=== PATIENT | male | born 1950 | race Caucasian/White ===

== ENCOUNTER 2024-11-17 19:45 | Emergency (ER) | payer MEDICARE, MEDICAID, SELFPAY ==
[2024-11-17 19:46] VITALS: BP 196/89; PULSE 92; TEMP 36.7; O2SAT 94; BMI 33.0
[2024-11-17] MEDS: LIDOCAINE HCL 1%-EPINEPHRINE 1:100,000 20 ML MDV INJ (20:01)
--- NOTE | 2024-11-17 20:05 | ED_ITS ---
HPI - Wound/Laceration General Chief Complaint: Wound/Laceration Stated Complaint: Wound Check Time Seen by Provider: 11/17/24 19:45 Source: other Source comment: custodial report and EMS Mode of arrival: ambulance Limitations: other Limitations comment: Hard of hearing History of Present Illness HPI narrative: Patient is a 74-year-old male with a history of CVA who is currently anticoagulated with Eliquis presents to the emergency department for bleeding from a wound to the left cheek. 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 Tonight at the custodial where he resides, there was bleeding from the area where subcutaneous tissue was exposed. Patient denies any pain or other focal medical complaints. Nursing staff was not able to control the bleeding so they called 911. On arrival, the bleeding has stopped. Related Data Previous Rx's ?Medication ?Instructions ?Recorded cephalexin 500 mg capsule 500 mg PO Q8H 7 days #21 caps 11/17/24 Allergies Allergy/AdvReac Type Severity Reaction Status Date / Time No Known Drug Allergies Allergy Verified 11/17/24 19:48 Review of Systems ROS Constitutional Denies: fever or chills Ears, nose, mouth, and throat Denies: throat pain Cardiovascular Denies: chest pain Respiratory Denies: shortness of breath Gastrointestinal Denies: nausea or vomiting Integumentary/Breast Denies: rash Hematologic/Lymphatic Reports: easy bruising and easy bleeding PFSH PFSH Social History Little interest or pleasure in doing things: not at all Feeling down, depressed, or hopeless: not at all Exam Narrative Exam Narrative: Gen.: Awake, alert, in no distress Head: Normocephalic, atraumatic ENT: Moist mucous membranes, 2 cm circular wound to the left cheek with subcutaneous tissue exposure and minimal venous oozing noted from the inferior portion where the tissue was slightly more vascular. No arterial bleeding. Respiratory: No respiratory distress Extremities: Moves extremities equally Psych: Normal mood and affect Neuro: No focal neuro deficit Skin: Warm, dry, intact Constitutional Vital Signs, click to edit/add: Last Vital Signs Temp 98.1 F 11/17/24 19:46 Pulse 92 H 11/17/24 19:46 Resp 16 11/17/24 19:46 BP 196/89 H 11/17/24 19:46 Pulse Ox 94 L 11/17/24 19:46 O2 Del Method Room Air 11/17/24 19:46 Course Vital Signs Vital signs: Vital Signs Temperature 98.1 F 11/17/24 19:46 Pulse Rate 92 H 11/17/24 19:46 Respiratory Rate 16 11/17/24 19:46 Blood Pressure 196/89 H 11/17/24 19:46 Pulse Oximetry 94 L 11/17/24 19:46 Oxygen Delivery Method Room Air 11/17/24 19:46 Temperature 98.1 F 11/17/24 19:46 Pulse Rate 92 H 11/17/24 19:46 Respiratory Rate 16 11/17/24 19:46 Blood Pressure 196/89 H 11/17/24 19:46 Pulse Oximetry 94 L 11/17/24 19:46 Oxygen Delivery Method Room Air 11/17/24 19:46 MDM - Wound/Laceration MDM Narrative Medical decision making narrative: 2 cc of 1% lidocaine with epi were injected, there was no residual bleeding or oozing. A 4-0 Ethilon suture was used to place 1 [id number] suture. There is complete cessation of bleeding after this. Suture should be removed in 7 to 10 days with PCP. As the procedure was 5 days ago, we will place the patient on Keflex as a precaution. Return to the ER if symptoms change or worsen SUPERVISED APC VISIT, PHYSICIAN ATTESTATION: Based on the medical record the care appears appropriate. ? Medical Records Attestation: I reviewed the patient's medical records. Discharge Plan Discharge Chief Complaint: Wound/Laceration Clinical Impression: Postoperative bleeding from incision Patient Disposition: Home, Self-Care Time of Disposition Decision: 20:03 Condition: Good Prescriptions / Home Meds: New cephalexin 500 mg capsule 500 mg PO Q8H 7 Days Qty: 21 0RF Print Language: Swedish Instructions: Acute Wounds (ED) Additional Instructions: Suture removed in 7-10 days with PCP Referrals: MATTHEW FRAZIER [Primary Care Provider] - 1 week
[2024-11-17] MEDS: CEPHALEXIN 500 MG CAPSULE PO (20:37)
[2024-11-17 20:39] VITALS: BP 169/89
[2024-11-17 22:13] VITALS: BP 166/80; PULSE 80; O2SAT 94
== END 2024-11-17 22:16 | disposition home or self-care (01) ==
PROVIDERS: Emergency Provider Emergency Medicine; PCP Family Medicine
DX: L76.21 Postprocedural hemorrhage of skin and subcutaneous tissue following a dermatologic procedure (principal); Z79.01 Long term (current) use of anticoagulants; Z86.73 Personal history of transient ischemic attack (TIA), and cerebral infarction without residual deficits
CPT/HCPCS: 12011; 99283

== ENCOUNTER 2025-04-08 20:46 | Inpatient (IN) | payer MEDICARE, MEDICAID, SELFPAY ==
[2025-04-08] VITALS (26 sets, daily range): BP systolic 76–157; BP diastolic 53–116; PULSE 138–159; TEMP 37.1; O2SAT 89–97; BMI 27.0
--- OUTSIDE RECORDS SUMMARY | 2025-04-08 20:52 | XMS_ITS | Patient Health Record ---
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 Name Role Phone None, Unknown or Primary Care Provider Unavailab le Allergies No Known Allergies Reason For Referral No Information Medications Medication SIG (Take, Route, Frequency, Duration) Notes Start Date End Date Status Melatonin 3 MG 1 tablet at bedtime as needed Orally Once a day for 30 day(s) Active busPIRone HCl 10 MG 1 tablet Orally TID Active Vitamin D3 50 MCG (2000 UT) 1 tablet Orally Once a day for 30 day(s) Active HumaLOG 100 UNIT/ML as directed Subcutaneous Active Zinc 220 (50 Zn) MG 1 capsule Orally Onc e a day for 30 day(s) Active traZODone HCl 50 MG 1/2 tablet at bedtim e as needed Orally Once a day Active Vitamin C 1000 MG 1 tablet Orally Once a day for 30 day(s) Active Magnesium Hydroxide 400 MG/5ML 5 ml at least 4 hours between doses as needed Orally Four times a day Active Multivitamin Adult - 1 tablet Orally Onc e a day for 30 day(s) Active amLODIPine Besylate 10 MG 1 tablet Orall y Once a day for 30 day(s) Active SEROquel 25 MG 1 tablet at bedtime Orally Once a day for 30 day(s) Active Voltaren 1 % as directed Externally Active MiraLax 17 GM 1 packet mixed with 8 ounces of fluid Orally Once a day for 30 day(s) Active Mirtazapine 7.5 MG 1 tablets at bedtime Orally Once a day Active metFORMIN HCl 500 MG 1 tablet with a rafy l Orally BID Active Metoprolol Tartrate 25 MG 1 tablet with food Orally Twice a day for 30 day(s) Active Clopidogrel Bisulfate 75 MG 1 tablet Orally Once a day for 30 day(s) 07/28/2021 Active Atorvastatin Calcium 40 MG 1 tablet Orally Once a day Active Immunizations Vaccine Route Administration Date Status Comme nts Flu, Fluzone (45192) 6 to 35 mos, multi-dose vial Unknown 08/10/2024 Administered Social History Tobacco Use: Social History Observation Description Date Details (start date - stop date) Former Smoker NA - NA Tobacco Use/Smoking Question Answer Notes Patient is a former smoker Problems Problem Type SNOMED Code ICD Code Onset Dates Problem Status W/U Status Risk Notes Problem Bipolar II disorder (17322034) Bipolar II disorder (F31.81) Active confirmed Problem Metabolic encephalopathy (23178873) Metabolic encephalopathy (G93.41) Active confirmed Problem Encephalopathy (12162195) Encephalopathy (G93.40) Active confirmed Problem Coronary artery disease (99863637) CAD (coronary artery disease) (I25.10) Active confirmed Problem Hypertension (90864726) HTN (hypertension) (I10) Active confirmed Problem Anxiety (95621909) Anxiety (F41.9) Active confi rmed Problem CVA - Cerebrovascular accident (846956542) CVA (cerebral vascular accident) (I63.9) Active confirmed Problem Bipolar 1 disorder (061413447) Bipolar 1 disorder (F31.9) Active confirmed Problem 64971576 Dementia without behavioral disturbance, unspecified dementia type (F03.90) Active confirmed Problem Diabetes mellitus type 2 (disorder) (72245977) DM2 (diabetes mellitus, type 2) (E11.9) Active confirmed Problem Dysphagia (02368373) Dysphagia (R13.10) Active confirmed Problem Hearing problem (204380092) Hearing problem (H91.90) Active confirmed Problem Schizoaffective disorder (00121195) Schizoaffective disorder (F25.9) Active confirmed Problem Agitation (38877158) Agitation (R45.1) Active confirmed Problem Altered mental status (066124747) Mental status change (R41.82) Active confirmed Problem Altered mental status (296124924) Mental status alteration (R41.82) Active confirmed Problem Hyperglycemia due to type 2 diabetes mellitus (334824600121218) Hyperglycemia due to type 2 diabetes mellitus (E11.65) Active confirmed Problem 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) DM eye manif type II (E11.39) Active confirmed Problem Mixed anxiety and depressive disorder (875818364) Anxiety and depression (F41.9) Active confirmed Problem Metabolic encephalopathy (21123659) Encephalopathy, metabolic (G93.41) Active confirmed Problem Displacement of lumbar intervertebral disc without myelopathy (40439079) Herniation of right side of L4-L5 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) Active confirmed Problem Angina pectoris (725785176) Anginal pain (I20.9) Active confirmed Plan Of Treatment No Information Insurance Providers Payer Name Payer Address Payer Phone Subscriber Number Group Number Insured Name Patient Relationship to Insured Coverage Start Date Coverage End Date [place] [address] [place] [address] [id number] Brandon Reardon Self - patient is the insured 3 [place] [address] [place], [place] [id number] Brandon Reardon Self - patient is the insured 1 4 [employer] [place] [address] [place] [address] [id number] Brandon Reardon Self - patient is the insured 4 Medical (General) History Medical History History ICD Code Acute kidney injury Anxiety Bipolar disorder Diabetes type II, controlled Hypertension Hyperlipidemia Metabolic encephalopathy Stroke Surgical History Surgery Date(Month/Year) Cardiac surgery Hospitalization History Reason Date(Month/Year) [facility] 06/03/2021
--- OUTSIDE RECORDS SUMMARY | 2025-04-08 20:53 | XMS_ITS | CCD ---
Author Organization [facility] Care Team Providers Care Receiving Clerk Name Role Phone ZACKARY HAYNES Admitting Unavailable ZACKARY HAYNES Attending Unavailable MISC, DOCTOR Primary Care Unavailable ZACKARY HAYNES Consulting Unavailable Unavailable Primary Care Provider Unavailabl e Unavailable Primary Care Provider Unavailabl e Unavailable Primary Care Provider Unavailabl e Unavailable Primary Care Provider Unavailabl e Unavailable Primary Care Provider Unavailabl e FAHOURY, RANIA Referring Unavailable FAHOURY, RANIA Referring Unavailable FAHOURY, RANIA Referring Unavailable FAHOURY, RANIA Referring Unavailable FAHOURY, RANIA Referring Unavailable FAHOURY, RANIA Referring Unavailable FAHOURY, RANIA Referring Unavailable FAHOURY, RANIA Referring Unavailable EVANS DE LA ROSA Attending Unavailable NO PCP, NO PCP Primary Care Unavailable No Pcp, No Pcp Primary Care Provider Unavailabl e No Pcp, No Pcp Primary Care Provider Unavailabl e TUNG YOUNGZA S Referring Unavailable NO PCP, NO PCP Primary Care Unavailable Galo Brand Admitting Unavailable Galo Brand Attending Unavailable STEPHANIE HALL Attending Unavailable NO PCP, NO PCP Primary Care Unavailable NO PCP, NO PCP Primary Care Unavailable GALILEO DOWNEY Attending Unavailable JANET SANDERSON Admitting Unavailable ROSA DE SOUZA Referring Unavailable NO PCP, NO PCP Primary Care Unavailable GALILEO DOWNEY Attending Unavailable GALILEO DOWNEY Referring Unavailable JANET SANDERSON Attending Unavailable JANET SANDERSON Referring Unavailable NO PCP, NO PCP Primary Care Unavailable JANET SANDERSON Attending Unavailable JANET SANDERSON Referring Unavailable NO PCP, NO PCP Primary Care Unavailable JANET SANDERSON Referring Unavailable NO PCP, NO PCP Primary Care Unavailable Allergies Allergy Classification Reported Allergen(s) Allergy Type Date of Onset Reaction(s) Facility (18 sources) amLODIPine; Translations: [AMLODIPINE] Drug Allergy 02-20-2010 [facility] (18 sources) atorvastatin; Translations: [ATORVASTATIN] Drug Allergy 02-17-2015 [facility] (18 sources) Ibuprofen; Translations: [IBUPROFEN] Drug Allergy 08-03-2009 [facility] (18 sources) metFORMIN; Translations: [METFORMIN] Drug Allergy 05-08-2013 [facility] (18 sources) Pravastatin; Translations: [PRAVASTATIN] Drug Allergy 05-08-2013 [facility] (18 sources) Simvastatin; Translations: [SIMVASTATIN] Drug Allergy 02-20-2010 [facility] (18 sources) Terazosin; Translations: [TERAZOSIN] Drug Allergy 08-03-2009 Dizziness [facility] Medications Current Medications Medication Drug Class(es) Dates Sig (Normalized) Sig (Original) apixaban 5 mg oral tablet (19 sources) Factor Xa Inhibitor Start: 01-12-2024 End: 08-03-2024 take 1 tablet by mouth in the morning, then take 1 tablet by mouth at bedtime apixaban (ELIQUIS) 5 mg tablet Take 1 tablet (5 mg total) by mouth in the morning and 1 tablet (5 mg total) before bedtime. 01/12/2024 Active atorvastatin 40 mg oral tablet (20 sources) HMG-CoA Reductase Inhibitor Start: 08-26-2020 End: 08-03-2024 take 1 tablet by mouth once daily atorvastatin (LIPITOR) 40 mg tablet Take 1 tablet (40 mg total) by mouth daily. 08/26/2020 Active bisacodyl 10 mg rectal suppository (15 sources) Stimulant Laxative Start: 07-31-2024 End: 08-03-2024 bisacodyL (DULCOLAX) 10 mg suppository Insert 1 suppository (10 mg total) into the rectum daily as needed for constipation. 12 suppository 08/03/2024 Active clopidogrel 75 mg oral tablet (20 sources) P2Y12 Platelet Inhibitor Start: 12-16-2023 End: 08-03-2024 take 1 tablet by mouth in the morning clopidogreL (PLAVIX) 75 mg tablet Take 1 tablet (75 mg total) by mouth in the morning. 12/16/2023 Active docusate sodium 50 mg / sennosides, alf 8.6 mg oral tablet (18 sources) Start: 01-12-2024 take 2 tablets by mouth once daily sennosides-docusate sodium (SENOKOT-S) 8.6-50 mg Take 2 tablets by mouth nightly. 01/12/2024 Active 3 ml insulin lispro 100 unt/ml pen injector (20 sources) Insulin Analog Start: 07-31-2024 End: 08-02-2024 inject 1-5 [IU] by subcutaneous injection every six hours 1-5 Units, subcutaneous, Every 6 hours, First dose on Sat07/31/24 at 1500, Daytime hyperglycemia dosing. For blood glucose 151-200 mg/dL, give 1 unit. For blood glucose 201-250 mg/dL, give 2 units. For blood glucose 251-300 mg/dL, give 3 units. For blood glucose 301-350 mg/dL, give 4 units. For blood glucose 351-400 mg/dL, give 5 units. Give even if NPO or meals skipped. Do NOT give more often than every 4 hours when NPO. Notify prescriber if blood glucose greater than 400 mg/dL. Look-alike/sound-al felipe medication - verify indication for use. Prime with 2 units of insulin prior to administration. Prandial/supplement al Insulin. Pre-filled pens stable 28 days at room temperature. Insulin lispro should be administered within 15 minutes before or immediately after a meal. Start: 08-12-2020 End: 08-03-2024 inject 1-5 [IU] by subcutaneous injection four times daily at mealtime insulin lispro (HumaLOG) 100 unit/mL insulin pen Inject 1-5 Units under the skin 4 (four) times a day with meals and nightly. 15 mL 12 08/03/2024 Active Start: 08-12-2020 End: 08-03-2024 insulin lispro (HumaLOG) 100 unit/mL insulin pen SQ at night per scale: 201-250 : 2 units; 251-300 : 4; 301-350 : 6; 351-400 : 8. 1 Box 12 08/12/2020 08/03/2024 Discontinued (Stop Taking at Discharge) melatonin 3 mg oral tablet (19 sources) Start: 01-12-2024 End: 08-03-2024 take 1 tablet by mouth once daily as needed for sleep melatonin (CIRCADIN) tablet Take 1 tablet (3 mg total) by mouth nightly as needed for sleep. 01/12/2024 Active metFORMIN hydrochloride 500 mg oral tablet (19 sources) Biguanide take 1 tablet by mouth in the morning, then take 1 tablet by mouth at bedtime metFORMIN (GLUCOPHAGE) 500 mg tablet Take 1 tablet (500 mg total) by mouth in the morning and 1 tablet (500 mg total) before bedtime. Active polyethylene glycol 3350 10282 mg powder for oral solution (19 sources) Osmotic Laxative Start: 01-13-2024 End: 08-03-2024 polyethylene glycol (GLYCOLAX) 17 gram packet Take 17 g by mouth in the morning. 01/13/2024 Active QUEtiapine 25 mg oral tablet (18 sources) Atypical Antipsychotic Start: 01-12-2024 take 0.5 tablet by mouth once daily QUEtiapine (SEROquel) 25 mg tablet Take 0.5 tablets (12.5 mg total) by mouth nightly. 01/12/2024 Active Completed/Discontinued Medications Medication Drug Class(es) Dates Sig (Normalized) Sig (Original) busPIRone hydrochloride 5 mg oral tablet (20 sources) Start: 07-31-2024 End: 08-03-2024 take 5 mg by mouth twice daily 5 mg, oral, 2 times daily, First dose on Sat07/31/24 at 2100, Look-alike/sound- alike medication - verify indication for use. Avoid grapefruit juice. cholecalciferol 0.025 mg oral tablet (20 sources) Vitamin D Start: 08-02-2024 End: 08-03-2024 2,000 Units, oral, Daily, First dose on 08/02/24 at 0915, 1000 units = 25 mcg Start: 08-13-2020 take 1 tablet by [facility] once daily cholecalciferol, vitamin D3, 2,000 units tablet Take 1 tablet (2,000 Units total) by mouth daily. 08/13/2020 Active 24 hr dilTIAZem hydrochloride 180 mg extended release oral capsule (19 sources) Calcium Channel Emily Start: 08-02-2024 End: 08-03-2024 take 180 mg by mouth once daily 180 mg, oral, Daily, First dose (after last modification) on 08/02/24 at 0915, Hold if SBP Start: 01-13-2024 take 1 capsule by [facility] every twenty-four hours in the morning dilTIAZem CD (CARDIZEM CD) 240 mg 24 hr capsule Take 1 capsule (240 mg total) by mouth in the morning. 01/13/2024 Active glucagon (rdna) 1 mg injection (1 source) Antihypoglycemic Agent Start: 07-31-2024 End: 08-03-2024 1 mg, intramuscular, As needed, low blood sugar, blood glucose less than 70 mg/dL and unconscious or NPO without IV access., Starting on Sat07/31/24 at 1444, If conscious and not NPO, immediately follow with meal tray or high protein (7Grams) snack if tray not available. If NPO, initiate IV 5% Dextrose/Water at 100 mL/hr and contact prescriber for additional orders. If blood glucose is not greater than 70 mg/dL after initial treatment, repeat treatment. 50 ml glucose 500 mg/ml prefilled syringe (2 sources) Start: 07-31-2024 End: 08-03-2024 15 g, oral, As needed, low blood sugar, blood glucose less than 70 mg/dL, Starting on Sat07/31/24 at 1444, If patient conscious and taking PO. If blood glucose is not greater than 70 mg/dL after initial treatment, repeat treatment. Start: 07-31-2024 End: 08-03-2024 25 mL, intravenous, As neede d, low blood sugar, blood glucose less than 70 mg/dL and unconscious or NPO with IV access, Starting on Sat07/31/24 at 1444, Push over 1-3 minutes STAT. If conscious and not NPO, immediately follow with meal tray or high protein (7 grams) snack if tray not available. If NPO, initiate 5% dextrose in water at 100 mL/hr and contact prescriber for additional orders. If blood glucose is not greater than 70 mg/dL after initial treatment, repeat treatment. VESICANT (RED) Warning: HYPERTONIC solution. 3 ml insulin glargine 100 unt/ml pen injector (6 sources) Insulin Analog Start: 12-17-2023 End: 08-03-2024 insulin glargine,hum.rec.anlog (BASAGLAR KWIKPEN U-100 INSULIN) 100 unit/mL (3 mL) insulin pen Inject 26 Units under the skin in the morning. 12/17/2023 08/03/2024 Discontinued (Stop Taking at Discharge) iohexoL (OMNIPAQUE) 350 mg iodine/mL injection 100 mL (1 source) Start: 07-31-2024 End: 07-31-2024 100 mL, intravenous, Once in imaging, contrast, Starting on Sat07/31/24 at 1138, For 1 dose, VESICANT (RED) levalbuterol 2.5 mg/ml inhalation solution (19 sources) beta2-Adrene rgic Agonist Start: 08-02-2024 End: 08-03-2024 take 1.25 mg by inhalation every six hours as needed for wheezing Start: 01-12-2024 take 0.5 mL by inhal ation every six hours as needed for wheezing levalbuterol (XOPENEX) 1.25 mg/0.5 mL nebulizer solution Indications: Multifocal pneumonia Inhale 0.5 mL (1.25 mg total) by nebulization every 6 (six) hours as needed for wheezing. 01/12/2024 Active 50 ml magnesium sulfate 40 mg/ml injection (3 sources) Start: 08-01-2024 End: 08-03-2024 2,000 mg, intravenous, at 25 mL/hr, Administer over 120 Minutes, As needed, Magnesium level 1.7 to 1.9 mg/dL, or Ionized Magnesium level 0.45 to 0.5 mmol/L., Starting on 08/01/24 at 1711, Recheck magnesium level 4 hours after infusion complete. With each magnesium result continue the replacement orders as needed. Start: 08-01-2024 End: 08-03-2024 4,000 mg, intravenous, at 25 mL/hr, Administer over 240 Minutes, As needed, Magnesium level 1.6 mg/dL or less, or Ionized Magnesium level 0.44 mmol/L or less, Starting on 08/01/24 at 1711, Recheck magnesium level 4 hours after infusion complete. With each magnesium result continue the replacement orders as needed. Start: 07-31-2024 End: 07-31-2024 2,000 mg, intravenous, at 25 mL/hr, Administer over 120 Minutes, Once, On Sat07/31/24 at 1115, For 1 dose, Infuse each gram over 60 minutes. metoprolol tartrate 50 mg oral tablet (5 sources) beta-Adrenergic Emily Start: 01-12-2024 End: 08-03-2024 take 1 tablet by mouth in the morning, then take 1 tablet by mouth at bedtime metoprolol tartrate (LOPRESSOR) 50 mg tablet Take 1 tablet (50 mg total) by mouth in the morning and 1 tablet (50 mg total) before bedtime. 01/12/2024 08/03/2024 Discontinued (Stop Taking at Discharge) 2 ml ondansetron 2 mg/ml injection (1 source) Serotonin-3 Receptor Antagonist Start: 07-31-2024 End: 07-31-2024 4 mg, intravenous, Once, On Sat07/31/24 at 1020, For 1 dose, Administer over 2-5 minutes. perflutren lipid microspheres (DEFINITY) dilution injection 1.43 mg/10 mL (1 source) Start: 07-31-2024 End: 07-31-2024 2 mL, intravenous, As needed, contrast, Prior to Imaging, Starting on Sat07/31/24 at 1547, For 6 hours, Additional Imaging Orders, Dilute 1.3 mL of Definity with 8.7 mL 0.9% NaCl in 10 mL syringe Administer 2 mL perflutren (Definity) contrast if 2 contiguous segments of the LV are not well visualized. May repeat 2 mL dose until LV visualization is accomplished. Procedure total dose not to exceed 10 mL. Potassium Chloride (1 source) Start: 08-01-2024 End: 08-03-2024 potassium chloride (K-TAB,KLOR-CON) CR tablet 30-50 mEq 125 ml sodium chloride 9 mg/ml prefilled syringe (20 sources) Start: 07-31-2024 End: 07-31-2024 10 mL, intravenous, Once as needed, line care, for use for echo contrast only, Starting on Sat07/31/24 at 1547, For 6 hours, Additional Imaging Orders Start: 07-31-2024 End: 08-01-2024 take 75 mL intravenously every hour 75 mL/hr, intravenous, Continuous, Starting on Sat07/31/24 at 1515, For 10 hours Start: 07-31-2024 End: 08-03-2024 take 25 mL intravenously every hour as needed 25 mL, intravenous, at 100 mL/hr, Administer over 15 Minutes, As needed, line care, line care after IVPB administration, Starting on Sat07/31/24 at 1444 Start: 07-31-2024 End: 07-31-2024 80 mL, intravenous, Once in imaging, pre/post contrast, Starting on Sat07/31/24 at 1138, For 1 dose Start: 07-31-2024 End: 08-03-2024 10 mL, intravenous, As neede d, line care, Starting on Sat07/31/24 at 1138 Start: 01-12-2024 take 10 mL irrigatio n route every twelve hours sodium chloride 0.9 % injection Irrigate with 10 mL as directed every 12 (twelve) hours. 01/12/2024 Active sodium phosphate 20 mmol in sodium chloride 0.9 % 250 mL IVPB (1 source) Start: 08-01-2024 End: 08-03-2024 sodium phosphate 20 mmol in sodium chloride 0.9 % 250 mL IVPB Problems Active Problems Problem Classification Problem Date Documented Date Episodic/Chronic Acute cerebrovascular disease (20 sources) Cerebrovascular accident; Translations: [Cerebral infarction, unspecified] Onset: 06-02-2021 10-10-2024 Chronic Anxiety disorders (12 sources) Anxiety; Translations: [Anxiety disorder, unspecified] 09-04-2024 Chronic Cardiac dysrhythmias (20 sources) Nonsustained ventricular tachycardia ; Translations: [NSVT (nonsustained ventricular tachycardia)] Onset: 07-31-2020 07-31-2020 Chronic Chronic ulcer of skin (7 sources) Pressure ulcer of sacral region; Translations: [Pressure ulcer of sacral region, unspecified stage] Onset: 12-18-2024 12-18-2024 Chronic Coronary atherosclerosis and other heart disease (20 sources) Coronary arteriosclerosis; Translations: [Atherosclerotic heart disease of [place] coronary artery without angina pectoris] Onset: 07-31-2020 01-01-2024 Chronic Diabetes mellitus with complications (20 sources) Hyperglycemia due to type 2 diabetes mellitus; Translations: [Type 2 diabetes mellitus with hyperglycemia] Onset: 12-31-2023 01-01-2024 Chronic Diabetes mellitus without complication (20 sources) Type 2 diabetes mellitus without complications; Translations: [Diabetes mellitus without complication] Onset: 07-30-2016 Chronic Disorders of lipid metabolism (20 sources) Mixed hyperlipidemia; Translations: [Mixed hyperlipidemia] Onset: 01-01-2024 01-01-2024 Chronic Essential hypertension (20 sources) Essential (primary) hypertension; Translations: [Essential hypertension] Onset: 08-04-2020 Chronic Late effects of cerebrovascular disease (2 sources) Hemiplegia and hemiparesis following cerebral infarction affecting right dominant side; Translations: [Hemiplegia and hemiparesis following cerebral infarction affecting right dominant side] Onset: 05-07-2023 Chronic Mood disorders (15 sources) Bipolar disorder; Translations: [Bipolar disorder, unspecified] 10-10-2024 Chronic Other ear and sense organ disorders (3 sources) Other specified disorders of left ear; Translations: [OTHER SPECIFIED DISORDERS LEFT EAR] Onset: 03-29-2019 Episodic Other ear and sense organ disorders (1 source) Unspecified acute noninfective otitis externa, left ear; Translations: [UNS AC NONINFECT OTITIS EXTERNA LT] Onset: 03-31-2019 Episodic Other ear and sense organ disorders (1 source) Cellulitis of left external ear; Translations: [CELLULITIS OF LEFT EXTERNAL EAR] Onset: 03-31-2019 Episodic Other nervous system disorders (2 sources) Metabolic encephalopathy; Translations: [Metabolic encephalopathy] Onset: 04-24-2023 Chronic Other nervous system disorders (20 sources) Metabolic encephalopathy; Translations: [Metabolic encephalopathy] Onset: 08-18-2020 10-10-2024 Chronic Paralysis (2 sources) Hemiplegia, unspecified affecting unspecified side; Translations: [Hemiplegia, unspecified affecting unspecified side] Onset: 05-07-2023 Chronic Unclassified (1 source) 74M, Projectile chunky vomiting for 3 min, from [facility], altered, 147/69, 96%RA, 18, IV in. Onset: 07-31-2024 Past or Other Problems Problem Classification Problem Date Documented Da te Episodic/Chronic Acute and unspecified renal failure (18 sources) Acute renal failure syndrome; Translations: [Acute kidney failure, unspecified] Onset: 08-18-2020 08-18-2020 Episodic Biliary tract disease (19 sources) Acute cholecystitis; Translations: [Acute cholecystitis] Onset: 12-31-2023 01-01-2024 Episodic Intestinal obstruction without hernia (18 sources) Intestinal obstruction co-occurrent and due to decreased peristalsis; Translations: [Ileus, unspecified] Onset: 01-01-2024 01-01-2024 Episodic Nausea and vomiting (1 source) Vomiting Onset: 07-31-2024 Episodic Neoplasms of unspecified nature or uncertain behavior (1 source) Neoplasm of uncertain behavior of skin; Translations: [Neoplasm of uncertain behavior of skin] 08-25-2024 Episodic Other connective tissue disease (18 sources) Rhabdomyolysis; Translations: [Rhabdomyolysis] Onset: 08-04-2020 08-04-2020 Episodic Other connective tissue disease (18 sources) Neurological symptom; Translations: [Unspecified symptoms and signs involving the nervous system] Onset: 09-17-2023 09-17-2023 Episodic Other skin disorders (9 sources) Xeroderma; Translations: [Xerosis cutis] Onset: 09-13-2024 09-13-2024 Episodic Pneumonia (except that caused by tuberculosis or sexually transmitted disease) (18 sources) Pneumonia; Translations: [Pneumonia, unspecified organism] Onset: 12-31-2023 Resolved: 10-10-2024 10-10-2024 Episodic Respiratory failure; insufficiency; arrest (adult) (18 sources) Acute respiratory failure; Translations: [Acute respiratory failure with hypoxia] Onset: 01-01-2024 Resolved: 01-18-2025 01-07-2024 Episodic Septicemia (except in labor) (19 sources) Sepsis; Translations: [Sepsis, unspecified organism] Onset: 01-01-2024 Resolved: 10-10-2024 10-10-2024 Episodic Syncope (18 sources) Syncope; Translations: [Syncope and collapse] Onset: 07-31-2024 07-31-2024 Episodic Urinary tract infections (18 sources) Acute cystitis; Translations: [Acute cystitis without hematuria] Onset: 08-18-2020 08-18-2020 Episodic Viral infection (20 sources) Disease caused by 2019-nCoV; Translations: [COVID-19] Onset: 07-31-2020 08-18-2020 Episodic Results Test Name Value Interpretation Reference Range Facility CBC AND AUTO DIFFon 08-03-20 ABSOLUTE BASOPHIL 0.0 X10E9/L Normal 0.0-0.2 [facility] Comment on above: Performed By: #### C BCA, CMP, 3040-3, 70859-0, 63176-3, 78499- 1 #### [facility] ([id number]) [address] [place] [address] ABSOLUTE NEUTROPHIL 5.8 X10E9/L Normal 1.5-6.6 [facility] Comment on above: Performed By: #### C BCA, CMP, 3040-3, 79328-7, 50700-9, 25073- 1 #### [facility] ([id number]) [address] [place] [address] Basophils/100 WBC (Bld) 0.5 % Normal [facility] Comment on above: Performed By: #### C BCA, CMP, 3040-3, 08492-2, 74198-5, 03146- 1 #### [facility] ([id number]) [address] [place] [address] Eosinophils (Bld) [#/Vol] 0.2 10*3/uL Normal 0.0-0.4 [facility] Comment on above: Performed By: #### C BCA, CMP, 3040-3, 73121-1, 86616-1, 73545- 1 #### [facility] ([id number]) [address] [place] [address] Eosinophils/100 WBC (Bld) 2.1 % Normal [facility] Comment on above: Performed By: #### C BCA, CMP, 3040-3, 95991-1, 87310-7, 47098- 1 #### [facility] ([id number]) [address] [place] [address] Erythrocyte distribution width (RBC) [Ratio] 15.8 % High 11.5-15.0 [facility] Comment on above: Performed By: #### C BCA, CMP, 3040-3, 72603-9, 14848-8, 14574- 1 #### [facility] ([id number]) [address] [place] [address] Hematocrit (Bld) [Volume fraction] 35.9 % Low 39-49 [facility] Comment on above: Performed By: #### C BCA, CMP, 3040-3, 88754-5, 84229-1, 10286- 1 #### [facility] ([id number]) [address] [place] [address] Hemoglobin (Bld) [Mass/Vol] 12.5 g/dL Low 13.0-17.0 [facility] Comment on above: Performed By: #### C BCA, CMP, 3040-3, 54272-1, 73830-7, 19750- 1 #### [facility] ([id number]) [facility] [place] [address] Lymphocytes (Bld) [#/Vol] 2.2 10*3/uL Normal 1.0-3.5 [facility] Comment on above: Performed By: #### C BCA, CMP, 3040-3, 78950-4, 81441-6, 29350- 1 #### [facility] ([id number]) [facility] [place] [address] Lymphocytes/100 WBC (Bld) 24.7 % Normal [facility] Comment on above: Performed By: #### C BCA, CMP, 3040-3, 90580-4, 03197-9, 56422- 1 #### [facility] ([id number]) [facility] [place] [address] MCH (RBC) [Entitic mass] 29.6 pg Normal 27-34 [facility] Comment on above: Performed By: #### C BCA, CMP, 3040-3, 40631-6, 37634-0, 63529- 1 #### [facility] ([id number]) [address] [place] [address] MCHC (RBC) [Mass/Vol] 34.8 g/dL Normal 32-36 [facility] Comment on above: Performed By: #### C BCA, CMP, 3040-3, 48669-1, 21675-4, 25234- 1 #### [facility] ([id number]) [address] [place] [address] MCV (RBC) [Entitic vol] 85 fL Normal 80-100 [facility] Comment on above: Performed By: #### C BCA, CMP, 3040-3, 05253-9, 09866-2, 55931- 1 #### [facility] ([id number]) [address] [place] [address] Monocytes (Bld) [#/Vol] 0.7 10*3/uL Normal 0-0.9 [facility] Comment on above: Performed By: #### C BCA, CMP, 3040-3, 16803-6, 89407-4, 66132- 1 #### [facility] ([id number]) [facility] [place] [address] Monocytes/100 WBC (Bld) 7.6 % Normal [facility] Comment on above: Performed By: #### C BCA, CMP, 3040-3, 72666-4, 16926-3, 24660- 1 #### [facility] ([id number]) [facility] [place] [address] Neutrophils/100 WBC (Bld) 65.1 % Normal [facility] Comment on above: Performed By: #### C BCA, CMP, 3040-3, 79098-9, 28610-2, 46978- 1 #### [facility] ([id number]) [facility] [place] [address] Platelet mean volume (Bld) [Entitic vol] 7.8 fL Normal 7-12 [facility] Comment on above: Performed By: #### C BCA, CMP, 3040-3, 15224-1, 15944-4, 85966- 1 #### [facility] ([id number]) [facility] [place] [address] Platelets (Bld) [#/Vol] 181 10*3/uL Normal 150-450 [facility] Comment on above: Performed By: #### C BCA, CMP, 3040-3, 83369-7, 10803-1, 22565- 1 #### [facility] ([id number]) [address] [place] [address] RBC COUNT 4.22 X10E12/L Normal 4.10-5.70 [facility] Comment on above: Performed By: #### C BCA, CMP, 3040-3, 14492-9, 00696-4, 77141- 1 #### [facility] ([id number]) [address] [place] [address] WBC (Bld) [#/Vol] 9.0 10*3/uL Normal 4.0-11.0 [facility] Comment on above: Performed By: #### C BCA, CMP, 3040-3, 88018-8, 33571-7, 82644- 1 #### [facility] ([id number]) [address] [place] [address] CBC auto differentialon 07-21 Basophils (Bld) [#/Vol] 0.0 10*3/uL [facility] Basophils/100 WBC (Bld) 0.5 % [facility] Eosinophils (Bld) [#/Vol] 0.2 10*3/uL [facility] Eosinophils/100 WBC (Bld) 2.1 % [facility] Erythrocyte distribution width (RBC) [Ratio] 15.8 % High 11.5 - 15.0 % [facility] Hematocrit (Bld) [Volume fraction] 35.9 % Low 39 - 49 % [facility] Hemoglobin (Bld) [Mass/Vol] 12.5 g/dL Low 13.0 - 17.0 g/dL [facility] Interpretation and review of laboratory results Abnormal [facility] Lymphocytes (Bld) [#/Vol] 2.2 10*3/uL [facility] Lymphocytes/100 WBC (Bld) 24.7 % [facility] MCH (RBC) [Entitic mass] 29.6 pg 27 - 34 pg [facility] MCHC (RBC) [Mass/Vol] 34.8 g/dL 32 - 36 g/dL [facility] MCV (RBC) [Entitic vol] 85 fL 80 - 100 fL [facility] Monocytes (Bld) [#/Vol] 0.7 10*3/uL [facility] Monocytes/100 WBC (Bld) 7.6 % [facility] Neutrophils (Bld) [#/Vol] 5.8 10*3/uL [facility] Neutrophils/100 WBC (Bld) 65.1 % [facility] Platelet mean volume (Bld) [Entitic vol] 7.8 fL 7 - 12 fL [facility] Platelets (Bld) [#/Vol] 181 10*3/uL [facility] RBC (Bld) [#/Vol] 4.22 10*6/uL [facility] WBC corrected for nucl RBC Auto (Bld) [#/Vol] 9.0 [facility] COMPREHENSIVE METABOLIC PANE Domenico 08-03-2024 Albumin [Mass/Vol] 3.6 g/dL Normal 3.2-5.3 [facility] Comment on above: Performed By: #### C BCA, CMP, 3040-3, 99383-9, 70567-2, 51800- 1 #### [facility] ([id number]) [facility] [place] [address] ALP [Catalytic activity/Vol] 72 U/L Normal 39-130 [facility] Comment on above: Performed By: #### C BCA, CMP, 3040-3, 78495-2, 58597-7, 38126- 1 #### [facility] ([id number]) [address] [place] [address] ALT [Catalytic activity/Vol] 7 U/L Normal 0-40 [facility] Comment on above: Performed By: #### C BCA, CMP, 3040-3, 79510-4, 47673-0, 87699- 1 #### [facility] ([id number]) [address] [place] [address] Anion gap [Moles/Vol] 8 mmol/L Normal 5-15 [facility] Comment on above: Performed By: #### C BCA, CMP, 3040-3, 37377-1, 25559-3, 32205- 1 #### [facility] ([id number]) [address] [place] [address] AST [Catalytic activity/Vol] 9 U/L Normal 0-41 [facility] Comment on above: Performed By: #### C BCA, CMP, 3040-3, 31402-9, 43774-7, 28543- 1 #### [facility] ([id number]) [address] [place] [address] Bilirubin [Mass/Vol] 0.6 mg/dL Normal 0.3-1.2 [facility] Comment on above: Performed By: #### C BCA, CMP, 3040-3, 54914-1, 21725-3, 17457- 1 #### [facility] ([id number]) [address] [place] [address] Calcium [Mass/Vol] 8.9 mg/dL Normal 8.5-10.5 [facility] Comment on above: Performed By: #### C BCA, CMP, 3040-3, 65539-8, 11746-0, 53733- 1 #### [facility] ([id number]) [address] [place] [address] Chloride [Moles/Vol] 107 mmol/L Normal 98-109 [facility] Comment on above: Performed By: #### C BCA, CMP, 3040-3, 24760-3, 74302-0, 70377- 1 #### [facility] ([id number]) [address] [place] [address] CO2 [Moles/Vol] 23 mmol/L Normal 22-32 [facility] Comment on above: Performed By: #### C BCA, CMP, 3040-3, 91490-3, 59376-1, 75053- 1 #### [facility] ([id number]) [address] [place] [address] Creatinine [Mass/Vol] 0.83 mg/dL Normal 0.60-1.30 [facility] Comment on above: Result Comment: METH OD TRACEABLE TO IDMS STANDARD Performed By: #### C BCA, CMP, 3040-3, 43965-2, 82361-0, 15199-6 #### [facility] ([id number]) [address] [facility] [address] eGFR (CKD-EPI) NON-RACE DEPENDENT >90 Normal >59 [facility] Comment on above: Result Comment: Reported eGFR is based on the CKD-EPI 2020 equation that does not use a race coefficient. Performed By: #### C BCA, CMP, 3040-3, 23929-0, 46424-8, 52804-8 #### [facility] ([id number]) [address] [place] [address] Glucose [Mass/Vol] 175 mg/dL High 65-99 [facility] Comment on above: Performed By: #### C BCA, CMP, 3040-3, 97516-6, 18049-6, 59587- 1 #### [facility] ([id number]) [address] [place] [address] Potassium [Moles/Vol] 4.1 mmol/L Normal 3.5-5.0 [facility] Comment on above: Performed By: #### C BCA, CMP, 3040-3, 40470-9, 74327-9, 17190- 1 #### [facility] ([id number]) [address] [place] [address] Protein [Mass/Vol] 5.9 g/dL Low 6.0-8.0 [facility] Comment on above: Performed By: #### C BCA, CMP, 3040-3, 38665-6, 58786-3, 43833- 1 #### [facility] ([id number]) [address] [facility] [address] Sodium [Moles/Vol] 138 mmol/L Normal 134-146 [facility] Comment on above: Performed By: #### C BCA, CMP, 3040-3, 33737-0, 16145-8, 06112- 1 #### [facility] ([id number]) [address] [place] [address] Urea nitrogen [Mass/Vol] 22 mg/dL Normal 5-27 [facility] Comment on above: Performed By: #### C BCA, CMP, 3040-3, 70087-4, 48408-8, 94103- 1 #### [facility] ([id number]) [address] [place] [address] Comprehensive metabolic pane domenico 08-03-2024 Albumin [Mass/Vol] 3.6 g/dL 3.2 - 5.3 g/dL [facility] ALP [Catalytic activity/Vol] 72 U/L 39 - 130 U/L [facility] ALT No additional P-5'-P [Catalytic activity/Vol] 7 U/L 0 - 40 U/L [facility] Anion gap [Moles/Vol] 8 mmol/L 5 - 15 mmol/L [facility] AST [Catalytic activity/Vol] 9 U/L 0 - 41 U/L [facility] Bilirubin [Mass/Vol] 0.6 mg/dL 0.3 - 1 .2 mg/dL [facility] Calcium [Mass/Vol] 8.9 mg/dL 8.5 - 10. 5 mg/dL [facility] Chloride [Moles/Vol] 107 mmol/L 98 - 10 9 mmol/L [facility] CO2 [Moles/Vol] 23 mmol/L 22 - 32 mmol/L [facility] Creatinine [Mass/Vol] 0.83 mg/dL 0.60 - 1.30 mg/dL [facility] Comment on above: METHOD TRACEABLE TO IDMS STANDARD eGFR (CKD-EPI)non-race dependent - PINF [facility] Comment on above: Reported eGFR is based on the CKD-EPI 2020 equation that does not use a race coefficient. Glucose [Mass/Vol] 175 mg/dL High 65 - 99 mg/dL [facility] Potassium [Moles/Vol] 4.1 mmol/L 3.5 - 5.0 mmol/L [facility] Protein [Mass/Vol] 5.9 g/dL Low 6.0 - 8.0 g/dL [facility] Sodium [Moles/Vol] 138 mmol/L 134 - 146 mmol/L [facility] Urea nitrogen [Mass/Vol] 22 mg/dL 5 - 27 mg/dL [facility] Glucose Glucometer (BldC) [M ass/Vol]on 08-03-2024 Glucose [Mass/Vol] 150 mg/dL High 65 - 99 mg/dL [facility] Interpretation and review of laboratory results Abnormal [facility] Glucose [Mass/Vol] 150 mg/dL High 65-99 [facility] Glucose [Mass/Vol] 161 mg/dL High 65 - 99 mg/dL [facility] Interpretation and review of laboratory results Abnormal [facility] Glucose [Mass/Vol] 161 mg/dL High 65-99 [facility] MAGNESIUMon 08-03-2024 Magnesium [Mass/Vol] 1.7 mg/dL Low 1.8-2.6 [facility] Comment on above: Performed By: #### C BCA, CMP, 3040-3, 22357-4, 69219-1, 12920- 1 #### [facility] ([id number]) [address] [place] [address] Magnesiumon 08-03-2024 Magnesium [Mass/Vol] 1.7 mg/dL Low 1.8 - 2 .6 mg/dL [facility] No Panel Informationon 08-03 Interpretation and review of laboratory results Abnormal [facility] CBC AND AUTO DIFFon 08-02-20 24 ABSOLUTE BASOPHIL 0.0 X10E9/L Normal 0.0-0.2 [facility] Comment on above: Performed By: #### C BCA, CMP, 3040-3, 84974-2, 25140-6, 28472- 1 #### [facility] ([id number]) [address] [place] [address] ABSOLUTE NEUTROPHIL 5.5 X10E9/L Normal 1.5-6.6 [facility] Comment on above: Performed By: #### C BCA, CMP, 3040-3, 06230-7, 22392-4, 98834- 1 #### [facility] ([id number]) [facility] [place] [address] Basophils/100 WBC (Bld) 0.4 % Normal [facility] Comment on above: Performed By: #### C BCA, CMP, 3040-3, 43340-9, 61714-9, 46516- 1 #### [facility] ([id number]) [facility] [place] [address] Eosinophils (Bld) [#/Vol] 0.1 10*3/uL Normal 0.0-0.4 [facility] Comment on above: Performed By: #### C BCA, CMP, 3040-3, 43414-3, 20926-6, 61548- 1 #### [facility] ([id number]) [address] [place] [address] Eosinophils/100 WBC (Bld) 1.5 % Normal [facility] Comment on above: Performed By: #### C BCA, CMP, 3040-3, 51628-6, 31202-7, 06100- 1 #### [facility] ([id number]) [address] [place] [address] Erythrocyte distribution width (RBC) [Ratio] 15.4 % High 11.5-15.0 [facility] Comment on above: Performed By: #### C BCA, CMP, 3040-3, 85683-9, 37189-4, 57245- 1 #### [facility] ([id number]) [facility] [place] [address] Hematocrit (Bld) [Volume fraction] 37.0 % Low 39-49 [facility] Comment on above: Performed By: #### C BCA, CMP, 3040-3, 19532-5, 95701-7, 78666- 1 #### [facility] ([id number]) [address] [place] [address] Hemoglobin (Bld) [Mass/Vol] 12.6 g/dL Low 13.0-17.0 [facility] Comment on above: Performed By: #### C BCA, CMP, 3040-3, 97062-2, 90242-0, 76708- 1 #### [facility] ([id number]) [address] [place] [address] Lymphocytes (Bld) [#/Vol] 2.0 10*3/uL Normal 1.0-3.5 [facility] Comment on above: Performed By: #### C BCA, CMP, 3040-3, 23633-5, 73968-2, 66159- 1 #### [facility] ([id number]) [address] [place] [address] Lymphocytes/100 WBC (Bld) 24.0 % Normal [facility] Comment on above: Performed By: #### C BCA, CMP, 3040-3, 77385-8, 91338-9, 15402- 1 #### [facility] ([id number]) [address] [place] [address] MCH (RBC) [Entitic mass] 28.8 pg Normal 27-34 [facility] Comment on above: Performed By: #### C BCA, CMP, 3040-3, 58923-0, 80336-5, 26368- 1 #### [facility] ([id number]) [address] [place] [address] MCHC (RBC) [Mass/Vol] 34.0 g/dL Normal 32-36 [facility] Comment on above: Performed By: #### C BCA, CMP, 3040-3, 69960-2, 34274-5, 67943- 1 #### [facility] ([id number]) [address] [place] [address] MCV (RBC) [Entitic vol] 85 fL Normal 80-100 [facility] Comment on above: Performed By: #### C BCA, CMP, 3040-3, 72020-6, 77104-5, 15185- 1 #### [facility] ([id number]) [address] [place] [address] Monocytes (Bld) [#/Vol] 0.6 10*3/uL Normal 0-0.9 [facility] Comment on above: Performed By: #### C BCA, CMP, 3040-3, 49505-8, 16985-2, 17366- 1 #### [facility] ([id number]) [address] [place] [address] Monocytes/100 WBC (Bld) 7.6 % Normal [facility] Comment on above: Performed By: #### C BCA, CMP, 3040-3, 70437-0, 93792-4, 38449- 1 #### [facility] ([id number]) [facility] [place] [address] Neutrophils/100 WBC (Bld) 66.5 % Normal [facility] Comment on above: Performed By: #### C BCA, CMP, 3040-3, 13419-9, 45792-6, 63646- 1 #### [facility] ([id number]) [facility] [place] [address] Platelet mean volume (Bld) [Entitic vol] 8.0 fL Normal 7-12 [facility] Comment on above: Performed By: #### C BCA, CMP, 3040-3, 55593-5, 79637-4, 67443- 1 #### [facility] ([id number]) [address] [place] [address] Platelets (Bld) [#/Vol] 177 10*3/uL Normal 150-450 [facility] Comment on above: Performed By: #### C BCA, CMP, 3040-3, 16708-4, 15917-5, 16584- 1 #### [facility] ([id number]) [address] [place] [address] RBC COUNT 4.38 X10E12/L Normal 4.10-5.70 [facility] Comment on above: Performed By: #### C BCA, CMP, 3040-3, 14429-2, 68429-4, 11951- 1 #### [facility] ([id number]) [address] [place] [address] WBC (Bld) [#/Vol] 8.3 10*3/uL Normal 4.0-11.0 [facility] Comment on above: Performed By: #### C BCA, CMP, 3040-3, 18374-7, 34076-7, 91109- 1 #### [facility] ([id number]) [address] [place] [address] CBC auto differentialon 07-21 Basophils (Bld) [#/Vol] 0.0 10*3/uL [facility] Basophils/100 WBC (Bld) 0.4 % [facility] Eosinophils (Bld) [#/Vol] 0.1 10*3/uL [facility] Eosinophils/100 WBC (Bld) 1.5 % [facility] Erythrocyte distribution width (RBC) [Ratio] 15.4 % High 11.5 - 15.0 % [facility] Hematocrit (Bld) [Volume fraction] 37.0 % Low 39 - 49 % [facility] Hemoglobin (Bld) [Mass/Vol] 12.6 g/dL Low 13.0 - 17.0 g/dL [facility] Interpretation and review of laboratory results Abnormal [facility] Lymphocytes (Bld) [#/Vol] 2.0 10*3/uL [facility] Lymphocytes/100 WBC (Bld) 24.0 % [facility] MCH (RBC) [Entitic mass] 28.8 pg 27 - 34 pg [facility] MCHC (RBC) [Mass/Vol] 34.0 g/dL 32 - 36 g/dL [facility] MCV (RBC) [Entitic vol] 85 fL 80 - 100 fL [facility] Monocytes (Bld) [#/Vol] 0.6 10*3/uL [facility] Monocytes/100 WBC (Bld) 7.6 % [facility] Neutrophils (Bld) [#/Vol] 5.5 10*3/uL [facility] Neutrophils/100 WBC (Bld) 66.5 % [facility] Platelet mean volume (Bld) [Entitic vol] 8.0 fL 7 - 12 fL [facility] Platelets (Bld) [#/Vol] 177 10*3/uL [facility] RBC (Bld) [#/Vol] 4.38 10*6/uL [facility] WBC corrected for nucl RBC Auto (Bld) [#/Vol] 8.3 [facility] COMPREHENSIVE METABOLIC PANE Domenico 08-02-2024 Albumin [Mass/Vol] 3.6 g/dL Normal 3.2-5.3 [facility] Comment on above: Performed By: #### C BCA, CMP, 3040-3, 62497-5, 59984-1, 24383- 1 #### [facility] ([id number]) [facility] [place] [address] ALP [Catalytic activity/Vol] 77 U/L Normal 39-130 [facility] Comment on above: Performed By: #### C BCA, CMP, 3040-3, 21280-9, 59858-1, 70710- 1 #### [facility] ([id number]) [address] [place] [address] ALT [Catalytic activity/Vol] 7 U/L Normal 0-40 [facility] Comment on above: Performed By: #### C BCA, CMP, 3040-3, 69959-9, 40789-5, 68548- 1 #### [facility] ([id number]) [facility] [place] [address] Anion gap [Moles/Vol] 7 mmol/L Normal 5-15 [facility] Comment on above: Performed By: #### C BCA, CMP, 3040-3, 37150-5, 56661-6, 76610- 1 #### [facility] ([id number]) [address] [place] [address] AST [Catalytic activity/Vol] 10 U/L Normal 0-41 [facility] Comment on above: Performed By: #### C BCA, CMP, 3040-3, 72998-2, 06488-0, 82736- 1 #### [facility] ([id number]) [address] [place] [address] Bilirubin [Mass/Vol] 0.5 mg/dL Normal 0.3-1.2 [facility] Comment on above: Performed By: #### C BCA, CMP, 3040-3, 26851-5, 55298-6, 84822- 1 #### [facility] ([id number]) [address] [place] [address] Calcium [Mass/Vol] 9.0 mg/dL Normal 8.5-10.5 [facility] Comment on above: Performed By: #### C BCA, CMP, 3040-3, 58299-4, 55283-7, 16995- 1 #### [facility] ([id number]) [address] [place] [address] Chloride [Moles/Vol] 108 mmol/L Normal 98-109 [facility] Comment on above: Performed By: #### C BCA, CMP, 3040-3, 85358-1, 85052-3, 49294- 1 #### [facility] ([id number]) [address] [place] [address] CO2 [Moles/Vol] 24 mmol/L Normal 22-32 [facility] Comment on above: Performed By: #### C BCA, CMP, 3040-3, 67852-4, 60465-4, 23308- 1 #### [facility] ([id number]) [address] [place] [address] Creatinine [Mass/Vol] 0.86 mg/dL Normal 0.60-1.30 [facility] Comment on above: Result Comment: METH OD TRACEABLE TO IDMS STANDARD Performed By: #### C BCA, CMP, 3040-3, 86563-0, 44363-8, 46625-7 #### [facility] ([id number]) [address] [place] [address] GFR/1.73 sq M.predicted among non-blacks MDRD (S/P/Bld) [Vol rate/Area] 90 mL/min/{1.73_m2} Normal >59 [facility] Comment on above: Result Comment: Reported eGFR is based on the CKD-EPI 2020 equation that does not use a race coefficient. Performed By: #### C BCA, CMP, 3040-3, 04080-7, 93174-7, 68590-4 #### [facility] ([id number]) [address] [place] [address] Glucose [Mass/Vol] 179 mg/dL High 65-99 [facility] Comment on above: Performed By: #### C BCA, CMP, 3040-3, 64320-7, 67101-6, 89264- 1 #### [facility] ([id number]) [address] [place] [address] Potassium [Moles/Vol] 4.1 mmol/L Normal 3.5-5.0 [facility] Comment on above: Performed By: #### C BCA, CMP, 3040-3, 41873-4, 48940-2, 05921- 1 #### [facility] ([id number]) [address] [place] [address] Protein [Mass/Vol] 6.0 g/dL Normal 6.0-8.0 [facility] Comment on above: Performed By: #### C BCA, CMP, 3040-3, 23210-2, 54555-6, 46642- 1 #### [facility] ([id number]) [address] [place] [address] Sodium [Moles/Vol] 139 mmol/L Normal 134-146 [facility] Comment on above: Performed By: #### C BCA, CMP, 3040-3, 23547-7, 66359-6, 33745- 1 #### [facility] ([id number]) [address] [place] [address] Urea nitrogen [Mass/Vol] 21 mg/dL Normal 5-27 [facility] Comment on above: Performed By: #### C BCA, CMP, 3040-3, 10065-2, 95287-0, 25900- 1 #### [facility] ([id number]) [address] [place] [address] Comprehensive metabolic pane domenico 08-02-2024 Albumin [Mass/Vol] 3.6 g/dL 3.2 - 5.3 g/dL [facility] ALP [Catalytic activity/Vol] 77 U/L 39 - 130 U/L [facility] ALT No additional P-5'-P [Catalytic activity/Vol] 7 U/L 0 - 40 U/L [facility] Anion gap [Moles/Vol] 7 mmol/L 5 - 15 mmol/L [facility] AST [Catalytic activity/Vol] 10 U/L 0 - 41 U/L [facility] Bilirubin [Mass/Vol] 0.5 mg/dL 0.3 - 1 .2 mg/dL [facility] Calcium [Mass/Vol] 9.0 mg/dL 8.5 - 10. 5 mg/dL [facility] Chloride [Moles/Vol] 108 mmol/L 98 - 10 9 mmol/L [facility] CO2 [Moles/Vol] 24 mmol/L 22 - 32 mmol/L [facility] Creatinine [Mass/Vol] 0.86 mg/dL 0.60 - 1.30 mg/dL [facility] Comment on above: METHOD TRACEABLE TO IDMI STANDARD eGFR (CKD-EPI)non-race dependent 90 - PINF [facility] Comment on above: Reported eGFR is based on the CKD-EPI 2020 equation that does not use a race coefficient. Glucose [Mass/Vol] 179 mg/dL High 65 - 99 mg/dL [facility] Interpretation and review of laboratory results Abnormal [facility] Potassium [Moles/Vol] 4.1 mmol/L 3.5 - 5.0 mmol/L [facility] Protein [Mass/Vol] 6.0 g/dL 6.0 - 8.0 g/dL [facility] Sodium [Moles/Vol] 139 mmol/L 134 - 146 mmol/L [facility] Urea nitrogen [Mass/Vol] 21 mg/dL 5 - 27 mg/dL [facility] Glucose Glucometer (BldC) [M ass/Vol]on 08-02-2024 Glucose [Mass/Vol] 167 mg/dL High 65 - 99 mg/dL [facility] Interpretation and review of laboratory results Abnormal [facility] Glucose [Mass/Vol] 167 mg/dL High 65-99 [facility] Glucose [Mass/Vol] 243 mg/dL High 65 - 99 mg/dL [facility] Interpretation and review of laboratory results Abnormal [facility] Glucose [Mass/Vol] 243 mg/dL High 65-99 [facility] Glucose [Mass/Vol] 185 mg/dL High 65 - 99 mg/dL [facility] Interpretation and review of laboratory results Abnormal [facility] Glucose [Mass/Vol] 185 mg/dL High 65-99 [facility] Glucose [Mass/Vol] 148 mg/dL High 65 - 99 mg/dL [facility] Interpretation and review of laboratory results Abnormal [facility] Glucose [Mass/Vol] 148 mg/dL High 65-99 [facility] Glucose [Mass/Vol] 198 mg/dL High 65 - 99 mg/dL [facility] Interpretation and review of laboratory results Abnormal [facility] Glucose [Mass/Vol] 198 mg/dL High 65-99 [facility] Glucose [Mass/Vol] 250 mg/dL High 65 - 99 mg/dL [facility] Interpretation and review of laboratory results Abnormal [facility] MAGNESIUMon 08-02-2024 Magnesium [Mass/Vol] 1.9 mg/dL Normal 1.8-2.6 [facility] Comment on above: Performed By: #### C BCA, CMP, 6946-4, 61339-9, 37132-3, 63950- 1 #### [facility] ([id number]) [address] [place] [address] Magnesium [Mass/Vol] 1.8 mg/dL Normal 1.8-2.6 [facility] Comment on above: Performed By: #### C BCA, CMP, 3040-3, 88527-1, 63735-2, 06524- 1 #### [facility] ([id number]) [address] [place] [address] Magnesiumon 08-02-2024 Magnesium [Mass/Vol] 1.9 mg/dL 1.8 - 2 .6 mg/dL [facility] Magnesium [Mass/Vol] 1.8 mg/dL 1.8 - 2 .6 mg/dL [facility] Magnesium [Mass/Vol]on 08-02 [facility] No Panel Informationon 08-02 [facility] CBC AND AUTO DIFFon 08-01-20 24 ABSOLUTE BASOPHIL 0.0 X10E9/L Normal 0.0-0.2 [facility] Comment on above: Performed By: #### 6 32-0 #### [facility] ([id number]) [address] [facility] [place] [address] ABSOLUTE NEUTROPHIL 6.4 X10E9/L Normal 1.5-6.6 [facility] Comment on above: Performed By: #### 6 32-0 #### [facility] ([id number]) [address] [facility], [address] [place] [address] Basophils/100 WBC (Bld) 0.5 % Normal [facility] Comment on above: Performed By: #### 6 32-0 #### [facility] ([id number]) [address] [facility] [facility], [address] [place] [address] Eosinophils (Bld) [#/Vol] 0.1 10*3/uL Normal 0.0-0.4 [facility] Comment on above: Performed By: #### 6 32-0 #### [facility] ([id number]) [address], [address] [place] [address] Eosinophils/100 WBC (Bld) 1.4 % Normal [facility] Comment on above: Performed By: #### 6 32-0 #### [facility] ([id number]) [address], [address] [place] [address] Erythrocyte distribution width (RBC) [Ratio] 16.0 % High 11.5-15.0 [facility] Comment on above: Performed By: #### 6 32-0 #### [facility] ([id number]) [address], [facility] [address] [place] [address] Hematocrit (Bld) [Volume fraction] 37.7 % Low 39-49 [facility] Comment on above: Performed By: #### 6 32-0 #### [facility] ([id number]) [address] [place] [address] Hemoglobin (Bld) [Mass/Vol] 12.9 g/dL Low 13.0-17.0 [facility] Comment on above: Performed By: #### 6 32-0 #### [facility] ([id number]) [address], [address] [place] [address] Lymphocytes (Bld) [#/Vol] 2.5 10*3/uL Normal 1.0-3.5 [facility] Comment on above: Performed By: #### 6 32-0 #### [facility] ([id number]) [address], [address] [place] [address] Lymphocytes/100 WBC (Bld) 25.2 % Normal [facility] Comment on above: Performed By: #### 6 32-0 #### [facility] ([id number]) [address], [address] [place] [address] MCH (RBC) [Entitic mass] 28.7 pg Normal 27-34 [facility] Comment on above: Performed By: #### 6 32-0 #### [facility] ([id number]) [address], [address] [place] [address] MCHC (RBC) [Mass/Vol] 34.1 g/dL Normal 32-36 [facility] Comment on above: Performed By: #### 6 32-0 #### [facility] ([id number]) [address], [address] [place] [address] MCV (RBC) [Entitic vol] 84 fL Normal 80-100 [facility] Comment on above: Performed By: #### 6 32-0 #### [facility] ([id number]) [address], [address] [place] [address] Monocytes (Bld) [#/Vol] 0.8 10*3/uL Normal 0-0.9 [facility] Comment on above: Performed By: #### 6 32-0 #### [facility] ([id number]) [address], [address] [place] [address] Monocytes/100 WBC (Bld) 7.8 % Normal [facility] Comment on above: Performed By: #### 6 32-0 #### [facility] ([id number]) [address], [address] [place] [address] Neutrophils/100 WBC (Bld) 65.1 % Normal [facility] Comment on above: Performed By: #### 6 32-0 #### [facility] ([id number]) [address], [address] [place] [address] Platelet mean volume (Bld) [Entitic vol] 8.0 fL Normal 7-12 [facility] Comment on above: Performed By: #### 6 32-0 #### [facility] ([id number]) [address], [address] [place] [address] Platelets (Bld) [#/Vol] 198 10*3/uL Normal 150-450 [facility] Comment on above: Performed By: #### 6 32-0 #### [facility] ([id number]) [address] [facility] [address] [place] [address] RBC COUNT 4.48 X10E12/L Normal 4.10-5.70 [facility] Comment on above: Performed By: #### 6 32-0 #### [facility] ([id number]) [address] [facility], [address] [address] WBC (Bld) [#/Vol] 9.8 10*3/uL Normal 4.0-11.0 [facility] Comment on above: Performed By: #### 6 32-0 #### [facility] ([id number]) [address] [address] CBC auto differentialon 07-21 Basophils (Bld) [#/Vol] 0.0 10*3/uL [facility] Basophils/100 WBC (Bld) 0.5 % [facility] Eosinophils (Bld) [#/Vol] 0.1 10*3/uL [facility] Eosinophils/100 WBC (Bld) 1.4 % [facility] Erythrocyte distribution width (RBC) [Ratio] 16.0 % High 11.5 - 15.0 % [facility] Hematocrit (Bld) [Volume fraction] 37.7 % Low 39 - 49 % [facility] Hemoglobin (Bld) [Mass/Vol] 12.9 g/dL Low 13.0 - 17.0 g/dL [facility] Interpretation and review of laboratory results Abnormal [facility] Lymphocytes (Bld) [#/Vol] 2.5 10*3/uL [facility] Lymphocytes/100 WBC (Bld) 25.2 % [facility] MCH (RBC) [Entitic mass] 28.7 pg 27 - [address] [facility] MCHC (RBC) [Mass/Vol] 34.1 g/dL 32 - 36 g/dL P [facility] MCV (RBC) [Entitic vol] 84 fL 80 - 100 fL [facility] Monocytes (Bld) [#/Vol] 0.8 10*3/uL [facility] Monocytes/100 WBC (Bld) 7.8 % [facility] Neutrophils (Bld) [#/Vol] 6.4 10*3/uL [facility] Neutrophils/100 WBC (Bld) 65.1 % [facility] Platelet mean volume (Bld) [Entitic vol] 8.0 fL 7 - 12 fL [facility] Platelets (Bld) [#/Vol] 198 10*3/uL [facility] RBC (Bld) [#/Vol] 4.48 10*6/uL [facility] WBC corrected for nucl RBC Auto (Bld) [#/Vol] 9.8 [facility] COMPREHENSIVE METABOLIC PANE Domenico 08-01-2024 Albumin [Mass/Vol] 3.7 g/dL Normal 3.2-5.3 [facility] Comment on above: Performed By: #### 6 32-0 #### [facility] ([id number]) [address], [address] [place] [address] ALP [Catalytic activity/Vol] 82 U/L Normal 39-130 [facility] Comment on above: Performed By: #### 6 32-0 #### [facility] ([id number]) [address], [address] [place] [address] ALT [Catalytic activity/Vol] 8 U/L Normal 0-40 [facility] Comment on above: Performed By: #### 6 32-0 #### [facility] ([id number]) [address], [address] [place] [address] Anion gap [Moles/Vol] 6 mmol/L Normal 5-15 [facility] Comment on above: Performed By: #### 6 32-0 #### [facility] ([id number]) [address], [address] [place] [address] AST [Catalytic activity/Vol] 10 U/L Normal 0-41 [facility] Comment on above: Performed By: #### 6 32-0 #### [facility] ([id number]) [address], [address] [place] [address] Bilirubin [Mass/Vol] 0.6 mg/dL Normal 0.3-1.2 [facility] Comment on above: Performed By: #### 6 32-0 #### [facility] ([id number]) [address], [address] [place] [address] Calcium [Mass/Vol] 8.8 mg/dL Normal 8.5-10.5 [facility] Comment on above: Performed By: #### 6 32-0 #### [facility] ([id number]) [address], [address] [place] [address] Chloride [Moles/Vol] 108 mmol/L Normal 98-109 [facility] Comment on above: Performed By: #### 6 32-0 #### [facility] ([id number]) [address], [address] [place] [address] CO2 [Moles/Vol] 26 mmol/L Normal 22-32 [facility] Comment on above: Performed By: #### 6 32-0 #### [facility] ([id number]) [address], [address] [place] [address] Creatinine [Mass/Vol] 0.79 mg/dL Normal 0.60-1.30 [facility] Comment on above: Result Comment: METH OD TRACEABLE TO IDMS STANDARD Performed By: #### 6 32-0 #### [facility] ([id number]) [address], [address] [place] [address] eGFR (CKD-EPI) NON-RACE DEPENDENT >90 Normal >59 [facility] Comment on above: Result Comment: Reported eGFR is based on the CKD-EPI 2020 equation that does not use a race coefficient. Performed By: #### 6 32-0 #### [facility] ([id number]) [address], [address] [place] [address] Glucose [Mass/Vol] 124 mg/dL High 65-99 [facility] Comment on above: Performed By: #### 6 32-0 #### [facility] ([id number]) [address] [address] [place] [address] Potassium [Moles/Vol] 3.9 mmol/L Normal 3.5-5.0 [facility] Comment on above: Performed By: #### 6 32-0 #### [facility] ([id number]) [address], [address] [place] [address] Protein [Mass/Vol] 6.1 g/dL Normal 6.0-8.0 [facility] Comment on above: Performed By: #### 6 32-0 #### [facility] ([id number]) [address], [address] [place] [address] Sodium [Moles/Vol] 140 mmol/L Normal 134-146 [facility] Comment on above: Performed By: #### 6 32-0 #### [facility] ([id number]) [address] [place] [address] Urea nitrogen [Mass/Vol] 16 mg/dL Normal 5-27 [facility] Comment on above: Performed By: #### 6 32-0 #### [facility] ([id number]) [address], [address] [place] [address] Comprehensive metabolic pane domenico 08-01-2024 Albumin [Mass/Vol] 3.7 g/dL 3.2 - 5.3 g/dL [facility] ALP [Catalytic activity/Vol] 82 U/L 39 - 130 U/L [facility] ALT No additional P-5'-P [Catalytic activity/Vol] 8 U/L 0 - 40 U/L [facility] Anion gap [Moles/Vol] 6 mmol/L 5 - 15 mmol/L [facility] AST [Catalytic activity/Vol] 10 U/L 0 - 41 U/L [facility] Bilirubin [Mass/Vol] 0.6 mg/dL 0.3 - 1 .2 mg/dL [facility] Calcium [Mass/Vol] 8.8 mg/dL 8.5 - 10. 5 mg/dL [facility] Chloride [Moles/Vol] 108 mmol/L 98 - 10 9 mmol/L [facility] CO2 [Moles/Vol] 26 mmol/L 22 - 32 mmol/L [facility] Creatinine [Mass/Vol] 0.79 mg/dL 0.60 - 1.30 mg/dL [facility] Comment on above: METHOD TRACEABLE TO [facility] STANDARD eGFR (CKD-EPI)non-race dependent - PINF [facility] Comment on above: Reported eGFR is based on the CKD-EPI 2020 equation that does not use a race coefficient. Glucose [Mass/Vol] 124 mg/dL High 65 - 99 mg/dL [facility] Potassium [Moles/Vol] 3.9 mmol/L 3.5 - 5.0 mmol/L [facility] Protein [Mass/Vol] 6.1 g/dL 6.0 - 8.0 g/dL [facility] Sodium [Moles/Vol] 140 mmol/L 134 - 146 mmol/L [facility] Urea nitrogen [Mass/Vol] 16 mg/dL 5 - 27 mg/dL [facility] Glucose Glucometer (BldC) [M ass/Vol]on 08-01-2024 Glucose [Mass/Vol] 250 mg/dL High 65-99 [facility] Glucose [Mass/Vol] 210 mg/dL High 65 - 99 mg/dL [facility] Interpretation and review of laboratory results Abnormal [facility] Glucose [Mass/Vol] 210 mg/dL High 65-99 [facility] Glucose [Mass/Vol] 122 mg/dL High 65 - 99 mg/dL [facility] Interpretation and review of laboratory results Abnormal [facility] Glucose [Mass/Vol] 122 mg/dL High 65-99 [facility] MAGNESIUMon 08-01-2024 Magnesium [Mass/Vol] 2.0 mg/dL Normal 1.8-2.6 [facility] Comment on above: Performed By: #### C BCA, CMP, 3040-3, 41310-3, 06181-0, 32908- 1 #### [facility] ([id number]) [address] [place] [address] Magnesium [Mass/Vol] 1.7 mg/dL Low 1.8-2.6 [facility] Comment on above: Performed By: #### C BCA, CMP, 3040-3, 88659-3, 41686-9, 22317- 1 #### [facility] ([id number]) [address] [place] [address] Magnesiumon 08-01-2024 Magnesium [Mass/Vol] 2.0 mg/dL 1.8 - 2 .6 mg/dL [facility] Magnesium [Mass/Vol] 1.7 mg/dL Low 1.8 - 2 .6 mg/dL [facility] Magnesium [Mass/Vol]on 08-01 [facility] No Panel Informationon 08-01 Interpretation and review of laboratory results Abnormal [facility] CBC AND AUTO DIFFon 07-31-20 24 ABSOLUTE BASOPHIL 0.0 X10E9/L Normal 0.0-0.2 [facility] Comment on above: Performed By: #### C BCA, CMP, 3040-3, 61942-7, 33945-6, 99208- 1 #### [facility] ([id number]) [address] [place] [address] ABSOLUTE NEUTROPHIL 7.7 X10E9/L High 1.5-6.6 [facility] Comment on above: Performed By: #### C BCA, CMP, 3040-3, 94686-3, 34777-4, 93194- 1 #### [facility] ([id number]) [address] [place] [address] Basophils/100 WBC (Bld) 0.4 % Normal [facility] Comment on above: Performed By: #### C BCA, CMP, 3040-3, 03468-0, 85526-7, 89919- 1 #### [facility] ([id number]) [facility] [place] [address] Eosinophils (Bld) [#/Vol] 0.2 10*3/uL Normal 0.0-0.4 [facility] Comment on above: Performed By: #### C BCA, CMP, 3040-3, 36344-6, 89085-6, 09227- 1 #### [facility] ([id number]) [facility] [place] [address] Eosinophils/100 WBC (Bld) 1.7 % Normal [facility] Comment on above: Performed By: #### C BCA, CMP, 3040-3, 16200-6, 38639-0, 93799- 1 #### [facility] ([id number]) [facility] [place] [address] Erythrocyte distribution width (RBC) [Ratio] 15.9 % High 11.5-15.0 [facility] Comment on above: Performed By: #### C BCA, CMP, 3040-3, 47615-0, 75800-7, 12203- 1 #### [facility] ([id number]) [facility] [place] [address] Hematocrit (Bld) [Volume fraction] 41.3 % Normal 39-49 [facility] Comment on above: Performed By: #### C BCA, CMP, 3040-3, 14616-8, 50018-5, 42586- 1 #### [facility] ([id number]) [facility] [place] [address] Hemoglobin (Bld) [Mass/Vol] 13.9 g/dL Normal 13.0-17.0 [facility] Comment on above: Performed By: #### C BCA, CMP, 3040-3, 95280-3, 83368-1, 15148- 1 #### [facility] ([id number]) [address] [place] [address] Lymphocytes (Bld) [#/Vol] 2.0 10*3/uL Normal 1.0-3.5 [facility] Comment on above: Performed By: #### C BCA, CMP, 3040-3, 97541-4, 68763-2, 45864- 1 #### [facility] ([id number]) [address] [place] [address] Lymphocytes/100 WBC (Bld) 18.3 % Normal [facility] Comment on above: Performed By: #### C BCA, CMP, 3040-3, 24408-0, 75918-4, 87597- 1 #### [facility] ([id number]) [address] [place] [address] MCH (RBC) [Entitic mass] 28.4 pg Normal 27-34 [facility] Comment on above: Performed By: #### C BCA, CMP, 3040-3, 24116-2, 35005-4, 29835- 1 #### [facility] ([id number]) [address] [place] [address] MCHC (RBC) [Mass/Vol] 33.7 g/dL Normal 32-36 [facility] Comment on above: Performed By: #### C BCA, CMP, 3040-3, 72871-7, 58234-1, 63116- 1 #### [facility] ([id number]) [address] [place] [address] MCV (RBC) [Entitic vol] 85 fL Normal 80-100 [facility] Comment on above: Performed By: #### C BCA, CMP, 3040-3, 73288-7, 67120-6, 24905- 1 #### [facility] ([id number]) [address] [place] [address] Monocytes (Bld) [#/Vol] 0.8 10*3/uL Normal 0-0.9 [facility] Comment on above: Performed By: #### C BCA, CMP, 3040-3, 18887-8, 30188-1, 99130- 1 #### [facility] ([id number]) [address] [place] [address] Monocytes/100 WBC (Bld) 7.4 % Normal [facility] Comment on above: Performed By: #### C BCA, CMP, 3040-3, 16723-2, 86971-3, 55724- 1 #### [facility] ([id number]) [facility] [place] [address] Neutrophils/100 WBC (Bld) 72.2 % Normal [facility] Comment on above: Performed By: #### C BCA, CMP, 3040-3, 24409-1, 40781-1, 15511- 1 #### [facility] ([id number]) [facility] [place] [address] Platelet mean volume (Bld) [Entitic vol] 7.9 fL Normal 7-12 [facility] Comment on above: Performed By: #### C BCA, CMP, 3040-3, 18176-5, 52772-9, 09901- 1 #### [facility] ([id number]) [facility] [place] [address] Platelets (Bld) [#/Vol] 233 10*3/uL Normal 150-450 [facility] Comment on above: Performed By: #### C BCA, CMP, 3040-3, 10295-9, 85021-4, 40745- 1 #### [facility] ([id number]) [address] [place] [address] RBC COUNT 4.89 X10E12/L Normal 4.10-5.70 [facility] Comment on above: Performed By: #### C BCA, CMP, 3040-3, 34918-6, 16514-1, 66945- 1 #### [facility] ([id number]) [address] [place] [address] WBC (Bld) [#/Vol] 10.7 10*3/uL Normal 4.0-11.0 [facility] Comment on above: Performed By: #### C BCA, CMP, 3040-3, 02587-4, 33165-4, 12729- 1 #### [facility] ([id number]) [address] [place] [address] CBC auto differentialon 07-21 Basophils (Bld) [#/Vol] 0.0 10*3/uL [facility] Basophils/100 WBC (Bld) 0.4 % [facility] Eosinophils (Bld) [#/Vol] 0.2 10*3/uL [facility] Eosinophils/100 WBC (Bld) 1.7 % [facility] Erythrocyte distribution width (RBC) [Ratio] 15.9 % High 11.5 - 15.0 % [facility] Hematocrit (Bld) [Volume fraction] 41.3 % 39 - 49 % [facility] Hemoglobin (Bld) [Mass/Vol] 13.9 g/dL 13.0 - 17.0 g/dL [facility] Interpretation and review of laboratory results Abnormal [facility] Lymphocytes (Bld) [#/Vol] 2.0 10*3/uL [facility] Lymphocytes/100 WBC (Bld) 18.3 % [facility] MCH (RBC) [Entitic mass] 28.4 pg 27 - [address] [facility] MCHC (RBC) [Mass/Vol] 33.7 g/dL 32 - 36 g/dL P [facility] MCV (RBC) [Entitic vol] 85 fL 80 - [address] [facility] Monocytes (Bld) [#/Vol] 0.8 10*3/uL [facility] Monocytes/100 WBC (Bld) 7.4 % [facility] Neutrophils (Bld) [#/Vol] 7.7 10*3/uL High [facility] Neutrophils/100 WBC (Bld) 72.2 % [facility] Platelet mean volume (Bld) [Entitic vol] 7.9 fL 7 - [address] [facility] Platelets (Bld) [#/Vol] 233 10*3/uL [facility] RBC (Bld) [#/Vol] 4.89 10*6/uL [facility] WBC corrected for nucl RBC Auto (Bld) [#/Vol] 10.7 [facility] COMPREHENSIVE METABOLIC PANE Domenico 07-31-2024 Albumin [Mass/Vol] 3.9 g/dL Normal 3.2-5.3 [facility] Comment on above: Performed By: #### C BCA, CMP, 3040-3, 72983-8, 00390-8, 67731- 1 #### [facility] ([id number]) [address] [place] [address] ALP [Catalytic activity/Vol] 78 U/L Normal 39-130 [facility] Comment on above: Performed By: #### C BCA, CMP, 3040-3, 88409-5, 91465-1, 80648- 1 #### [facility] ([id number]) [address] [place] [address] ALT [Catalytic activity/Vol] 9 U/L Normal 0-40 [facility] Comment on above: Performed By: #### C BCA, CMP, 3040-3, 29053-9, 34438-5, 82379- 1 #### [facility] ([id number]) [address] [place] [address] Anion gap [Moles/Vol] 8 mmol/L Normal 5-15 [facility] Comment on above: Performed By: #### C BCA, CMP, 3040-3, 76244-6, 35007-2, 27451- 1 #### [facility] ([id number]) [address] [place] [address] AST [Catalytic activity/Vol] 17 U/L Normal 0-41 [facility] Comment on above: Performed By: #### C BCA, CMP, 3040-3, 03672-4, 99063-0, 77851- 1 #### [facility] ([id number]) [address] [place] [address] Bilirubin [Mass/Vol] 0.6 mg/dL Normal 0.3-1.2 [facility] Comment on above: Performed By: #### C BCA, CMP, 3040-3, 46299-6, 06299-5, 60048- 1 #### [facility] ([id number]) [address] [place] [address] Calcium [Mass/Vol] 8.9 mg/dL Normal 8.5-10.5 [facility] Comment on above: Performed By: #### C BCA, CMP, 3040-3, 97147-7, 57017-0, 30080- 1 #### [facility] ([id number]) [facility] [place] [address] Chloride [Moles/Vol] 108 mmol/L Normal 98-109 [facility] Comment on above: Performed By: #### C BCA, CMP, 3040-3, 91873-9, 19967-2, 89008- 1 #### [facility] ([id number]) [facility] [place] [address] CO2 [Moles/Vol] 24 mmol/L Normal 22-32 [facility] Comment on above: Performed By: #### C BCA, CMP, 3040-3, 39813-8, 72155-1, 28958- 1 #### [facility] ([id number]) [facility] [place] [address] Creatinine [Mass/Vol] 0.79 mg/dL Normal 0.60-1.30 [facility] Comment on above: Result Comment: METH OD TRACEABLE TO IDMS STANDARD Performed By: #### C BCA, CMP, 3040-3, 51436-6, 09346-3, 27513-1 #### [facility] ([id number]) [address] [place] [address] eGFR (CKD-EPI) NON-RACE DEPENDENT >90 Normal >59 [facility] Comment on above: Result Comment: Reported eGFR is based on the CKD-EPI 2020 equation that does not use a race coefficient. Performed By: #### C BCA, CMP, 3040-3, 71805-3, 76819-5, 47780-1 #### [facility] ([id number]) [address] [facility] [address] Glucose [Mass/Vol] 166 mg/dL High 65-99 [facility] Comment on above: Performed By: #### C BCA, CMP, 3040-3, 31148-1, 54406-2, 42247- 1 #### [facility] ([id number]) [address] [place] [address] Potassium [Moles/Vol] 4.5 mmol/L Normal 3.5-5.0 [facility] Comment on above: Result Comment: SPEC IMEN HEMOLYZED, RESULTS INCREASED MODERATELY HEMOLYZED Performed By: #### C BCA, CMP, 3040-3, 27605-4, 04070-2, 48916-9 #### [facility] ([id number]) [address] [facility] [place] [address] Protein [Mass/Vol] 6.4 g/dL Normal 6.0-8.0 [facility] Comment on above: Performed By: #### C BCA, CMP, 3040-3, 14498-6, 41887-8, 47728- 1 #### [facility] ([id number]) [address] [facility] [place] [address] Sodium [Moles/Vol] 140 mmol/L Normal 134-146 [facility] Comment on above: Performed By: #### C BCA, CMP, 3040-3, 59783-9, 59615-2, 25876- 1 #### [facility] ([id number]) [address] [place] [address] Urea nitrogen [Mass/Vol] 19 mg/dL Normal 5-27 [facility] Comment on above: Performed By: #### C BCA, CMP, 3040-3, 19302-0, 96216-6, 63388- 1 #### [facility] ([id number]) [address] [place] [address] CT ABDOMEN AND PELVIS W CONT on 07-31-2024 CT ABDOMEN AND PELVIS W CONT CT ABDOMEN AND PELVIS W CONT CT ABDOMEN AND PELVIS W CONT CLINICAL HISTORY:Bowel obstruction suspected abdominal pain, vomiting. COMPARISON: None. TECHNIQUE: CT abdomen and pelvis was performed utilizing the standard protocol following the uneventful administration of 100 cc Omnipaque 300 nonionic intravenous contrast. Coronal and sagittal reformatted images were generated and reviewed. Automated exposure control was utilized. FINDINGS: Dependent right basilar opacities. Cardiac megaly. Severe calcified coronary arterial disease. Mild biatrial enlargement. Unremarkable liver, gallbladder, spleen, adrenal glands, pancreas, kidneys. Moderate to large volume colonic stool burden. No dilatation or wall thickening the bowel. Diminutive appendix. No acute appearing occlusion the major visceral vasculature. Mild fat stranding within the upper abdominal mesentery, relative sparing of adipose tissue immediately adjacent to the vasculature and lymph nodes. No gross adenopathy. Prostamegaly. No free fluid or fluid collections. No aggressive osseous lesions. 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 IMPRESSION: 1. Moderate to large volume colonic stool burden. No acute process within the abdomen or pelvis. 2. Features suggestive of mesenteric panniculitis. All CT scans at this facility use dose modulation, iterative reconstruction, and/or weight based dosing when appropriate to reduce radiation dose to as low as reasonably achievable. Finalized by Delfin Vera MD on 07/31/2024 12:23 PM Normal [facility] CT Abdomen and Pelvis W cont rast Ar 07-31-2024 CT ABDOMEN AND PELVI S W CONT CLINICAL HISTORY:Bowel obstruction suspected abdominal pain, vomiting. COMPARISON: None. TECHNIQUE: CT abdomen and pelvis was performed utilizing the standard protocol following the uneventful administration of 100 cc Omnipaque 300 nonionic intravenous contrast. Coronal and sagittal reformatted images were generated and reviewed. Automated exposure control was utilized. FINDINGS: Dependent right basilar opacities. Cardiac megaly. Severe calcified coronary arterial disease. Mild biatrial enlargement. Unremarkable liver, gallbladder, spleen, adrenal glands, pancreas, kidneys. Moderate to large volume colonic stool burden. No dilatation or wall thickening the bowel. Diminutive appendix. No acute appearing occlusion the major visceral vasculature. Mild fat stranding within the upper abdominal mesentery, relative sparing of adipose tissue immediately adjacent to the vasculature and lymph nodes. No gross adenopathy. Prostamegaly. No free fluid or fluid collections. No aggressive osseous lesions. 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 IMPRESSION: 1. Moderate to large volume colonic stool burden. No acute process within the abdomen or pelvis. 2. Features suggestive of mesenteric panniculitis. All CT scans at this facility use dose modulation, iterative reconstruction, and/or weight based dosing when appropriate to reduce radiation dose to as low as reasonably achievable. Finalized by Delfin Vera MD on 07/31/2024 12:23 PM [facility] Delfin Vera MD - 07/31/2024 CT ABDOMEN AND PELVIS W CONT CLINICAL HISTORY:Bowel obstruction suspected abdominal pain, vomiting. COMPARISON: None. TECHNIQUE: CT abdomen and pelvis was performed utilizing the standard protocol following the uneventful administration of 100 cc Omnipaque 300 nonionic intravenous contrast. Coronal and sagittal reformatted images were generated and reviewed. Automated exposure control was utilized. FINDINGS: Dependent right basilar opacities. Cardiac megaly. Severe calcified coronary arterial disease. Mild biatrial enlargement. Unremarkable liver, gallbladder, spleen, adrenal glands, pancreas, kidneys. Moderate to large volume colonic stool burden. No dilatation or wall thickening the bowel. Diminutive appendix. No acute appearing occlusion the major visceral vasculature. Mild fat stranding within the upper abdominal mesentery, relative sparing of adipose tissue immediately adjacent to the vasculature and lymph nodes. No gross adenopathy. Prostamegaly. No free fluid or fluid collections. No aggressive osseous lesions. 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 IMPRESSION: 1. Moderate to large volume colonic stool burden. No acute process within the abdomen or pelvis. 2. Features suggestive of mesenteric panniculitis. All CT scans at this facility use dose modulation, iterative reconstruction, and/or weight based dosing when appropriate to reduce radiation dose to as low as reasonably achievable. Finalized by Delfin Vera MD on 07/31/2024 12:23 PM [facility] Radiology Study observation (narrative) [facility] CT BRAIN WO CONTon CT BRAIN WO CONT CT BRAIN WO CONT CT BRAIN WO CONT CLINICAL HISTORY: Altered mental status, nontraumatic (Ped 0-17y) COMPARISON: None. TECHNIQUE: CT head was performed without contrast using the standard protocol. Automated exposure control was utilized. FINDINGS: No acute, territorial region of diminished romeo-white differentiation. No acute intracranial hemorrhage. Disproportionate effacement of the subarachnoid space of the calvarial vertex with widening of the sylvian fissures. Moderate global parenchymal volume loss, apparent disproportionate hippocampal volume loss.. Mild/moderate heterogeneity through the deep, periventricular white matter, most often seen in the setting of chronic microvascular ischemia. Intracranial vascular calcifications. Lobular mucosal thickening alveolar recess bilateral maxillary sinuses. Unremarkable temporal bone structures, visualized suprahyoid neck. Unremarkable scalp soft tissues. IMPRESSION: A few features suggest normal pressure hydrocephalus, correlate clinically. Moderate global parenchymal volume loss with apparent disproportionate hippocampal volume loss. Correlate for clinical signs of underlying neurodegenerative process. Moderate heterogeneity through the deep, subcortical and periventricular white matter, most often seen in the setting of chronic microvascular ischemia. All CT scans at this facility use dose modulation, iterative reconstruction, and/or weight based dosing when appropriate to reduce radiation dose to as low as reasonably achievable. Finalized by Delfin Vera MD on 07/31/2024 12:17 PM Normal [facility] CT CTA CHESTon 07-31-[address] CTA CHEST CTA PULMONARY ANGIOGRAM Clinical history: Vomiting. Nausea. Loss of consciousness and syncope. Hypotension. Pulmonary embolism suspected. Technique: Spiral multidetector CT pulmonary angiogram was performed after the intravenous administration of contrast material including 3-D reconstructions displayed on a PACS workstation and reviewed by the radiologist. Automated dose reduction techniques were utilized. All CT scans at this facility use dose modulation, iterative reconstruction, and/or weight based dosing when appropriate to reduce radiation dose to as low as reasonably achievable. Comparisons: 01/05/2024. Findings: Evaluation of peripheral, subsegmental pulmonary artery branches is limited due to gross patient motion/respiratory artifact. The central pulmonary arteries are patent and free of filling defects to suggest acute pulmonary thromboembolism. There is no isolated right ventricular dilation. Subsegmental atelectasis involves superior segment right lower lobe. Interval resolution of bilateral pleural effusions and extensive atelectasis on prior exam. Calcification right upper lobe is unchanged likely reflecting sequelae of prior granulomatous disease. Heavy coronary artery calcifications and/or stents are present. Changes of prior median sternotomy again seen. No pneumothorax. IMPRESSION: 1. No evidence for acute pulmonary thromboembolism. Finalized by Kenny Craig MD on 07/31/2024 12:[address] [facility] CT Chest WO and CT angiogram Coronary arteries W contrast Ar 07-31-2024 CTA PULMONARY ANGIOGRAM Clinical history: Vomiting. Nausea. Loss of consciousness and syncope. Hypotension. Pulmonary embolism suspected. Technique: Spiral multidetector CT pulmonary angiogram was performed after the intravenous administration of contrast material including 3-D reconstructions displayed on a PACS workstation and reviewed by the radiologist. Automated dose reduction techniques were utilized. All CT scans at this facility use dose modulation, iterative reconstruction, and/or weight based dosing when appropriate to reduce radiation dose to as low as reasonably achievable. Comparisons: 01/05/2024. Findings: Evaluation of peripheral, subsegmental pulmonary artery branches is limited due to gross patient motion/respiratory artifact. The central pulmonary arteries are patent and free of filling defects to suggest acute pulmonary thromboembolism. There is no isolated right ventricular dilation. Subsegmental atelectasis involves superior segment right lower lobe. Interval resolution of bilateral pleural effusions and extensive atelectasis on prior exam. Calcification right upper lobe is unchanged likely reflecting sequelae of prior granulomatous disease. Heavy coronary artery calcifications and/or stents are present. Changes of prior median sternotomy again seen. No pneumothorax. IMPRESSION: 1. No evidence for acute pulmonary thromboembolism. Finalized by Kenny Craig MD on 07/31/2024 12:22 PM [facility] Kenny Craig M D - 07/31/2024 CTA PULMONARY ANGIOGRAM Clinical history: Vomiting. Nausea. Loss of consciousness and syncope. Hypotension. Pulmonary embolism suspected. Technique: Spiral multidetector CT pulmonary angiogram was performed after the intravenous administration of contrast material including 3-D reconstructions displayed on a PACS workstation and reviewed by the radiologist. Automated dose reduction techniques were utilized. All CT scans at this facility use dose modulation, iterative reconstruction, and/or weight based dosing when appropriate to reduce radiation dose to as low as reasonably achievable. Comparisons: 01/05/2024. Findings: Evaluation of peripheral, subsegmental pulmonary artery branches is limited due to gross patient motion/respiratory artifact. The central pulmonary arteries are patent and free of filling defects to suggest acute pulmonary thromboembolism. There is no isolated right ventricular dilation. Subsegmental atelectasis involves superior segment right lower lobe. Interval resolution of bilateral pleural effusions and extensive atelectasis on prior exam. Calcification right upper lobe is unchanged likely reflecting sequelae of prior granulomatous disease. Heavy coronary artery calcifications and/or stents are present. Changes of prior median sternotomy again seen. No pneumothorax. IMPRESSION: 1. No evidence for acute pulmonary thromboembolism. Finalized by Kenny Craig MD on 07/31/2024 12:22 PM [facility] WO and CT angiogram Coronary arteries W contrast IVOrdered By: Kenny Craig on 07-31-2024 [employer] Work Phone: CT Head WO contraston 2023 CT BRAIN WO CONT CLINICAL HISTORY: Altered mental status, nontraumatic (Ped 0-17y) COMPARISON: None. TECHNIQUE: CT head was performed without contrast using the standard protocol. Automated exposure control was utilized. FINDINGS: No acute, territorial region of diminished romeo-white differentiation. No acute intracranial hemorrhage. Disproportionate effacement of the subarachnoid space of the calvarial vertex with widening of the sylvian fissures. Moderate global parenchymal volume loss, apparent disproportionate hippocampal volume loss.. Mild/moderate heterogeneity through the deep, periventricular white matter, most often seen in the setting of chronic microvascular ischemia. Intracranial vascular calcifications. Lobular mucosal thickening alveolar recess bilateral maxillary sinuses. Unremarkable temporal bone structures, visualized suprahyoid neck. Unremarkable scalp soft tissues. IMPRESSION: A few features suggest normal pressure hydrocephalus, correlate clinically. Moderate global parenchymal volume loss with apparent disproportionate hippocampal volume loss. Correlate for clinical signs of underlying neurodegenerative process. Moderate heterogeneity through the deep, subcortical and periventricular white matter, most often seen in the setting of chronic microvascular ischemia. All CT scans at this facility use dose modulation, iterative reconstruction, and/or weight based dosing when appropriate to reduce radiation dose to as low as reasonably achievable. Finalized by Delfin Vera MD on 07/31/2024 12:[address] [facility] Delf[facility] Vera MD - 07/31/2024 CT BRAIN WO CONT CLINICAL HISTORY: Altered mental status, nontraumatic (Ped 0-17y) COMPARISON: None. TECHNIQUE: CT head was performed without contrast using the standard protocol. Automated exposure control was utilized. FINDINGS: No acute, territorial region of diminished romeo-white differentiation. No acute intracranial hemorrhage. Disproportionate effacement of the subarachnoid space of the calvarial vertex with widening of the sylvian fissures. Moderate global parenchymal volume loss, apparent disproportionate hippocampal volume loss.. Mild/moderate heterogeneity through the deep, periventricular white matter, most often seen in the setting of chronic microvascular ischemia. Intracranial vascular calcifications. Lobular mucosal thickening alveolar recess bilateral maxillary sinuses. Unremarkable temporal bone structures, visualized suprahyoid neck. Unremarkable scalp soft tissues. IMPRESSION: A few features suggest normal pressure hydrocephalus, correlate clinically. Moderate global parenchymal volume loss with apparent disproportionate hippocampal volume loss. Correlate for clinical signs of underlying neurodegenerative process. Moderate heterogeneity through the deep, subcortical and periventricular white matter, most often seen in the setting of chronic microvascular ischemia. All CT scans at this facility use dose modulation, iterative reconstruction, and/or weight based dosing when appropriate to reduce radiation dose to as low as reasonably achievable. Finalized by Delfin Vera MD on 07/31/2024 12:17 PM [employer] Radiology Study observation (narrative) [employer] CT Head WO contrastOrdered B y: Delfin Vera on 07-31-2024 [employer] Work Phone: Cardiac echo study Procedure Ordered By: Bobby Dillon on 07-31-2024 Aortic root 3.50 cm [employer] Work Phone: AV mean gradient 5.00 mmHg [employer] Work Phone: AV peak gradient 9.73 mmHg [employer] Work Phone: AV peak ten 156.00 cm/s [employer] Work Phone: AV valve area 2.06 [employer] Work Phone: AV Velocity Ratio 0.59 [employer] Work Phone: AV VTI 32.00 cm [employer] Work Phone: E wave deceleration time 364.00 msec [employer] Work Phone: E/A ratio 0.58 [employer] Work Phone: Energy loss index 20.39 [employer] Work Phone: Est. RA pressure 3 mmHg [employer] Work Phone: FS 30 % 28 - 44 % [employer] Work Phone: Interventricular Septum Diastolic Thickness by 2D 15.9 cm [employer] Work Phone: IVS 1.59 cm 0.6 - 1.1 cm [employer] Work Phone: LA size 4.30 cm [employer] Work Phone: LA volume 49.10 cm3 [employer] Work Phone: LA Volume Index 23.1 mL/m2 [employer] Work Phone: Left Ventricle Mass [phone] g [employer] Work Phone: LV ESV A2C 54.60 mL [employer] Work Phone: LV ESV A4C 40.50 mL [employer] Work Phone: LV RWT 2D 55.19 [employer] Work Phone: LVIDd 5.11 cm 5.69 - 7.90 cm [employer] Work Phone: LVIDs 3.60 cm 3.32 - 5.03 cm [facility] [employer] Work Phone: [phone] LVOT diameter 2.10 cm [facility] Work Phone: [phone] LVOT peak ten 1.06 m/s [facility] Work Phone: LVOT peak VTI 19.00 cm [facility] Work Phone: LVOT stroke volume 65.81 ml [facility] Work Phone: [phone] MV Peak A Ten 86.10 cm/s [facility] Work Phone: MV Peak E Ten 50.10 cm/s [facility] Work Phone: MV pressure 1/2 time 107.00 ms [facility] Work Phone: MV TDI E' (medial) 5.33 cm/s [facility] [employer] Work Phone: MV valve area p 1/2 method 2.06 cm2 [facility] Work Phone: PV peak gradient 4.16 mmHg [facility] Work Phone: PW 1.41 cm 0.6 - 1.1 cm [facility] Work Phone: RV diastolic dimension (basal) 27.1 mm [facility] Work Phone: RV Peak Systolic Pressure 19 mmHg [facility] Work Phone: TAPSE 1.31 cm [facility] Work Phone: TDI 6.96 cm/s [facility] Work Phone: TR peak gradient 15.52 mmHg [facility] Work Phone: TR Peak Ten 2.0 m/s [facility] Work Phone: Valve area - Index 1.0 [facility] Work Phone: ZLVIDD -2.71 [facility] [employer] Work Phone: ZLVIDS -1.01 [facility] [employer] Work Phone: [facility] [employer] Work Phone: Cardiac echo study Procedure on 07-31-2024 Left Ventricle: Systolic function is normal with an ejection fraction of 55-60%. Aortic Valve: There is mild regurgitation. There is no evidence of aortic valve stenosis. Mitral Valve: There is mild regurgitation. There is no evidence of mitral valve stenosis. Tricuspid Valve: There is trace regurgitation. There is no evidence of tricuspid valve stenosis. Left Ventricle Left ventricle appears normal in size. There is severe focal basal increased wall thickness/hypertrophy . Remaining wall segments are moderately increased. Systolic function is normal with an ejection fraction of 55-60%. Grade I diastolic dysfunction (impaired relaxation) is present. Lateral E' is 6.96 cm/s. Medial E' is 5.33 cm/s. Right Ventricle Right ventricular size appears normal. The right ventricular basal diameter is 27.1 mm. Systolic function is normal. Left Atrium The left atrial volume index is 23.1 mL/m2. Right Atrium Right atrium is normal in size. IVC/SVC IVC is not visualized. Mitral Valve The leaflets are mildly thickened. There is moderate posterior annular calcification. There is mild regurgitation. There is no evidence of mitral valve stenosis. Tricuspid Valve Tricuspid valve appears to be normal. There is trace regurgitation. There is no evidence of tricuspid valve stenosis. RVSP calculated at 19 mmHg. RVSP is based on RA pressure of 3 mmHg. Aortic Valve The aortic valve is trileaflet. The left coronary cusp is calcified and fixed. There is mild regurgitation. There is no evidence of aortic valve stenosis. Pulmonic Valve Pulmonic valve structure is grossly normal. There is trace regurgitation. There is no evidence of pulmonic valve stenosis. The peak gradient is 4.16 mmHg. Ascending Aorta The aortic root is normal in size. Pericardium There is no pericardial effusion. Study Details A complete echo was performed using complete 2D, color flow Doppler and spectral Doppler. Definity study was performed. The study had technical difficulties. Comparison Prior echo performed 01/03/2024. [facility] Radiology Study observation (narrative) [facility] Comprehensive metabolic pane domenico 07-31-2024 Albumin [Mass/Vol] 3.9 g/dL 3.2 - 5.3 g/dL [facility] ALP [Catalytic activity/Vol] 78 U/L 39 - 130 U/L [facility] ALT No additional P-5'-P [Catalytic activity/Vol] 9 U/L 0 - 40 U/L [facility] Anion gap [Moles/Vol] 8 mmol/L 5 - 15 mmol/L [facility] AST [Catalytic activity/Vol] 17 U/L 0 - 41 U/L [facility] Bilirubin [Mass/Vol] 0.6 mg/dL 0.3 - 1 .2 mg/dL [facility] Calcium [Mass/Vol] 8.9 mg/dL 8.5 - 10. 5 mg/dL [facility] Chloride [Moles/Vol] 108 mmol/L 98 - 10 9 mmol/L [facility] CO2 [Moles/Vol] 24 mmol/L 22 - 32 mmol/L [facility] Creatinine [Mass/Vol] 0.79 mg/dL 0.60 - 1.30 mg/dL [facility] Comment on above: METHOD TRACEABLE TO IDMI STANDARD eGFR (CKD-EPI)non-race dependent - PINF [facility] Comment on above: Reported eGFR is based on the CKD-EPI 2020 equation that does not use a race coefficient. Glucose [Mass/Vol] 166 mg/dL High 65 - 99 mg/dL [facility] Potassium [Moles/Vol] 4.5 mmol/L 3.5 - 5.0 mmol/L [facility] Comment on above: SPECIMEN HEMOLYZED, RESULTS INCREASED MODERATELY HEMOLYZED Protein [Mass/Vol] 6.4 g/dL 6.0 - 8.0 g/dL [facility] Sodium [Moles/Vol] 140 mmol/L 134 - 146 mmol/L [facility] Urea nitrogen [Mass/Vol] 19 mg/dL 5 - 27 mg/dL [facility] ECG 12 leadOrdered By: Jerica De La Vega on 07-31-2024 [facility] Glucose Glucometer (BldC) [M ass/Vol]on 07-31-2024 Glucose [Mass/Vol] 192 mg/dL High 65 - 99 mg/dL [facility] Interpretation and review of laboratory results Abnormal [facility] Glucose [Mass/Vol] 192 mg/dL High 65-99 [facility] Glucose [Mass/Vol] 123 mg/dL High 65 - 99 mg/dL [facility] Interpretation and review of laboratory results Abnormal [facility] Glucose [Mass/Vol] 123 mg/dL High 65-99 [facility] LIPASEon 07-31-2024 Lipase [Catalytic activity/Vol] 15 U/L Normal 11-82 [facility] Comment on above: Performed By: #### C JAMES CARRANZA, 3040-3, 41608-1, 35148-1, 21394- 1 #### [facility] ([id number]) [address] [place] [address] Lactateon 07-31-2024 Lactate (P eriberto) [Moles/Vol] 1.9 mmol/L 0.4 - 2.0 mmol/L [facility] Lactate (P eriberto) [Moles/Vol]o n 07-31-2024 [facility] Lactate [Moles/Vol] 1.9 mmol/L Normal 0.4-2.0 [facility] Comment on above: Performed By: #### 6 32-0 #### [facility] ([id number]) [address], [address] [place] [address] Interpretation and review of laboratory results Abnormal [facility] LACTATE W/REFLEX 2.4 mmol/L High 0.4-2.0 [facility] Comment on above: Performed By: #### Binh CARRANZA CMP, 3040-3, 77442-1, 30470-5, 43873- 1 #### [facility] ([id number]) [address] [place] [address] Lactate w/ Reflexon 07-31-20 Lactate (P eriberto) [Moles/Vol] 2.4 mmol/L High 0.4 - 2.0 mmol/L [facility] Lipaseon 07-31-2024 Lipase [Catalytic activity/Vol] 15 U/L 11 - 82 U/L [facility] MAGNESIUMon 07-31-2024 Magnesium [Mass/Vol] 1.9 mg/dL Normal 1.8-2.6 [facility] Comment on above: Performed By: #### 6 32-0 #### [facility] ([id number]) [address], [address] [place] [address] Magnesium [Mass/Vol] 1.6 mg/dL Low 1.8-2.6 [facility] Comment on above: Performed By: #### C BCA, CMP, 3040-3, 84243-1, 42124-1, 40860- 1 #### [facility] ([id number]) [address] [place] [address] MR BRAIN WO CONTon MR BRAIN WO CONT MR BRAIN WO CONT EXAM: MRI BRAIN WITHOUT CONTRAST CLINICAL HISTORY: TECHNIQUE: TECHNIQUE: Routine multiplanar multisequence MR imaging of the brain was performed without contrast. COMPARISONS: MRI dated 09/18/2023, CT head dated 07/31/2024 FINDINGS: There is no restricted diffusion. There is a background of white matter changes, most commonly attributable to the sequelae of chronic ischemic small vessel disease. 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 There is no intracranial mass effect. There is generalized low brain volume with proportional prominence of the ventricular system and extra-axial spaces. There is no shift of the midline structures and the basal cisterns are widely patent. There is no susceptibility to suggest the presence of intracranial blood degradation products. The midline structures and craniocervical junction are within normal limits. The paranasal sinuses are well aerated. There is only a tiny amount of fluid in a few mastoid air cells. IMPRESSION: 1. White matter changes, most commonly attributable to the sequela of chronic ischemic small vessel disease. 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 There is no evidence for an acute infarct. 2. Generalized low brain volume. There is no intracranial mass effect. Finalized by Olu Cerrato MD on 07/31/2024 5:04 PM Normal [facility] MR Brain WO contraston 07-31 EXAM: MRI BRAIN WITHOUT CONTRAST CLINICAL HISTORY: TECHNIQUE: TECHNIQUE: Routine multiplanar multisequence MR imaging of the brain was performed without contrast. COMPARISONS: MRI dated 09/18/2023, CT head dated 07/31/2024 FINDINGS: There is no restricted diffusion. There is a background of white matter changes, most commonly attributable to the sequelae of chronic ischemic small vessel disease. 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 There is no intracranial mass effect. There is generalized low brain volume with proportional prominence of the ventricular system and extra-axial spaces. There is no shift of the midline structures and the basal cisterns are widely patent. There is no susceptibility to suggest the presence of intracranial blood degradation products. The midline structures and craniocervical junction are within normal limits. The paranasal sinuses are well aerated. There is only a tiny amount of fluid in a few mastoid air cells. IMPRESSION: 1. White matter changes, most commonly attributable to the sequela of chronic ischemic small vessel disease. 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 There is no evidence for an acute infarct. 2. Generalized low brain volume. There is no intracranial mass effect. Finalized by Olu Cerrato MD on 07/31/2024 5:04 PM [employer] Olu Cerrato MD - 07/31/2024 EXAM: MRI BRAIN WITHOUT CONTRAST CLINICAL HISTORY: TECHNIQUE: TECHNIQUE: Routine multiplanar multisequence MR imaging of the brain was performed without contrast. COMPARISONS: MRI dated 09/18/2023, CT head dated 07/31/2024 FINDINGS: There is no restricted diffusion. There is a background of white matter changes, most commonly attributable to the sequelae of chronic ischemic small vessel disease. 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 There is no intracranial mass effect. There is generalized low brain volume with proportional prominence of the ventricular system and extra-axial spaces. There is no shift of the midline structures and the basal cisterns are widely patent. There is no susceptibility to suggest the presence of intracranial blood degradation products. The midline structures and craniocervical junction are within normal limits. The paranasal sinuses are well aerated. There is only a tiny amount of fluid in a few mastoid air cells. IMPRESSION: 1. White matter changes, most commonly attributable to the sequela of chronic ischemic small vessel disease. 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 There is no evidence for an acute infarct. 2. Generalized low brain volume. There is no intracranial mass effect. Finalized by Olu Cerrato MD on 07/31/2024 5:04 PM [facility] Radiology Study observation (narrative) [facility] MR Brain WO contrastOrdered By: Olu Cerrato on 07-31-2024 [facility] Work Phone: Magnesiumon 07-31-2024 Magnesium [Mass/Vol] 1.9 mg/dL 1.8 - 2 .6 mg/dL [facility] Magnesium [Mass/Vol] 1.6 mg/dL Low 1.8 - 2 .6 mg/dL [facility] Magnesium [Mass/Vol]on 07-31 [facility] No Panel Informationon 07-31 Interpretation and review of laboratory results Abnormal [facility] Troponin I, High Sensitivity on 07-31-2024 Troponin I.cardiac High sensitivity method [Mass/Vol] 8 ng/L NINF - 21 ng/L [facility] Troponin I, High Sensitivity 1 Houron 07-31-2024 Troponin I.cardiac High sensitivity method [Mass/Vol] 7 ng[facility] Troponin I.cardiac High sens itivity method [Mass/Vol]on 07-31-2024 [facility] 1 HOUR TROP I, HIGH SENSITIVITY 7 ng/L Normal <21 [facility] Comment on above: Performed By: #### 6 32-0 #### [facility] ([id number]) [address], [address] [place] [address] [facility] TROPONIN I, HIGH SENSITIVITY 8 ng/L Normal <21 [facility] Comment on above: Performed By: #### C BCA, CMP, 3040-3, 18193-2, 53504-4, 90379- 1 #### [facility] ([id number]) [address] [place] [address] SUPERFICIAL WOUND CULTUREon 03-19-2024 Bacteria identified Aer cx Nom (Wound) SPECIMEN NOTES SPECIMEN RECEIVED ONLY IN GEL MEDIA GRAM STAIN Unable to perform direct gram stain due to specimen received only in gel media. CULTURE RESULTS FEW STAPHYLOCOCCUS AUREUS FEW STAPHYLOCOCCUS AUREUS VARIANT [ S = SUSCEPTIBLE R = RESISTANT I = INTERMEDIATE S-DO = Susceptible-dose dependent NS = Non-suscceptible NO = No Interpretation ] Organism: STAPHYLOCOCCUS AUREUS Antibiotic Interpretation AMNUEL Status CEFAZOLIN S F CLINDAMYCIN R >=4 F OXACILLIN S <=0.25 F TRIMETH/SULFAMETHOXAZ OLE S <=.5/9.5 F VANCOMYCIN S 1 F DOXYCYCLINE S 4 F [ S = SUSCEPTIBLE R = RESISTANT I = INTERMEDIATE S-DO = Susceptible-dose dependent NS = Non-suscceptible NO = No Interpretation ] Organism: STAPHYLOCOCCUS AUREUS Antibiotic Interpretation MANUEL Status CEFAZOLIN S F CLINDAMYCIN R >=4 F OXACILLIN S <=0.25 F TRIMETH/SULFAMETHOXAZ OLE S <=.5/9.5 F VANCOMYCIN S 1 F DOXYCYCLINE S 2 F Susceptible [facility] Comment on above: Performed By: #### 6 32-0 #### [facility] ([id number]) [address] [place] [address], [address] [place] [address] Hemoglobin A1Con 06-05-2023 Glucose [Mass/Vol] 197 mg/dL Normal [facility] Comment on above: Result Comment: The ADA and AACC recommend providing the estimated average glucose result to permit better patient understanding of their HBA1c result. Performed By: #### L IVP, CBC, BMP #### [facility] [address] [place], [place] [id number] Technology Education Instructor: Zackary Norris MD HbA1c (Bld) [Mass fraction] 8.5 % High 4.0-6.0 [facility] Comment on above: Performed By: #### L IVP, CBC, BMP #### [facility] [address] [facility]. [place], [place] [id number] Technology Education Instructor: Zackary Norris MD Average glucose Estimated from glycated hemoglobin (Bld) [Mass/Vol] 197 mg/dL [facility] Comment on above: The ADA and AACC rec ommend providing the estimated average glucose result to permit better patient understanding of their HBA1c result. HbA1c (Bld) [Mass fraction] 8.5 % High 4.0 - 6.0 % [facility] Interpretation and review of laboratory results Abnormal [facility] Hemoglobin A1Con 05-07-2023 Glucose [Mass/Vol] 192 mg/dL Normal [facility] Comment on above: Result Comment: The ADA and AACC recommend providing the estimated average glucose result to permit better patient understanding of their HBA1c result. Performed By: #### G LYHGB #### [address] [address] [employer] Education Instructor: Tao Bradshaw MD HbA1c (Bld) [Mass fraction] 8.3 % High 4.0-6.0 [facility] Comment on above: Performed By: #### G LYHGB #### [address] [address] Technology Education Instructor: Tao Bradshaw MD Basic Metabolic Profon 04-25 Anion gap [Moles/Vol] 13 mmol/L Normal 9-17 [facility] Comment on above: Performed By: #### L IVP, CBC, BMP #### [facility] [address] [place] [address] Technology Education Instructor: Zackary Norris MD BUN/CRE Ratio 19 Normal -20 [facility] Comment on above: Performed By: #### L IVP, CBC, BMP #### [facility] [address] [place] [address] Technology Education Instructor: Zackary Norris MD Calcium [Mass/Vol] 9.0 mg/dL Normal 8.6-10.4 [facility] Comment on above: Performed By: #### L IVP, CBC, BMP #### [facility] [address] [facility] [place] [address] Technology Education Instructor: Zackary Norris MD Chloride [Moles/Vol] 104 mmol/L Normal 98-107 [facility] Comment on above: Performed By: #### L IVP, CBC, BMP #### [facility] [address] [facility] [place] [address] Technology Education Instructor: Zackary Norris MD CO2 [Moles/Vol] 23 mmol/L Normal 20-31 [facility] Comment on above: Performed By: #### L IVP, CBC, BMP #### [facility] [address] [place] [address]. [place] [address] Technology Education Instructor: Zackary Norris MD Creatinine [Mass/Vol] 0.63 mg/dL Low 0.70-1.20 [facility] Comment on above: Performed By: #### L IVP, CBC, BMP #### [facility] [address] [place] [address]. [place] [address] [employer] Education Instructor: Zackary Norris MD GFR/1.73 sq M.predicted among non-blacks MDRD (S/P/Bld) [Vol rate/Area] mL/min/{1.73_m2} Normal >60 [facility] Comment on above: Result Comment: These results are not intended for use in patients <18 years of age. eGFR results are calculated without a race factor using the 2020 CKD-EPI equation. Careful clinical correlation is recommended, particularly when comparing to results calculated using previous equations. The CKD-EPI equation is less accurate in patients with extremes of muscle mass, extra-renal metabolism of creatine, excessive creatine ingestion, or following therapy that affects renal tubular secretion. Performed By: #### L IVP, CBC, BMP #### [facility] [address] [facility] [place] [address] Technology Education Instructor: Zackary Norris MD Glucose [Mass/Vol] 153 mg/dL High 70-99 [facility] Comment on above: Performed By: #### L IVP, CBC, BMP #### [facility] [address] [place] [address] Technology Education Instructor: Zackary Norris MD Potassium [Moles/Vol] 3.6 mmol/L Low 3.7-5.3 [facility] Comment on above: Performed By: #### L IVP, CBC, BMP #### [facility] [address] [place] [address] Technology Education Instructor: Zackary Norris MD Sodium [Moles/Vol] 140 mmol/L Normal 135-144 [facility] Comment on above: Performed By: #### L IVP, CBC, BMP #### [facility] [address] [place], [place] [address] [place] [address] Technology Education Instructor: Zackary Norris MD Urea nitrogen [Mass/Vol] 12 mg/dL Normal 8-23 [facility] Comment on above: Performed By: #### L IVP, CBC, BMP #### [facility] [address] [place] [address] [employer] Education Instructor: Zackary Norris MD CBCon 04-25-2023 Erythrocyte distribution width (RBC) [Ratio] 13.5 % Normal 11.8-14.4 [facility] Comment on above: Performed By: #### L IVP, CBC, BMP #### [facility] [address] [place] [address] Technology Education Instructor: Zackary Norris MD Hematocrit (Bld) [Volume fraction] 41.2 % Normal 40.7-50.3 [facility] Comment on above: Performed By: #### L IVP, CBC, BMP #### [facility] [address] [place] [address] Technology Education Instructor: Zackary Norris MD Hemoglobin (Bld) [Mass/Vol] 13.6 g/dL Normal 13.0-17.0 [facility] Comment on above: Performed By: #### L IVP, CBC, BMP #### [facility] [address] [place] [address] Technology Education Instructor: Zackary Norris MD MCH (RBC) [Entitic mass] 28.3 pg Normal 25.2-33.5 [facility] Comment on above: Performed By: #### L IVP, CBC, BMP #### [facility] [address] [place] [address] [employer] Education Instructor: Zackary Norris MD MCHC (RBC) [Mass/Vol] 33.0 g/dL Normal 28.4-34.8 [facility] Comment on above: Performed By: #### L IVP, CBC, BMP #### [facility] [address] [place] [address] [employer] Education Instructor: Zackary Norris MD MCV (RBC) [Entitic vol] 85.7 fL Normal 82.6-102.9 [facility] Comment on above: Performed By: #### L IVP, CBC, BMP #### [facility] [address] [place] [address] [employer] Education Instructor: Zackary Norris MD NRBC Automated 0.0 per 100 WBC Normal 0.0 [facility] Comment on above: Performed By: #### L IVP, CBC, BMP #### [facility] [address] [place] [address] [employer] Education Instructor: Zackary Norris MD Platelet mean volume (Bld) [Entitic vol] 10.2 fL Normal 8.1-13.5 [facility] Comment on above: Performed By: #### L IVP, CBC, BMP #### [facility] [address] [place] [address] Technology Education Instructor: Zackary Norris MD Platelets (Bld) [#/Vol] 228 10*3/uL Normal 138-453 [facility] Comment on above: Performed By: #### L IVP, CBC, BMP #### [facility] [address] [place] [address] Technology Education Instructor: Zackary Norris MD RBC (Bld) [#/Vol] 4.81 10*6/uL Normal 4.21-5.77 [facility] Comment on above: Performed By: #### L IVP, CBC, BMP #### [facility] [address] [place] [address] Technology Education Instructor: Zackary Norris MD WBC (Bld) [#/Vol] 8.5 10*3/uL Normal 3.5-11.3 [facility] Comment on above: Performed By: #### L IVP, CBC, BMP #### [facility] [address] [place] [address] Technology Education Instructor: Zackary Norris MD Liver Profileon 04-25-2023 Albumin [Mass/Vol] 3.5 g/dL Normal 3.5-5.2 [facility] Comment on above: Performed By: #### L IVP, CBC, BMP #### [facility] [address] [place] [address] Technology Education Instructor: Zackary Norris MD Alkaline Phos 83 U/L Normal 40-129 [facility] Comment on above: Performed By: #### L IVP, CBC, BMP #### [facility] [address] [place] [address] Technology Education Instructor: Zackary Norris MD ALT [Catalytic activity/Vol] 19 U/L Normal 5-41 [facility] Comment on above: Performed By: #### L IVP, CBC, BMP #### [facility] [address] [place] [address] Technology Education Instructor: Zackary Norris MD AST [Catalytic activity/Vol] 13 U/L Normal <40 [facility] Comment on above: Performed By: #### L IVP, CBC, BMP #### [facility] [address] [place] [address] Technology Education Instructor: Zackary Norris MD Bilirubin [Mass/Vol] 0.6 mg/dL Normal 0.3-1.2 [facility] Comment on above: Performed By: #### L IVP, CBC, BMP #### [facility] [address] [place], [place] [address]ia [facility] [place] [address] Technology Education Instructor: Zackary Norris MD Bilirubin, Indirect 0.4 mg/dL Normal 0.0-1.0 [facility] Comment on above: Performed By: #### L IVP, CBC, BMP #### [facility] [facility] [place] [address] Technology Education Instructor: Zackary Norris MD Bilirubin.indirect [Mass/Vol] 0.2 mg/dL Normal <0.3 [facility] Comment on above: Performed By: #### L IVP, CBC, BMP #### [facility] [address] [facility] [place] [address] Technology Education Instructor: Zackary Norris MD Protein [Mass/Vol] 6.6 g/dL Normal 6.4-8.3 [facility] Comment on above: Performed By: #### L IVP, CBC, BMP #### [facility] [place] [address] Technology Education Instructor: Zackary Norris MD Hemoglobin A1Con 2023 Glucose [Mass/Vol] 212 mg/dL Normal [facility] Comment on above: Result Comment: The ADA and AACC recommend providing the estimated average glucose result to permit better patient understanding of their HBA1c result. Performed By: #### G LYHGB #### [employer] [facility] [address] [place], [place] [id number] Technology Education Instructor: Tao Bradshaw MD HbA1c (Bld) [Mass fraction] 9.0 % High 4.0-6.0 [facility] Comment on above: Performed By: #### G LYHGB #### [facility] [address] [place], [place] [id number] Technology Education Instructor: Tao Bradshaw MD Average glucose Estimated from glycated hemoglobin (Bld) [Mass/Vol] 212 mg/dL [facility] Comment on above: The ADA and AACC rec ommend providing the estimated average glucose result to permit better patient understanding of their HBA1c result. HbA1c (Bld) [Mass fraction] 9.0 % High 4.0 - 6.0 % [employer] Interpretation and review of laboratory results Abnormal [facility] Nano [employer]Print [facility] [employer] Basic Metabolic Panelon Anion gap [Moles/Vol] 13 mmol/L 9 - 17 mmol/L [facility] [employer] Calcium [Mass/Vol] 9.2 mg/dL 8.6 - 10. 4 mg/dL [facility] Chloride [Moles/Vol] 103 mmol/L 98 - 10 7 mmol/L [employer] [facility] CO2 [Moles/Vol] 24 mmol/L 20 - 31 mmol/L [employer] Creatinine [Mass/Vol] 0.85 mg/dL 0.70 - 1.20 mg/dL [facility] [employer] GFR/1.73 sq M.predicted MDRD (S/P/Bld) [Vol rate/Area] - PINF [employer] [facility] Comment on above: Effective Jul 23, 2022 These results are not intended for use in patients <18 years of age. eGFR results are calculated without a race factor using the 2021 CKD-EPI equation. Careful clinical correlation is recommended, particularly when comparing to results calculated using previous equations. The CKD-EPI equation is less accurate in patients with extremes of muscle mass, extra-renal metabolism of creatine, excessive creatine ingestion, or following therapy that affects renal tubular secretion. Glucose [Mass/Vol] 200 mg/dL High 70 - 99 mg/dL [facility] Interpretation and review of laboratory results Abnormal [facility] Potassium [Moles/Vol] 4.2 mmol/L 3.7 - 5.3 mmol/L [facility] Sodium [Moles/Vol] 140 mmol/L 135 - 144 mmol/L [facility] Urea nitrogen (BldV) [Mass/Vol] 19 mg/dL 8 - 23 mg/dL [facility] Urea nitrogen/Creatinine (Bld) [Mass ratio] 22 High 9 - 20 [facility] Basic Metabolic Profon 10-23 Anion gap [Moles/Vol] 13 mmol/L Normal 9-17 [facility] Comment on above: Performed By: #### G LYHGB #### [address] [address] Technology Education Instructor: Tao Bradshaw MD #### DARSHANA, LIVP, CBC #### [facility] [address] [place], [place] [id number] Technology Education Instructor: Zackary Norris MD BUN/CRE Ratio 22 High 9-20 [facility] Comment on above: Performed By: #### G LYHGB #### [facility] [address] [place] [address] Technology Education Instructor: Tao Bradshaw MD #### BMP, LIVP, CBC #### [facility] [address] [place], [place] [address] Technology Education Instructor: Zackary Norris MD Calcium [Mass/Vol] 9.2 mg/dL Normal 8.6-10.4 [facility] Comment on above: Performed By: #### G LYHGB #### [employer] [address] Technology Education Instructor: Tao Bradshaw MD #### BMP, LIVP, CBC #### [facility] [address] [place], [place] [id number] Technology Education Instructor: Zackary Norris MD Chloride [Moles/Vol] 103 mmol/L Normal 98-107 [facility] Comment on above: Performed By: #### G LYHGB #### [address] [address] Technology Education Instructor: Tao Bradshaw MD #### DARSHANA, LIVP, CBC #### [facility] [address] [place] [id number] Technology Education Instructor: Zackary Norris MD CO2 [Moles/Vol] 24 mmol/L Normal 20-31 [facility] Comment on above: Performed By: #### Yolanda LYHGB #### [address] [address] Technology Education Instructor: Tao Bradshaw MD #### DARSHANA, LIVP, CBC #### [facility] [address] [place] [address] Technology Education Instructor: Zackary Norris MD Creatinine [Mass/Vol] 0.85 mg/dL Normal 0.70-1.20 [facility] Comment on above: Performed By: #### G LYHGB #### [address] [address] Technology Education Instructor: Tao Bradshaw MD #### BMP, LIVP, CBC #### [facility] [address] [place] [address] Technology Education Instructor: Zackary Norris MD GFR/1.73 sq M.predicted among non-blacks MDRD (S/P/Bld) [Vol rate/Area] mL/min/{1.73_m2} Normal >60 [facility] Comment on above: Result Comment: Effective Jul 23, 2022 These results are not intended for use in patients <18 years of age. eGFR results are calculated without a race factor using the 2020 CKD-EPI equation. Careful clinical correlation is recommended, particularly when comparing to results calculated using previous equations. The CKD-EPI equation is less accurate in patients with extremes of muscle mass, extra-renal metabolism of creatine, excessive creatine ingestion, or following therapy that affects renal tubular secretion. Performed By: #### G LYHGB #### [address] [address] Technology Education Instructor: Tao Bradshaw MD #### TEN GILLILAND, CBC #### [facility] [address] [place], [place] [id number] Technology Education Instructor: Zackary Norris MD Glucose [Mass/Vol] 200 mg/dL High 70-99 [facility] Comment on above: Performed By: #### Yolanda LYHGB #### [address] [address] Technology Education Instructor: Tao Bradshaw MD #### DARSHANA LIVMarshall, CBC #### [facility] [address] [place] [address] Technology Education Instructor: Zackary Norris MD Potassium [Moles/Vol] 4.2 mmol/L Normal 3.7-5.3 [facility] Comment on above: Performed By: #### G LYHGB #### [address] [address] Technology Education Instructor: Tao Bradshaw MD #### DARSHANA LIVP, CBC #### [facility] [address] [place] [address] Technology Education Instructor: Zackary Norris MD Sodium [Moles/Vol] 140 mmol/L Normal 135-144 [facility] [facility] Comment on above: Performed By: #### Yolanda LYHGB #### [facility] [address] [place] [address] Technology Education Instructor: Tao Bradshaw MD #### BMP, LIVP, CBC #### [facility] [address] [place] [address] Technology Education Instructor: Zackary Norris MD Urea nitrogen [Mass/Vol] 19 mg/dL Normal 8-23 [facility] Comment on above: Performed By: #### G LYHGB #### [facility] [address] [place] [id number] Technology Education Instructor: Tao Bradshaw MD #### BMP, LIVP, CBC #### [facility] [address] [place] [address] Technology Education Instructor: Zackary Norris MD CBCon 10-23-2022 Erythrocyte distribution width (RBC) [Ratio] 13.3 % Normal 11.8-14.4 [facility] Comment on above: Performed By: #### G LYHGB #### [address] [address] Technology Education Instructor: Tao Bradshaw MD #### BMP, LIVP, CBC #### [facility] [address] [place] [address] Technology Education Instructor: Zackary Norris MD Hematocrit (Bld) [Volume fraction] 41.4 % Normal 40.7-50.3 [facility] Comment on above: Performed By: #### G LYHGB #### [address] [address] Technology Education Instructor: Tao Bradshaw MD #### BMP, LIVP, CBC #### [facility] [address] [place] [address] Technology Education Instructor: Zackary Norris MD Hemoglobin (Bld) [Mass/Vol] 13.1 g/dL Normal 13.0-17.0 [facility] Comment on above: Performed By: #### G LYHGB #### [address] [address] Technology Education Instructor: Tao Bradshaw MD #### BMP, LIVP, CBC #### [facility] [address] [place] [address] [id number] Technology Education Instructor: Zackary Norris MD MCH (RBC) [Entitic mass] 27.3 pg Normal 25.2-33.5 [facility] Comment on above: Performed By: #### Yolanda LYHGB #### [address] [address] Technology Education Instructor: Tao Bradshaw MD #### BMP, LIVP, CBC #### [facility] [address] [place] [address] [phone] Technology Education Instructor: Zackary Norris MD MCHC (RBC) [Mass/Vol] 31.6 g/dL Normal 28.4-34.8 [facility] Comment on above: Performed By: #### Yolanda LYHGB #### [address] [id number] Technology Education Instructor: Tao Bradshaw MD #### BMP, LIVP, CBC #### [facility] [address] [place] [address] Technology Education Instructor: Zackary Norris MD MCV (RBC) [Entitic vol] 86.4 fL Normal 82.6-102.9 [facility] Comment on above: Performed By: #### G LYHGB #### [address] [id number] Technology Education Instructor: Tao Bradshaw MD #### BMP, LIVP, CBC #### [facility] [address] [place] [address], [place] [address] Technology Education Instructor: Zackary Norris MD NRBC Automated 0.0 per 100 WBC Normal 0.0 [facility] Comment on above: Performed By: #### G LYHGB #### [address] [address] Technology Education Instructor: Tao Bradshaw MD #### BMP, LIVP, CBC #### [facility] [address] [place] [address] Technology Education Instructor: Zackary Norris MD Platelet mean volume (Bld) [Entitic vol] 9.7 fL Normal 8.1-13.5 [facility] Comment on above: Performed By: #### G LYHGB #### [address] [address] Technology Education Instructor: Tao Bradshaw MD #### BMP, LIVP, CBC #### [facility] [address] [place] [address] Technology Education Instructor: Zackary Norris MD Platelets (Bld) [#/Vol] 228 10*3/uL Normal 138-453 [facility] Comment on above: Performed By: #### G LYHGB #### [address] [address] Technology Education Instructor: Tao Bradshaw MD #### BMP, LIVP, CBC #### [facility] [place] [address] Technology Education Instructor: Zackary Norris MD RBC (Bld) [#/Vol] 4.79 10*6/uL Normal 4.21-5.77 [facility] Comment on above: Performed By: #### G LYHGB #### [address] [address] Technology Education Instructor: Tao Bradshaw MD #### BMP, LIVP, CBC #### [facility] [address] [place] [address] Technology Education Instructor: Zackary Norris MD WBC (Bld) [#/Vol] 9.1 10*3/uL Normal 3.5-11.3 [facility] Comment on above: Performed By: #### G LYHGB #### [facility] [address] [place], [place] [id number] Technology Education Instructor: Tao Bradshaw MD #### BMP, LIVP, CBC #### [facility] [address] [place] [address] Technology Education Instructor: Zackary Norris MD Hematocrit (Bld) [Volume fraction] 41.4 % 40.7 - 50.3 % [facility] Hemoglobin (Bld) [Mass/Vol] 13.1 g/dL 13.0 - 17.0 g/dL [facility] MCH (RBC) [Entitic mass] 27.3 pg 25.2 - 33.5 pg [facility] MCHC (RBC) [Mass/Vol] 31.6 g/dL 28.4 - 34.8 g/dL [facility] MCV (RBC) [Entitic vol] 86.4 fL 82.6 - 102.9 fL [facility] NRBC Automated 0.0 0.0 per 100 WBC [facility] Platelet distribution width (Bld) [Ratio] 13.3 % 11.8 - 14.4 % [facility] Platelet mean volume (Bld) [Entitic vol] 9.7 fL 8.1 - 13.5 fL [facility] Platelets (Bld) [#/Vol] 228 10*3/uL [facility] RBC (Bld) [#/Vol] 4.79 10*6/uL 4.21 - 5.7 7 m/uL [facility] WBC (Bld) [#/Vol] 9.1 10*3/uL [facility] Hemoglobin A1Con 10-23-2022 Glucose [Mass/Vol] 189 mg/dL Normal [facility] Comment on above: Result Comment: The ADA and AACC recommend providing the estimated average glucose result to permit better patient understanding of their HBA1c result. Performed By: #### G LYHGB #### [place] [address] [place] [address] Technology Education Instructor: Tao Bradshaw MD #### BMP, LIVP, CBC #### [facility] [address] [place] [address] Technology Education Instructor: Zackary Norris MD HbA1c (Bld) [Mass fraction] 8.2 % High 4.0-6.0 [facility] Comment on above: Performed By: #### G LYHGB #### [address] [address] Technology Education Instructor: Tao Bradshaw MD #### DARSHANA, LIVP, CBC #### [facility] [address] [place] [address] Technology Education Instructor: Zackary Norris MD Glucose [Mass/Vol] 189 mg/dL [facility] Comment on above: The ADA and AACC rec ommend providing the estimated average glucose result to permit better patient understanding of their HBA1c result. HbA1c (Bld) [Mass fraction] 8.2 % High 4.0 - 6.0 % [facility] Interpretation and review of laboratory results Abnormal [facility] Hepatic Function Panelon Albumin [Mass/Vol] 3.6 g/dL 3.5 - 5.2 g/dL [facility] ALP (Bld) [Catalytic activity/Vol] 87 U/L 40 - 129 U/L [facility] ALT [Catalytic activity/Vol] 17 U/L 5 - 41 U/L [facility] AST [Catalytic activity/Vol] 12 U/L NINF - 40 U/L [facility] Bilirubin [Mass/Vol] 0.9 mg/dL 0.3 - 1 .2 mg/dL [facility] Bilirubin, Indirect 0.7 mg/dL 0.0 - 1. 0 mg/dL [facility] Bilirubin.indirect [Mass/Vol] 0.2 mg/dL NINF - 0.3 mg/dL [facility] Protein [Mass/Vol] 6.6 g/dL 6.4 - 8.3 g/dL [facility] Liver Profileon 10-23-2022 Albumin [Mass/Vol] 3.6 g/dL Normal 3.5-5.2 [facility] Comment on above: Performed By: #### G LYHGB #### [address] [address] Technology Education Instructor: Tao Bradshaw MD #### BMP, LIVP, CBC #### [facility] [address] [place], [place] [phone] Technology Education Instructor: Zackary Norris MD Alkaline Phos 87 U/L Normal 40-129 [facility] Comment on above: Performed By: #### G LYHGB #### [facility] [address] [place], [place] [phone] Technology Education Instructor: Tao Bradshaw MD #### BMP, LIVP, CBC #### [facility] [address] [place], [place] [id number] Technology Education Instructor: Zackary Norris MD ALT [Catalytic activity/Vol] 17 U/L Normal 5-41 [facility] Comment on above: Performed By: #### G LYHGB #### [facility] [address] [place] [address] Technology Education Instructor: Tao Bradshaw MD #### BMP, LIVP, CBC #### [facility] [address] [place] [address] Technology Education Instructor: Zackary Norris MD AST [Catalytic activity/Vol] 12 U/L Normal <40 [facility] Comment on above: Performed By: #### G LYHGB #### [address] [address] Technology Education Instructor: Tao Bradshaw MD #### BMP, LIVP, CBC #### [facility] [address] [place] [address] Technology Education Instructor: Zackary Norris MD Bilirubin [Mass/Vol] 0.9 mg/dL Normal 0.3-1.2 [facility] Comment on above: Performed By: #### G LYHGB #### [address] [address] Technology Education Instructor: Tao Bradshaw MD #### BMP, LIVP, CBC #### [facility] [address] [place] [address] Technology Education Instructor: Zackary Norrsi MD Bilirubin, Indirect 0.7 mg/dL Normal 0.0-1.0 [facility] Comment on above: Performed By: #### G LYHGB #### [address] [address] Technology Education Instructor: Tao Bradshaw MD #### BMP, LIVP, CBC #### [facility] [address] [place] [address] Technology Education Instructor: Zackary Norris MD Bilirubin.indirect [Mass/Vol] 0.2 mg/dL Normal <0.3 [facility] Comment on above: Performed By: #### G LYHGB #### [address] [address] Technology Education Instructor: Tao Bradshaw MD #### BMP, LIVP, CBC #### [facility] [address] [place] [address] Technology Education Instructor: Zackary Norris MD Protein [Mass/Vol] 6.6 g/dL Normal 6.4-8.3 [facility] Comment on above: Performed By: #### G LYHGB #### [facility] [address] [place] [address] Technology Education Instructor: Tao Bradshaw MD #### BMP, LIVP, CBC #### [facility] [address] [place], [place] [phone] Technology Education Instructor: Zackary Norris MD No Panel Informationon 10-23 [facility] Hemoglobin A1Con 08-07-2022 Glucose [Mass/Vol] 194 mg/dL Normal [facility] Comment on above: Result Comment: The ADA and AACC recommend providing the estimated average glucose result to permit better patient understanding of their HBA1c result. Performed By: #### G LYHGB #### [facility] [address] [place] [address] Technology Education Instructor: Tao Bradshaw MD HbA1c (Bld) [Mass fraction] 8.4 % High 4.0-6.0 [facility] Comment on above: Performed By: #### G LYHGB #### [facility] [address] [place] [address] Technology Education Instructor: Tao Bradshaw MD Glucose [Mass/Vol] 194 mg/dL [facility] Comment on above: The ADA and AACC rec ommend providing the estimated average glucose result to permit better patient understanding of their HBA1c result. HbA1c (Bld) [Mass fraction] 8.4 % High 4 - 6 % [facility] Interpretation and review of laboratory results Abnormal [facility] Comprehensive Metabolic Pane domenico 03-27-2022 Albumin [Mass/Vol] 4.1 g/dL 3.5 - 5.2 g/dL [facility] ALP (Bld) [Catalytic activity/Vol] 98 U/L 40 - 129 U/L [facility] ALT [Catalytic activity/Vol] 17 U/L 5 - 41 U/L [facility] Anion gap [Moles/Vol] 10 mmol/L 9 - 17 mmol/L [facility] AST [Catalytic activity/Vol] 13 U/L <40 [facility] Bilirubin [Mass/Vol] 0.47 mg/dL 0.3 - 1 .2 mg/dL [facility] Calcium [Mass/Vol] 9.6 mg/dL 8.6 - 10. 4 mg/dL [facility] Chloride [Moles/Vol] 105 mmol/L 98 - 10 7 mmol/L [facility] CO2 [Moles/Vol] 25 mmol/L 20 - 31 mmol/L [facility] Creatinine [Mass/Vol] 0.67 mg/dL Low 0.70 - 1.20 mg/dL [facility] Free PSA/Total PSA [Mass fraction] 6.5 g/dL 6.4 - 8.3 g/dL [facility] GFR >60 >60 mL/min [facility] GFR Non- >60 >60 mL/min [facility] GFR/1.73 sq M.predicted MDRD (S/P/Bld) [Vol rate/Area] [facility] Comment on above: Average GFR for 70 o r more years old: 75 mL/min/1.73sq m Chronic Kidney Disease: <60 mL/min/1.73sq m Kidney failure: <15 mL/min/1.73sq m eGFR calculated using average adult body mass. Additional eGFR calculator available at: http://www.[employer]/multiple_crcl_2012.htm Glucose [Mass/Vol] 134 mg/dL High 70 - 99 mg/dL [facility] Interpretation and review of laboratory results Abnormal [facility] Potassium [Moles/Vol] 4.0 mmol/L 3.7 - 5.3 mmol/L [facility] Sodium [Moles/Vol] 140 mmol/L 135 - 144 mmol/L [facility] Urea nitrogen (BldV) [Mass/Vol] 12 mg/dL 8 - 23 mg/dL [facility] Urea nitrogen/Creatinine (Bld) [Mass ratio] 18 [facility] Hemoglobin A1Con 03-27-2022 Glucose [Mass/Vol] 235 mg/dL [facility] Comment on above: The ADA and AACC rec ommend providing the estimated average glucose result to permit better patient understanding of their HBA1c result. HbA1c (Bld) [Mass fraction] 9.8 % High 4.0 - 6.0 % [facility] Interpretation and review of laboratory results Abnormal [facility] Vitamin D 25 Hydroxyon 03-27 Vit D, 25-Hydroxy 32.6 ng/mL >29.9 [facility] Comment on above: Reference Range: Vitamin D status Range Deficiency <20 ng/mL Mild Deficiency 20-30 ng/mL Sufficiency 30-100 ng/mL Toxicity >100 ng/mL [facility] Basic Metabolic Panelon 12-20 Anion gap [Moles/Vol] 11 mmol/L 9 - 17 mmol/L [facility] Calcium [Mass/Vol] 9.3 mg/dL 8.6 - 10. 4 mg/dL [facility] Chloride [Moles/Vol] 101 mmol/L 98 - 10 7 mmol/L [facility] [employer] CO2 [Moles/Vol] 25 mmol/L 20 - 31 mmol/L [facility] Creatinine [Mass/Vol] 0.61 mg/dL Low 0.70 - 1.20 mg/dL [facility] GFR >60 >60 mL/min [facility] GFR Non- >60 >60 mL/min [facility] GFR/1.73 sq M.predicted MDRD (S/P/Bld) [Vol rate/Area] [facility] Comment on above: Average GFR for 70 o r more years old: 75 mL/min/1.73sq m Chronic Kidney Disease: <60 mL/min/1.73sq m Kidney failure: <15 mL/min/1.73sq m eGFR calculated using average adult body mass. Additional eGFR calculator available at: http://www.[employer]/multiple_crcl_2012.htm Glucose [Mass/Vol] 243 mg/dL High 70 - 99 mg/dL [facility] Interpretation and review of laboratory results Abnormal [facility] Potassium [Moles/Vol] 4.1 mmol/L 3.7 - 5.3 mmol/L [facility] Sodium [Moles/Vol] 137 mmol/L 135 - 144 mmol/L [facility] Urea nitrogen (BldV) [Mass/Vol] 15 mg/dL 8 - 23 mg/dL [facility] CBCon 01-10-2022 Hematocrit (Bld) [Volume fraction] 43.2 % 40.7 - 50.3 % [facility] Hemoglobin.gastrointes tinal spec 1 Ql (Stl) 14.5 g/dL 13.0 - 17.0 g/dL [facility] MCH (RBC) [Entitic mass] 28.7 pg 25.2 - 33.5 pg [facility] MCHC (RBC) [Mass/Vol] 33.6 g/dL 28.4 - 34.8 g/dL [facility] MCV (RBC) [Entitic vol] 85.4 fL 82.6 - 102.9 fL [facility] NRBC Automated 0.0 0.0 per 100 WBC [facility] Platelet distribution width (Bld) [Ratio] 13.2 % 11.8 - 14.4 % [facility] Platelets (Bld) [#/Vol] See Reflexed IPF Result [facility] RBC (Bld) [#/Vol] 5.06 10*6/uL 4.21 - 5.7 7 m/uL [facility] WBC (Bld) [#/Vol] 6.9 10*3/uL [facility] Immature Platelet Fractionon 01-10-2022 Platelet, Fluorescence 188 [facility] Comment on above: ORDERED BY LAB Platelet, Immature Fraction 3.1 % 1.1 - 10.3 % [facility] Comment on above: ORDERED BY LAB [facility] Lipid Panelon 01-10-2022 Cholesterol [Mass/Vol] 127 mg/dL <200 [facility] Comment on above: Cholesterol Guidelines: <200 Desirable 200-240 Borderline >240 Undesirable Cholesterol in HDL [Mass/Vol] 33 mg/dL Low >40 [facility] Comment on above: HDL Guidelines: <40 Undesirable 40-59 Borderline >59 Desirable Cholesterol in LDL [Mass/Vol] 64 mg/dL 0 - 130 mg/dL [facility] Comment on above: LDL Guidelines: <100 Desirable 100-129 Near to/above Desirable 130-159 Borderline >159 Undesirable Direct (measured) LDL and calculated LDL are not interchangeable tests. Cholesterol.total/Chol esterol in HDL [Mass ratio] 3.8 {ratio} <5 [facility] Interpretation and review of laboratory results Abnormal [facility] Triglyceride [Mass/Vol] 151 mg/dL High <150 [facility] Comment on above: Triglyceride Guidelines: <150 Desirable 150-199 Borderline 200-499 High >499 Very high Based on AHA Guidelines for fasting triglyceride, July 2012. [facility] Vitamin D 25 Hydroxyon 01-10 Interpretation and review of laboratory results Abnormal [facility] Vit D, 25-Hydroxy 27.9 ng/mL Low >29.9 [facility] Comment on above: Reference Range: Vitamin D status Range Deficiency <20 ng/mL Mild Deficiency 20-30 ng/mL Sufficiency 30-100 ng/mL Toxicity >100 ng/mL [facility] Basic Metabolic PanelOrdered By: Mi Nichols on 05-10-2021 Anion gap [Moles/Vol] 15 mmol/L 9 - 17 mmol/L [employer] Phone: Calcium [Mass/Vol] 9.4 mg/dL 8.6 - 10. 4 mg/dL [employer] Phone: Chloride [Moles/Vol] 106 mmol/L 98 - 10 7 mmol/L [employer] Phone: CO2 [Moles/Vol] 22 mmol/L 20 - 31 mmol/L [employer] Phone: Creatinine [Mass/Vol] 0.85 mg/dL 0.70 - 1.20 mg/dL [employer] Phone: GFR >60 >60 mL/min [facility] Phone: GFR Non- >60 >60 mL/min [employer] Phone: GFR/1.73 sq M.predicted MDRD (S/P/Bld) [Vol rate/Area] [employer] Phone: Comment on above: Average GFR for 70 o r more years old: 75 mL/min/1.73sq m Chronic Kidney Disease: <60 mL/min/1.73sq m Kidney failure: <15 mL/min/1.73sq m eGFR calculated using average adult body mass. Additional eGFR calculator available at: http://www.[employer]/multiple_crcl_2012.htm GFR/1.73 sq M.predicted MDRD (S/P/Bld) [Vol rate/Area] NOT REPORTED [facility] Phone: Glucose [Mass/Vol] 118 mg/dL High 70 - 99 mg/dL [facility] [employer] Phone: Interpretation and review of laboratory results Abnormal [facility] Phone: Potassium [Moles/Vol] 4.4 mmol/L 3.7 - 5.3 mmol/L [facility] Phone: Sodium [Moles/Vol] 143 mmol/L 135 - 144 mmol/L [facility] Phone: Urea nitrogen (BldV) [Mass/Vol] 21 mg/dL 8 - 23 mg/dL [facility] Phone: Urea nitrogen/Creatinine (Bld) [Mass ratio] NOT REPORTED [facility] Phone: CBCOrdered By: Mi lockett 05-10-2021 Hematocrit (Bld) [Volume fraction] 46.1 % 40.7 - 50.3 % [facility] Phone: Hemoglobin.gastrointes tinal spec 1 Ql (Stl) 15.1 g/dL 13.0 - 17.0 g/dL [facility] Phone: MCH (RBC) [Entitic mass] 28.5 pg 25.2 - 33.5 pg [facility] Phone: MCHC (RBC) [Mass/Vol] 32.8 g/dL 28.4 - 34.8 g/dL [facility] Phone: MCV (RBC) [Entitic vol] 87.1 fL 82.6 - 102.9 fL [employer] Phone: NRBC Automated 0.0 0.0 per 100 WBC [employer] Phone: Platelet distribution width (Bld) [Ratio] 14.1 % 11.8 - 14.4 % [employer] Phone: Platelet mean volume (Bld) [Entitic vol] 10.2 fL 8.1 - 13.5 fL [employer] Phone: Platelets (Bld) [#/Vol] 221 10*3/uL [employer] Phone: RBC (Bld) [#/Vol] 5.29 10*6/uL 4.21 - 5.7 7 m/uL [employer] Phone: WBC (Bld) [#/Vol] 10.2 10*3/uL [employer] Phone: [employer] Phone: Hepatic Function PanelOrdere d By: Mi Nichols on 05-10-2021 Albumin [Mass/Vol] 4.6 g/dL 3.5 - 5.2 g/dL [employer] Phone: Albumin/Globulin [Mass ratio] 1.6 {ratio} [employer] Phone: ALP (Bld) [Catalytic activity/Vol] 81 U/L 40 - 129 U/L [employer] Phone: ALT [Catalytic activity/Vol] 27 U/L 5 - 41 U/L [employer] Phone: AST [Catalytic activity/Vol] 26 U/L <40 [employer] Phone: Bilirubin [Mass/Vol] 0.47 mg/dL 0.3 - 1 .2 mg/dL [employer] Phone: Bilirubin, Indirect 0.37 mg/dL 0.00 - 1 .00 mg/dL [employer] Phone: Bilirubin.indirect [Mass/Vol] 0.10 mg/dL <0.31 [employer] Phone: Free PSA/Total PSA [Mass fraction] 7.4 g/dL 6.4 - 8.3 g/dL [employer] Phone: Globulin NOT REPORTED 1.5 - 3.8 g/dL [employer] Phone: No Panel InformationOrdered By: Mi Nichols on 05-10-2021 [employer] Phone: Basic Metabolic PanelOrdered By: Nuha Cifuentes on 03-30-2021 Anion gap [Moles/Vol] 12 mmol/L 9 - 17 mmol/L [employer] Phone: Calcium [Mass/Vol] 9.2 mg/dL 8.6 - 10. 4 mg/dL [employer] Phone: Chloride [Moles/Vol] 104 mmol/L 98 - 10 7 mmol/L [employer] Phone: CO2 [Moles/Vol] 22 mmol/L 20 - 31 mmol/L [employer] Phone: Creatinine [Mass/Vol] 0.66 mg/dL Low 0.70 - 1.20 mg/dL [employer] Phone: GFR >60 >60 mL/min [facility] Phone: GFR Non- >60 >60 mL/min [employer] Phone: GFR/1.73 sq M.predicted MDRD (S/P/Bld) [Vol rate/Area] [employer] Phone: Comment on above: Average GFR for 70 o r more years old: 75 mL/min/1.73sq m Chronic Kidney Disease: <60 mL/min/1.73sq m Kidney failure: <15 mL/min/1.73sq m eGFR calculated using average adult body mass. Additional eGFR calculator available at: http://www.[employer]/multiple_crcl_2012.htm GFR/1.73 sq M.predicted MDRD (S/P/Bld) [Vol rate/Area] NOT REPORTED [facility] Phone: Glucose [Mass/Vol] 162 mg/dL High 70 - 99 mg/dL [facility] [employer] Phone: Interpretation and review of laboratory results Abnormal [facility] Phone: Potassium [Moles/Vol] 4.2 mmol/L 3.7 - 5.3 mmol/L [facility] Phone: Sodium [Moles/Vol] 138 mmol/L 135 - 144 mmol/L [facility] Phone: Urea nitrogen (BldV) [Mass/Vol] 17 mg/dL 8 - 23 mg/dL [facility] Phone: Urea nitrogen/Creatinine (Bld) [Mass ratio] NOT REPORTED [facility] Phone: CBCOrdered By: Nuha Cifuentes on 03-30-2021 Hematocrit (Bld) [Volume fraction] 41.2 % 40.7 - 50.3 % [facility] Phone: Hemoglobin.gastrointes tinal spec 1 Ql (Stl) 13.7 g/dL 13.0 - 17.0 g/dL [employer] Phone: MCH (RBC) [Entitic mass] 28.0 pg 25.2 - 33.5 pg [facility] Phone: MCHC (RBC) [Mass/Vol] 33.3 g/dL 28.4 - 34.8 g/dL [facility] Phone: MCV (RBC) [Entitic vol] 84.1 fL 82.6 - 102.9 fL [employer] Phone: NRBC Automated 0.0 0.0 per 100 WBC [employer] Phone: Platelet distribution width (Bld) [Ratio] 14.4 % 11.8 - 14.4 % [employer] Phone: Platelet mean volume (Bld) [Entitic vol] 10.1 fL 8.1 - 13.5 fL [employer] [facility] [employer] Phone: Platelets (Bld) [#/Vol] 187 10*3/uL [employer] [facility] [employer] Phone: RBC (Bld) [#/Vol] 4.90 10*6/uL 4.21 - 5.7 7 m/uL [employer] [facility] [employer] Phone: WBC (Bld) [#/Vol] 7.1 10*3/uL [employer] [facility] [employer] Phone: [facility] [employer] Phone: Hemoglobin [id number] By: Ra manjinder Cifuentes on 03-30-2021 Glucose [Mass/Vol] 137 mg/dL [employer] [facility] [employer] Phone: Comment on above: The ADA and AACC rec ommend providing the estimated average glucose result to permit better patient understanding of their HBA1c result. HbA1c (Bld) [Mass fraction] 6.4 % High 4.0 - 6.0 % [facility] Phone: Interpretation and review of laboratory results Abnormal [facility] [employer] Phone: [facility] [employer] Phone: No Panel InformationOrdered By: Nuha Cifuentes on 03-30-2021 [facility] Phone: TSH without ReflexOrdered By : Nuha Cifuentes on 03-30-2021 TSH Qn 2.34 m[IU]/L [employer] [facility] [employer] Phone: C-Reactive ProteinOrdered By : Nuha Cifuentes on 02-10-2021 CRP [Mass/Vol] 106.6 mg/L High 0.0 - 5.0 mg/L [employer] [facility] Phone: CBCOrdered By: Nuha Cifuentes on 02-10-2021 Hematocrit (Bld) [Volume fraction] 45.1 % 40.7 - 50.3 % [employer] [facility] [employer] Phone: Hemoglobin.gastrointes tinal spec 1 Ql (Stl) 14.5 g/dL 13.0 - 17.0 g/dL [employer] [facility] [employer] Phone: Interpretation and review of laboratory results Abnormal [employer] [facility] [employer] Phone: MCH (RBC) [Entitic mass] 27.4 pg 25.2 - 33.5 pg [employer] [facility] [employer] Phone: MCHC (RBC) [Mass/Vol] 32.2 g/dL 28.4 - 34.8 g/dL [employer] [facility] [employer] Phone: MCV (RBC) [Entitic vol] 85.1 fL 82.6 - 102.9 fL [employer] [facility] [employer] Phone: NRBC Automated 0.0 0.0 per 100 WBC [facility] Phone: Platelet distribution width (Bld) [Ratio] 14.8 % High 11.8 - 14.4 % [employer] [facility] [employer] Phone: Platelet mean volume (Bld) [Entitic vol] 10.2 fL 8.1 - 13.5 fL [employer] [facility] [employer] Phone: Platelets (Bld) [#/Vol] 165 10*3/uL [employer] [facility] [employer] Phone: RBC (Bld) [#/Vol] 5.30 10*6/uL 4.21 - 5.7 7 m/uL [employer] [facility] [employer] Phone: WBC (Bld) [#/Vol] 6.2 10*3/uL [employer] [facility] [employer] Phone: Comprehensive Metabolic Pane lOrdered By: Nuha Cifuentes on 02-10-2021 Albumin [Mass/Vol] 4.1 g/dL 3.5 - 5.2 g/dL [facility] [employer] Phone: Albumin/Globulin [Mass ratio] 1.3 {ratio} [employer] [facility] [employer] Phone: ALP (Bld) [Catalytic activity/Vol] 67 U/L 40 - 129 U/L [employer] [facility] Phone: ALT [Catalytic activity/Vol] 19 U/L 5 - 41 U/L [employer] [facility] [employer] Phone: Anion gap [Moles/Vol] 14 mmol/L 9 - 17 mmol/L [employer] [facility] [employer] Phone: AST [Catalytic activity/Vol] 21 U/L <40 [employer] [facility] Phone: Bilirubin [Mass/Vol] 0.93 mg/dL 0.3 - 1 .2 mg/dL [employer] [facility] Phone: Calcium [Mass/Vol] 9.5 mg/dL 8.6 - 10. 4 mg/dL [facility] Phone: Chloride [Moles/Vol] 102 mmol/L 98 - 10 7 mmol/L [employer] [facility] [employer] Phone: CO2 [Moles/Vol] 22 mmol/L 20 - 31 mmol/L [employer] [facility] Phone: Creatinine [Mass/Vol] 0.71 mg/dL 0.70 - 1.20 mg/dL [facility] Phone: Free PSA/Total PSA [Mass fraction] 7.3 g/dL 6.4 - 8.3 g/dL [facility] Phone: GFR >60 >60 mL/min [facility] Phone: GFR Non- >60 >60 mL/min [employer] [facility] [employer] Phone: GFR/1.73 sq M.predicted MDRD (S/P/Bld) [Vol rate/Area] [facility] Phone: Comment on above: Average GFR for 70 o r more years old: 75 mL/min/1.73sq m Chronic Kidney Disease: <60 mL/min/1.73sq m Kidney failure: <15 mL/min/1.73sq m eGFR calculated using average adult body mass. Additional eGFR calculator available at: http://www.Dabble/multiple_crcl_2012.htm GFR/1.73 sq M.predicted MDRD (S/P/Bld) [Vol rate/Area] NOT REPORTED [facility] [employer] Phone: Glucose [Mass/Vol] 109 mg/dL High 70 - 99 mg/dL [facility] Phone: Potassium [Moles/Vol] 4.0 mmol/L 3.7 - 5.3 mmol/L [facility] Phone: Sodium [Moles/Vol] 138 mmol/L 135 - 144 mmol/L [facility] Phone: Urea nitrogen (BldV) [Mass/Vol] 22 mg/dL 8 - 23 mg/dL [facility] Phone: Urea nitrogen/Creatinine (Bld) [Mass ratio] NOT REPORTED [facility] [employer] Phone: Lipid PanelOrdered By: Nuha Cifunetes on 02-10-2021 Cholesterol [Mass/Vol] 128 mg/dL <200 [facility] Phone: Comment on above: Cholesterol Guidelines: <200 Desirable 200-240 Borderline >240 Undesirable Cholesterol in HDL [Mass/Vol] 47 mg/dL >40 [facility] Phone: Comment on above: HDL Guidelines: <40 Undesirable 40-59 Borderline >59 Desirable Cholesterol in LDL [Mass/Vol] 57 mg/dL 0 - 130 mg/dL [facility] Phone: Comment on above: LDL Guidelines: <100 Desirable 100-129 Near to/above Desirable 130-159 Borderline >159 Undesirable Direct (measured) LDL and calculated LDL are not interchangeable tests. Cholesterol in VLDL [Mass/Vol] NOT REPORTED 1 - 30 mg/dL [facility] Phone: Cholesterol.total/Chol esterol in HDL [Mass ratio] 2.7 {ratio} <5 [employer] [facility] Phone: Triglyceride [Mass/Vol] 118 mg/dL <150 [facility] Phone: Comment on above: Triglyceride Guidelines: <150 Desirable 150-199 Borderline 200-499 High >499 Very high Based on AHA Guidelines for fasting triglyceride, July 2012. No Panel InformationOrdered By: Nuha Cifuentes on 02-10-2021 Interpretation and review of laboratory results Abnormal [facility] Phone: Rheumatoid FactorOrdered By: Nuha Cifuentes on 02-10-2021 Rheumatoid Factor 12.4 <14 IU/mL [facility] [employer] Phone: Sedimentation RateOrdered By : Nuha Cifuentes on 02-10-2021 Interpretation and review of laboratory results Abnormal [facility] Phone: Sed Rate 36 mm High 0 - 20 mm [facility] Phone: Uric AcidOrdered By: Nuha nelson on 02-10-2021 Urate [Mass/Vol] 7.3 mg/dL High 3.4 - 7.0 mg/dL [employer] [facility] Phone: Basic Metabolic Panelon 10-22 Anion gap [Moles/Vol] 13 mmol/L 9 - 17 mmol/L [place] Bun/Cre Ratio NOT REPORTED [place] Calcium [Mass/Vol] 9.9 mg/dL 8.6 - 10. 4 mg/dL [place] Chloride [Moles/Vol] 106 mmol/L 98 - 10 7 mmol/L [place] CO2 [Moles/Vol] 22 mmol/L 20 - 31 mmol/L [place] Creatinine [Mass/Vol] 0.74 mg/dL 0.7 - 1.2 mg/dL [place] GFR >60 >60 mL/min [place] GFR Non- >60 >60 mL/min [place] GFR/1.73 sq M predicted among non-blacks MDRD (S/P/Bld) [Vol rate/Area] NOT REPORTED [place] GFR/1.73 sq M predicted among non-blacks MDRD (S/P/Bld) [Vol rate/Area] [place] Comment on above: Average GFR for 70 o r more years old: 75 mL/min/1.73sq m Chronic Kidney Disease: <60 mL/min/1.73sq m Kidney failure: <15 mL/min/1.73sq m eGFR calculated using average adult body mass. Additional eGFR calculator available at: http://www.Dabble/Benhauer_crcl_2011.htm Glucose [Mass/Vol] 101 mg/dL High 70 - 99 mg/dL [place] Interpretation and review of laboratory results Abnormal [place] Potassium [Moles/Vol] 4.1 mmol/L 3.7 - 5.3 mmol/L [place] Sodium [Moles/Vol] 141 mmol/L 135 - 144 mmol/L [place] Urea nitrogen [Mass/Vol] 16 mg/dL 8 - 23 mg/dL [place] CBCon 11-11-2020 Erythrocyte distribution width (RBC) [Ratio] 13.7 % 11.8 - 14.4 % [place] Hematocrit (Bld) [Volume fraction] 40.4 % Low 40.7 - 50.3 % [place] Hemoglobin (Bld) [Mass/Vol] 12.8 g/dL Low 13 - 17 g/dL [place] Interpretation and review of laboratory results Abnormal [place] MCH (RBC) [Entitic mass] 26.5 pg 25.2 - 33.5 pg [place] MCHC (RBC) [Mass/Vol] 31.7 g/dL 28.4 - 34.8 g/dL [place] MCV (RBC) [Entitic vol] 83.6 fL 82.6 - 102.9 fL [place] Platelet mean volume (Bld) [Entitic vol] 10.1 fL 8.1 - 13.5 fL [place] Platelets (Bld) [#/Vol] 213 10*3/uL [place] RBC (Bld) [#/Vol] 4.83 10*6/uL 4.21 - 5.7 7 m/uL [place] WBC (Bld) [#/Vol] 7.7 10*3/uL [place] WBC (Bld) [#/Vol] 0.0 10*3/uL 0.0 per 10 0 WBC [place] Hemoglobin A1Con 11-11-2020 Glucose [Mass/Vol] 131 mg/dL [place] Comment on above: The ADA and AACC rec ommend providing the estimated average glucose result to permit better patient understanding of their HBA1c result. HbA1c (Bld) [Mass fraction] 6.2 % High 4 - 6 % [place] Interpretation and review of laboratory results Abnormal [place] Hepatic Function Panelon Albumin [Mass/Vol] 3.8 g/dL 3.5 - 5.2 g/dL [place] Albumin/Globulin [Mass ratio] 1.4 {ratio} [place] ALP [Catalytic activity/Vol] 76 U/L 40 - 129 U/L [place] ALT [Catalytic activity/Vol] 12 U/L 5 - 41 U/L [place] AST [Catalytic activity/Vol] 15 U/L <40 [place] Bilirubin Ql (U) 0.43 mg/dL 0.3 - 1.2 mg/dL [place] Bilirubin, Indirect 0.32 mg/dL 0 - 1 mg/dL [place] Bilirubin.direct [Mass/Vol] 0.11 mg/dL <0.31 [place] Globulin (S) [Mass/Vol] NOT REPORTED 1.5 - 3.8 g/dL [place] Protein [Mass/Vol] 6.6 g/dL 6.4 - 8.3 g/dL [place] Basic Metabolic Panelon 11-2 3-2020 Anion gap [Moles/Vol] 14 mmol/L 9 - 17 mmol/L [place] Bun/Cre Ratio NOT REPORTED [place] Calcium [Mass/Vol] 9.3 mg/dL 8.6 - 10. 4 mg/dL [place] Chloride [Moles/Vol] 103 mmol/L 98 - 10 7 mmol/L [place] CO2 [Moles/Vol] 22 mmol/L 20 - 31 mmol/L [place] Creatinine [Mass/Vol] 0.77 mg/dL 0.7 - 1.2 mg/dL [place] GFR >60 >60 mL/min [place] GFR Non- >60 >60 mL/min [place] GFR/1.73 sq M predicted among non-blacks MDRD (S/P/Bld) [Vol rate/Area] NOT REPORTED [place] GFR/1.73 sq M predicted among non-blacks MDRD (S/P/Bld) [Vol rate/Area] [place] Comment on above: Average GFR for 70 o r more years old: 75 mL/min/1.73sq m Chronic Kidney Disease: <60 mL/min/1.73sq m Kidney failure: <15 mL/min/1.73sq m eGFR calculated using average adult body mass. Additional eGFR calculator available at: http://www.[employer]/multiple_crcl_2012.htm Glucose [Mass/Vol] 141 mg/dL High 70 - 99 mg/dL [place] Interpretation and review of laboratory results Abnormal [place] Potassium [Moles/Vol] 4.0 mmol/L 3.7 - 5.3 mmol/L [place] Sodium [Moles/Vol] 139 mmol/L 135 - 144 mmol/L [place] Urea nitrogen [Mass/Vol] 15 mg/dL 8 - 23 mg/dL [place] CBCon 09-12-2020 Erythrocyte distribution width (RBC) [Ratio] 13.4 % 11.8 - 14.4 % [place] Hematocrit (Bld) [Volume fraction] 39.2 % Low 40.7 - 50.3 % [place] Hemoglobin (Bld) [Mass/Vol] 12.3 g/dL Low 13 - 17 g/dL [place] Interpretation and review of laboratory results Abnormal [place] MCH (RBC) [Entitic mass] 27.6 pg 25.2 - 33.5 pg [place] MCHC (RBC) [Mass/Vol] 31.4 g/dL 28.4 - 34.8 g/dL [place] MCV (RBC) [Entitic vol] 88.1 fL 82.6 - 102.9 fL [place] Platelet mean volume (Bld) [Entitic vol] 10.4 fL 8.1 - 13.5 fL [place] Platelets (Bld) [#/Vol] 228 10*3/uL [place] RBC (Bld) [#/Vol] 4.45 10*6/uL 4.21 - 5.7 7 m/uL [place] WBC (Bld) [#/Vol] 0.0 10*3/uL 0.0 per 10 0 WBC [place] WBC (Bld) [#/Vol] 7.2 10*3/uL [place] Basic Metabolic Panelon 11-1 Anion gap [Moles/Vol] 21 mmol/L High 9 - 17 mmol/L [place] Bun/Cre Ratio NOT REPORTED [place] Calcium [Mass/Vol] 9.7 mg/dL 8.6 - 10. 4 mg/dL [place] Chloride [Moles/Vol] 106 mmol/L 98 - 10 7 mmol/L [place] CO2 [Moles/Vol] 19 mmol/L Low 20 - 31 mmol/L [place] Creatinine [Mass/Vol] 0.86 mg/dL 0.7 - 1.2 mg/dL [place] GFR >60 >60 mL/min [place] GFR Non- >60 >60 mL/min [place] GFR/1.73 sq M predicted among non-blacks MDRD (S/P/Bld) [Vol rate/Area] NOT REPORTED [place] GFR/1.73 sq M predicted among non-blacks MDRD (S/P/Bld) [Vol rate/Area] [place] Comment on above: Average GFR for 70 o r more years old: 75 mL/min/1.73sq m Chronic Kidney Disease: <60 mL/min/1.73sq m Kidney failure: <15 mL/min/1.73sq m eGFR calculated using average adult body mass. Additional eGFR calculator available at: http://www.Dabble/Benhauer_crcl_2011.htm Glucose [Mass/Vol] 49 mg/dL Low 70 - 99 mg/dL [place] Interpretation and review of laboratory results Abnormal [place] Potassium [Moles/Vol] 3.9 mmol/L 3.7 - 5.3 mmol/L [place] Sodium [Moles/Vol] 146 mmol/L High 135 - 144 mmol/L [place] Urea nitrogen [Mass/Vol] 15 mg/dL 8 - 23 mg/dL [place] CBCon 09-07-2020 Erythrocyte distribution width (RBC) [Ratio] 13.5 % 11.8 - 14.4 % [place] Hematocrit (Bld) [Volume fraction] 44.0 % 40.7 - 50.3 % [place] Hemoglobin (Bld) [Mass/Vol] 13.7 g/dL 13 - 17 g/dL [place] MCH (RBC) [Entitic mass] 27.6 pg 25.2 - 33.5 pg [place] MCHC (RBC) [Mass/Vol] 31.1 g/dL 28.4 - 34.8 g/dL [place] MCV (RBC) [Entitic vol] 88.5 fL 82.6 - 102.9 fL [place] Platelet mean volume (Bld) [Entitic vol] 10.3 fL 8.1 - 13.5 fL [place] Platelets (Bld) [#/Vol] 249 10*3/uL [place] RBC (Bld) [#/Vol] 4.97 10*6/uL 4.21 - 5.7 7 m/uL [place] WBC (Bld) [#/Vol] 0.0 10*3/uL 0.0 per 10 0 WBC [place] WBC (Bld) [#/Vol] 7.4 10*3/uL [place] Basic Metabolic Panelon 11-0 Anion gap [Moles/Vol] 12 mmol/L 9 - 17 mmol/L [place] Bun/Cre Ratio NOT REPORTED [place] Calcium [Mass/Vol] 9.6 mg/dL 8.6 - 10. 4 mg/dL [place] Chloride [Moles/Vol] 105 mmol/L 98 - 10 7 mmol/L [place] CO2 [Moles/Vol] 23 mmol/L 20 - 31 mmol/L [place] Creatinine [Mass/Vol] 0.85 mg/dL 0.7 - 1.2 mg/dL [place] GFR >60 >60 mL/min [place] GFR Non- >60 >60 mL/min [place] GFR/1.73 sq M predicted among non-blacks MDRD (S/P/Bld) [Vol rate/Area] NOT REPORTED [place] GFR/1.73 sq M predicted among non-blacks MDRD (S/P/Bld) [Vol rate/Area] [place] Comment on above: Average GFR for 70 o r more years old: 75 mL/min/1.73sq m Chronic Kidney Disease: <60 mL/min/1.73sq m Kidney failure: <15 mL/min/1.73sq m eGFR calculated using average adult body mass. Additional eGFR calculator available at: http://www.[employer]/multiple_crcl_2012.htm Glucose [Mass/Vol] 125 mg/dL High 70 - 99 mg/dL [place] Interpretation and review of laboratory results Abnormal [place] Potassium [Moles/Vol] 4.6 mmol/L 3.7 - 5.3 mmol/L [place] Sodium [Moles/Vol] 140 mmol/L 135 - 144 mmol/L [place] Urea nitrogen [Mass/Vol] 20 mg/dL 8 - 23 mg/dL [place] CBCon 08-29-2020 Erythrocyte distribution width (RBC) [Ratio] 13.3 % 11.8 - 14.4 % [place] Hematocrit (Bld) [Volume fraction] 38.9 % Low 40.7 - 50.3 % [place] Hemoglobin (Bld) [Mass/Vol] 11.9 g/dL Low 13 - 17 g/dL [place] Interpretation and review of laboratory results Abnormal [place] MCH (RBC) [Entitic mass] 27.6 pg 25.2 - 33.5 pg [place] MCHC (RBC) [Mass/Vol] 30.6 g/dL 28.4 - 34.8 g/dL [place] MCV (RBC) [Entitic vol] 90.3 fL 82.6 - 102.9 fL [place] Platelet mean volume (Bld) [Entitic vol] 10.0 fL 8.1 - 13.5 fL [place] Platelets (Bld) [#/Vol] 320 10*3/uL [place] RBC (Bld) [#/Vol] 4.31 10*6/uL 4.21 - 5.7 7 m/uL [place] WBC (Bld) [#/Vol] 0.0 10*3/uL 0.0 per 10 0 WBC [place] WBC (Bld) [#/Vol] 8.8 10*3/uL [place] Basic Metabolic Panelon 07-22 Anion gap [Moles/Vol] 12 mmol/L 9 - 17 mmol/L [place] Bun/Cre Ratio NOT REPORTED [place] Calcium [Mass/Vol] 9.0 mg/dL 8.6 - 10. 4 mg/dL [place] Chloride [Moles/Vol] 103 mmol/L 98 - 10 7 mmol/L [place] CO2 [Moles/Vol] 22 mmol/L 20 - 31 mmol/L [place] Creatinine [Mass/Vol] 1.2 mg/dL 0.7 - 1.2 mg/dL [place] GFR >60 >60 mL/min [place] GFR Non- 60 mL/min Low >60 [place] GFR/1.73 sq M predicted among non-blacks MDRD (S/P/Bld) [Vol rate/Area] NOT REPORTED [place] GFR/1.73 sq M predicted among non-blacks MDRD (S/P/Bld) [Vol rate/Area] [place] Comment on above: Average GFR for 70 o r more years old: 75 mL/min/1.73sq m Chronic Kidney Disease: <60 mL/min/1.73sq m Kidney failure: <15 mL/min/1.73sq m eGFR calculated using average adult body mass. Additional eGFR calculator available at: http://www.Dabble/multiple_crcl_2011.htm Glucose [Mass/Vol] 203 mg/dL High 70 - 99 mg/dL [place] Interpretation and review of laboratory results Abnormal [place] Potassium [Moles/Vol] 4.4 mmol/L 3.7 - 5.3 mmol/L [place] Sodium [Moles/Vol] 137 mmol/L 135 - 144 mmol/L [place] Urea nitrogen [Mass/Vol] 42 mg/dL High 8 - 23 mg/dL [place] CBCon 08-15-2020 Erythrocyte distribution width (RBC) [Ratio] 14.1 % 11.8 - 14.4 % [place] Hematocrit (Bld) [Volume fraction] 45.2 % 40.7 - 50.3 % [place] Hemoglobin (Bld) [Mass/Vol] 14.1 g/dL 13 - 17 g/dL [place] MCH (RBC) [Entitic mass] 27.8 pg 25.2 - 33.5 pg [place] MCHC (RBC) [Mass/Vol] 31.2 g/dL 28.4 - 34.8 g/dL [place] MCV (RBC) [Entitic vol] 89.0 fL 82.6 - 102.9 fL [place] Platelet mean volume (Bld) [Entitic vol] 10.8 fL 8.1 - 13.5 fL [place] Platelets (Bld) [#/Vol] 195 10*3/uL [place] RBC (Bld) [#/Vol] 5.08 10*6/uL 4.21 - 5.7 7 m/uL [place] WBC (Bld) [#/Vol] 0.0 10*3/uL 0.0 per 10 0 WBC [place] WBC (Bld) [#/Vol] 7.0 10*3/uL [place] CBC AUTO DIFFon 03-29-2019 Basophils (Bld) [#/Vol] 0.1 103/ul Normal 0.0-0.1 [facility] Comment on above: Performed By: #### C BC #### [facility] [address] [place], [place] [id number] Jayant Belem Basophils/100 WBC (Bld) 0.5 % Normal 0.2-2.0 [facility] Comment on above: Performed By: #### C BC #### [facility] [address] [place] [id number] Jayant Bleem Eosinophils (Bld) [#/Vol] 0.1 103/ul Normal 0.0-0.7 [facility] Comment on above: Performed By: #### C BC #### [facility] [address] [place] [id number] Jayant Belem Eosinophils/100 WBC (Bld) 1.3 % Normal 0.9-7.0 [facility] Comment on above: Performed By: #### C BC #### [facility] [address] [place], [place] [id number] Jayant Belem Erythrocyte distribution width (RBC) [Ratio] 13.5 % Normal 11.0-15.0 [facility] Comment on above: Performed By: #### C BC #### [facility] [address] [place] [address] Jayant Patricia Hematocrit (Bld) [Volume fraction] 41.8 % Critically low 42.0-54.0 [facility] Comment on above: Performed By: #### C BC #### [facility] [address] [place] [address] Jayant Patricia Hemoglobin (Bld) [Mass/Vol] 14.4 g/dL Normal 14.0-18.0 [facility] Comment on above: Performed By: #### C BC #### [facility] [address] [place] [address] Jayant Patricia IG # 0.04 10e3/ul Critically high 0.00-0.03 [facility] Comment on above: Performed By: #### C BC #### [facility] [address] [place] [address] Jayant Patricia IG % 0.4 % Normal 0.0-0.5 [facility] Comment on above: Performed By: #### C BC #### [facility] [address] [place] [address] Jayant Patricia Lymphocytes (Bld) [#/Vol] 1.4 103/ul Normal 1.2-3.8 [facility] Comment on above: Performed By: #### C BC #### [facility] [address] [place] [address] Jayant Patricia Lymphocytes/100 WBC (Bld) 14.9 % Critically low 20.5-60.0 [facility] Comment on above: Performed By: #### C BC #### [facility] [address] [place], [place] [id number] Jayant Patricia MANUAL DIFF REQ NO Normal [facility] Comment on above: Performed By: #### C BC #### [facility] [address] [place] [address] Jayant Patricia MCH (RBC) [Entitic mass] 28.1 pg Normal 25.9-34.0 [facility] Comment on above: Performed By: #### C BC #### [facility] [address] [place], [place] [id number] Jayantestelle Patricia MCHC (RBC) [Mass/Vol] 34.4 g/dL Normal 29.9-35.2 [facility] Comment on above: Performed By: #### C BC #### [facility] [address] [place], [place] [id number] Jayant Belem MCV (RBC) [Entitic vol] 81.6 fL Normal 80.0-94.0 [facility] Comment on above: Performed By: #### C BC #### [facility] [address] [place], [place] [id number] Jayant Belem Monocytes (Bld) [#/Vol] 0.8 103/ul Normal 0.3-0.8 [facility] Comment on above: Performed By: #### C BC #### [facility] [address] [place] [address] Jayant Belem Monocytes/100 WBC (Bld) 7.8 % Normal 1.7-12.0 [facility] Comment on above: Performed By: #### C BC #### [facility] [address] [place], [place] [id number] Jayant Belem Neutrophils (Bld) [#/Vol] 7.2 103/ul Critically high 1.4-6.5 [facility] Comment on above: Performed By: #### C BC #### [facility] [address] [place], [place] [id number] Jayant Belem Neutrophils/100 WBC (Bld) 75.1 % Critically high 43.0-75.0 [facility] Comment on above: Performed By: #### C BC #### [facility] [address] [place], [place] [id number] Jayant Belem Platelet mean volume (Bld) [Entitic vol] 10.6 fL Normal 9.5-13.5 [facility] Comment on above: Performed By: #### C BC #### [facility] [address] [place], [place] [id number] Jayant Belem Platelets (Bld) [#/Vol] 178 103/ul Normal 150-450 [facility] Comment on above: Performed By: #### C BC #### [facility] [address] [id number] Jayant Belem RBC (Bld) [#/Vol] 5.12 106/ul Normal 4.70-6.10 [facility] Comment on above: Performed By: #### C BC #### [facility] [address] [place] [id number] Jayant Belem WBC (Bld) [#/Vol] 9.6 103/ul Normal 4.0-11.0 [facility] Comment on above: Performed By: #### C BC #### [facility] [address] [place], [place] [id number] Jayant Belem PROF CHEM 8 (BAS METB)on Anion gap [Moles/Vol] 15.5 mmol/L Normal [facility] Comment on above: Performed By: #### B MP #### [facility] [address] [place], [place] [phone] Jayant Belem Calcium [Mass/Vol] 9.3 mg/dL Normal 8.4-10.2 [facility] Comment on above: Performed By: #### B MP #### [facility] [address] [place], [place] [id number] Jayant Belem Chloride [Moles/Vol] 100 mmol/L Normal 98-107 [facility] Comment on above: Performed By: #### B MP #### [facility] [address] [place], [place] [phone] Jayant Belem CO2 [Moles/Vol] 23.8 mmol/L Normal 22.0-30.0 [facility] Comment on above: Performed By: #### B MP #### [facility] [address] [place], [place] [id number] Jayant Belem Creatinine [Mass/Vol] 1.29 mg/dL Critically high 0.66-1.25 [facility] Comment on above: Performed By: #### B MP #### [facility] [address] [place], [place] [address] Jayant Belem EGFR-AF ANDORRAN >60 Normal >=60 [facility] Comment on above: Performed By: #### B MP #### [facility] [address], [place] [address] Jayant Belem EGFR-NON AF ANDORRAN 55 mL/min/1.73m2 Critically low >=60 [facility] Comment on above: Performed By: #### B MP #### [facility] [address] [place] [id number] Jayant Belem Glucose [Mass/Vol] 356 mg/dL Critically high 74-106 T [facility] Comment on above: Performed By: #### B MP #### [facility] [address] [place] [id number] Jayant Belem Potassium [Moles/Vol] 4.3 mmol/L Normal 3.4-5.0 [facility] Comment on above: Performed By: #### B MP #### [facility] [address] [place] [id number] Jayant Belem Sodium [Moles/Vol] 135 mmol/L Critically low 137-145 [facility] Comment on above: Performed By: #### B MP #### [facility] [address] [place], [place] [id number] Jayant Belem Urea nitrogen [Mass/Vol] 25.0 mg/dL Critically high 9.0-20.0 [facility] Comment on above: Performed By: #### B MP #### [facility] [address] [id number] Jayant Belem Urea nitrogen/Creatinine [Mass ratio] 19.4 mg/mg Normal [facility] Comment on above: Performed By: #### B MP #### [facility] [address] [place], [place] [id number] Jayant Belem Vital Signs Date Time Vital Sign Value Performing Clinician Facility 04-07-2025 15:37-0400 Body mass index (BMI) [Ratio] 23.05 kg/m2 Fahad Knight DO Work Phone: [facility] 04-07-2025 15:37-0400 Body weight 79.24 kg Fahad Furlong DO Work Phone: [facility] 04-07-2025 15:37-0400 Diastolic blood pressure 64 mm[Hg] Fahad Furlong DO Work Phone: [facility] 04-07-2025 15:37-0400 Systolic blood pressure 134 mm[Hg] Fahad Furlong DO Work Phone: [facility] 02-23-2025 09:51-0400 Body mass index (BMI) [Ratio] 23.67 kg/m2 Fahad Furlong DO Work Phone: [facility] 02-23-2025 09:51-0400 Body temperature 96.21 [degF] Fahad Furlong DO Work Phone: [facility] 02-23-2025 09:51-0400 Body weight 81.38 kg Fahad Furlong DO Work Phone: [facility] 02-23-2025 09:51-0400 Diastolic blood pressure 74 mm[Hg] Fahad Furlong DO Work Phone: [facility] 02-23-2025 09:51-0400 Heart rate 53 /min Fahad Furlong DO Work Phone: [facility] 02-23-2025 09:51-0400 Respiratory rate 20 /min Fahad Furlong DO Work Phone: [facility] 02-23-2025 09:51-0400 SaO2% (BldA) [Mass fraction] 93 % Fahad Furlong DO Work Phone: [facility] 02-23-2025 09:51-0400 Systolic blood pressure 149 mm[Hg] Fahad Furlong DO Work Phone: [facility] 02-16-2025 11:34-0400 Body mass index (BMI) [Ratio] 23.67 kg/m2 Fahad Furlong DO Work Phone: [facility] 02-16-2025 11:34-0400 Body temperature 97.59 [degF] Fahad Furlong DO Work Phone: [facility] 02-16-2025 11:34-0400 Body weight 81.38 kg Fahad Furlong DO Work Phone: [facility] 02-16-2025 11:34-0400 Diastolic blood pressure 76 mm[Hg] Fahad Furlong DO Work Phone: [facility] 02-16-2025 11:34-0400 Heart rate 77 /min Fahad Furlong DO Work Phone: [facility] 02-16-2025 11:34-0400 Respiratory rate 18 /min Fahad Furlong DO Work Phone: [facility] 02-16-2025 11:34-0400 Systolic blood pressure 143 mm[Hg] Fahad Furlong DO Work Phone: [facility] 01-15-2025 16:56-0400 Diastolic blood pressure 66 mm[Hg] Fahad Furlong DO Work Phone: [facility] 01-15-2025 16:56-0400 Systolic blood pressure 132 mm[Hg] Fahad Furlong DO Work Phone: [facility] 12-18-2024 15:28-0500 Body mass index (BMI) [Ratio] 24.94 kg/m2 Fahad Furlong DO Work Phone: [facility] 12-18-2024 15:28-0500 Body weight 85.73 kg Fahad Furlong DO Work Phone: [facility] 12-18-2024 15:28-0500 Diastolic blood pressure 68 mm[Hg] Fahad Furlong DO Work Phone: [facility] 12-18-2024 15:28-0500 Heart rate 78 /min Fahad Furlong DO Work Phone: [facility] 12-18-2024 15:28-0500 Systolic blood pressure 160 mm[Hg] Fahad Furlong DO Work Phone: [facility] 11-13-2024 09:14-0500 Body mass index (BMI) [Ratio] 24.96 kg/m2 Fahad Furlong DO Work Phone: [facility] 11-13-2024 09:14-0500 Body temperature 98.01 [degF] Fahad Furlong DO Work Phone: [facility] 11-13-2024 09:14-0500 Body weight 85.82 kg Fahad Furlong DO Work Phone: [facility] 11-13-2024 09:14-0500 Diastolic blood pressure 71 mm[Hg] Fahad Furlong DO Work Phone: [facility] 11-13-2024 09:14-0500 Heart rate 76 /min Fahad Furlong DO Work Phone: [facility] 11-13-2024 09:14-0500 Respiratory rate 18 /min Fahad Furlong DO Work Phone: [facility] 11-13-2024 09:14-0500 SaO2% (BldA) [Mass fraction] 93 % Fahad Furlong DO Work Phone: [facility] 11-13-2024 09:14-0500 Systolic blood pressure 139 mm[Hg] Fahad Furlong DO Work Phone: [facility] 10-09-2024 13:14-0500 Body mass index (BMI) [Ratio] 24.96 kg/m2 Fahad Furlong DO Work Phone: [facility] 10-09-2024 13:14-0500 Body temperature 98.29 [degF] Fahad Furlong DO Work Phone: [facility] 10-09-2024 13:14-0500 Body weight 85.82 kg Fahad Furlong DO Work Phone: [facility] 10-09-2024 13:14-0500 Diastolic blood pressure 70 mm[Hg] Fahad Furlong DO Work Phone: [facility] 10-09-2024 13:14-0500 Heart rate 68 /min Fahad Furlong DO Work Phone: [facility] 10-09-2024 13:14-0500 Respiratory rate 18 /min Fahad Furlong DO Work Phone: [facility] 10-09-2024 13:14-0500 SaO2% (BldA) [Mass fraction] 93 % Fahad Furlong DO Work Phone: [facility] 10-09-2024 13:14-0500 Systolic blood pressure 136 mm[Hg] Fahad Furlong DO Work Phone: [facility] 09-08-2024 18:18-0500 Diastolic blood pressure 74 mm[Hg] Fahad Furlong DO Work Phone: [facility] 09-08-2024 18:18-0500 Heart rate 73 /min Fahad Furlong DO Work Phone: [facility] 09-08-2024 18:18-0500 Systolic blood pressure 118 mm[Hg] Fahad Furlong DO Work Phone: [facility] 08-25-2024 23:26-0500 Body mass index (BMI) [Ratio] 25.12 kg/m2 Fahad Furlong DO Work Phone: [facility] 08-25-2024 23:26-0500 Body temperature 98.4 [degF] Fahad Furlong DO Work Phone: [facility] 08-25-2024 23:26-0500 Body weight 86.36 kg Fahad Furlong DO [facility] 08-07-2024 15:35-0400 Body height 185.4 cm Fahad Furlong DO Work Phone[facility] 08-07-2024 15:35-0400 Body mass index (BMI) [Ratio] 24.91 kg/m2 Fahad Furlong DO Work Phone: [facility] 08-07-2024 15:35-0400 Body temperature 97 [degF] Fahad Furlong DO Work Phone: [facility] 08-07-2024 15:35-0400 Body weight 85.64 kg Fahad Furlong DO Work Phone: [facility] 08-07-2024 15:35-0400 Diastolic blood pressure 77 mm[Hg] Fahad Furlong DO Work Phone: [facility] 08-07-2024 15:35-0400 Heart rate 71 /min Fahad Furlong DO Work Phone[facility] 08-07-2024 15:35-0400 Respiratory rate 18 /min Fahad Furlong DO Work Phone[facility] 08-07-2024 15:35-0400 SaO2% (BldA) [Mass fraction] 92 % Fahad Furlong DO Work Phone: [facility] 08-07-2024 15:35-0400 Systolic blood pressure 133 mm[Hg] Fahad Furlong DO Work Phone: [facility] 08-03-2024 12:01-0400 Body temperature 97.5 [degF] Janet Sanderson MD Work Phone: [facility] 08-03-2024 12:01-0400 Diastolic blood pressure 70 mm[Hg] Janet Sanderson MD Work Phone: [facility] 08-03-2024 12:01-0400 Heart rate 69 /min Janet Sanderson MD Work Phone: [facility] 08-03-2024 12:01-0400 Respiratory rate 14 /min Janet Sanderson MD Work Phone: [facility] 08-03-2024 12:01-0400 SaO2% (BldA) [Mass fraction] 95 % Janet Sanderson MD Work Phone: [facility] 08-03-2024 12:01-0400 Systolic blood pressure 151 mm[Hg] Janet Sanderson MD Work Phone: [facility] 08-02-2024 04:11-0400 Body mass index (BMI) [Ratio] 25.39 kg/m2 Janet Sanderson MD Work Phone: [facility] 08-02-2024 04:11-0400 Body weight 87.3 kg Janet Sanderson MD Work Phone: [facility] 07-31-2024 15:47-0400 Body height 185.4 cm Janet Sanderson MD Work Phone: [facility] 05-06-2024 15:20-0400 Body mass index (BMI) [Ratio] 29.03 kg/m2 Evans De La Rosa MD Work Phone: [facility] 05-06-2024 15:20-0400 Body weight 99.79 kg Evans De La Rosa MD Work Phone: [facility] 05-06-2024 15:20-0400 Diastolic blood pressure 64 mm[Hg] Evans De La Rosa MD Work Phone: [facility] 05-06-2024 15:20-0400 Heart rate 60 /min Evans De La Rosa MD Work Phone: [facility] 05-06-2024 15:20-0400 Systolic blood pressure 141 mm[Hg] Evans De La Rosa MD Work Phone: [facility] 04-09-2024 13:22-0400 Body height 185.4 cm Stephanie DEL RIO-C Work Phone: [facility] 04-09-2024 13:22-0400 Diastolic blood pressure 66 mm[Hg] Stephanie Hall PA-C Work Phone: [facility] 04-09-2024 13:22-0400 Heart rate 58 /min Stephanie Hall PA-C Work Phone: [facility] 04-09-2024 13:22-0400 SaO2% (BldA) [Mass fraction] 93 % Stephanie Hall PA-C Work Phone: [facility] 04-09-2024 13:22-0400 Systolic blood pressure 126 mm[Hg] Stephanie Hall PA-C Work Phone: [facility] Encounters Encounter Date Encounter Type Care Provider Facility Start: 04-07-2025 End: 04-07-2025 ambulatory [facility] Comment on above: Essential hypertensi on (Primary Dx); Cerebrovascular accident (CVA), unspecified mechanism ([facility] Type 2 diabetes mellitus with hyperglycemia, with long-term current use of insulin ([facility]) Start: 02-23-2025 End: 03-15-2025 Continuing Care Fahad Knight DO [facility] Comment on above: Type 2 diabetes abbie itus with hyperglycemia, with long-term current use of insulin ([facility]) (Primary Dx); Metabolic encephalopathy; Bipolar affective disorder, remission status unspecified ([facility]); Essential hypertension Start: 02-16-2025 End: 02-16-2025 Continuing Care Fahad Knight DO Work Phone: [facility] Comment on above: Metabolic encephalop athy (Primary Dx); Type 2 diabetes mellitus with hyperglycemia, with long-term current use of insulin ([facility]); Pressure injury of skin of sacral region, unspecified injury stage; Bipolar affective disorder, remission status unspecified (CMS-HCC) Start: 01-15-2025 End: 01-18-2025 ambulatory Fahad Knight DO Work Phone: [facility] Comment on above: Essential hypertensi on (Primary Dx); Cerebrovascular accident (CVA), unspecified mechanism (CMS-HCC); Metabolic encephalopathy Start: 12-18-2024 End: 12-18-2024 ambulatory Fahad Knight DO [facility] Phone[facility] Comment on above: Metabolic encephalop athy (Primary Dx); Essential hypertension; Pressure injury of skin of sacral region, unspecified injury stage Start: 11-13-2024 End: 11-16-2024 Continuing Care Fahad Knight DO [facility] Phone[facility] Comment on above: Metabolic encephalop athy (Primary Dx); Cerebrovascular accident (CVA), unspecified mechanism (CMS-HCC); Essential hypertension; Anxiety; Bipolar affective disorder, remission status unspecified (CMS-HCC) Start: 10-09-2024 End: 10-10-2024 Continuing Care Fahad Knight DO Work Phone: [facility] Comment on above: Cerebrovascular acci dent (CVA), unspecified mechanism (CMS- HCC) (Primary Dx); Metabolic encephalopathy; Bipolar affective disorder, remission status unspecified (CMS-HCC) Start: 09-08-2024 End: 09-13-2024 Continuing Care Fahad Knight DO [facility] Phone: [facility] Comment on above: Cerebrovascular acci dent (CVA), unspecified mechanism (CMS- HCC) (Primary Dx); Essential hypertension; Metabolic encephalopathy; Anxiety; Bipolar affective disorder, remission status unspecified (CMS-HCC); Dry skin Start: 09-04-2024 End: 09-04-2024 Continuing Care Fahad Knight DO Work Phone: [facility] Comment on above: Essential hypertensi on (Primary Dx); Cerebrovascular accident (CVA), unspecified mechanism ([facility]); Anxiety; Bipolar affective disorder, remission status unspecified ([facility]) Start: 09-01-2024 End: 09-01-2024 ambulatory Fahad Knight [employer] Work Phone: [facility] Comment on above: Metabolic encephalop athy (Primary Dx); Sepsis with acute hypoxic respiratory failure without septic shock, due to unspecified organism (CMS-HCC); Cerebrovascular accident (CVA), unspecified mechanism ([facility]); Essential hypertension Start: 08-25-2024 End: 08-25-2024 ambulatory Fahad Knight [employer] Work Phone: [facility] Comment on above: Cerebrovascular acci dent (CVA), unspecified mechanism ([facility]) (Primary Dx); Type 2 diabetes mellitus with hyperglycemia, with long-term current use of insulin ([facility]); Metabolic encephalopathy; Mixed hyperlipidemia; Neoplasm of uncertain behavior of skin Start: 08-09-2024 ambulatory [facility] Start: 08-07-2024 End: 08-07-2024 ambulatory Fahad Knight [employer] Work Phone: [facility] Comment on above: Vasovagal syncope (P rimary Dx); Metabolic encephalopathy; Type 2 diabetes mellitus with hyperglycemia, with long-term current use of insulin ([facility]); Essential hypertension; Cerebrovascular accident (CVA), unspecified mechanism ([facility]); Coronary artery disease involving benton coronary artery of benton heart without angina pectoris; Mixed hyperlipidemia Start: 07-31-2024 End: 08-04-2024 ambulatory [facility] Start: 07-31-2024 End: 08-04-2024 ambulatory [facility] Start: 07-31-2024 End: 08-04-2024 Emergency department patient visit ROSA DE SOUZA [facility] Start: 07-31-2024 End: 08-03-2024 ambulatory NO PCP NO PCP [facility] Start: 07-31-2024 End: 08-03-2024 Emergency department patient visit Galileo Downey MD Work Phone: [facility] - 7 Oncology/Stroke Comment on above: Syncope (Primary Dx) ; Vasovagal episode Start: 05-06-2024 End: 05-06-2024 Office outpatient visit 15 minutes Evans De La Rosa MD Work Phone: [facility] Comment on above: Cerebrovascular acci dent (CVA), unspecified mechanism (CMS- HCC) (Primary Dx) Start: 05-06-2024 End: 05-06-2024 ambulatory [facility] Start: 04-09-2024 End: 04-09-2024 Office outpatient visit 25 minutes Stephanie Hall PA-C Work Phone: [facility] Comment on above: New onset a-fib ([facility]) (Primary Dx); Coronary artery disease involving benton coronary artery of benton heart without angina pectoris; NSVT (nonsustained ventricular tachycardia) ([facility]); Mixed hyperlipidemia; Essential hypertension Start: 04-09-2024 End: 04-09-2024 ambulatory STEPHANIE HALL [facility] Start: 04-08-2024 End: 04-22-2024 Telephone encounter [facility] Comment on above: Reschedule Start: 03-31-2024 End: 03-31-2024 Chart abstracting Scanning Provider External [facility] Start: 03-19-2024 End: 03-19-2024 ambulatory BELLA YOUNG [facility] Start: 01-08-2024 Telephone encounter Birgit hollis MD Work Phone: [facility] Comment on above: Hospital Follow-up Start: 06-05-2023 End: 06-06-2023 ambulatory [facility] Start: 06-05-2023 End: 06-05-2023 Subsequent hospital visit by physician [facility] Start: 06-04-2023 [facility] Start: 05-07-2023 End: 05-08-2023 [facility] Start: 04-25-2023 End: 04-26-2023 [facility] Start: 04-24-2023 [facility] Start: 2023 End: 02-07-2023 [facility] Start: 2023 End: 2023 Subsequent hospital visit by physician [facility] Start: 10-23-2022 End: 10-24-2022 [facility] Start: 10-23-2022 End: 10-23-2022 Subsequent hospital visit by physician [facility] Start: 08-07-2022 End: 08-08-2022 [facility] Start: 08-07-2022 End: 08-07-2022 Subsequent hospital visit by physician [facility] Start: 03-27-2022 End: 03-27-2022 Subsequent hospital visit by physician [facility] Start: 01-10-2022 End: 01-10-2022 Subsequent hospital visit by physician [facility] Start: 05-10-2021 End: 05-10-2021 Subsequent hospital visit by physician [facility] Start: 03-30-2021 End: 03-30-2021 Subsequent hospital visit by physician [facility] Start: 02-10-2021 End: 02-10-2021 Subsequent hospital visit by physician [facility] Start: 11-11-2020 End: 11-11-2020 Subsequent hospital visit by physician [facility] Start: 09-12-2020 End: 09-12-2020 Subsequent hospital visit by physician [facility] Start: 09-07-2020 End: 09-07-2020 Subsequent hospital visit by physician [facility] Start: 08-29-2020 End: 08-29-2020 Subsequent hospital visit by physician [facility] Start: 08-15-2020 End: 08-15-2020 Subsequent hospital visit by physician [facility] Start: 03-29-2019 End: 03-29-2019 Patient encounter procedure ZACKARY HAYNES Facility:[facility]1 Procedures Date Procedure Procedure Detail Performing Clinician Start: 08-03-2024 Gluc bld gluc mntr d ev cleared fda spec home use Janet Sanderson MD Work Phone: Start: 08-03-2024 Gluc bld gluc mntr d ev cleared fda spec home use Janet Sanderson MD Work Phone: Start: 08-03-2024 Comprehensive metabo lic panel Janet Sanderson MD Work Phone: Start: 08-02-2024 Gluc bld gluc mntr d ev cleared fda spec home use Janet Sanderson MD Work Phone: Start: 08-02-2024 End: 08-02-2024 Assay of magnesium Janet Sanderson MD Work Phone: Start: 08-02-2024 Gluc bld gluc mntr d ev cleared fda spec home use Janet Sanderson MD Work Phone: Start: 08-02-2024 Gluc bld gluc mntr d ev cleared fda spec home use Janet Sanderson MD Work Phone: Start: 08-02-2024 Comprehensive metabo lic panel Janet Sanderson MD Work Phone: Start: 08-02-2024 Gluc bld gluc mntr d ev cleared fda spec home use Janet Sanderson MD Work Phone: Start: 08-01-2024 Assay of magnesium Janet jones MD Work Phone: Start: 08-01-2024 Gluc bld gluc mntr d ev cleared fda spec home use Janet Snaderson MD Work Phone: Start: 08-01-2024 Gluc bld gluc mntr d ev cleared fda spec home use Janet Sanderson MD Work Phone: Start: 08-01-2024 Comprehensive metabo lic panel Janet Sanderson MD Work Phone: Start: 08-01-2024 Gluc bld gluc mntr d ev cleared fda spec home use Janet Sanderson MD Work Phone: Start: 07-31-2024 Gluc bld gluc mntr d ev cleared fda spec home use Janet Sanderson MD Work Phone: Start: 07-31-2024 End: 07-31-2024 Assay of magnesium Janet Sanderson MD Work Phone: Start: 07-31-2024 Mri brain brain stem w/o contrast material Janet Sanderson MD Work Phone: Start: 07-31-2024 Echo tthrc r-t 2d w/wom-mode compl spec&colr d Janet Sanderson MD Work Phone: Start: 07-31-2024 PULSE OXIMETRY, SPOT Janet Sanderson MD Work Phone: Start: 07-31-2024 Assay of lactate Rosa De Souza [employer] Work Phone: Start: 07-31-2024 Ct abdomen & pelvis w/contrast material Rosa De Souza MACHINE [employer] Work Phone: Start: 07-31-2024 Ct head/brain w/o co ntrast material Rosa De Souza MACHINE [employer] Work Phone: Start: 07-31-2024 Ct angiography chest w/contrast/noncontrast Galileo Downey MD Work Phone: Start: 07-31-2024 Assay of troponin quantitative Rosa De Souza MACH[employer] Work Phone: Start: 07-31-2024 Ecg routine ecg w/le ast 12 lds trcg only w/o i&r Rosa De Souza MACHINE [employer] Work Phone: Start: 07-31-2024 Comprehensive metabo lic panel Rosa De Souza MACHINE [employer] Work Phone: Start: 04-09-2024 Follow-up visit Follow-up STEPHANIE HALL Start: 06-05-2023 Hemoglobin glycosylated a1c Nuha Cifuentes MD Work Phone: Start: 2023 Hemoglobin glycosylated a1c Nuha Cifuentes MD Work Phone: Start: 10-23-2022 Basic metabolic pane l calcium total Nuha Cifuentes MD Work Phone: Start: 10-23-2022 Hepatic function panel Nuha Cifuentes MD Work Phone: Start: 08-07-2022 Hemoglobin glycosylated a1c Nuha Cifuentes MD Work Phone: Start: 03-27-2022 Comprehensive metabo lic panel Nuha Cifuentes MD Work Phone: Start: 01-10-2022 Basic metabolic pane l calcium total Nuha Cifuentes MD Work Phone: Start: 01-10-2022 IMMATURE PLATELET FRACTION Nuha Cifuentes MD Work Phone: Start: 01-10-2022 Lipid panel Nuha mcneal MD Work Phone: Start: 05-10-2021 Basic metabolic pane l calcium total Mi Nichols MACHINE [employer] Work Phone: Start: 05-10-2021 Hepatic function panel Mi Nichols MACHINE HE[employer] - [employer] Work Phone: Start: 03-30-2021 Basic metabolic pane l calcium total Nuha Cifuentes MD Work Phone: Start: 02-10-2021 Comprehensive metabo lic panel Nuha Cifuentes MD Work Phone: Start: 02-10-2021 Lipid panel Nuha mcneal MD Work Phone: Start: 11-11-2020 Basic metabolic pane l calcium total Mi Nichols Work Phone: Start: 11-11-2020 Blood count complete automated Mi Erna Nichols Work Phone: Start: 11-11-2020 Hemoglobin glycosylated a1c Mi Erna Nichols Work Phone: Start: 11-11-2020 Hepatic function panel Mi Umanzor Simone Work Phone: Start: 09-12-2020 Basic metabolic pane l calcium total Nuha Cifuentes Work Phone: Start: 09-12-2020 Blood count complete automated Rania Fahoury Work Phone: Start: 09-07-2020 Basic metabolic pane l calcium total Rania Fahoury Work Phone: Start: 09-07-2020 Blood count complete automated Rania Fahoury Work Phone: Start: 08-29-2020 Basic metabolic pane l calcium total Rania Fahoury Work Phone: Start: 08-29-2020 Blood count complete automated Rania Fahoury Work Phone: Start: 08-15-2020 Basic metabolic pane l calcium total Rania Fahoury Work Phone: Start: 08-15-2020 Blood count complete automated Rania Fahoury Work Phone: Start: 07-02-2016 Microalbumin [Mass/v olume] in Urine by Test strip Birgit Lord MD Work Phone: Plan of Treatment Date Care Activity Detail Author Start: 04-05-2026 DTaP,Tdap and Td Vac cines (2 - Td or Tdap) DTaP,Tdap and Td Vaccines (2 - Td or Tdap) [facility] Start: 04-05-2026 DTaP,Tdap and Td Vac cines (3 - Td or Tdap) DTaP,Tdap and Td Vaccines (3 - Td or Tdap) [facility] Start: 11-16-2025 Tobacco Screening Tobacco Screening [facility] Start: 08-02-2025 Adult BMI Screening Adult BMI Screen ing [facility] Start: 06-21-2025 Influenza vaccination Influenza Vacc ine [facility] Start: 05-06-2025 Adult BMI Screening Adult BMI Screen ing [facility] Start: 05-06-2025 Tobacco Screening Tobacco Screening [facility] Start: 04-09-2025 Tobacco Screening Tobacco Screening [facility] Start: 03-19-2025 Adult BMI Screening Adult BMI Screen ing [facility] Start: 01-11-2025 Adult BMI Screening Adult BMI Screen ing [facility] Start: 09-17-2024 Tobacco Screening Tobacco Screening [facility] Start: 06-21-2024 COVID-19 Vaccine () COVID-19 Vaccine () [facility] Start: 06-21-2024 COVID-19 Vaccine () COVID-19 Vaccine () [facility] Start: 06-21-2024 Influenza vaccination Influenza Vacc ine [facility] Start: 04-22-2024 End: 04-22-2024 Patient encounter procedure 04/22/2024 2:30 PM EDT Office Visit [facility] [address] [place] [phone] Evans De La Rosa MD [address] [place] [address] [facility] Start: 04-09-2024 End: 04-09-2024 Patient encounter procedure 04/09/2024 1:30 PM EDT Office Visit [facility] [address] [place] [phone] Stephanie Hall PA-C [address] [place] [address] [facility] Start: 04-08-2024 End: 04-08-2024 Patient encounter procedure 04/08/2024 1:30 PM EDT Office Visit [facility] [address] [place] [phone] Evans De La Rosa MD [address] [place] [phone] [facility] Start: 02-12-2024 End: 02-12-2024 Patient encounter procedure 02/12/2024 3:00 PM EDT Office Visit [facility] [address] [place] [phone] Evans De La Rosa MD [address] [facility] [place] [phone] [facility] Start: 06-21-2023 COVID-19 Vaccine ( season) COVID-19 Vaccine ( season) [facility] Start: 05-21-2023 Influenza vaccination B ON [facility] Start: 06-21-2022 Influenza vaccination Flu vacc ine (Season Ended) [facility] Start: 05-21-2022 Influenza vaccination Flu vaccine (# 1) [facility] Start: 06-21-2021 Influenza vaccination [facility] Start: 03-08-2021 COVID-19 Vaccine (3 - Moderna risk series) COVID-19 Vaccine (3 - Moderna risk series) [facility] Start: 09-12-2020 Hospital Encounter 09/12/2020 Hospital Encounter [facility] Start: 09-05-2020 Hospital Encounter 09/05/2020 Hospital Encounter [facility] Start: 06-21-2020 Influenza vaccination Flu vaccine (# 1) [place], [place] Start: 07-02-2017 Urine screening for protein Urine Mi croalbumin [facility] Start: 02-05-2013 Abdominal aortic ane urysm screening Abdominal Aortic Aneurysm (AAA) Screen [facility] Start: 02-05-2013 Fall Risk Screening Fall Risk Screen ing [facility] Start: 02-05-1998 Administration of va ricella zoster vaccine Zoster (Shingles) Vaccine (1 of 2) [facility] Start: 02-05-1967 DTaP/Tdap/Td vaccine (1 - Tdap) DTaP/Tdap/Td vaccine (1 - Tdap) [facility] Start: 02-05-1966 Adult BMI Follow Up Plan Adult BMI Follow Up Plan [facility] Start: 1964 COVID-19 Vaccine (1) COVID-19 Vaccin e (1) [employer] Phone: Start: 1960 COVID-19 Vaccine (1) COVID-19 Vaccin e (1) [employer] Phone: Start: 1960 Depression Screening Depression Scre ening [facility] Start: 02-05-1953 COVID-19 Vaccine (1) COVID-19 Vaccin e (1) [facility] Start: 1950 COVID-19 Vaccine (#1) COVID-19 Vacci ne (#1) [employer] Start: 1950 Glaucoma screening Diabetic Op hthalmology Exam [facility] Start: 1950 Medicare Annual Well ness Visit Medicare Annual Wellness Visit [facility] End: 06-05-2023 Hemoglobin A1c/Hemoglobin.total in Blood [facility] [employer] Phone: Comment on above: Once for 1 Occurrenc es starting 06/05/2023 until 06/05/2023 End: 02-10-2021 Nuclear Ab [Titer] in Serum by Immunofluorescence [facility] Routine Once for 1 Occurrences starting 02/10/2021 until 02/10/2021 [employer] Phone: Comment on above: Once for 1 Occurrenc es starting 02/10/2021 until 02/10/2021 Nuclear Ab [Titer] i n Serum by Immunofluorescence [facility] Routine 02/10/2021 8:43 AM EDT [employer] Phone: Immunizations Immunization Date Immunization Notes Care Provider Mert stover 08-21-2018 influenza virus vaccine, unspecified formulation Scanning External [facility] Payers Date Payer Category Payer Medicaid [id number] 2014 Medicaid [id number]. [id number] 2013 Medicare [id number] 2013 Medicare [id number] [id number] 1959 Unknown [id number] 1948 Unknown [id number] 2.16.84 0.1.501416.3.579.2.593 1948 Unknown [id number] 2.16.8 40.1.259869.3.579.2.177 1948 Unknown [id number] 2.16.8 40.1.120119.3.579.2.177 1948 Unknown [id number] 2.16.8 40.1.880543.3.579.2.177 1948 Unknown [id number] 2.16.8 40.1.470266.3.579.2.177 1948 Unknown [id number] 2.16.8 40.1.141063.3.579.2.177 1948 Unknown [id number] 2.16.8 40.1.640013.3.579.2.177 1948 Unknown [id number] 2.16.8 40.1.714137.3.579.2.177 1948 Unknown [id number] 2.16.8 40.1.045762.3.579.2.177 1948 Unknown [id number] 2.16.8 40.1.474178.3.579.2.1286 1948 Unknown [id number] 2.16. 840.1.289418.3.579.2.128 1948 Unknown [id number] 2.16.8 40.1.089368.3.579.2.128 1948 Unknown [id number] 2.16.8 40.1.809636.3.579.2.1285 1948 Unknown [id number] 2.16.8 40.1.952465.3.579.2.1286 1948 Unknown [id number] 2.16.8 40.1.408613.3.579.2.1286 1948 Unknown [id number] 2.16.8 40.1.621543.3.579.2.1286 1948 Unknown [id number] 2.16.8 40.1.563129.3.579.2.1286 1948 Unknown [id number] 2.16.8 40.1.287386.3.579.2.1286 1948 Unknown [id number] 2.16.8 40.1.019662.3.579.2.1286 Social History Date Type Detail Facility Tobacco smoking stat [facility] Unknown if ever smoked [facility] Start: 1950 Sex Assigned At Not on file [facility] Tobacco smoking stat [facility] Tobacco smoking consumption unknown [facility] Work Phone: Start: 02-19-2018 Tobacco smoking status [facility] Ex-smoker [facility] History of tobacco use Current smoker [facility] Start: 02-19-2018 Tobacco use and exposure Smokeless tobacco non-user [facility] Start: 05-06-2024 End: 11-16-2024 Alcoholic beverage intake Ex-drinker (finding) [facility] Start: 12-01-2020 End: 07-31-2024 History of Social function [facility] Start: 12-01-2020 End: 07-31-2024 [facility] Has the [employer], or [email or web address] threatened to shut off services in your home in past 12Mo No [facility] In the past 12 month s, has lack of transportation kept you from medical appointments or from getting medications? No [facility] Start: 05-26-2015 Sex Male (finding) [facility] Goals Date Patient Goal Desired Activity /State Personal health goal Comment on above: Formatting of this n ote might be different from the original. Evaluation of progress towards goal: DC to [facility] Clinical Notes 01-08-2024 to 04-07-2025 Fahad Knight DO - 04/07/2025 3:37 PM Pricilla Knihgt, DO - 02/23/2025 11:59 PM Pricilla Knight, DO - 02/16/2025 11:34 AM Pricilla Knight, DO - 01/15/2025 11:59 PM EDT Note Date & Type Note Facility 04-07-2025 History of Presen t illness Narrative Patient Name: Brandon Reardon Date of : 1950 Date of Service: 04/07/2025 Facility: [facility] Type of Visit: Subsequent Visit Subjective Brandon Reardon is a 75 y.o. male seen today at assisted [place] [facility] for regular visit. No new problems reported by staff or patient. He denies pain. His yelling out episodes are much less frequent and then he is asked why he is yelling out and he says because he wants to. He got a new mattress and med changes were made then. Allergies: Amlodipine, Atorvastatin, Ibuprofen, Metformin, Pravastatin, Simvastatin, and Terazosin Code Status: DNRCC-A BP 134/64 Wt 79.2 kg (174 lb 11.2 oz) BMI 23.05 kg/m Physical Exam Vitals reviewed. Constitutional: General: He is sleeping. He is not in acute distress. Appearance: He is normal weight. He is not ill-appearing. Comments: He is in bed sleeping while TV was on HENT: Head: Normocephalic. Mouth/Throat: Lips: [place]. Cardiovascular: Rate and Rhythm: Normal rate and regular rhythm. Heart sounds: Normal heart sounds. No murmur heard. Pulmonary: Effort: Pulmonary effort is normal. No respiratory distress. Breath sounds: Normal breath sounds. No wheezing, rhonchi or rales. Abdominal: General: Bowel sounds are normal. Palpations: Abdomen is soft. Tenderness: There is no abdominal tenderness. Musculoskeletal: Right lower leg: No edema. Left lower leg: No edema. Neurological: General: No focal deficit present. Mental Status: He is easily aroused. Motor: Weakness present. Comments: Right sided hemiplegia Psychiatric: Attention and Perception: Attention normal. Mood and Affect: Mood and affect normal. Speech: Speech is delayed. Behavior: Behavior is slowed. Behavior is cooperative. Summary / Assessment / Plan 1. Essential hypertension 2. Cerebrovascular accident (CVA), unspecified mechanism ([facility]) 3. Type 2 diabetes mellitus with hyperglycemia, with long-term current use of insulin ([facility]) Medically stable. Continue current regimen. All medications reviewed and are medically necessary ELECTRONICALLY SIGNED BY: Fahad Knight DO documented in this encounter [facility] 02-23-2025 History of Presen t illness Narrative Patient Name: Brandon Reardon Date of : 1950 Date of Service: 02/23/2025 Facility: [facility] Type of Visit: Acute Visit Subjective Brandon Reardon is a 75 y.o. male seen today at assisted facility for problem visit. Staff reports abnormal labs for my review. No other new issues. He is being seen by [facility] for his psychiatric issues. Allergies: Amlodipine, Atorvastatin, Ibuprofen, Metformin, Pravastatin, Simvastatin, and Terazosin Code Status: DNRCC-A BP 149/74 Pulse 53 Temp (!) 35.7 C (96.2 F) Resp 20 Wt 81.4 kg (179 lb 6.4 oz) SpO2 93% BMI 23.67 kg/m Physical Exam Vitals reviewed. Constitutional: General: He is sleeping. He is not in acute distress. Appearance: He is normal weight. He is not ill-appearing. Comments: He is in bed watching TV HENT: Head: Normocephalic. Mouth/Throat: Lips: [place]. Cardiovascular: Rate and Rhythm: Normal rate and regular rhythm. Heart sounds: Normal heart sounds. No murmur heard. Pulmonary: Effort: Pulmonary effort is normal. No respiratory distress. Breath sounds: Normal breath sounds. No wheezing, rhonchi or rales. Abdominal: General: Bowel sounds are normal. Palpations: Abdomen is soft. Tenderness: There is no abdominal tenderness. Musculoskeletal: Right lower leg: No edema. Left lower leg: No edema. Neurological: General: No focal deficit present. Mental Status: He is easily aroused. Motor: Weakness present. Comments: Right sided hemiplegia Psychiatric: Attention and Perception: Attention normal. Mood and Affect: Mood and affect normal. Speech: Speech is delayed. Behavior: Behavior is slowed. Behavior is cooperative. Labs: A1c 9.1% GFR 94, CBC wnl Summary / Assessment / Plan 1. Type 2 diabetes mellitus with hyperglycemia, with long-term current use of insulin ([facility]) 2. Metabolic encephalopathy 3. Bipolar affective disorder, remission status unspecified ([facility]) 4. Essential hypertension Add Mounjaro 2.5mg SQ weekly. Continue other orders as before. All medications reviewed and are medically necessary. ELECTRONICALLY SIGNED BY: Fahad Knight DO documented in this encounter [facility] 02-16-2025 History of Presen t illness Narrative Patient Name: Brandon Reardon Date of : 1950 Date of Service: 02/16/2025 Facility: [facility] Type of Visit: Subsequent Visit Subjective Brandon Reardon is a 75 y.o. male seen today at assisted facility for regular visit. No new problems reported by staff. He does not seem to be yelling out as much since he got a new bed. He denies pain. Allergies: Amlodipine, Atorvastatin, Ibuprofen, Metformin, Pravastatin, Simvastatin, and Terazosin Code Status: DNC-A BP 143/76 Pulse 77 Temp 36.4 C (97.6 F) Resp 18 Wt 81.4 kg (179 lb 6.4 oz) BMI 23.67 kg/m Physical Exam Vitals reviewed. Constitutional: General: He is sleeping. He is not in acute distress. Appearance: He is normal weight. He is not ill-appearing. Comments: He is in bed watching TV HENT: Head: Normocephalic. Mouth/Throat: Lips: [place]. Cardiovascular: Rate and Rhythm: Normal rate and regular rhythm. Heart sounds: Normal heart sounds. No murmur heard. Pulmonary: Effort: Pulmonary effort is normal. No respiratory distress. Breath sounds: Normal breath sounds. No wheezing, rhonchi or rales. Abdominal: General: Bowel sounds are normal. Palpations: Abdomen is soft. Tenderness: There is no abdominal tenderness. Musculoskeletal: Right lower leg: No edema. Left lower leg: No edema. Neurological: General: No focal deficit present. Mental Status: He is easily aroused. Motor: Weakness present. Comments: Right sided hemiplegia Psychiatric: Attention and Perception: Attention normal. Mood and Affect: Mood and affect normal. Speech: Speech is delayed. Behavior: Behavior is slowed. Behavior is cooperative. Summary / Assessment / Plan 1. Metabolic encephalopathy 2. Type 2 diabetes mellitus with hyperglycemia, with long-term current use of insulin ([facility]) 3. Pressure injury of skin of sacral region, unspecified injury stage 4. Bipolar affective disorder, remission status unspecified ([facility]) Medically stable. Check CMP, CBC and A1c in February. Continue current regimen. All medications reviewed and are medically necessary. ELECTRONICALLY SIGNED BY: Fahad Knight DO documented in this encounter [facility] 01-15-2025 History of Presen t illness Narrative Patient Name: Brandon Reardon Date of : 1950 Date of Service: 01/15/2025 Facility: [facility] Type of Visit: Subsequent Visit Subjective Brandon Reardon is a 74 y.o. male seen today at assisted facility for regular monthly visit. No new problems reported by staff or patient. Allergies: Amlodipine, Atorvastatin, Ibuprofen, Metformin, Pravastatin, Simvastatin, and Terazosin Code Status: DNRCC-A BP 132/66 Physical Exam Vitals reviewed. Exam conducted with a silviculture forester present (Wild Bustamante MS 3). Constitutional: General: He is sleeping. He is not in acute distress. Appearance: He is normal weight. He is not ill-appearing. Comments: He is in bed sleeping HENT: Head: Normocephalic. Mouth/Throat: Lips: [place]. Cardiovascular: Rate and Rhythm: Normal rate and regular rhythm. Heart sounds: Normal heart sounds. No murmur heard. Pulmonary: Effort: Pulmonary effort is normal. No respiratory distress. Breath sounds: Normal breath sounds. No wheezing, rhonchi or rales. Abdominal: General: Bowel sounds are normal. Palpations: Abdomen is soft. Tenderness: There is no abdominal tenderness. Musculoskeletal: Cervical back: Neck supple. Right lower leg: No edema. Left lower leg: No edema. Lymphadenopathy: Cervical: No cervical adenopathy. Neurological: General: No focal deficit present. Mental Status: He is easily aroused. Motor: Weakness present. Comments: Right sided hemiplegia Psychiatric: Attention and Perception: Attention normal. Mood and Affect: Affect normal. Speech: Speech is delayed. Behavior: Behavior is slowed. Behavior is cooperative. Summary / Assessment / Plan 1. Essential hypertension 2. Cerebrovascular accident (CVA), unspecified mechanism (CMS-HCC) 3. Metabolic encephalopathy Medically stable. Continue current regimen. All medications reviewed and are medically necessary. ELECTRONICALLY SIGNED BY: Fahad Knight DO documented in this encounter [facility] 12-18-2024 History of Presen t illness Narrative Patient Name: Brandon Reardon Date of : 1950 Date of Service: 12/18/2024 Facility: [facility] Type of Visit: Subsequent Visit Subjective Brandon Reardon is a 74 y.o. male seen today at assisted facility for monthly visit. No new problems reported by staff or patient. He got a new low air loss mattress for his coccyx wound which seems to have helped cut down on his yelling out. He has also been scheduled Tylenol twice a day. Allergies: Amlodipine, Atorvastatin, Ibuprofen, Metformin, Pravastatin, Simvastatin, and Terazosin Code Status: DNRCC-A BP 160/68 Pulse 78 Wt 85.7 kg (189 lb) BMI 24.94 kg/m Physical Exam Vitals reviewed. Constitutional: General: He is not in acute distress. Appearance: He is normal weight. He is not ill-appearing. Comments: He is in bed watching TV HENT: Head: Normocephalic. Mouth/Throat: Lips: [place]. Cardiovascular: Rate and Rhythm: Normal rate and regular rhythm. Heart sounds: Normal heart sounds. No murmur heard. Pulmonary: Effort: Pulmonary effort is normal. No respiratory distress. Breath sounds: Normal breath sounds. No wheezing, rhonchi or rales. Musculoskeletal: Cervical back: Neck supple. Right lower leg: No edema. Left lower leg: No edema. Lymphadenopathy: Cervical: No cervical adenopathy. Skin: General: Skin is warm. Findings: No lesion. Neurological: General: No focal deficit present. Mental Status: He is alert. Motor: Weakness present. Gait: Gait abnormal. Comments: Right sided hemiplegia Psychiatric: Attention and Perception: Attention normal. Mood and Affect: Mood and affect normal. Speech: Speech normal. Behavior: Behavior is slowed. Cognition and Memory: Cognition is impaired. Memory is impaired. He exhibits impaired recent memory and impaired remote memory. Summary / Assessment / Plan 1. Metabolic encephalopathy 2. Essential hypertension 3. Pressure injury of skin of sacral region, unspecified injury stage We will see how his low air loss mattress works. Continue wound care. Medically stable otherwise. Continue current regimen. All medications reviewed and are medically necessary. ELECTRONICALLY SIGNED BY: Fahad Knight DO documented in this encounter [facility] 11-13-2024 History of Presen t illness Narrative Patient Name: Brandon Reardon Date of : 1950 Date of Service: 11/13/2024 Facility: [facility] Type of Visit: Acute Visit Subjective Brandon Reardon is a 74 y.o. male seen today at assisted facility for problem visit. Brandon was seen today because he keeps a yelling out. Staff would like to trial Tylenol twice a day case pain is the instigator. When asked why he yells out he does not have a coherent answer frequently. He is not afraid of anybody. Sometimes he will want to be moved from wheelchair to bed and vice versa. He just had a skin cancer removed from his left cheek. He is getting wound care for that. He also has a sore on his coccyx. He is getting wound care for that as well. Allergies: Amlodipine, Atorvastatin, Ibuprofen, Metformin, Pravastatin, Simvastatin, and Terazosin Code Status: DNRCC-A BP 139/71 Pulse 76 Temp 36.7 C (98 F) Resp 18 Wt 85.8 kg (189 lb 3.2 oz) SpO2 93% BMI 24.96 kg/m Physical Exam Vitals reviewed. Exam conducted with a silviculture forester present (Kirstin Davies MS III). Constitutional: General: He is not in acute distress. Appearance: He is normal weight. He is not ill-appearing. Comments: Up in [facility] in room HENT: Head: Normocephalic. Mouth/Throat: Lips: [place]. Cardiovascular: Rate and Rhythm: Normal rate and regular rhythm. Heart sounds: Normal heart sounds. No murmur heard. Pulmonary: Effort: Pulmonary effort is normal. No respiratory distress. Breath sounds: Normal breath sounds. No wheezing, rhonchi or rales. Musculoskeletal: Cervical back: Neck supple. Right lower leg: No edema. Left lower leg: No edema. Lymphadenopathy: Cervical: No cervical adenopathy. Skin: General: Skin is warm. Findings: No lesion. Neurological: General: No focal deficit present. Mental Status: He is alert. Motor: Weakness present. Gait: Gait abnormal. Comments: Right sided hemiplegia Psychiatric: Attention and Perception: Attention normal. Mood and Affect: Mood and affect normal. Behavior: Behavior is slowed. Cognition and Memory: Cognition is impaired. Memory is impaired. He exhibits impaired recent memory and impaired remote memory. Comments: He does yell out for help at times while I was on the unit, can be heard down the allen Assessment/Plan Summary / Assessment / Plan 1. Metabolic encephalopathy 2. Cerebrovascular accident (CVA), unspecified mechanism ([facility]) 3. Essential hypertension 4. Anxiety 5. Bipolar affective disorder, remission status unspecified ([facility]) He may be having pain from his sacral wound so we will schedule his Tylenol twice a day. I will see increase his BuSpar to 7.5 mg twice a day to see if that helps as well. Continue other orders as directed. All medications reviewed and are medically necessary. ELECTRONICALLY SIGNED BY: Fahad Knight DO documented in this encounter [facility] 10-09-2024 History of Presen t illness Narrative Patient Name: Brandon Reardon Date of : 1950 Date of Service: 10/09/2024 Facility: [facility] Type of Visit: Subsequent Visit Subjective Brandon Reardon is a 74 y.o. male seen today at assisted facility for monthly visit. No new problems reported by staff or patient. Allergies: Amlodipine, Atorvastatin, Ibuprofen, Metformin, Pravastatin, Simvastatin, and Terazosin Code Status: DNRCC-A BP 136/70 Pulse 68 Temp 36.8 C (98.3 F) Resp 18 Wt 85.8 kg (189 lb 3.2 oz) SpO2 93% BMI 24.96 kg/m Physical Exam Exam conducted with a silviculture forester present (Kirstin Davies MS III). Constitutional: General: He is not in acute distress. Appearance: He is normal weight. He is not ill-appearing. Comments: Up in [facility] in room HENT: Mouth/Throat: Lips: [place]. Cardiovascular: Rate and Rhythm: Normal rate and regular rhythm. Heart sounds: Normal heart sounds. No murmur heard. Pulmonary: Effort: Pulmonary effort is normal. No respiratory distress. Breath sounds: Normal breath sounds. No wheezing, rhonchi or rales. Musculoskeletal: Cervical back: Neck supple. Right lower leg: No edema. Left lower leg: No edema. Lymphadenopathy: Cervical: No cervical adenopathy. Skin: General: Skin is warm. Findings: No lesion. Neurological: General: No focal deficit present. Mental Status: He is alert. Motor: Weakness present. Gait: Gait abnormal. Comments: Right sided hemiplegia Psychiatric: Attention and Perception: Attention normal. Mood and Affect: Mood and affect normal. Behavior: Behavior is slowed. Cognition and Memory: Cognition is impaired. Memory is impaired. He exhibits impaired recent memory and impaired remote memory. Summary / Assessment / Plan 1. Cerebrovascular accident (CVA), unspecified mechanism (CMS-HCC) 2. Metabolic encephalopathy 3. Bipolar affective disorder, remission status unspecified (CMS-HCC) Medically stable. Continue current regimen. All medications reviewed and are medically necessary. ELECTRONICALLY SIGNED BY: Fahad Knight DO documented in this encounter [facility] 09-08-2024 History of Presen t illness Narrative Patient Name: Brandon Reardon Date of : 1950 Date of Service: 09/08/2024 Facility: [facility] Type of Visit: Skilled Visit Subjective Brandon Reardon is a 74 y.o. male seen today at assisted facility for therapy visit No new problems reported by staff or patient. No behaviors since stopping seroquel. He is now on diltiazem 120mg BID and BP is ok. Allergies: Amlodipine, Atorvastatin, Ibuprofen, Metformin, Pravastatin, Simvastatin, and Terazosin Code [facility]: [facility] BP 118/74 Pulse 73 Physical Exam Exam conducted with a silviculture forester present (Peng Sanabria MS III). Constitutional: General: He is not in acute distress. Appearance: He is normal weight. He is not ill-appearing. Comments: In bed watching TV HENT: Mouth/Throat: Lips: [place]. Cardiovascular: Rate and Rhythm: Normal rate and regular rhythm. Heart sounds: Normal heart sounds. No murmur heard. Pulmonary: Effort: Pulmonary effort is normal. No respiratory distress. Breath sounds: Normal breath sounds. No wheezing, rhonchi or rales. Musculoskeletal: Cervical back: Neck supple. Right lower leg: No edema. Left lower leg: No edema. Lymphadenopathy: Cervical: No cervical adenopathy. Skin: General: Skin is warm. Findings: Lesion (flesh colored nodular plaque on left cheek with defined border, telangiectasias) and rash present. Rash is crusting. Comments: Rash on feet with yellow crusting/plaques Neurological: General: No focal deficit present. Mental Status: He is alert. Motor: Weakness present. Gait: Gait abnormal. Comments: Right sided hemiplegia Psychiatric: Attention and Perception: Attention normal. Mood and Affect: Mood and affect normal. Behavior: Behavior is slowed. Cognition and Memory: Cognition is impaired. Memory is impaired. He exhibits impaired recent memory and impaired remote memory. Summary / Assessment / Plan 1. Cerebrovascular accident (CVA), unspecified mechanism ([facility]) 2. Essential hypertension 3. Metabolic encephalopathy 4. Anxiety 5. Bipolar affective disorder, remission status unspecified ([facility]) 6. Dry skin Continue therapy to reach maximum improvement. Moisturizer daily to rash on feet x 14 days. Continue other orders as before. All medications reviewed and are medically necessary. ELECTRONICALLY SIGNED BY: Fahad Knight DO [facility] History of Presen t illness Narrative Patient Name: Brandon Reardon Date of : 1950 Date of Service: 09/04/2024 Facility: [facility] Type of Visit: Acute Visit Subjective Brandon Reardon is a 74 y.o. male seen today at assisted facility for problem visit. I was asked to see Brandon because of a pharmacy recommendation. He is on Seroquel but does not have it approved diagnosis. Looks like he takes it for anxiety. Pharmacy is requesting a diagnosis that is indicated for this medication or to stop it. Patient does not know why he is on it. Does have an appointment coming up for his skin lesion with a product support engineer. His extended-release diltiazem is not covered so they are requesting an alternative. Allergies: Amlodipine, Atorvastatin, Ibuprofen, Metformin, Pravastatin, Simvastatin, and Terazosin Code Status: DNRCC-A There were no vitals taken for this visit. Physical Exam Exam conducted with a silviculture forester present (Peng Sanabria MS III). Constitutional: General: He is not in acute distress. Appearance: He is normal weight. He is not ill-appearing. Comments: In bed watching TV HENT: Head: Normocephalic. Mouth/Throat: Lips: [place]. Cardiovascular: Rate and Rhythm: Normal rate and regular rhythm. Heart sounds: Normal heart sounds. No murmur heard. Pulmonary: Effort: Pulmonary effort is normal. No respiratory distress. Breath sounds: Normal breath sounds. No wheezing, rhonchi or rales. Musculoskeletal: Cervical back: Neck supple. Right lower leg: No edema. Left lower leg: No edema. Lymphadenopathy: Cervical: No cervical adenopathy. Skin: General: Skin is warm. Findings: Lesion (flesh colored nodular plaque on left cheek with defined border, telangiectasias) present. Neurological: General: No focal deficit present. Mental Status: He is alert. Motor: Weakness present. Gait: Gait abnormal. Comments: Right sided hemiplegia Psychiatric: Attention and Perception: Attention normal. Mood and Affect: Mood is elated. Behavior: Behavior is slowed. Cognition and Memory: Cognition is impaired. Memory is impaired. He exhibits impaired recent memory and impaired remote memory. Comments: Smiling and laughing today. Summary / Assessment / Plan 1. Essential hypertension 2. Cerebrovascular accident (CVA), unspecified mechanism ([facility]) 3. Anxiety 4. Bipolar affective disorder, remission status unspecified ([facility]) I do see in [facility] that he has a diagnosis of bipolar disorder but that is not in her [facility]. It is listed as anxiety as an indication in [facility]. I think it is reasonable to do a trial off her medication. I will order a p.r.n. dose of 12.5 mg every 12 hours as needed for anxiety, agitation or hallucinations. Offer change diltiazem LA 240 mg to diltiazem ER 20 mg b.i.d.. Monitor blood pressure daily for 7 days. Continue other orders as directed. ELECTRONICALLY SIGNED BY: Fahad Knight DO documented in this encounter [facility] 09-01-2024 History of Presen t illness Narrative Patient Name: Brandon Reardon Date of : 1950 Date of Service: 09/01/2024 Facility: [facility] Type of Visit: Skilled Visit Subjective Brandon Reardon is a 74 y.o. male seen today at assisted facility for therapy visit. Brandon is in therapy. He has no new problems to report. No new problems reported by the staff. He is tolerating his upgraded diet well. He just had a barbecue pork sandwich. Denies pain. Allergies: Amlodipine, Atorvastatin, Ibuprofen, Metformin, Pravastatin, Simvastatin, and Terazosin Code Status: DNRCC-A There were no vitals taken for this visit. Physical Exam Exam conducted with a silviculture forester present (Peng Disla MS III). Constitutional: General: He is not in acute distress. Appearance: He is normal weight. He is not ill-appearing. Comments: In bed watching eating lunch. Pleasant but confused. Did not know yesterday was HENT: Head: Normocephalic. Mouth/Throat: Lips: [place]. Cardiovascular: Rate and Rhythm: Normal rate and regular rhythm. Heart sounds: Normal heart sounds. No murmur heard. Pulmonary: Effort: Pulmonary effort is normal. No respiratory distress. Breath sounds: Normal breath sounds. No wheezing, rhonchi or rales. Abdominal: General: Bowel sounds are normal. There is no distension. Palpations: Abdomen is soft. There is no mass. Tenderness: There is no abdominal tenderness. Hernia: No hernia is present. Musculoskeletal: Cervical back: Neck supple. Right lower leg: No edema. Left lower leg: No edema. Lymphadenopathy: Cervical: No cervical adenopathy. Skin: General: Skin is warm. Findings: Lesion (flesh colored nodular plaque on left cheek with defined border, telangiectasias) present. Neurological: General: No focal deficit present. Mental Status: He is alert and oriented to person, place, and time. Psychiatric: Attention and Perception: Attention normal. Mood and Affect: Affect is flat. Speech: Speech is delayed. Behavior: Behavior is slowed. Cognition and Memory: Cognition is impaired. Memory is impaired. He exhibits impaired recent memory and impaired remote memory. Judgment: Judgment is inappropriate. Comments: Right sided hemiplegia Summary / Assessment / Plan 1. Metabolic encephalopathy 2. Sepsis with acute hypoxic respiratory failure without septic shock, due to unspecified organism (CMS-HCC) 3. Cerebrovascular accident (CVA), unspecified mechanism (CMS-HCC) 4. Essential hypertension Medically stable. Continue therapy another orders as directed. All medications reviewed and are medically necessary. ELECTRONICALLY SIGNED BY: Fahad Knight DO documented in this encounter [facility] 08-25-2024 History of Presen t illness Narrative Patient Name: Brandon Reardon Date of : 1950 Date of Service: 08/25/2024 Facility: [facility] Type of Visit: Skilled Visit Subjective Brandon Reardon is a 74 y.o. male seen today at assisted facility for therapy visit. Brandon is in therapy to improve independence with bed and transfer mobility. He is in speech therapy and and his diet was upgraded to regular diet with thin liquids. He denies new problems. He has a lesion on the left cheek. He thinks it has been there a couple months. Allergies: Amlodipine, Atorvastatin, Ibuprofen, Metformin, Pravastatin, Simvastatin, and Terazosin Code Status: [facility] Temp 36.9 C (98.4 F) Wt 86.4 kg (190 lb 6.4 oz) BMI 25.12 kg/m Physical Exam Vitals reviewed. Constitutional: General: He is not in acute distress. Appearance: He is normal weight. He is not ill-appearing. Comments: In bed watching TV. Pleasant but confused HENT: Head: Normocephalic. Right Ear: External ear normal. Left Ear: External ear normal. Nose: Nose normal. Mouth/Throat: Lips: [place]. Mouth: Mucous membranes are moist. Cardiovascular: Rate and Rhythm: Normal rate and regular rhythm. Heart sounds: Normal heart sounds. No murmur heard. Pulmonary: Effort: Pulmonary effort is normal. No respiratory distress. Breath sounds: Normal breath sounds. No wheezing, rhonchi or rales. Abdominal: General: Bowel sounds are normal. There is no distension. Palpations: Abdomen is soft. There is no mass. Tenderness: There is no abdominal tenderness. There is no guarding or rebound. Hernia: No hernia is present. Musculoskeletal: Cervical back: Neck supple. Right lower leg: No edema. Left lower leg: No edema. Lymphadenopathy: Cervical: No cervical adenopathy. Skin: General: Skin is warm. Findings: Lesion (flesh colored nodular plaque on left cheek with defined border, telangiectasias) present. Neurological: General: No focal deficit present. Mental Status: He is alert and oriented to person, place, and time. Gait: Gait abnormal. Psychiatric: Attention and Perception: Attention normal. Mood and Affect: Affect is flat. Speech: Speech is delayed. Behavior: Behavior is slowed. Cognition and Memory: Cognition is impaired. Memory is impaired. He exhibits impaired recent memory and impaired remote memory. Judgment: Judgment is inappropriate. Comments: Right sided hemiplegia Summary / Assessment / Plan 1. Cerebrovascular accident (CVA), unspecified mechanism ([facility]) 2. Type 2 diabetes mellitus with hyperglycemia, with long-term current use of insulin ([facility]) 3. Metabolic encephalopathy 4. Mixed hyperlipidemia 5. Neoplasm of uncertain behavior of skin Lesion on left cheek appears to be basal cell carcinoma clinically. Will make a referral to dermatology. Check CMP, CBC, lipids and A1c. Continue therapy to reach maximum improvement. All medications reviewed and are medically necessary. ELECTRONICALLY SIGNED BY: Fahad Knight DO documented in this encounter [facility] 08-07-2024 History of Presen t illness Narrative Patient Name: Brandon Reardon Date of : 1950 Date of Service: 08/07/2024 Facility: [facility] Type of Visit: Admission H&P Subjective Brandon Reardon is a 74 y.o. male seen today at assisted facility for admission H&P. Patient presents to [facility] for in therapy following discharge from [facility]. He is here for therapies. Apparently he was admitted for syncope. Patient can not relate any information regarding his hospital stay or how he ended up in the hospital. He denies problems now. He denies pain. He does have a skin lesion on left lower leg and he said he got that from jeans rubbing against it. Past Medical History: Diagnosis Date RAMYA (acute kidney injury) ([facility]) 08/18/2020 Anxiety Bipolar disorder ([facility]) Diabetes mellitus type 2, controlled ([facility]) 12/31/2023 Hypertension Metabolic encephalopathy Past Surgical History: Procedure Laterality Date CARDIAC SURGERY No family history on file. See med list at [facility] Allergies: Amlodipine, Atorvastatin, Ibuprofen, Metformin, Pravastatin, Simvastatin, and Terazosin Code Status: DNC-A The following portions of the patient's history were reviewed and updated as appropriate: allergies, current medications, past family history, past medical history, past social history, past surgical history, problem list, and medication reconciliation was completed including current medication and post discharge medication. BP 133/77 Pulse 71 Temp 36.1 C (97 F) Resp 18 Ht 185.4 cm (6' 1 ) Wt 85.6 kg (188 lb 12.8 oz) SpO2 92% BMI 24.91 kg/m Physical Exam Vitals reviewed. Constitutional: General: He is not in acute distress. Appearance: He is normal weight. He is not ill-appearing. Comments: In bed watching TV. Pleasant but confused HENT: Head: Normocephalic. Right Ear: External ear normal. Left Ear: External ear normal. Nose: Nose normal. Mouth/Throat: Lips: [place]. Mouth: Mucous membranes are moist. Cardiovascular: Rate and Rhythm: Normal rate and regular rhythm. Heart sounds: Normal heart sounds. No murmur heard. Pulmonary: Effort: Pulmonary effort is normal. No respiratory distress. Breath sounds: Normal breath sounds. No wheezing, rhonchi or rales. Abdominal: General: Bowel sounds are normal. There is no distension. Palpations: Abdomen is soft. There is no mass. Tenderness: There is no abdominal tenderness. There is no guarding or rebound. Hernia: No hernia is present. Musculoskeletal: Cervical back: Neck supple. Right lower leg: No edema. Left lower leg: No edema. Lymphadenopathy: Cervical: No cervical adenopathy. Skin: General: Skin is warm. Findings: Lesion (brown plaques/growth on right lower leg) present. Neurological: Mental Status: He is alert. Psychiatric: Attention and Perception: Attention normal. Mood and Affect: Affect is flat. Speech: Speech is delayed. Behavior: Behavior is slowed. Thought Content: Thought content normal. Cognition and Memory: Cognition is impaired. Memory is impaired. He exhibits impaired recent memory and impaired remote memory. Judgment: Judgment is inappropriate. Comments: Right sided hemiplegia Summary / Assessment / Plan 1. Vasovagal syncope 2. Metabolic encephalopathy 3. Type 2 diabetes mellitus with hyperglycemia, with long-term current use of insulin ([facility]) 4. Essential hypertension 5. Cerebrovascular accident (CVA), unspecified mechanism ([facility]) 6. Coronary artery disease involving [place]on coronary artery of benton heart without angina pectoris 7. Mixed hyperlipidemia Admit for therapies. He is cognitively impaired. I do not think he is going to be able to go back to living on his own but we will see how he lives. He is DNR comfort care. Continue current regimen [facility] ELECTRONICALLY SIGNED BY: Fahad Knight DO documented in this encounter [facility] 08-03-2024 Plan of care note Problem: Pain Goal: Patient goal is pain score less than 4, able to rest, and participant in treatment plan as appropriate Description: INTERVENTIONS: 1. Encourage patient or legal fundraising sale representative to report early pain and ask for pain medicine when needed 2. Assess pain using appropriate pain scale and include the scale used when documenting 3. Administer analgesics based on type and severity of pain and evaluate response within appropriate time frame 4. Implement non-pharmacological measures as appropriate and evaluate response 5. Consider cultural and social influences on pain and pain management 6. Notify LIP if interventions ineffective or patient reports new pain 7. Monitor vital signs including pulse ox, end-tidal CO2 based on pain intervention 8. Reassess pain per policy 9. Teach patient or legal fundraising sale representative interventions for comforting Outcome: Adequate for Discharge Problem: Safety Goal: Patient will be injury free during hospitalization Description: INTERVENTIONS: 1. Assess patient's risk for falls and implement fall prevention plan of care per policy 2. Provide and maintain a safe environment 3. Proper use of double Identifiers 4. Medication administration using the 5 rights 5. Hand hygiene 6. Specimens are labeled at the bedside 7. Instruct patient/ patient fundraising sale representative about use of safety devices 8. Include patient/ patient fundraising sale representative in decisions related to safety Outcome: Adequate for Discharge Problem: Infection Goal: Absence of infection during hospitalization Description: Interventions: 1. Assess and monitor for signs and symptoms of infection 2. Monitor lab/diagnostic results 3. Monitor all insertion sites i.e., indwelling lines, tubes and drains 4. Monitor endotracheal (as able) and nasal secretions for changes in amount and color 5. Administer medications as ordered 6. Instruct and encourage patient and family to use good hand hygiene technique 7. Identify and instruct patient/patient fundraising sale representative in use of appropriate isolation precautions for identified infection/symptoms 8. Provide and discuss with patient/patient fundraising sale representative on educational MDRO sheet 9. Encourage and monitor nutritional status daily and consult bowling pin refinisher if indicated 10. Implement neutropenic guidelines as needed 11. Review exposure to history of communicable disease and recent travel history on admission 12. Encourage annual influenza vaccine 13. Encourage pneumonia vaccine Outcome: Adequate for Discharge Problem: Knowledge Deficit Goal: Patient/patient fundraising sale representative demonstrates understanding of disease process, treatment plan, medications, and discharge instructions Description: INTERVENTIONS 1. Complete learning assessment and assess knowledge base 2. Provide teaching at level of understanding 3. Provide teaching via preferred learning method(s) Outcome: Adequate for Discharge Problem: Discharge Planning Goal: Discharge to post-acute care, other facility, or home with appropriate resources Description: Patient's goal is: INTERVENTIONS 1. Conduct assessment to determine patient/family and health care team treatment goals, and need for post-acute services based on payer coverage, community resources, and patient preferences, and barriers to discharge 2. Coordinate with Social work, Care Navigation, and Utilization Review to arrange appropriate level of services according to patient's needs based on patient preference and payer coverage in collaboration with the physician and health care team 3. Address psychosocial, clinical, and financial barriers to discharge as identified in assessment in conjunction with the patient/family and health care team 4. Consult appropriate ancillary services (i.e.. PT/OT/ST, etc) as needed 5. Communicate with and update the patient/family, physician, and health care team regarding progress on the discharge plan 6. Identify discharge learning needs (meds, wound care, etc). 7. Arrange for needed discharge transportation as appropriate Outcome: Adequate for Discharge Problem: Potential for Compromised Skin Integrity Goal: Skin integrity is maintained or improved Description: Patient's goal is: INTERVENTIONS 1. Perform initial skin assessment on admission and as needed 2. Turn patient every 2 hours and PRN 3. Relieve pressure to bony prominences 4. Avoid shearing 5. Keep skin clean and dry 6. Alternate a full bath with partial baths for elderly 7. Apply lotion/moisturizer on skin 8. Monitor patient's hygiene practices 9. Float heels 10. Collaborate with interdisciplinary team and initiate plans and interventions as needed Outcome: Adequate for Discharge Goal: Patient's nutritional intake is adequate Description: Patient's goal is: INTERVENTIONS 1. Assess and monitor food intake and supplements, patient food preferences, nausea, vomiting, labs, oral cavity (gums, teeth, tongue, mucosa), proper denture fit, and cultural beliefs 2. Monitor for signs of hypoglycemia and hyperglycemia 3. Collaborate with interdisciplinary team and initiate plan and interventions as ordered 4. Monitor patient's weight 5. Assist patient with meals/food selection 6. Assist patient with eating 7. Allow adequate time for meals 8. Provide pleasant environment during mealtime 9. Increase social contact during mealtimes 10. Plan activities to conserve energy 11. Encourage/perform oral hygiene as appropriate 12. Encourage patient to take dietary supplement as ordered 13. Collaborate with clinical bowling pin refinisher 14. Include patient/ patient's fundraising sale representative in decisions related to nutrition Outcome: Adequate for Discharge Problem: Urinary Incontinence Goal: Perineal skin integrity is maintained or improved Description: INTERVENTIONS 1. Assess genitourinary system, perineal skin, labs (urinalysis), and history of incontinence to include past management, aggravating, and alleviating factors 2. Keep skin clean and dry 3. Apply skin protectant 4. Develop skin care regimen 5. Provide privacy when changing patients incontinence device to maintain their dignity 6. Consider placing an indwelling catheter 7. Collaborate with interdisciplinary team and initiate plans and interventions as needed Outcome: Adequate for Discharge Problem: Moderate - High Risk Fall Score Description: Esposito Fall Score of =/> 25 or indicated by [facility] Assessment Goal: Patient should be free from fall Description: Interventions: 1. [place] to environment 2. Hourly rounds addressing the 4 P's (Pain, Positioning, Possessions, Potty) 3. Clear area of hazards (spills, clutter, electrical cords, unnecessary equipment) 4. Place equipment (bed & TV controls, call light, phone, urinal) within reach 5. Encourage patient to wear glasses and hearing aides as appropriate 6. Maintain bed in lowest position 7. Lock wheels on bed/wheelchair 8. Provide adequate lighting, including night light 9. Assess need for additional bedding, food/fluids, pain med's prior to sleep/routinely 10. Provide gripper slippers or personal non-skid footwear 11. Teach patient and patient fundraising sale representative to maintain environment for safety and engage in all aspects of fall prevention program 12. Remind patient to call for help before getting out of bed 13. Initiate bed/chair/exit alarms supportive devices as appropriate, (chair wedge, no-skid floor mat, raised edge mattress, hip protectors) 14. Locate patient bed assignment for optimal visualization 15. Evaluate and identify Safe Patient Handling Equipment needs 16. Provide supervision when out of bed or chair 17. Utilize gait belt as needed to assist with ambulation 18. Place adaptive equipment (cane, walker) within reach 19. Request patient fundraising sale representative bring adaptive equipment/mobility aids from home or obtain and provide as needed 20. Consult pharmacy regarding effects of med's affecting mobility, cognition, and alternatives 21. Obtain physician order for PT if risk factors associated with mobility are present 22. Obtain physician order for OT as appropriate 23. Utilize diversional activities 24. Educate patient and patient fundraising sale representative how to maintain a safe environment during visitation times (notify nurse prior to leaving bedside) 25. Consider appropriateness of medical or non-medical photographer 26. Set up voiding schedule as appropriate (every 2 hours) Outcome: Adequate for Discharge Problem: Cardiovascular - Adult Goal: Maintains optimal cardiac output and hemodynamic stability Description: Patient's goal is: INTERVENTIONS: 1. Monitor vital signs, rhythm, and trends 2. Monitor for bleeding, hypotension and signs of decreased cardiac output 3. Administer ordered vasoactive medications to optimize hemodynamic stability 4. Monitor arterial and/or venous puncture sites for bleeding and/or hematoma 5. Assess quality of pulses, skin color and temperature Outcome: Adequate for Discharge [facility] 10-14-2024 Miscellaneous Notes Problem: Pain Goal: Patient goal is pain score less than 4, able to rest, and participant in treatment plan as appropriate Description: INTERVENTIONS: 1. Encourage patient or legal fundraising sale representative to report early pain and ask for pain medicine when needed 2. Assess pain using appropriate pain scale and include the scale used when documenting 3. Administer analgesics based on type and severity of pain and evaluate response within appropriate time frame 4. Implement non-pharmacological measures as appropriate and evaluate response 5. Consider cultural and social influences on pain and pain management 6. Notify LIP if interventions ineffective or patient reports new pain 7. Monitor vital signs including pulse ox, end-tidal CO2 based on pain intervention 8. Reassess pain per policy 9. Teach patient or legal fundraising sale representative interventions for comforting Outcome: Adequate for Discharge Problem: Safety Goal: Patient will be injury free during hospitalization Description: INTERVENTIONS: 1. Assess patient's risk for falls and implement fall prevention plan of care per policy 2. Provide and maintain a safe environment 3. Proper use of double Identifiers 4. Medication administration using the 5 rights 5. Hand hygiene 6. Specimens are labeled at the bedside 7. Instruct patient/ patient fundraising sale representative about use of safety devices 8. Include patient/ patient fundraising sale representative in decisions related to safety Outcome: Adequate for Discharge Problem: Infection Goal: Absence of infection during hospitalization Description: Interventions: 1. Assess and monitor for signs and symptoms of infection 2. Monitor lab/diagnostic results 3. Monitor all insertion sites i.e., indwelling lines, tubes and drains 4. Monitor endotracheal (as able) and nasal secretions for changes in amount and color 5. Administer medications as ordered 6. Instruct and encourage patient and family to use good hand hygiene technique 7. Identify and instruct patient/patient fundraising sale representative in use of appropriate isolation precautions for identified infection/symptoms 8. Provide and discuss with patient/patient fundraising sale representative on educational MDRO sheet 9. Encourage and monitor nutritional status daily and consult bowling pin refinisher if indicated 10. Implement neutropenic guidelines as needed 11. Review exposure to history of communicable disease and recent travel history on admission 12. Encourage annual influenza vaccine 13. Encourage pneumonia vaccine Outcome: Adequate for Discharge Problem: Knowledge Deficit Goal: Patient/patient fundraising sale representative demonstrates understanding of disease process, treatment plan, medications, and discharge instructions Description: INTERVENTIONS 1. Complete learning assessment and assess knowledge base 2. Provide teaching at level of understanding 3. Provide teaching via preferred learning method(s) Outcome: Adequate for Discharge Problem: Discharge Planning Goal: Discharge to post-acute care, other facility, or home with appropriate resources Description: Patient's goal is: INTERVENTIONS 1. Conduct assessment to determine patient/family and health care team treatment goals, and need for post-acute services based on payer coverage, community resources, and patient preferences, and barriers to discharge 2. Coordinate with Social work, Care Navigation, and Utilization Review to arrange appropriate level of services according to patient's needs based on patient preference and payer coverage in collaboration with the physician and health care team 3. Address psychosocial, clinical, and financial barriers to discharge as identified in assessment in conjunction with the patient/family and health care team 4. Consult appropriate ancillary services (i.e.. PT/OT/ST, etc) as needed 5. Communicate with and update the patient/family, physician, and health care team regarding progress on the discharge plan 6. Identify discharge learning needs (meds, wound care, etc). 7. Arrange for needed discharge transportation as appropriate Outcome: Adequate for Discharge Problem: Potential for Compromised Skin Integrity Goal: Skin integrity is maintained or improved Description: Patient's goal is: INTERVENTIONS 1. Perform initial skin assessment on admission and as needed 2. Turn patient every 2 hours and PRN 3. Relieve pressure to bony prominences 4. Avoid shearing 5. Keep skin clean and dry 6. Alternate a full bath with partial baths for elderly 7. Apply lotion/moisturizer on skin 8. Monitor patient's hygiene practices 9. Float heels 10. Collaborate with interdisciplinary team and initiate plans and interventions as needed Outcome: Adequate for Discharge Goal: Patient's nutritional intake is adequate Description: Patient's goal is: INTERVENTIONS 1. Assess and monitor food intake and supplements, patient food preferences, nausea, vomiting, labs, oral cavity (gums, teeth, tongue, mucosa), proper denture fit, and cultural beliefs 2. Monitor for signs of hypoglycemia and hyperglycemia 3. Collaborate with interdisciplinary team and initiate plan and interventions as ordered 4. Monitor patient's weight 5. Assist patient with meals/food selection 6. Assist patient with eating 7. Allow adequate time for meals 8. Provide pleasant environment during mealtime 9. Increase social contact during mealtimes 10. Plan activities to conserve energy 11. Encourage/perform oral hygiene as appropriate 12. Encourage patient to take dietary supplement as ordered 13. Collaborate with clinical bowling pin refinisher 14. Include patient/ patient's fundraising sale representative in decisions related to nutrition Outcome: Adequate for Discharge Problem: Urinary Incontinence Goal: Perineal skin integrity is maintained or improved Description: INTERVENTIONS 1. Assess genitourinary system, perineal skin, labs (urinalysis), and history of incontinence to include past management, aggravating, and alleviating factors 2. Keep skin clean and dry 3. Apply skin protectant 4. Develop skin care regimen 5. Provide privacy when changing patients incontinence device to maintain their dignity 6. Consider placing an indwelling catheter 7. Collaborate with interdisciplinary team and initiate plans and interventions as needed Outcome: Adequate for Discharge Problem: Moderate - High Risk Fall Score Description: [place] Fall Score of =/> 25 or indicated by [facility] Assessment Goal: Patient should be free from fall Description: Interventions: 1. [place] to environment 2. Hourly rounds addressing the 4 P's (Pain, Positioning, Possessions, Potty) 3. Clear area of hazards (spills, clutter, electrical cords, unnecessary equipment) 4. Place equipment (bed & TV controls, call light, phone, urinal) within reach 5. Encourage patient to wear glasses and hearing aides as appropriate 6. Maintain bed in lowest position 7. Lock wheels on bed/wheelchair 8. Provide adequate lighting, including night light 9. Assess need for additional bedding, food/fluids, pain med's prior to sleep/routinely 10. Provide gripper slippers or personal non-skid footwear 11. Teach patient and patient fundraising sale representative to maintain environment for safety and engage in all aspects of fall prevention program 12. Remind patient to call for help before getting out of bed 13. Initiate bed/chair/exit alarms supportive devices as appropriate, (chair wedge, no-skid floor mat, raised edge mattress, hip protectors) 14. Locate patient bed assignment for optimal visualization 15. Evaluate and identify Safe Patient Handling Equipment needs 16. Provide supervision when out of bed or chair 17. Utilize gait belt as needed to assist with ambulation 18. Place adaptive equipment (cane, walker) within reach 19. Request patient fundraising sale representative bring adaptive equipment/mobility aids from home or obtain and provide as needed 20. Consult pharmacy regarding effects of med's affecting mobility, cognition, and alternatives 21. Obtain physician order for PT if risk factors associated with mobility are present 22. Obtain physician order for OT as appropriate 23. Utilize diversional activities 24. Educate patient and patient fundraising sale representative how to maintain a safe environment during visitation times (notify nurse prior to leaving bedside) 25. Consider appropriateness of medical or non-medical photographer 26. Set up voiding schedule as appropriate (every 2 hours) Outcome: Adequate for Discharge Problem: Cardiovascular - Adult Goal: Maintains optimal cardiac output and hemodynamic stability Description: Patient's goal is: INTERVENTIONS: 1. Monitor vital signs, rhythm, and trends 2. Monitor for bleeding, hypotension and signs of decreased cardiac output 3. Administer ordered vasoactive medications to optimize hemodynamic stability 4. Monitor arterial and/or venous puncture sites for bleeding and/or hematoma 5. Assess quality of pulses, skin color and temperature Outcome: Adequate for Discharge DISCHARGE PLANNING NOTE BLS to [facility] at 2 PM. Confirmed in [facility] DISCHARGE PLANNING NOTE Case discussed in daily transition rounds and chart reviewed by CN. Barriers to discharge include DC orders, Discharge Plan remains: DC to [facility].SW called sister, chelsea VM- Awaiting transport time CN will continue to follow and is available should any further needs arise. - GAURI MCKAY 08/03/24 11:57 AM 13:37- Confirmed PTN transport for 2pm. CRF sent to [facility]- Called sisterNichelle left her VM with DC update Problem: Pain Goal: Patient goal is pain score less than 4, able to rest, and participant in treatment plan as appropriate Description: INTERVENTIONS: 1. Encourage patient or legal fundraising sale representative to report early pain and ask for pain medicine when needed 2. Assess pain using appropriate pain scale and include the scale used when documenting 3. Administer analgesics based on type and severity of pain and evaluate response within appropriate time frame 4. Implement non-pharmacological measures as appropriate and evaluate response 5. Consider cultural and social influences on pain and pain management 6. Notify LIP if interventions ineffective or patient reports new pain 7. Monitor vital signs including pulse ox, end-tidal CO2 based on pain intervention 8. Reassess pain per policy 9. Teach patient or legal fundraising sale representative interventions for comforting 08/03/202433 by CHANDLER Trujillo Outcome: Progressing Note: Evaluation of progress towards goal: Comfort maintained 08/03/202432 by CHANDLER Trujillo Outcome: Progressing Note: Evaluation of progress towards goal: Comfort maintained Problem: Safety Goal: Patient will be injury free during hospitalization Description: INTERVENTIONS: 1. Assess patient's risk for falls and implement fall prevention plan of care per policy 2. Provide and maintain a safe environment 3. Proper use of double Identifiers 4. Medication administration using the 5 rights 5. Hand hygiene 6. Specimens are labeled at the bedside 7. Instruct patient/ patient fundraising sale representative about use of safety devices 8. Include patient/ patient fundraising sale representative in decisions related to safety 08/03/202433 by CHANDLER Trujillo Outcome: Progressing Note: Evaluation of progress towards goal: Pt free of injury during hospitalization 08/03/202432 by CHANDLER Trujillo Outcome: Progressing Note: Evaluation of progress towards goal: Pt free of injury during hospitalization Problem: Infection Goal: Absence of infection during hospitalization Description: Interventions: 1. Assess and monitor for signs and symptoms of infection 2. Monitor lab/diagnostic results 3. Monitor all insertion sites i.e., indwelling lines, tubes and drains 4. Monitor endotracheal (as able) and nasal secretions for changes in amount and color 5. Administer medications as ordered 6. Instruct and encourage patient and family to use good hand hygiene technique 7. Identify and instruct patient/patient fundraising sale representative in use of appropriate isolation precautions for identified infection/symptoms 8. Provide and discuss with patient/patient fundraising sale representative on educational MDRO sheet 9. Encourage and monitor nutritional status daily and consult bowling pin refinisher if indicated 10. Implement neutropenic guidelines as needed 11. Review exposure to history of communicable disease and recent travel history on admission 12. Encourage annual influenza vaccine 13. Encourage pneumonia vaccine 08/03/202433 by CHANDLER Trujillo Outcome: Progressing Note: Evaluation of progress towards goal: Pt afebrile, no s/s of infection, monitoring continued 08/03/202432 by CHANDLER Trujillo Outcome: Progressing Note: Evaluation of progress towards goal: Pt afebrile, no s/s of infection, monitoring continued Problem: Knowledge Deficit Goal: Patient/patient fundraising sale representative demonstrates understanding of disease process, treatment plan, medications, and discharge instructions Description: INTERVENTIONS 1. Complete learning assessment and assess knowledge base 2. Provide teaching at level of understanding 3. Provide teaching via preferred learning method(s) 08/03/202433 by CHANDLER Trujillo Outcome: Progressing Note: Evaluation of progress towards goal: POC reviewed with pt, questions answered, monitoring continued 08/03/202432 by CHANDLER Trujillo Outcome: Progressing Note: Evaluation of progress towards goal: POC reviewed with pt, questions answered, monitoring continued Problem: Discharge Planning Goal: Discharge to post-acute care, other facility, or home with appropriate resources Description: Patient's goal is: INTERVENTIONS 1. Conduct assessment to determine patient/family and health care team treatment goals, and need for post-acute services based on payer coverage, community resources, and patient preferences, and barriers to discharge 2. Coordinate with Social work, Care Navigation, and Utilization Review to arrange appropriate level of services according to patient's needs based on patient preference and payer coverage in collaboration with the physician and health care team 3. Address psychosocial, clinical, and financial barriers to discharge as identified in assessment in conjunction with the patient/family and health care team 4. Consult appropriate ancillary services (i.e.. PT/OT/ST, etc) as needed 5. Communicate with and update the patient/family, physician, and health care team regarding progress on the discharge plan 6. Identify discharge learning needs (meds, wound care, etc). 7. Arrange for needed discharge transportation as appropriate 08/03/202433 by CHANDLER Trujillo Outcome: Progressing Note: Evaluation of progress towards goal: Discharge planning continued, barriers include placement 08/03/202432 by CHANDLER Trujillo Outcome: Progressing Note: Evaluation of progress towards goal: Discharge planning continued, barriers include placement Problem: Potential for Compromised Skin Integrity Goal: Skin integrity is maintained or improved Description: Patient's goal is: INTERVENTIONS 1. Perform initial skin assessment on admission and as needed 2. Turn patient every 2 hours and PRN 3. Relieve pressure to bony prominences 4. Avoid shearing 5. Keep skin clean and dry 6. Alternate a full bath with partial baths for elderly 7. Apply lotion/moisturizer on skin 8. Monitor patient's hygiene practices 9. Float heels 10. Collaborate with interdisciplinary team and initiate plans and interventions as needed 08/03/202433 by CHANDLER Trujillo Outcome: Progressing Note: Evaluation of progress towards goal: Skin integrity maintained, monitoring continued 08/03/202432 by CHANDLER Trujillo Outcome: Progressing Note: Evaluation of progress towards goal: Skin integrity maintained, monitoring continued Goal: Patient's nutritional intake is adequate Description: Patient's goal is: INTERVENTIONS 1. Assess and monitor food intake and supplements, patient food preferences, nausea, vomiting, labs, oral cavity (gums, teeth, tongue, mucosa), proper denture fit, and cultural beliefs 2. Monitor for signs of hypoglycemia and hyperglycemia 3. Collaborate with interdisciplinary team and initiate plan and interventions as ordered 4. Monitor patient's weight 5. Assist patient with meals/food selection 6. Assist patient with eating 7. Allow adequate time for meals 8. Provide pleasant environment during mealtime 9. Increase social contact during mealtimes 10. Plan activities to conserve energy 11. Encourage/perform oral hygiene as appropriate 12. Encourage patient to take dietary supplement as ordered 13. Collaborate with clinical bowling pin refinisher 14. Include patient/ patient's fundraising sale representative in decisions related to nutrition 08/03/202433 by CHANDLER Trujillo Outcome: Progressing Note: Evaluation of progress towards goal: Pt nutritional intake adequate, monitoring continued 08/03/202432 by CHANDLER Trujillo Outcome: Progressing Note: Evaluation of progress towards goal: Pt nutritional intake adequate, monitoring continued Problem: Urinary Incontinence Goal: Perineal skin integrity is maintained or improved Description: INTERVENTIONS 1. Assess genitourinary system, perineal skin, labs (urinalysis), and history of incontinence to include past management, aggravating, and alleviating factors 2. Keep skin clean and dry 3. Apply skin protectant 4. Develop skin care regimen 5. Provide privacy when changing patients incontinence device to maintain their dignity 6. Consider placing an indwelling catheter 7. Collaborate with interdisciplinary team and initiate plans and interventions as needed 08/03/202433 by CHANDLER Trujillo Outcome: Progressing Note: Evaluation of progress towards goal: Bren skin integrity maintained, monitoring continued 08/03/202432 by CHANDLER Trujillo Outcome: Progressing Note: Evaluation of progress towards goal: Bren skin integrity maintained, monitoring continued Problem: Moderate - High Risk Fall Score Description: [place] Fall Score of =/> 25 or indicated by [facility] Assessment Goal: Patient should be free from fall Description: Interventions: 1. [place] to environment 2. Hourly rounds addressing the 4 P's (Pain, Positioning, Possessions, Potty) 3. Clear area of hazards (spills, clutter, electrical cords, unnecessary equipment) 4. Place equipment (bed & TV controls, call light, phone, urinal) within reach 5. Encourage patient to wear glasses and hearing aides as appropriate 6. Maintain bed in lowest position 7. Lock wheels on bed/wheelchair 8. Provide adequate lighting, including night light 9. Assess need for additional bedding, food/fluids, pain med's prior to sleep/routinely 10. Provide gripper slippers or personal non-skid footwear 11. Teach patient and patient fundraising sale representative to maintain environment for safety and engage in all aspects of fall prevention program 12. Remind patient to call for help before getting out of bed 13. Initiate bed/chair/exit alarms supportive devices as appropriate, (chair wedge, no-skid floor mat, raised edge mattress, hip protectors) 14. Locate patient bed assignment for optimal visualization 15. Evaluate and identify Safe Patient Handling Equipment needs 16. Provide supervision when out of bed or chair 17. Utilize gait belt as needed to assist with ambulation 18. Place adaptive equipment (cane, walker) within reach 19. Request patient fundraising sale representative bring adaptive equipment/mobility aids from home or obtain and provide as needed 20. Consult pharmacy regarding effects of med's affecting mobility, cognition, and alternatives 21. Obtain physician order for PT if risk factors associated with mobility are present 22. Obtain physician order for OT as appropriate 23. Utilize diversional activities 24. Educate patient and patient fundraising sale representative how to maintain a safe environment during visitation times (notify nurse prior to leaving bedside) 25. Consider appropriateness of medical or non-medical photographer 26. Set up voiding schedule as appropriate (every 2 hours) 08/03/202433 by CHANDLER Trujillo Outcome: Progressing Note: Evaluation of progress towards goal: Pt remains free from falls. 08/03/202432 by CHANDLER Trujillo Outcome: Progressing Note: Evaluation of progress towards goal: Pt remains free from falls. Problem: Cardiovascular - Adult Goal: Maintains optimal cardiac output and hemodynamic stability Description: Patient's goal is: INTERVENTIONS: 1. Monitor vital signs, rhythm, and trends 2. Monitor for bleeding, hypotension and signs of decreased cardiac output 3. Administer ordered vasoactive medications to optimize hemodynamic stability 4. Monitor arterial and/or venous puncture sites for bleeding and/or hematoma 5. Assess quality of pulses, skin color and temperature 08/03/202433 by CHANDLER Trujillo Outcome: Progressing Note: Evaluation of progress towards goal: Pt remains hemodynamically stable, trending labs, monitoring continued 08/03/2024 003 by CHANDLER Trujillo Outcome: Progressing Note: Evaluation of progress towards goal: Pt remains hemodynamically stable, trending labs, monitoing contineud Patient continues to deny any pain. Patient also remains free of falls and injury. Problem: Pain Goal: Patient goal is pain score less than 4, able to rest, and participant in treatment plan as appropriate Description: INTERVENTIONS: 1. Encourage patient or legal fundraising sale representative to report early pain and ask for pain medicine when needed 2. Assess pain using appropriate pain scale and include the scale used when documenting 3. Administer analgesics based on type and severity of pain and evaluate response within appropriate time frame 4. Implement non-pharmacological measures as appropriate and evaluate response 5. Consider cultural and social influences on pain and pain management 6. Notify LIP if interventions ineffective or patient reports new pain 7. Monitor vital signs including pulse ox, end-tidal CO2 based on pain intervention 8. Reassess pain per policy 9. Teach patient or legal fundraising sale representative interventions for comforting Note: Evaluation of progress towards goal: Assess pain using appropriate pain scale and include the scale used when documenting 3. Administer analgesics based on type and severity of pain and evaluate response within appropriate time frame Problem: Safety Goal: Patient will be injury free during hospitalization Description: INTERVENTIONS: 1. Assess patient's risk for falls and implement fall prevention plan of care per policy 2. Provide and maintain a safe environment 3. Proper use of double Identifiers 4. Medication administration using the 5 rights 5. Hand hygiene 6. Specimens are labeled at the bedside 7. Instruct patient/ patient fundraising sale representative about use of safety devices 8. Include patient/ patient fundraising sale representative in decisions related to safety Note: Evaluation of progress towards goal: Assess patient's risk for falls and implement fall prevention plan of care per policy 2. Provide and maintain a safe environment Problem: Infection Goal: Absence of infection during hospitalization Description: Interventions: 1. Assess and monitor for signs and symptoms of infection 2. Monitor lab/diagnostic results 3. Monitor all insertion sites i.e., indwelling lines, tubes and drains 4. Monitor endotracheal (as able) and nasal secretions for changes in amount and color 5. Administer medications as ordered 6. Instruct and encourage patient and family to use good hand hygiene technique 7. Identify and instruct patient/patient fundraising sale representative in use of appropriate isolation precautions for identified infection/symptoms 8. Provide and discuss with patient/patient fundraising sale representative on educational MDRO sheet 9. Encourage and monitor nutritional status daily and consult bowling pin refinisher if indicated 10. Implement neutropenic guidelines as needed 11. Review exposure to history of communicable disease and recent travel history on admission 12. Encourage annual influenza vaccine 13. Encourage pneumonia vaccine Note: Evaluation of progress towards goal: Assess and monitor for signs and symptoms of infection 2. Monitor lab/diagnostic results Problem: Knowledge Deficit Goal: Patient/patient fundraising sale representative demonstrates understanding of disease process, treatment plan, medications, and discharge instructions Description: INTERVENTIONS 1. Complete learning assessment and assess knowledge base 2. Provide teaching at level of understanding 3. Provide teaching via preferred learning method(s) Note: Evaluation of progress towards goal: Complete learning assessment and assess knowledge base 2. Provide teaching at level of understanding Problem: Discharge Planning Goal: Discharge to post-acute care, other facility, or home with appropriate resources Description: Patient's goal is: INTERVENTIONS 1. Conduct assessment to determine patient/family and health care team treatment goals, and need for post-acute services based on payer coverage, community resources, and patient preferences, and barriers to discharge 2. Coordinate with Social work, Care Navigation, and Utilization Review to arrange appropriate level of services according to patient's needs based on patient preference and payer coverage in collaboration with the physician and health care team 3. Address psychosocial, clinical, and financial barriers to discharge as identified in assessment in conjunction with the patient/family and health care team 4. Consult appropriate ancillary services (i.e.. PT/OT/ST, etc) as needed 5. Communicate with and update the patient/family, physician, and health care team regarding progress on the discharge plan 6. Identify discharge learning needs (meds, wound care, etc). 7. Arrange for needed discharge transportation as appropriate Note: Evaluation of progress towards goal: Communicate with and update the patient/family, physician, and health care team regarding progress on the discharge plan Problem: Potential for Compromised Skin Integrity Goal: Skin integrity is maintained or improved Description: Patient's goal is: INTERVENTIONS 1. Perform initial skin assessment on admission and as needed 2. Turn patient every 2 hours and PRN 3. Relieve pressure to bony prominences 4. Avoid shearing 5. Keep skin clean and dry 6. Alternate a full bath with partial baths for elderly 7. Apply lotion/moisturizer on skin 8. Monitor patient's hygiene practices 9. Float heels 10. Collaborate with interdisciplinary team and initiate plans and interventions as needed Note: Evaluation of progress towards goal: Perform initial skin assessment on admission and as needed Goal: Patient's nutritional intake is adequate Description: Patient's goal is: INTERVENTIONS 1. Assess and monitor food intake and supplements, patient food preferences, nausea, vomiting, labs, oral cavity (gums, teeth, tongue, mucosa), proper denture fit, and cultural beliefs 2. Monitor for signs of hypoglycemia and hyperglycemia 3. Collaborate with interdisciplinary team and initiate plan and interventions as ordered 4. Monitor patient's weight 5. Assist patient with meals/food selection 6. Assist patient with eating 7. Allow adequate time for meals 8. Provide pleasant environment during mealtime 9. Increase social contact during mealtimes 10. Plan activities to conserve energy 11. Encourage/perform oral hygiene as appropriate 12. Encourage patient to take dietary supplement as ordered 13. Collaborate with clinical bowling pin refinisher 14. Include patient/ patient's fundraising sale representative in decisions related to nutrition Note: Evaluation of progress towards goal: Monitor for signs of hypoglycemia and hyperglycemia Problem: Urinary Incontinence Goal: Perineal skin integrity is maintained or improved Description: INTERVENTIONS 1. Assess genitourinary system, perineal skin, labs (urinalysis), and history of incontinence to include past management, aggravating, and alleviating factors 2. Keep skin clean and dry 3. Apply skin protectant 4. Develop skin care regimen 5. Provide privacy when changing patients incontinence device to maintain their dignity 6. Consider placing an indwelling catheter 7. Collaborate with interdisciplinary team and initiate plans and interventions as needed Note: Evaluation of progress towards goal: Keep skin clean and dry 3. Apply skin protectant Problem: Moderate - High Risk Fall Score Description: Esposito Fall Score of =/> 25 or indicated by [facility] Assessment Goal: Patient should be free from fall Description: Interventions: 1. [place] to environment 2. Hourly rounds addressing the 4 P's (Pain, Positioning, Possessions, Potty) 3. Clear area of hazards (spills, clutter, electrical cords, unnecessary equipment) 4. Place equipment (bed & TV controls, call light, phone, urinal) within reach 5. Encourage patient to wear glasses and hearing aides as appropriate 6. Maintain bed in lowest position 7. Lock wheels on bed/wheelchair 8. Provide adequate lighting, including night light 9. Assess need for additional bedding, food/fluids, pain med's prior to sleep/routinely 10. Provide gripper slippers or personal non-skid footwear 11. Teach patient and patient fundraising sale representative to maintain environment for safety and engage in all aspects of fall prevention program 12. Remind patient to call for help before getting out of bed 13. Initiate bed/chair/exit alarms supportive devices as appropriate, (chair wedge, no-skid floor mat, raised edge mattress, hip protectors) 14. Locate patient bed assignment for optimal visualization 15. Evaluate and identify Safe Patient Handling Equipment needs 16. Provide supervision when out of bed or chair 17. Utilize gait belt as needed to assist with ambulation 18. Place adaptive equipment (cane, walker) within reach 19. Request patient fundraising sale representative bring adaptive equipment/mobility aids from home or obtain and provide as needed 20. Consult pharmacy regarding effects of med's affecting mobility, cognition, and alternatives 21. Obtain physician order for PT if risk factors associated with mobility are present 22. Obtain physician order for OT as appropriate 23. Utilize diversional activities 24. Educate patient and patient fundraising sale representative how to maintain a safe environment during visitation times (notify nurse prior to leaving bedside) 25. Consider appropriateness of medical or non-medical photographer 26. Set up voiding schedule as appropriate (every 2 hours) Note: Evaluation of progress towards goal: [place] to environment 2. Hourly rounds addressing the 4 P's (Pain, Positioning, Possessions, Potty) Problem: Cardiovascular - Adult Goal: Maintains optimal cardiac output and hemodynamic stability Description: Patient's goal is: INTERVENTIONS: 1. Monitor vital signs, rhythm, and trends 2. Monitor for bleeding, hypotension and signs of decreased cardiac output 3. Administer ordered vasoactive medications to optimize hemodynamic stability 4. Monitor arterial and/or venous puncture sites for bleeding and/or hematoma 5. Assess quality of pulses, skin color and temperature Note: Evaluation of progress towards goal: Monitor vital signs, rhythm, and trends Problem: Pain Goal: Patient goal is pain score less than 4, able to rest, and participant in treatment plan as appropriate Description: INTERVENTIONS: 1. Encourage patient or legal fundraising sale representative to report early pain and ask for pain medicine when needed 2. Assess pain using appropriate pain scale and include the scale used when documenting 3. Administer analgesics based on type and severity of pain and evaluate response within appropriate time frame 4. Implement non-pharmacological measures as appropriate and evaluate response 5. Consider cultural and social influences on pain and pain management 6. Notify LIP if interventions ineffective or patient reports new pain 7. Monitor vital signs including pulse ox, end-tidal CO2 based on pain intervention 8. Reassess pain per policy 9. Teach patient or legal fundraising sale representative interventions for comforting Outcome: Progressing Note: Evaluation of progress towards goal: Pt using pain medication to good effect. Communicates needs to staff. Problem: Safety Goal: Patient will be injury free during hospitalization Description: INTERVENTIONS: 1. Assess patient's risk for falls and implement fall prevention plan of care per policy 2. Provide and maintain a safe environment 3. Proper use of double Identifiers 4. Medication administration using the 5 rights 5. Hand hygiene 6. Specimens are labeled at the bedside 7. Instruct patient/ patient fundraising sale representative about use of safety devices 8. Include patient/ patient fundraising sale representative in decisions related to safety Outcome: Progressing Note: Evaluation of progress towards goal: Pt is injury free and understands injury precautions. Problem: Infection Goal: Absence of infection during hospitalization Description: Interventions: 1. Assess and monitor for signs and symptoms of infection 2. Monitor lab/diagnostic results 3. Monitor all insertion sites i.e., indwelling lines, tubes and drains 4. Monitor endotracheal (as able) and nasal secretions for changes in amount and color 5. Administer medications as ordered 6. Instruct and encourage patient and family to use good hand hygiene technique 7. Identify and instruct patient/patient fundraising sale representative in use of appropriate isolation precautions for identified infection/symptoms 8. Provide and discuss with patient/patient fundraising sale representative on educational MDRO sheet 9. Encourage and monitor nutritional status daily and consult bowling pin refinisher if indicated 10. Implement neutropenic guidelines as needed 11. Review exposure to history of communicable disease and recent travel history on admission 12. Encourage annual influenza vaccine 13. Encourage pneumonia vaccine Outcome: Progressing Note: Evaluation of progress towards goal: Pt remains infection free. Problem: Knowledge Deficit Goal: Patient/patient fundraising sale representative demonstrates understanding of disease process, treatment plan, medications, and discharge instructions Description: INTERVENTIONS 1. Complete learning assessment and assess knowledge base 2. Provide teaching at level of understanding 3. Provide teaching via preferred learning method(s) Outcome: Progressing Note: Evaluation of progress towards goal: Pts guardians demonstrates understanding of disease process, plan, medications and discharge instructions. Problem: Discharge Planning Goal: Discharge to post-acute care, other facility, or home with appropriate resources Description: Patient's goal is: INTERVENTIONS 1. Conduct assessment to determine patient/family and health care team treatment goals, and need for post-acute services based on payer coverage, community resources, and patient preferences, and barriers to discharge 2. Coordinate with Social work, Care Navigation, and Utilization Review to arrange appropriate level of services according to patient's needs based on patient preference and payer coverage in collaboration with the physician and health care team 3. Address psychosocial, clinical, and financial barriers to discharge as identified in assessment in conjunction with the patient/family and health care team 4. Consult appropriate ancillary services (i.e.. PT/OT/ST, etc) as needed 5. Communicate with and update the patient/family, physician, and health care team regarding progress on the discharge plan 6. Identify discharge learning needs (meds, wound care, etc). 7. Arrange for needed discharge transportation as appropriate Outcome: Progressing Note: Evaluation of progress towards goal: Pt to be discharged a SNF. Problem: Potential for Compromised Skin Integrity Goal: Skin integrity is maintained or improved Description: Patient's goal is: INTERVENTIONS 1. Perform initial skin assessment on admission and as needed 2. Turn patient every 2 hours and PRN 3. Relieve pressure to bony prominences 4. Avoid shearing 5. Keep skin clean and dry 6. Alternate a full bath with partial baths for elderly 7. Apply lotion/moisturizer on skin 8. Monitor patient's hygiene practices 9. Float heels 10. Collaborate with interdisciplinary team and initiate plans and interventions as needed Outcome: Progressing Note: Evaluation of progress towards goal: Pt skin integrity maintained. Goal: Patient's nutritional intake is adequate Description: Patient's goal is: INTERVENTIONS 1. Assess and monitor food intake and supplements, patient food preferences, nausea, vomiting, labs, oral cavity (gums, teeth, tongue, mucosa), proper denture fit, and cultural beliefs 2. Monitor for signs of hypoglycemia and hyperglycemia 3. Collaborate with interdisciplinary team and initiate plan and interventions as ordered 4. Monitor patient's weight 5. Assist patient with meals/food selection 6. Assist patient with eating 7. Allow adequate time for meals 8. Provide pleasant environment during mealtime 9. Increase social contact during mealtimes 10. Plan activities to conserve energy 11. Encourage/perform oral hygiene as appropriate 12. Encourage patient to take dietary supplement as ordered 13. Collaborate with clinical bowling pin refinisher 14. Include patient/ patient's fundraising sale representative in decisions related to nutrition Outcome: Progressing Note: Evaluation of progress towards goal: Pt nutritional intake is adequate. Problem: Urinary Incontinence Goal: Perineal skin integrity is maintained or improved Description: INTERVENTIONS 1. Assess genitourinary system, perineal skin, labs (urinalysis), and history of incontinence to include past management, aggravating, and alleviating factors 2. Keep skin clean and dry 3. Apply skin protectant 4. Develop skin care regimen 5. Provide privacy when changing patients incontinence device to maintain their dignity 6. Consider placing an indwelling catheter 7. Collaborate with interdisciplinary team and initiate plans and interventions as needed Outcome: Progressing Note: Evaluation of progress towards goal: Pt skin integrity maintained. Problem: Moderate - High Risk Fall Score Description: [place] Fall Score of =/> 25 or indicated by [facility] Assessment Goal: Patient should be free from fall Description: Interventions: 1. [place] to environment 2. Hourly rounds addressing the 4 P's (Pain, Positioning, Possessions, Potty) 3. Clear area of hazards (spills, clutter, electrical cords, unnecessary equipment) 4. Place equipment (bed & TV controls, call light, phone, urinal) within reach 5. Encourage patient to wear glasses and hearing aides as appropriate 6. Maintain bed in lowest position 7. Lock wheels on bed/wheelchair 8. Provide adequate lighting, including night light 9. Assess need for additional bedding, food/fluids, pain med's prior to sleep/routinely 10. Provide gripper slippers or personal non-skid footwear 11. Teach patient and patient fundraising sale representative to maintain environment for safety and engage in all aspects of fall prevention program 12. Remind patient to call for help before getting out of bed 13. Initiate bed/chair/exit alarms supportive devices as appropriate, (chair wedge, no-skid floor mat, raised edge mattress, hip protectors) 14. Locate patient bed assignment for optimal visualization 15. Evaluate and identify Safe Patient Handling Equipment needs 16. Provide supervision when out of bed or chair 17. Utilize gait belt as needed to assist with ambulation 18. Place adaptive equipment (cane, walker) within reach 19. Request patient fundraising sale representative bring adaptive equipment/mobility aids from home or obtain and provide as needed 20. Consult pharmacy regarding effects of med's affecting mobility, cognition, and alternatives 21. Obtain physician order for PT if risk factors associated with mobility are present 22. Obtain physician order for OT as appropriate 23. Utilize diversional activities 24. Educate patient and patient fundraising sale representative how to maintain a safe environment during visitation times (notify nurse prior to leaving bedside) 25. Consider appropriateness of medical or non-medical photographer 26. Set up voiding schedule as appropriate (every 2 hours) Outcome: Progressing Note: Evaluation of progress towards goal: Pt is free from falls. Problem: Cardiovascular - Adult Goal: Maintains optimal cardiac output and hemodynamic stability Description: Patient's goal is: INTERVENTIONS: 1. Monitor vital signs, rhythm, and trends 2. Monitor for bleeding, hypotension and signs of decreased cardiac output 3. Administer ordered vasoactive medications to optimize hemodynamic stability 4. Monitor arterial and/or venous puncture sites for bleeding and/or hematoma 5. Assess quality of pulses, skin color and temperature Outcome: Progressing Note: Evaluation of progress towards goal: Pt is hemodynamically stable. 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 No acute OT needs; will discontinue OT orders.) Physical Therapy Discharge from Therapy (per PT notes from 01/11, pt is completely dependent, [facility]CF resident at baseline and not appropriate for PT) Problem: Pain Goal: Patient goal is pain score less than 4, able to rest, and participant in treatment plan as appropriate Description: INTERVENTIONS: 1. Encourage patient or legal fundraising sale representative to report early pain and ask for pain medicine when needed 2. Assess pain using appropriate pain scale and include the scale used when documenting 3. Administer analgesics based on type and severity of pain and evaluate response within appropriate time frame 4. Implement non-pharmacological measures as appropriate and evaluate response 5. Consider cultural and social influences on pain and pain management 6. Notify LIP if interventions ineffective or patient reports new pain 7. Monitor vital signs including pulse ox, end-tidal CO2 based on pain intervention 8. Reassess pain per policy 9. Teach patient or legal fundraising sale representative interventions for comforting Note: Evaluation of progress towards goal: Assess pain using appropriate pain scale and include the scale used when documenting 3. Administer analgesics based on type and severity of pain and evaluate response within appropriate time frame Problem: Safety Goal: Patient will be injury free during hospitalization Description: INTERVENTIONS: 1. Assess patient's risk for falls and implement fall prevention plan of care per policy 2. Provide and maintain a safe environment 3. Proper use of double Identifiers 4. Medication administration using the 5 rights 5. Hand hygiene 6. Specimens are labeled at the bedside 7. Instruct patient/ patient fundraising sale representative about use of safety devices 8. Include patient/ patient fundraising sale representative in decisions related to safety Note: Evaluation of progress towards goal: Assess patient's risk for falls and implement fall prevention plan of care per policy 2. Provide and maintain a safe environment 3. Proper use of double Identifiers Problem: Infection Goal: Absence of infection during hospitalization Description: Interventions: 1. Assess and monitor for signs and symptoms of infection 2. Monitor lab/diagnostic results 3. Monitor all insertion sites i.e., indwelling lines, tubes and drains 4. Monitor endotracheal (as able) and nasal secretions for changes in amount and color 5. Administer medications as ordered 6. Instruct and encourage patient and family to use good hand hygiene technique 7. Identify and instruct patient/patient fundraising sale representative in use of appropriate isolation precautions for identified infection/symptoms 8. Provide and discuss with patient/patient fundraising sale representative on educational MDRO sheet 9. Encourage and monitor nutritional status daily and consult bowling pin refinisher if indicated 10. Implement neutropenic guidelines as needed 11. Review exposure to history of communicable disease and recent travel history on admission 12. Encourage annual influenza vaccine 13. Encourage pneumonia vaccine Note: Evaluation of progress towards goal: . Assess and monitor for signs and symptoms of infection 2. Monitor lab/diagnostic results Problem: Knowledge Deficit Goal: Patient/patient fundraising sale representative demonstrates understanding of disease process, treatment plan, medications, and discharge instructions Description: INTERVENTIONS 1. Complete learning assessment and assess knowledge base 2. Provide teaching at level of understanding 3. Provide teaching via preferred learning method(s) Note: Evaluation of progress towards goal: Complete learning assessment and assess knowledge base Problem: Discharge Planning Goal: Discharge to post-acute care, other facility, or home with appropriate resources Description: Patient's goal is: INTERVENTIONS 1. Conduct assessment to determine patient/family and health care team treatment goals, and need for post-acute services based on payer coverage, community resources, and patient preferences, and barriers to discharge 2. Coordinate with Social work, Care Navigation, and Utilization Review to arrange appropriate level of services according to patient's needs based on patient preference and payer coverage in collaboration with the physician and health care team 3. Address psychosocial, clinical, and financial barriers to discharge as identified in assessment in conjunction with the patient/family and health care team 4. Consult appropriate ancillary services (i.e.. PT/OT/ST, etc) as needed 5. Communicate with and update the patient/family, physician, and health care team regarding progress on the discharge plan 6. Identify discharge learning needs (meds, wound care, etc). 7. Arrange for needed discharge transportation as appropriate Note: Evaluation of progress towards goal: Communicate with and update the patient/family, physician, and health care team regarding progress on the discharge plan Problem: Potential for Compromised Skin Integrity Goal: Skin integrity is maintained or improved Description: Patient's goal is: INTERVENTIONS 1. Perform initial skin assessment on admission and as needed 2. Turn patient every 2 hours and PRN 3. Relieve pressure to bony prominences 4. Avoid shearing 5. Keep skin clean and dry 6. Alternate a full bath with partial baths for elderly 7. Apply lotion/moisturizer on skin 8. Monitor patient's hygiene practices 9. Float heels 10. Collaborate with interdisciplinary team and initiate plans and interventions as needed Note: Evaluation of progress towards goal: . Perform initial skin assessment on admission and as needed Goal: Patient's nutritional intake is adequate Description: Patient's goal is: INTERVENTIONS 1. Assess and monitor food intake and supplements, patient food preferences, nausea, vomiting, labs, oral cavity (gums, teeth, tongue, mucosa), proper denture fit, and cultural beliefs 2. Monitor for signs of hypoglycemia and hyperglycemia 3. Collaborate with interdisciplinary team and initiate plan and interventions as ordered 4. Monitor patient's weight 5. Assist patient with meals/food selection 6. Assist patient with eating 7. Allow adequate time for meals 8. Provide pleasant environment during mealtime 9. Increase social contact during mealtimes 10. Plan activities to conserve energy 11. Encourage/perform oral hygiene as appropriate 12. Encourage patient to take dietary supplement as ordered 13. Collaborate with clinical bowling pin refinisher 14. Include patient/ patient's fundraising sale representative in decisions related to nutrition Note: Evaluation of progress towards goal: Plan activities to conserve energy 11. Encourage/perform oral hygiene as appropriate Problem: Urinary Incontinence Goal: Perineal skin integrity is maintained or improved Description: INTERVENTIONS 1. Assess genitourinary system, perineal skin, labs (urinalysis), and history of incontinence to include past management, aggravating, and alleviating factors 2. Keep skin clean and dry 3. Apply skin protectant 4. Develop skin care regimen 5. Provide privacy when changing patients incontinence device to maintain their dignity 6. Consider placing an indwelling catheter 7. Collaborate with interdisciplinary team and initiate plans and interventions as needed Note: Evaluation of progress towards goal: Keep skin clean and dry 3. Apply skin protectant Problem: Moderate - High Risk Fall Score Description: [place] Fall Score of =/> 25 or indicated by [facility] Assessment Goal: Patient should be free from fall Description: Interventions: 1. [place] to environment 2. Hourly rounds addressing the 4 P's (Pain, Positioning, Possessions, Potty) 3. Clear area of hazards (spills, clutter, electrical cords, unnecessary equipment) 4. Place equipment (bed & TV controls, call light, phone, urinal) within reach 5. Encourage patient to wear glasses and hearing aides as appropriate 6. Maintain bed in lowest position 7. Lock wheels on bed/wheelchair 8. Provide adequate lighting, including night light 9. Assess need for additional bedding, food/fluids, pain med's prior to sleep/routinely 10. Provide gripper slippers or personal non-skid footwear 11. Teach patient and patient fundraising sale representative to maintain environment for safety and engage in all aspects of fall prevention program 12. Remind patient to call for help before getting out of bed 13. Initiate bed/chair/exit alarms supportive devices as appropriate, (chair wedge, no-skid floor mat, raised edge mattress, hip protectors) 14. Locate patient bed assignment for optimal visualization 15. Evaluate and identify Safe Patient Handling Equipment needs 16. Provide supervision when out of bed or chair 17. Utilize gait belt as needed to assist with ambulation 18. Place adaptive equipment (cane, walker) within reach 19. Request patient fundraising sale representative bring adaptive equipment/mobility aids from home or obtain and provide as needed 20. Consult pharmacy regarding effects of med's affecting mobility, cognition, and alternatives 21. Obtain physician order for PT if risk factors associated with mobility are present 22. Obtain physician order for OT as appropriate 23. Utilize diversional activities 24. Educate patient and patient fundraising sale representative how to maintain a safe environment during visitation times (notify nurse prior to leaving bedside) 25. Consider appropriateness of medical or non-medical photographer 26. Set up voiding schedule as appropriate (every 2 hours) Note: Evaluation of progress towards goal: [place] to environment 2. Hourly rounds addressing the 4 P's (Pain, Positioning, Possessions, Potty) Problem: Cardiovascular - Adult Goal: Maintains optimal cardiac output and hemodynamic stability Description: Patient's goal is: INTERVENTIONS: 1. Monitor vital signs, rhythm, and trends 2. Monitor for bleeding, hypotension and signs of decreased cardiac output 3. Administer ordered vasoactive medications to optimize hemodynamic stability 4. Monitor arterial and/or venous puncture sites for bleeding and/or hematoma 5. Assess quality of pulses, skin color and temperature Note: Evaluation of progress towards goal: Assess quality of pulses, skin color and temperature Problem: Pain Goal: Patient goal is pain score less than 4, able to rest, and participant in treatment plan as appropriate Description: INTERVENTIONS: 1. Encourage patient or legal fundraising sale representative to report early pain and ask for pain medicine when needed 2. Assess pain using appropriate pain scale and include the scale used when documenting 3. Administer analgesics based on type and severity of pain and evaluate response within appropriate time frame 4. Implement non-pharmacological measures as appropriate and evaluate response 5. Consider cultural and social influences on pain and pain management 6. Notify LIP if interventions ineffective or patient reports new pain 7. Monitor vital signs including pulse ox, end-tidal CO2 based on pain intervention 8. Reassess pain per policy 9. Teach patient or legal fundraising sale representative interventions for comforting Outcome: Progressing Note: Evaluation of progress towards goal: Pt using pain medication to good effect. Communicates needs to staff. Problem: Safety Goal: Patient will be injury free during hospitalization Description: INTERVENTIONS: 1. Assess patient's risk for falls and implement fall prevention plan of care per policy 2. Provide and maintain a safe environment 3. Proper use of double Identifiers 4. Medication administration using the 5 rights 5. Hand hygiene 6. Specimens are labeled at the bedside 7. Instruct patient/ patient fundraising sale representative about use of safety devices 8. Include patient/ patient fundraising sale representative in decisions related to safety Outcome: Progressing Note: Evaluation of progress towards goal: Pt is injury free and understands injury precautions. Problem: Infection Goal: Absence of infection during hospitalization Description: Interventions: 1. Assess and monitor for signs and symptoms of infection 2. Monitor lab/diagnostic results 3. Monitor all insertion sites i.e., indwelling lines, tubes and drains 4. Monitor endotracheal (as able) and nasal secretions for changes in amount and color 5. Administer medications as ordered 6. Instruct and encourage patient and family to use good hand hygiene technique 7. Identify and instruct patient/patient fundraising sale representative in use of appropriate isolation precautions for identified infection/symptoms 8. Provide and discuss with patient/patient fundraising sale representative on educational MDRO sheet 9. Encourage and monitor nutritional status daily and consult bowling pin refinisher if indicated 10. Implement neutropenic guidelines as needed 11. Review exposure to history of communicable disease and recent travel history on admission 12. Encourage annual influenza vaccine 13. Encourage pneumonia vaccine Outcome: Progressing Note: Evaluation of progress towards goal: Pt remains infection free. Problem: Knowledge Deficit Goal: Patient/patient fundraising sale representative demonstrates understanding of disease process, treatment plan, medications, and discharge instructions Description: INTERVENTIONS 1. Complete learning assessment and assess knowledge base 2. Provide teaching at level of understanding 3. Provide teaching via preferred learning method(s) Outcome: Progressing Note: Evaluation of progress towards goal: Pts caregivers demonstrates understanding of disease process, plan, medications and discharge instructions. Problem: Discharge Planning Goal: Discharge to post-acute care, other facility, or home with appropriate resources Description: Patient's goal is: INTERVENTIONS 1. Conduct assessment to determine patient/family and health care team treatment goals, and need for post-acute services based on payer coverage, community resources, and patient preferences, and barriers to discharge 2. Coordinate with Social work, Care Navigation, and Utilization Review to arrange appropriate level of services according to patient's needs based on patient preference and payer coverage in collaboration with the physician and health care team 3. Address psychosocial, clinical, and financial barriers to discharge as identified in assessment in conjunction with the patient/family and health care team 4. Consult appropriate ancillary services (i.e.. PT/OT/ST, etc) as needed 5. Communicate with and update the patient/family, physician, and health care team regarding progress on the discharge plan 6. Identify discharge learning needs (meds, wound care, etc). 7. Arrange for needed discharge transportation as appropriate Outcome: Progressing Note: Evaluation of progress towards goal: Pt to be discharged home to SNF. Problem: Potential for Compromised Skin Integrity Goal: Skin integrity is maintained or improved Description: Patient's goal is: INTERVENTIONS 1. Perform initial skin assessment on admission and as needed 2. Turn patient every 2 hours and PRN 3. Relieve pressure to bony prominences 4. Avoid shearing 5. Keep skin clean and dry 6. Alternate a full bath with partial baths for elderly 7. Apply lotion/moisturizer on skin 8. Monitor patient's hygiene practices 9. Float heels 10. Collaborate with interdisciplinary team and initiate plans and interventions as needed Outcome: Progressing Note: Evaluation of progress towards goal: Pt skin integrity maintained. Goal: Patient's nutritional intake is adequate Description: Patient's goal is: INTERVENTIONS 1. Assess and monitor food intake and supplements, patient food preferences, nausea, vomiting, labs, oral cavity (gums, teeth, tongue, mucosa), proper denture fit, and cultural beliefs 2. Monitor for signs of hypoglycemia and hyperglycemia 3. Collaborate with interdisciplinary team and initiate plan and interventions as ordered 4. Monitor patient's weight 5. Assist patient with meals/food selection 6. Assist patient with eating 7. Allow adequate time for meals 8. Provide pleasant environment during mealtime 9. Increase social contact during mealtimes 10. Plan activities to conserve energy 11. Encourage/perform oral hygiene as appropriate 12. Encourage patient to take dietary supplement as ordered 13. Collaborate with clinical bowling pin refinisher 14. Include patient/ patient's fundraising sale representative in decisions related to nutrition Outcome: Progressing Note: Evaluation of progress towards goal: Pt nutritional intake is adequate. Problem: Urinary Incontinence Goal: Perineal skin integrity is maintained or improved Description: INTERVENTIONS 1. Assess genitourinary system, perineal skin, labs (urinalysis), and history of incontinence to include past management, aggravating, and alleviating factors 2. Keep skin clean and dry 3. Apply skin protectant 4. Develop skin care regimen 5. Provide privacy when changing patients incontinence device to maintain their dignity 6. Consider placing an indwelling catheter 7. Collaborate with interdisciplinary team and initiate plans and interventions as needed Outcome: Progressing Note: Evaluation of progress towards goal: Pt skin integrity maintained. Problem: Moderate - High Risk Fall Score Description: [place] Fall Score of =/> 25 or indicated by [facility] Assessment Goal: Patient should be free from fall Description: Interventions: 1. [place] to environment 2. Hourly rounds addressing the 4 P's (Pain, Positioning, Possessions, Potty) 3. Clear area of hazards (spills, clutter, electrical cords, unnecessary equipment) 4. Place equipment (bed & TV controls, call light, phone, urinal) within reach 5. Encourage patient to wear glasses and hearing aides as appropriate 6. Maintain bed in lowest position 7. Lock wheels on bed/wheelchair 8. Provide adequate lighting, including night light 9. Assess need for additional bedding, food/fluids, pain med's prior to sleep/routinely 10. Provide gripper slippers or personal non-skid footwear 11. Teach patient and patient fundraising sale representative to maintain environment for safety and engage in all aspects of fall prevention program 12. Remind patient to call for help before getting out of bed 13. Initiate bed/chair/exit alarms supportive devices as appropriate, (chair wedge, no-skid floor mat, raised edge mattress, hip protectors) 14. Locate patient bed assignment for optimal visualization 15. Evaluate and identify Safe Patient Handling Equipment needs 16. Provide supervision when out of bed or chair 17. Utilize gait belt as needed to assist with ambulation 18. Place adaptive equipment (cane, walker) within reach 19. Request patient fundraising sale representative bring adaptive equipment/mobility aids from home or obtain and provide as needed 20. Consult pharmacy regarding effects of med's affecting mobility, cognition, and alternatives 21. Obtain physician order for PT if risk factors associated with mobility are present 22. Obtain physician order for OT as appropriate 23. Utilize diversional activities 24. Educate patient and patient fundraising sale representative how to maintain a safe environment during visitation times (notify nurse prior to leaving bedside) 25. Consider appropriateness of medical or non-medical photographer 26. Set up voiding schedule as appropriate (every 2 hours) Outcome: Progressing Note: Evaluation of progress towards goal: Pt is free from falls. Problem: Cardiovascular - Adult Goal: Maintains optimal cardiac output and hemodynamic stability Description: Patient's goal is: INTERVENTIONS: 1. Monitor vital signs, rhythm, and trends 2. Monitor for bleeding, hypotension and signs of decreased cardiac output 3. Administer ordered vasoactive medications to optimize hemodynamic stability 4. Monitor arterial and/or venous puncture sites for bleeding and/or hematoma 5. Assess quality of pulses, skin color and temperature Outcome: Progressing Note: Evaluation of progress towards goal: Pt is maintaining normal pressures and hemodynamic stability. DISCHARGE PLANNING NOTE Referral sent to. [facility] (P# ; F# ) Images from the original note were not included. DISCHARGE PLANNING NOTE Outsole Leveler met with patient, introduced self, and explained role. Patient educated on safe discharge plan. Pt admitted 07/31/2024 with Syncope [R55] per chart review. Consults: none Discharge Barriers per Daily Transition Rounds and chart review: DC Past Medical History: Diagnosis Date RAMYA (acute kidney injury) ([facility]) 08/18/2020 Anxiety Bipolar disorder ([facility]) Diabetes mellitus type 2, controlled ([facility]) 12/31/2023 Hypertension Metabolic encephalopathy Prior to admission patient was Patient was transferring from [facility] to [facility] and prior to admit to [facility] in [place]- patient transferred to ED. . Medical equipment patient used prior to admission includes: WC, Walker. Patient denies need for transportation/ food/ prescription medication assistance resources. PCP: NO PCP, NO PCP Pharmacy:[facility] PCP and pharmacy confirmed with patient. CN offered to assist with follow up appointment arrangements; declined. NO PCP, NO PCP added to Follow Up Providers for Summary of Care communication. Per patient self-report: Drug use: no Smoking: no ETOH Use: no Current discharge plan is: DC to [facility] Services Requested: Services Requested Discharge Disposition: SNF SNF Name: DC plan is to [facility]- [id number] [id number] Patient choice offered: Yes List Provided: Patient declined Patient Declined: Active with Provider Goals: Goals DC to [facility] (pt-stated) Evaluation of progress towards goal: DC to [facility] SW spoke to sister to confirmed DC plans- Tasked for referral to [facility] Will continue to follow as plan of care develops. CN discussed benefits and importance of medication compliance and follow ups. Please feel free to reach out for any discharge planning questions. - GAURI MCKAY 07/31/24 3:00 PM documented in this encounter [facility] 08-03-2024 Hospital course Narrative Images from the original note were not included. 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 Per report patient was in the process being transferred from 1 facility to another, while he was being examined by a physician he had nausea and vomiting, became hypotensive with blood pressure in the 80s, and nearly passed out. On exam, patient is not very verbal, able to answer some questions such as his age, and able to tell that he had nausea vomiting but could not answer whether he passed out or not. He is able to follow simple commands such as move his extremities, able to say no to any acute pain or discomfort. Labs were mostly unremarkable except lactate 2.4, magnesium 1.6. CT brain without contrast did not show acute pathology. CT abdomen and pelvis showed large volume colonic stool burden. CTA chest negative for PE. MRI brain without contrast showed white matter changes, no acute pathology. He symptom is most consistent with vasovagal. With oral hydration and bowel regimen, patient's symptoms much improved, mentation is more alert and oriented, able to tolerate oral intake. Patient's Lopressor was discontinued due to bradycardia. He will be discharged to assisted facility, follow up with physician at the facility. Code Status: DNRCCA DNI Physical Exam Constitutional: General: No acute distress. Cardiovascular: Rate and Rhythm: Normal rate and regular rhythm. Heart sounds: Normal heart sounds, S1 normal and S2 normal. Pulmonary: Effort: Pulmonary effort is normal. Breath sounds: Normal breath sounds. Abdominal: General: Bowel sounds are normal. Palpations: Abdomen is soft. Tenderness: There is no abdominal tenderness. Musculoskeletal: Right lower leg: No edema. Left lower leg: No edema. Skin: General: Skin is warm and dry. Coloration: Skin is not pale. Neurological: General: Right-sided residual hemiparesis Psychiatric: Mood and Affect: Mood normal. Behavior: Behavior normal. Labs Recent Results (from the past 48 hour(s)) Bedside Glucose *Place/Obtain serum glucose if >500(>600 MRH) per glucometer. Collection Time: 08/01/24 3:09 PM Result Value Ref Range Bedside glucose 210 (H) 65 - 99 mg/dL Bedside Glucose *Place/Obtain serum glucose if >500(>600 MRH) per glucometer. Collection Time: 08/01/24 8:15 PM Result Value Ref Range Bedside glucose 250 (H) 65 - 99 mg/dL Magnesium Collection Time: 08/01/24 10:55 PM Result Value Ref Range Magnesium 2.0 1.8 - 2.6 mg/dL Bedside Glucose *Place/Obtain serum glucose if >500(>600 MRH) per glucometer. Collection Time: 08/02/24 2:46 AM Result Value Ref Range Bedside glucose 198 (H) 65 - 99 mg/dL Comprehensive metabolic panel Collection Time: 08/02/24 6:54 AM Result Value Ref Range Sodium 139 134 - 146 mmol/L Potassium, Bld 4.1 3.5 - 5.0 mmol/L Chloride 108 98 - 109 mmol/L CO2 24 22 - 32 mmol/L Anion gap 7 5 - 15 mmol/L BUN 21 5 - 27 mg/dL Creatinine 0.86 0.60 - 1.30 mg/dL Glucose 179 (H) 65 - 99 mg/dL Calcium 9.0 8.5 - 10.5 mg/dL Total Protein 6.0 6.0 - 8.0 g/dL Albumin 3.6 3.2 - 5.3 g/dL Alkaline Phosphatase 77 39 - 130 U/L AST 10 0 - 41 U/L ALT 7 0 - 40 U/L Total bilirubin 0.5 0.3 - 1.2 mg/dL eGFR (CKD-EPI)non-race dependent 90 >59 ml/min/1.73sq.m Magnesium Collection Time: 08/02/24 6:54 AM Result Value Ref Range Magnesium 1.8 1.8 - 2.6 mg/dL CBC auto differential Collection Time: 08/02/24 6:54 AM Result Value Ref Range White Blood Cells 8.3 4.0 - 11.0 X10E9/L RBC count 4.38 4.10 - 5.70 X10E12/L Hemoglobin 12.6 (L) 13.0 - 17.0 g/dL Hematocrit 37.0 (L) 39 - 49 % MCV 85 80 - 100 fL MCH 28.8 27 - 34 pg MCHC 34.0 32 - 36 g/dL RDW 15.4 (H) 11.5 - 15.0 % Platelets 177 150 - 450 X10E9/L MPV 8.0 7 - 12 fL % neutrophils 66.5 % % lymphocytes 24.0 % % monocytes 7.6 % % eosinophils 1.5 % % Basophils 0.4 % Neutrophils Absolute (A) 5.5 1.5 - 6.6 X10E9/L Lymphocytes Absolute 2.0 1.0 - 3.5 X10E9/L Monocytes Absolute 0.6 0 - 0.9 X10E9/L Eosinophils Absolute 0.1 0.0 - 0.4 X10E9/L Basophils Absolute 0.0 0.0 - 0.2 X10E9/L Bedside Glucose *Place/Obtain serum glucose if >500(>600 MRH) per glucometer. Collection Time: 08/02/24 8:15 AM Result Value Ref Range Bedside glucose 148 (H) 65 - 99 mg/dL Bedside Glucose *Place/Obtain serum glucose if >500(>600 MRH) per glucometer. Collection Time: 08/02/24 12:24 PM Result Value Ref Range Bedside glucose 185 (H) 65 - 99 mg/dL Magnesium Collection Time: 08/02/24 3:41 PM Result Value Ref Range Magnesium 1.9 1.8 - 2.6 mg/dL Bedside Glucose *Place/Obtain serum glucose if >500(>600 MRH) per glucometer. Collection Time: 08/02/24 4:38 PM Result Value Ref Range Bedside glucose 243 (H) 65 - 99 mg/dL Bedside Glucose *Place/Obtain serum glucose if >500(>600 MRH) per glucometer. Collection Time: 08/02/24 9:23 PM Result Value Ref Range Bedside glucose 167 (H) 65 - 99 mg/dL Comprehensive metabolic panel Collection Time: 08/03/24 4:47 AM Result Value Ref Range Sodium 138 134 - 146 mmol/L Potassium, Bld 4.1 3.5 - 5.0 mmol/L Chloride 107 98 - 109 mmol/L CO2 23 22 - 32 mmol/L Anion gap 8 5 - 15 mmol/L BUN 22 5 - 27 mg/dL Creatinine 0.83 0.60 - 1.30 mg/dL Glucose 175 (H) 65 - 99 mg/dL Calcium 8.9 8.5 - 10.5 mg/dL Total Protein 5.9 (L) 6.0 - 8.0 g/dL Albumin 3.6 3.2 - 5.3 g/dL Alkaline Phosphatase 72 39 - 130 U/L AST 9 0 - 41 U/L ALT 7 0 - 40 U/L Total bilirubin 0.6 0.3 - 1.2 mg/dL eGFR (CKD-EPI)non-race dependent >90 >59 ml/min/1.73sq.m Magnesium Collection Time: 08/03/24 4:47 AM Result Value Ref Range Magnesium 1.7 (L) 1.8 - 2.6 mg/dL CBC auto differential Collection Time: 08/03/24 4:47 AM Result Value Ref Range White Blood Cells 9.0 4.0 - 11.0 X10E9/L RBC count 4.22 4.10 - 5.70 X10E12/L Hemoglobin 12.5 (L) 13.0 - 17.0 g/dL Hematocrit 35.9 (L) 39 - 49 % MCV 85 80 - 100 fL MCH 29.6 27 - 34 pg MCHC 34.8 32 - 36 g/dL RDW 15.8 (H) 11.5 - 15.0 % Platelets 181 150 - 450 X10E9/L MPV 7.8 7 - 12 fL % neutrophils 65.1 % % lymphocytes 24.7 % % monocytes 7.6 % % eosinophils 2.1 % % Basophils 0.5 % Neutrophils Absolute (A) 5.8 1.5 - 6.6 X10E9/L Lymphocytes Absolute 2.2 1.0 - 3.5 X10E9/L Monocytes Absolute 0.7 0 - 0.9 X10E9/L Eosinophils Absolute 0.2 0.0 - 0.4 X10E9/L Basophils Absolute 0.0 0.0 - 0.2 X10E9/L Bedside Glucose *Place/Obtain serum glucose if >500(>600 MRH) per glucometer. Collection Time: 08/03/24 7:44 AM Result Value Ref Range Bedside glucose 161 (H) 65 - 99 mg/dL Bedside Glucose *Place/Obtain serum glucose if >500(>600 MRH) per glucometer. Collection Time: 08/03/24 11:19 AM Result Value Ref Range Bedside glucose 150 (H) 65 - 99 mg/dL Radiology Echo complete W/ contrast Result Date: 07/31/2024 Narrative: Left Ventricle: Systolic function is normal with an ejection fraction of 55-60%. Aortic Valve: There is mild regurgitation. There is no evidence of aortic valve stenosis. Mitral Valve: There is mild regurgitation. There is no evidence of mitral valve stenosis. Tricuspid Valve: There is trace regurgitation. There is no evidence of tricuspid valve stenosis. MR brain without contrast Result Date: 07/31/2024 Narrative: EXAM: MRI BRAIN WITHOUT CONTRAST CLINICAL HISTORY: TECHNIQUE: TECHNIQUE: Routine multiplanar multisequence MR imaging of the brain was performed without contrast. COMPARISONS: MRI dated 09/18/2023, CT head dated 07/31/2024 FINDINGS: There is no restricted diffusion. There is a background of white matter changes, most commonly attributable to the sequelae of chronic ischemic small vessel disease. 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 There is no intracranial mass effect. There is generalized low brain volume with proportional prominence of the ventricular system and extra-axial spaces. There is no shift of the midline structures and the basal cisterns are widely patent. There is no susceptibility to suggest the presence of intracranial blood degradation products. The midline structures and craniocervical junction are within normal limits. The paranasal sinuses are well aerated. There is only a tiny amount of fluid in a few mastoid air cells. IMPRESSION: 1. White matter changes, most commonly attributable to the sequela of chronic ischemic small vessel disease. 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 There is no evidence for an acute infarct. 2. Generalized low brain volume. There is no intracranial mass effect. Finalized by Olu Cerrato MD on 07/31/2024 5:[address] abdomen and pelvis with contrast Result Date: 07/31/2024 Narrative: CT ABDOMEN AND PELVIS W CONT CLINICAL HISTORY:Bowel obstruction suspected abdominal pain, vomiting. COMPARISON: None. TECHNIQUE: CT abdomen and pelvis was performed utilizing the standard protocol following the uneventful administration of 100 cc Omnipaque 300 nonionic intravenous contrast. Coronal and sagittal reformatted images were generated and reviewed. Automated exposure control was utilized. FINDINGS: Dependent right basilar opacities. Cardiac megaly. Severe calcified coronary arterial disease. Mild biatrial enlargement. Unremarkable liver, gallbladder, spleen, adrenal glands, pancreas, kidneys. Moderate to large volume colonic stool burden. No dilatation or wall thickening the bowel. Diminutive appendix. No acute appearing occlusion the major visceral vasculature. Mild fat stranding within the upper abdominal mesentery, relative sparing of adipose tissue immediately adjacent to the vasculature and lymph nodes. No gross adenopathy. Prostamegaly. No free fluid or fluid collections. No aggressive osseous lesions. 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 IMPRESSION: 1. Moderate to large volume colonic stool burden. No acute process within the abdomen or pelvis. 2. Features suggestive of mesenteric panniculitis. All CT scans at this facility use dose modulation, iterative reconstruction, and/or weight based dosing when appropriate to reduce radiation dose to as low as reasonably achievable. Finalized by Delfin Vera MD on 07/31/2024 12:[address] angiogram chest Result Date: 07/31/2024 Narrative: CTA PULMONARY ANGIOGRAM Clinical history: Vomiting. Nausea. Loss of consciousness and syncope. Hypotension. Pulmonary embolism suspected. Technique: Spiral multidetector CT pulmonary angiogram was performed after the intravenous administration of contrast material including 3-D reconstructions displayed on a PACS workstation and reviewed by the radiologist. Automated dose reduction techniques were utilized. All CT scans at this facility use dose modulation, iterative reconstruction, and/or weight based dosing when appropriate to reduce radiation dose to as low as reasonably achievable. Comparisons: 01/05/2024. Findings: Evaluation of peripheral, subsegmental pulmonary artery branches is limited due to gross patient motion/respiratory artifact. The central pulmonary arteries are patent and free of filling defects to suggest acute pulmonary thromboembolism. There is no isolated right ventricular dilation. Subsegmental atelectasis involves superior segment right lower lobe. Interval resolution of bilateral pleural effusions and extensive atelectasis on prior exam. Calcification right upper lobe is unchanged likely reflecting sequelae of prior granulomatous disease. Heavy coronary artery calcifications and/or stents are present. Changes of prior median sternotomy again seen. No pneumothorax. IMPRESSION: 1. No evidence for acute pulmonary thromboembolism. Finalized by Kenny Craig MD on 07/31/2024 12:[address] brain without contrast Result Date: 07/31/2024 Narrative: CT BRAIN WO CONT CLINICAL HISTORY: Altered mental status, nontraumatic (Ped 0-17y) COMPARISON: None. TECHNIQUE: CT head was performed without contrast using the standard protocol. Automated exposure control was utilized. FINDINGS: No acute, territorial region of diminished romeo-white differentiation. No acute intracranial hemorrhage. Disproportionate effacement of the subarachnoid space of the calvarial vertex with widening of the sylvian fissures. Moderate global parenchymal volume loss, apparent disproportionate hippocampal volume loss.. Mild/moderate heterogeneity through the deep, periventricular white matter, most often seen in the setting of chronic microvascular ischemia. Intracranial vascular calcifications. Lobular mucosal thickening alveolar recess bilateral maxillary sinuses. Unremarkable temporal bone structures, visualized suprahyoid neck. Unremarkable scalp soft tissues. IMPRESSION: A few features suggest normal pressure hydrocephalus, correlate clinically. Moderate global parenchymal volume loss with apparent disproportionate hippocampal volume loss. Correlate for clinical signs of underlying neurodegenerative process. Moderate heterogeneity through the deep, subcortical and periventricular white matter, most often seen in the setting of chronic microvascular ischemia. All CT scans at this facility use dose modulation, iterative reconstruction, and/or weight based dosing when appropriate to reduce radiation dose to as low as reasonably achievable. Finalized by Delfin Vera MD on 07/31/2024 12:17 PM Discharge Medications: Medication List START taking these medications Instructions Last Dose Given Next Dose Due bisacodyL 10 mg suppository Commonly known as: DULCOLAX Insert 1 suppository (10 mg total) into the rectum daily as needed for constipation. CHANGE how you take these medications Instructions Last Dose Given Next Dose Due insulin lispro 100 unit/mL insulin pen Commonly known as: HumaLOG What changed: how much to take how to take this when to take this additional instructions Another medication with the same name was removed. Continue taking this medication, and follow the directions you see here. Inject 1-5 Units under the skin 4 (four) times a day with meals and nightly. CONTINUE taking these medications Instructions Last Dose Given Next Dose Due apixaban 5 mg tablet Commonly known as: ELIQUIS Take 1 tablet (5 mg total) by mouth in the morning and 1 tablet (5 mg total) before bedtime. atorvastatin 40 mg tablet Commonly known as: LIPITOR Take 1 tablet (40 mg total) by mouth daily. busPIRone 5 mg tablet Commonly known as: BUSPAR Take 1 tablet (5 mg total) by mouth in the morning and at bedtime Indications: repeated episodes of anxiety. cholecalciferol (vitamin D3) 2,000 units tablet Take 1 tablet (2,000 Units total) by mouth daily. clopidogreL 75 mg tablet Commonly known as: PLAVIX Take 1 tablet (75 mg total) by mouth in the morning. dilTIAZem CD 240 mg 24 hr capsule Commonly known as: CARDIZEM CD Take 1 capsule (240 mg total) by mouth in the morning. levalbuterol 1.25 mg/0.5 mL nebulizer solution Commonly known as: XOPENEX Inhale 0.5 mL (1.25 mg total) by nebulization every 6 (six) hours as needed for wheezing. melatonin tablet Commonly known as: CIRCADIN Take 1 tablet (3 mg total) by mouth nightly as needed for sleep. metFORMIN 500 mg tablet Commonly known as: GLUCOPHAGE Take 1 tablet (500 mg total) by mouth in the morning and 1 tablet (500 mg total) before bedtime. polyethylene glycol 17 gram packet Commonly known as: GLYCOLAX Take 17 g by mouth in the morning. QUEtiapine 25 mg tablet Commonly known as: SEROquel Take 0.5 tablets (12.5 mg total) by mouth nightly. sennosides-docusate sodium 8.6-50 mg Commonly known as: SENOKOT-S Take 2 tablets by mouth nightly. STOP taking these medications BASAGLAR KWIKPEN U-100 INSULIN 100 unit/mL (3 mL) insulin pen metoprolol tartrate 50 mg tablet Commonly known as: LOPRESSOR ASK your doctor about these medications Instructions Last Dose Given Next Dose Due sodium chloride 0.9 % injection Irrigate with 10 mL as directed every 12 (twelve) hours. Where to Get Your Medications These medications were sent to [id number] - [address] [id number] bisacodyL 10 mg suppository insulin lispro 100 unit/mL insulin pen >30 minutes were spent on discharging this patient. Janet Sanderson MD 08/03/2024 2:33 PM [facility] 7AM-7PM (all facilities): EpicAdoret or page through Vocera. 7PM-7AM ([facility]): EpicChat or page, [phone]. 7PM-7AM ([place] [place], [facility], Jak and [facility]): EpicChat or page through MyoScience. documented in this encounter [facility] 08-03-2024 Progress note Formatting of t his note might be different from the original. DISCHARGE PLANNING NOTE BLS to [facility] at 2 PM. Confirmed in [facility] 08-03-2024 Progress note Formatting of t his note might be different from the original. DISCHARGE PLANNING NOTE Case discussed in daily transition rounds and chart reviewed by CN. Barriers to discharge include DC orders, Discharge Plan remains: DC to [facility].SW called sister, chelsea VM- Awaiting transport time CN will continue to follow and is available should any further needs arise. - GAURI MCKAY 08/03/24 11:57 AM 13:37- Confirmed PTN transport for 2pm. CRF sent to [facility]- Called sisterNichelle left her VM with DC update [facility] 08-03-2024 Plan of care note Problem: Pain Goal: Patient goal is pain score less than 4, able to rest, and participant in treatment plan as appropriate Description: INTERVENTIONS: 1. Encourage patient or legal fundraising sale representative to report early pain and ask for pain medicine when needed 2. Assess pain using appropriate pain scale and include the scale used when documenting 3. Administer analgesics based on type and severity of pain and evaluate response within appropriate time frame 4. Implement non-pharmacological measures as appropriate and evaluate response 5. Consider cultural and social influences on pain and pain management 6. Notify LIP if interventions ineffective or patient reports new pain 7. Monitor vital signs including pulse ox, end-tidal CO2 based on pain intervention 8. Reassess pain per policy 9. Teach patient or legal fundraising sale representative interventions for comforting 08/03/202433 by CHANDLER Trujillo Outcome: Progressing Note: Evaluation of progress towards goal: Comfort maintained 08/03/202432 by CHANDLER Trujillo Outcome: Progressing Note: Evaluation of progress towards goal: Comfort maintained Problem: Safety Goal: Patient will be injury free during hospitalization Description: INTERVENTIONS: 1. Assess patient's risk for falls and implement fall prevention plan of care per policy 2. Provide and maintain a safe environment 3. Proper use of double Identifiers 4. Medication administration using the 5 rights 5. Hand hygiene 6. Specimens are labeled at the bedside 7. Instruct patient/ patient fundraising sale representative about use of safety devices 8. Include patient/ patient fundraising sale representative in decisions related to safety 08/03/202433 by CHANDLER Trujillo Outcome: Progressing Note: Evaluation of progress towards goal: Pt free of injury during hospitalization 08/03/202432 by CHANDLER Trujillo Outcome: Progressing Note: Evaluation of progress towards goal: Pt free of injury during hospitalization Problem: Infection Goal: Absence of infection during hospitalization Description: Interventions: 1. Assess and monitor for signs and symptoms of infection 2. Monitor lab/diagnostic results 3. Monitor all insertion sites i.e., indwelling lines, tubes and drains 4. Monitor endotracheal (as able) and nasal secretions for changes in amount and color 5. Administer medications as ordered 6. Instruct and encourage patient and family to use good hand hygiene technique 7. Identify and instruct patient/patient fundraising sale representative in use of appropriate isolation precautions for identified infection/symptoms 8. Provide and discuss with patient/patient fundraising sale representative on educational MDRO sheet 9. Encourage and monitor nutritional status daily and consult bowling pin refinisher if indicated 10. Implement neutropenic guidelines as needed 11. Review exposure to history of communicable disease and recent travel history on admission 12. Encourage annual influenza vaccine 13. Encourage pneumonia vaccine 08/03/202433 by CHANDLER Trujillo Outcome: Progressing Note: Evaluation of progress towards goal: Pt afebrile, no s/s of infection, monitoring continued 08/03/202432 by CHANDLER Trujillo Outcome: Progressing Note: Evaluation of progress towards goal: Pt afebrile, no s/s of infection, monitoring continued Problem: Knowledge Deficit Goal: Patient/patient fundraising sale representative demonstrates understanding of disease process, treatment plan, medications, and discharge instructions Description: INTERVENTIONS 1. Complete learning assessment and assess knowledge base 2. Provide teaching at level of understanding 3. Provide teaching via preferred learning method(s) 08/03/202433 by CHANDLER Trujillo Outcome: Progressing Note: Evaluation of progress towards goal: POC reviewed with pt, questions answered, monitoring continued 08/03/202432 by CHANDLER Trujillo Outcome: Progressing Note: Evaluation of progress towards goal: POC reviewed with pt, questions answered, monitoring continued Problem: Discharge Planning Goal: Discharge to post-acute care, other facility, or home with appropriate resources Description: Patient's goal is: INTERVENTIONS 1. Conduct assessment to determine patient/family and health care team treatment goals, and need for post-acute services based on payer coverage, community resources, and patient preferences, and barriers to discharge 2. Coordinate with Social work, Care Navigation, and Utilization Review to arrange appropriate level of services according to patient's needs based on patient preference and payer coverage in collaboration with the physician and health care team 3. Address psychosocial, clinical, and financial barriers to discharge as identified in assessment in conjunction with the patient/family and health care team 4. Consult appropriate ancillary services (i.e.. PT/OT/ST, etc) as needed 5. Communicate with and update the patient/family, physician, and health care team regarding progress on the discharge plan 6. Identify discharge learning needs (meds, wound care, etc). 7. Arrange for needed discharge transportation as appropriate 08/03/202433 by CHANDLER Trujillo Outcome: Progressing Note: Evaluation of progress towards goal: Discharge planning continued, barriers include placement 08/03/202432 by CHANDLER Trujillo Outcome: Progressing Note: Evaluation of progress towards goal: Discharge planning continued, barriers include placement Problem: Potential for Compromised Skin Integrity Goal: Skin integrity is maintained or improved Description: Patient's goal is: INTERVENTIONS 1. Perform initial skin assessment on admission and as needed 2. Turn patient every 2 hours and PRN 3. Relieve pressure to bony prominences 4. Avoid shearing 5. Keep skin clean and dry 6. Alternate a full bath with partial baths for elderly 7. Apply lotion/moisturizer on skin 8. Monitor patient's hygiene practices 9. Float heels 10. Collaborate with interdisciplinary team and initiate plans and interventions as needed 08/03/202433 by CHANDLER Trujillo Outcome: Progressing Note: Evaluation of progress towards goal: Skin integrity maintained, monitoring continued 08/03/202432 by CHANDLER Trujillo Outcome: Progressing Note: Evaluation of progress towards goal: Skin integrity maintained, monitoring continued Goal: Patient's nutritional intake is adequate Description: Patient's goal is: INTERVENTIONS 1. Assess and monitor food intake and supplements, patient food preferences, nausea, vomiting, labs, oral cavity (gums, teeth, tongue, mucosa), proper denture fit, and cultural beliefs 2. Monitor for signs of hypoglycemia and hyperglycemia 3. Collaborate with interdisciplinary team and initiate plan and interventions as ordered 4. Monitor patient's weight 5. Assist patient with meals/food selection 6. Assist patient with eating 7. Allow adequate time for meals 8. Provide pleasant environment during mealtime 9. Increase social contact during mealtimes 10. Plan activities to conserve energy 11. Encourage/perform oral hygiene as appropriate 12. Encourage patient to take dietary supplement as ordered 13. Collaborate with clinical bowling pin refinisher 14. Include patient/ patient's fundraising sale representative in decisions related to nutrition 08/03/202433 by CHANDLER Trujillo Outcome: Progressing Note: Evaluation of progress towards goal: Pt nutritional intake adequate, monitoring continued 08/03/202432 by CHANDLER Trujillo Outcome: Progressing Note: Evaluation of progress towards goal: Pt nutritional intake adequate, monitoring continued Problem: Urinary Incontinence Goal: Perineal skin integrity is maintained or improved Description: INTERVENTIONS 1. Assess genitourinary system, perineal skin, labs (urinalysis), and history of incontinence to include past management, aggravating, and alleviating factors 2. Keep skin clean and dry 3. Apply skin protectant 4. Develop skin care regimen 5. Provide privacy when changing patients incontinence device to maintain their dignity 6. Consider placing an indwelling catheter 7. Collaborate with interdisciplinary team and initiate plans and interventions as needed 08/03/202433 by CHANDLER Trujillo Outcome: Progressing Note: Evaluation of progress towards goal: Bren skin integrity maintained, monitoring continued 08/03/202432 by CHANDLER Trujillo Outcome: Progressing Note: Evaluation of progress towards goal: Bren skin integrity maintained, monitoring continued Problem: Moderate - High Risk Fall Score Description: Esposito Fall Score of =/> 25 or indicated by [facility] Assessment Goal: Patient should be free from fall Description: Interventions: 1. [place] to environment 2. Hourly rounds addressing the 4 P's (Pain, Positioning, Possessions, Potty) 3. Clear area of hazards (spills, clutter, electrical cords, unnecessary equipment) 4. Place equipment (bed & TV controls, call light, phone, urinal) within reach 5. Encourage patient to wear glasses and hearing aides as appropriate 6. Maintain bed in lowest position 7. Lock wheels on bed/wheelchair 8. Provide adequate lighting, including night light 9. Assess need for additional bedding, food/fluids, pain med's prior to sleep/routinely 10. Provide gripper slippers or personal non-skid footwear 11. Teach patient and patient fundraising sale representative to maintain environment for safety and engage in all aspects of fall prevention program 12. Remind patient to call for help before getting out of bed 13. Initiate bed/chair/exit alarms supportive devices as appropriate, (chair wedge, no-skid floor mat, raised edge mattress, hip protectors) 14. Locate patient bed assignment for optimal visualization 15. Evaluate and identify Safe Patient Handling Equipment needs 16. Provide supervision when out of bed or chair 17. Utilize gait belt as needed to assist with ambulation 18. Place adaptive equipment (cane, walker) within reach 19. Request patient fundraising sale representative bring adaptive equipment/mobility aids from home or obtain and provide as needed 20. Consult pharmacy regarding effects of med's affecting mobility, cognition, and alternatives 21. Obtain physician order for PT if risk factors associated with mobility are present 22. Obtain physician order for OT as appropriate 23. Utilize diversional activities 24. Educate patient and patient fundraising sale representative how to maintain a safe environment during visitation times (notify nurse prior to leaving bedside) 25. Consider appropriateness of medical or non-medical photographer 26. Set up voiding schedule as appropriate (every 2 hours) 08/03/202433 by CHANDLER Trujillo Outcome: Progressing Note: Evaluation of progress towards goal: Pt remains free from falls. 08/03/202432 by CHANDLER Trujillo Outcome: Progressing Note: Evaluation of progress towards goal: Pt remains free from falls. Problem: Cardiovascular - Adult Goal: Maintains optimal cardiac output and hemodynamic stability Description: Patient's goal is: INTERVENTIONS: 1. Monitor vital signs, rhythm, and trends 2. Monitor for bleeding, hypotension and signs of decreased cardiac output 3. Administer ordered vasoactive medications to optimize hemodynamic stability 4. Monitor arterial and/or venous puncture sites for bleeding and/or hematoma 5. Assess quality of pulses, skin color and temperature 08/03/202433 by CHANDLER Trujillo Outcome: Progressing Note: Evaluation of progress towards goal: Pt remains hemodynamically stable, trending labs, monitoring continued 08/03/2024 003 by CHANDLER Trujillo Outcome: Progressing Note: Evaluation of progress towards goal: Pt remains hemodynamically stable, trending labs, monitoing contineud [facility] 08-02-2024 Plan of care note Patient continues to deny any pain. Patient also remains free of falls and injury. [facility] 08-02-2024 History of Presen t illness Narrative Images from the original note were not included. [facility] INTERNAL MEDICINE [facility] OF [facility] - ONCOLOGY/STROKE [address] [facility] [id number] Hospital Medicine Progress Note Patient: Brandon Reardon Date of : 1950 Room: [facility] PCP: NO PCP, NO PCP Admission date: 07/31/2024 10:08 AM Encounter date: 08/02/24 Hospital Day: 3 SUBJECTIVE Patient is more alert and oriented, more talkative, denies chest pain or shortness for breath, able to move all 4 extremities and follow commands. OBJECTIVE BP 138/62 Pulse 73 Temp 36.6 C (97.8 F) (Oral) Resp 15 Ht 185.4 cm (6' 1 ) Wt 87.3 kg (192 lb 7.4 oz) SpO2 94% BMI 25.39 kg/m Temp: [36.6 C (97.8 F)-37 C (98.6 F)] 36.6 C (97.8 F) Pulse: [71-98] 73 Resp: [15-16] 15 BP: (135-156)/(62-79) 138/62 SpO2: [92 %-95 %] 94 % O2 Device: None (Room air) Intake/Output Summary (Last 24 hours) at 08/02/2024 1419 Last data filed at 08/02/2024 0900 Gross per 24 hour Intake 36.93 ml Output 1300 ml Net -1263.07 ml Physical Exam Constitutional: General: No acute distress. Cardiovascular: Rate and Rhythm: Normal rate and regular rhythm. Heart sounds: Normal heart sounds, S1 normal and S2 normal. Pulmonary: Effort: Pulmonary effort is normal. Breath sounds: Normal breath sounds. Abdominal: General: Bowel sounds are normal. Palpations: Abdomen is soft. Tenderness: There is no abdominal tenderness. Musculoskeletal: Right lower leg: No edema. Left lower leg: No edema. Skin: General: Skin is warm and dry. Coloration: Skin is not pale. Neurological: General: Right-sided residual hemiparesis Psychiatric: Mood and Affect: Mood normal. Behavior: Behavior normal. Medications Scheduled: apixaban, 5 mg, oral, BID atorvastatin, 40 mg, oral, Nightly busPIRone, 5 mg, oral, BID cholecalciferol, 2,000 Units, oral, Daily clopidogreL, 75 mg, oral, Daily dilTIAZem CD, 180 mg, oral, Daily insulin lispro, 1-5 Units, subcutaneous, Q6H polyethylene glycol, 17 g, oral, Daily Infusions: As Needed: bisacodyL dextrose dextrose 50 % in water (D50W) glucagon (human recombinant) levalbuterol magnesium sulfate magnesium sulfate melatonin potassium chloride OR potassium chloride sodium phosphate IV OR sodium phosphate IV - central line OR sod phos di, mono-K phos mono sodium chloride sodium chloride sodium chloride Allergies: Amlodipine, Atorvastatin, Ibuprofen, Metformin, Pravastatin, Simvastatin, and Terazosin Labs Recent Results (from the past 24 hour(s)) Bedside Glucose *Place/Obtain serum glucose if >500(>600 [facility]) per glucometer. Collection Time: 08/01/24 3:09 PM Result Value Ref Range Bedside glucose 210 (H) 65 - 99 mg/dL Bedside Glucose *Place/Obtain serum glucose if >500(>600 [facility]) per glucometer. Collection Time: 08/01/24 8:15 PM Result Value Ref Range Bedside glucose 250 (H) 65 - 99 mg/dL Magnesium Collection Time: 08/01/24 10:55 PM Result Value Ref Range Magnesium 2.0 1.8 - 2.6 mg/dL Bedside Glucose *Place/Obtain serum glucose if >500(>600 [facility]) per glucometer. Collection Time: 08/02/24 2:46 AM Result Value Ref Range Bedside glucose 198 (H) 65 - 99 mg/dL Comprehensive metabolic panel Collection Time: 08/02/24 6:54 AM Result Value Ref Range Sodium 139 134 - 146 mmol/L Potassium, Bld 4.1 3.5 - 5.0 mmol/L Chloride 108 98 - 109 mmol/L CO2 24 22 - 32 mmol/L Anion gap 7 5 - 15 mmol/L BUN 21 5 - 27 mg/dL Creatinine 0.86 0.60 - 1.30 mg/dL Glucose 179 (H) 65 - 99 mg/dL Calcium 9.0 8.5 - 10.5 mg/dL Total Protein 6.0 6.0 - 8.0 g/dL Albumin 3.6 3.2 - 5.3 g/dL Alkaline Phosphatase 77 39 - 130 U/L AST 10 0 - 41 U/L ALT 7 0 - 40 U/L Total bilirubin 0.5 0.3 - 1.2 mg/dL eGFR (CKD-EPI)non-race dependent 90 >59 ml/min/1.73sq.m Magnesium Collection Time: 08/02/24 6:54 AM Result Value Ref Range Magnesium 1.8 1.8 - 2.6 mg/dL CBC auto differential Collection Time: 08/02/24 6:54 AM Result Value Ref Range White Blood Cells 8.3 4.0 - 11.0 X10E9/L RBC count 4.38 4.10 - 5.70 X10E12/L Hemoglobin 12.6 (L) 13.0 - 17.0 g/dL Hematocrit 37.0 (L) 39 - 49 % MCV 85 80 - 100 fL MCH 28.8 27 - 34 pg MCHC 34.0 32 - 36 g/dL RDW 15.4 (H) 11.5 - 15.0 % Platelets 177 150 - 450 X10E9/L MPV 8.0 7 - 12 fL % neutrophils 66.5 % % lymphocytes 24.0 % % monocytes 7.6 % % eosinophils 1.5 % % Basophils 0.4 % Neutrophils Absolute (A) 5.5 1.5 - 6.6 X10E9/L Lymphocytes Absolute 2.0 1.0 - 3.5 X10E9/L Monocytes Absolute 0.6 0 - 0.9 X10E9/L Eosinophils Absolute 0.1 0.0 - 0.4 X10E9/L Basophils Absolute 0.0 0.0 - 0.2 X10E9/L Bedside Glucose *Place/Obtain serum glucose if >500(>600 [facility]) per glucometer. Collection Time: 08/02/24 8:15 AM Result Value Ref Range Bedside glucose 148 (H) 65 - 99 mg/dL Bedside Glucose *Place/Obtain serum glucose if >500(>600 [facility]) per glucometer. Collection Time: 08/02/24 12:24 PM Result Value Ref Range Bedside glucose 185 (H) 65 - 99 mg/dL Radiology Echo complete W/ contrast Result Date: 07/31/2024 Narrative: Left Ventricle: Systolic function is normal with an ejection fraction of 55-60%. Aortic Valve: There is mild regurgitation. There is no evidence of aortic valve stenosis. Mitral Valve: There is mild regurgitation. There is no evidence of mitral valve stenosis. Tricuspid Valve: There is trace regurgitation. There is no evidence of tricuspid valve stenosis. MR brain without contrast Result Date: 07/31/2024 Narrative: EXAM: MRI BRAIN WITHOUT CONTRAST CLINICAL HISTORY: TECHNIQUE: TECHNIQUE: Routine multiplanar multisequence MR imaging of the brain was performed without contrast. COMPARISONS: MRI dated 09/18/2023, CT head dated 07/31/2024 FINDINGS: There is no restricted diffusion. There is a background of white matter changes, most commonly attributable to the sequelae of chronic ischemic small vessel disease. 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 There is no intracranial mass effect. There is generalized low brain volume with proportional prominence of the ventricular system and extra-axial spaces. There is no shift of the midline structures and the basal cisterns are widely patent. There is no susceptibility to suggest the presence of intracranial blood degradation products. The midline structures and craniocervical junction are within normal limits. The paranasal sinuses are well aerated. There is only a tiny amount of fluid in a few mastoid air cells. IMPRESSION: 1. White matter changes, most commonly attributable to the sequela of chronic ischemic small vessel disease. 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 There is no evidence for an acute infarct. 2. Generalized low brain volume. There is no intracranial mass effect. Finalized by Olu Cerrato MD on 07/31/2024 5:[address] abdomen and pelvis with contrast Result Date: 07/31/2024 Narrative: CT ABDOMEN AND PELVIS W CONT CLINICAL HISTORY:Bowel obstruction suspected abdominal pain, vomiting. COMPARISON: None. TECHNIQUE: CT abdomen and pelvis was performed utilizing the standard protocol following the uneventful administration of 100 cc Omnipaque 300 nonionic intravenous contrast. Coronal and sagittal reformatted images were generated and reviewed. Automated exposure control was utilized. FINDINGS: Dependent right basilar opacities. Cardiac megaly. Severe calcified coronary arterial disease. Mild biatrial enlargement. Unremarkable liver, gallbladder, spleen, adrenal glands, pancreas, kidneys. Moderate to large volume colonic stool burden. No dilatation or wall thickening the bowel. Diminutive appendix. No acute appearing occlusion the major visceral vasculature. Mild fat stranding within the upper abdominal mesentery, relative sparing of adipose tissue immediately adjacent to the vasculature and lymph nodes. No gross adenopathy. Prostamegaly. No free fluid or fluid collections. No aggressive osseous lesions. 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 IMPRESSION: 1. Moderate to large volume colonic stool burden. No acute process within the abdomen or pelvis. 2. Features suggestive of mesenteric panniculitis. All CT scans at this facility use dose modulation, iterative reconstruction, and/or weight based dosing when appropriate to reduce radiation dose to as low as reasonably achievable. Finalized by Delfin Vera MD on 07/31/2024 12:[address] angiogram chest Result Date: 07/31/2024 Narrative: CTA PULMONARY ANGIOGRAM Clinical history: Vomiting. Nausea. Loss of consciousness and syncope. Hypotension. Pulmonary embolism suspected. Technique: Spiral multidetector CT pulmonary angiogram was performed after the intravenous administration of contrast material including 3-D reconstructions displayed on a PACS workstation and reviewed by the radiologist. Automated dose reduction techniques were utilized. All CT scans at this facility use dose modulation, iterative reconstruction, and/or weight based dosing when appropriate to reduce radiation dose to as low as reasonably achievable. Comparisons: 01/05/2024. Findings: Evaluation of peripheral, subsegmental pulmonary artery branches is limited due to gross patient motion/respiratory artifact. The central pulmonary arteries are patent and free of filling defects to suggest acute pulmonary thromboembolism. There is no isolated right ventricular dilation. Subsegmental atelectasis involves superior segment right lower lobe. Interval resolution of bilateral pleural effusions and extensive atelectasis on prior exam. Calcification right upper lobe is unchanged likely reflecting sequelae of prior granulomatous disease. Heavy coronary artery calcifications and/or stents are present. Changes of prior median sternotomy again seen. No pneumothorax. IMPRESSION: 1. No evidence for acute pulmonary thromboembolism. Finalized by Kenny Craig MD on 07/31/2024 12:[address] brain without contrast Result Date: 07/31/2024 Narrative: CT BRAIN WO CONT CLINICAL HISTORY: Altered mental status, nontraumatic (Ped 0-17y) COMPARISON: None. TECHNIQUE: CT head was performed without contrast using the standard protocol. Automated exposure control was utilized. FINDINGS: No acute, territorial region of diminished romeo-white differentiation. No acute intracranial hemorrhage. Disproportionate effacement of the subarachnoid space of the calvarial vertex with widening of the sylvian fissures. Moderate global parenchymal volume loss, apparent disproportionate hippocampal volume loss.. Mild/moderate heterogeneity through the deep, periventricular white matter, most often seen in the setting of chronic microvascular ischemia. Intracranial vascular calcifications. Lobular mucosal thickening alveolar recess bilateral maxillary sinuses. Unremarkable temporal bone structures, visualized suprahyoid neck. Unremarkable scalp soft tissues. IMPRESSION: A few features suggest normal pressure hydrocephalus, correlate clinically. Moderate global parenchymal volume loss with apparent disproportionate hippocampal volume loss. Correlate for clinical signs of underlying neurodegenerative process. Moderate heterogeneity through the deep, subcortical and periventricular white matter, most often seen in the setting of chronic microvascular ischemia. All CT scans at this facility use dose modulation, iterative reconstruction, and/or weight based dosing when appropriate to reduce radiation dose to as low as reasonably achievable. 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 7PM-7AM ([facility] Psychiatry [facility] Inpatient Re[facility]): EpicChat or page, [phone]. 7PM-7AM ([facility] and [facility] Rehab): EpicChat or page through [employer]. Images from the original note were not included. [facility] INTERNAL MEDICINE [facility] DIVISION OF [facility] - 7 ONCOLOGY/STROKE [address] [facility] [id number] Hospital Medicine Progress Note Patient: Brandon Reardon Date of : 1950 Room: [facility] PCP: NO PCP, NO PCP Admission date: 07/31/2024 10:08 AM Encounter date: 08/01/24 Hospital Day: 2 SUBJECTIVE Patient is more alert and oriented, able to hold a simple conversation, denies chest pain or shortness for breath, MRI brain negative, echo showed normal ejection fraction, no significant valvular dysfunction. OBJECTIVE BP 133/68 Pulse 72 Temp 36.8 C (98.2 F) (Oral) Resp 17 Ht 185.4 cm (6' 1 ) Wt 87.5 kg (193 lb) SpO2 95% BMI 25.46 kg/m Temp: [36.4 C (97.6 F)-36.8 C (98.2 F)] 36.8 C (98.2 F) Pulse: [62-75] 72 Resp: [10-17] 17 BP: (133-151)/(63-73) 133/68 SpO2: [92 %-96 %] 95 % O2 Device: None (Room air) Intake/Output Summary (Last 24 hours) at 08/01/2024 1236 Last data filed at 08/01/2024 0500 Gross per 24 hour Intake 744.4 ml Output 200 ml Net 544.4 ml Physical Exam Constitutional: General: No acute distress. Cardiovascular: Rate and Rhythm: Normal rate and regular rhythm. Heart sounds: Normal heart sounds, S1 normal and S2 normal. Pulmonary: Effort: Pulmonary effort is normal. Breath sounds: Normal breath sounds. Abdominal: General: Bowel sounds are normal. Palpations: Abdomen is soft. Tenderness: There is no abdominal tenderness. Musculoskeletal: Right lower leg: No edema. Left lower leg: No edema. Skin: General: Skin is warm and dry. Coloration: Skin is not pale. Neurological: General: No focal deficit present. Psychiatric: Mood and Affect: Mood normal. Behavior: Behavior normal. Medications Scheduled: apixaban, 5 mg, oral, BID atorvastatin, 40 mg, oral, Nightly busPIRone, 5 mg, oral, BID clopidogreL, 75 mg, oral, Daily insulin lispro, 1-5 Units, subcutaneous, Q6H polyethylene glycol, 17 g, oral, Daily Infusions: dextrose 5 % in water, 100 mL/hr sodium chloride 0.9 %, 20 mL/hr As Needed: bisacodyL dextrose dextrose 5 % in water dextrose 50 % in water (D50W) glucagon (human recombinant) sodium chloride sodium chloride sodium chloride sodium chloride 0.9 % Allergies: Amlodipine, Atorvastatin, Ibuprofen, Metformin, Pravastatin, Simvastatin, and Terazosin Labs Recent Results (from the past 24 hour(s)) Lactate Collection Time: 07/31/24 2:30 PM Result Value Ref Range Lactate 1.9 0.4 - 2.0 mmol/L Bedside Glucose *Place/Obtain serum glucose if >500(>600 [facility]) per glucometer. Collection Time: 07/31/24 5:36 PM Result Value Ref Range Bedside glucose 123 (H) 65 - 99 mg/dL Magnesium Collection Time: 07/31/24 6:11 PM Result Value Ref Range Magnesium 1.9 1.8 - 2.6 mg/dL Bedside Glucose *Place/Obtain serum glucose if >500(>600 MRH) per glucometer. Collection Time: 07/31/24 8:16 PM Result Value Ref Range Bedside glucose 192 (H) 65 - 99 mg/dL Bedside Glucose *Place/Obtain serum glucose if >500(>600 MRH) per glucometer. Collection Time: 08/01/24 2:31 AM Result Value Ref Range Bedside glucose 122 (H) 65 - 99 mg/dL Comprehensive metabolic panel Collection Time: 08/01/24 7:34 AM Result Value Ref Range Sodium 140 134 - 146 mmol/L Potassium, Bld 3.9 3.5 - 5.0 mmol/L Chloride 108 98 - 109 mmol/L CO2 26 22 - 32 mmol/L Anion gap 6 5 - 15 mmol/L BUN 16 5 - 27 mg/dL Creatinine 0.79 0.60 - 1.30 mg/dL Glucose 124 (H) 65 - 99 mg/dL Calcium 8.8 8.5 - 10.5 mg/dL Total Protein 6.1 6.0 - 8.0 g/dL Albumin 3.7 3.2 - 5.3 g/dL Alkaline Phosphatase 82 39 - 130 U/L AST 10 0 - 41 U/L ALT 8 0 - 40 U/L Total bilirubin 0.6 0.3 - 1.2 mg/dL eGFR (CKD-EPI)non-race dependent >90 >59 ml/min/1.73sq.m Magnesium Collection Time: 08/01/24 7:34 AM Result Value Ref Range Magnesium 1.7 (L) 1.8 - 2.6 mg/dL CBC auto differential Collection Time: 08/01/24 7:34 AM Result Value Ref Range White Blood Cells 9.8 4.0 - 11.0 X10E9/L RBC count 4.48 4.10 - 5.70 X10E12/L Hemoglobin 12.9 (L) 13.0 - 17.0 g/dL Hematocrit 37.7 (L) 39 - 49 % MCV 84 80 - 100 fL MCH 28.7 27 - 34 pg MCHC 34.1 32 - 36 g/dL RDW 16.0 (H) 11.5 - 15.0 % Platelets 198 150 - 450 X10E9/L MPV 8.0 7 - 12 fL % neutrophils 65.1 % % lymphocytes 25.2 % % monocytes 7.8 % % eosinophils 1.4 % % Basophils 0.5 % Neutrophils Absolute (A) 6.4 1.5 - 6.6 X10E9/L Lymphocytes Absolute 2.5 1.0 - 3.5 X10E9/L Monocytes Absolute 0.8 0 - 0.9 X10E9/L Eosinophils Absolute 0.1 0.0 - 0.4 X10E9/L Basophils Absolute 0.0 0.0 - 0.2 X10E9/L Radiology Echo complete W/ contrast Result Date: 07/31/2024 Narrative: Left Ventricle: Systolic function is normal with an ejection fraction of 55-60%. Aortic Valve: There is mild regurgitation. There is no evidence of aortic valve stenosis. Mitral Valve: There is mild regurgitation. There is no evidence of mitral valve stenosis. Tricuspid Valve: There is trace regurgitation. There is no evidence of tricuspid valve stenosis. MR brain without contrast Result Date: 07/31/2024 Narrative: EXAM: MRI BRAIN WITHOUT CONTRAST CLINICAL HISTORY: TECHNIQUE: TECHNIQUE: Routine multiplanar multisequence MR imaging of the brain was performed without contrast. COMPARISONS: MRI dated 09/18/2023, CT head dated 07/31/2024 FINDINGS: There is no restricted diffusion. There is a background of white matter changes, most commonly attributable to the sequelae of chronic ischemic small vessel disease. 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 There is no intracranial mass effect. There is generalized low brain volume with proportional prominence of the ventricular system and extra-axial spaces. There is no shift of the midline structures and the basal cisterns are widely patent. There is no susceptibility to suggest the presence of intracranial blood degradation products. The midline structures and craniocervical junction are within normal limits. The paranasal sinuses are well aerated. There is only a tiny amount of fluid in a few mastoid air cells. IMPRESSION: 1. White matter changes, most commonly attributable to the sequela of chronic ischemic small vessel disease. 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 There is no evidence for an acute infarct. 2. Generalized low brain volume. There is no intracranial mass effect. Finalized by Olu Cerrato MD on 07/31/2024 5:[address] abdomen and pelvis with contrast Result Date: 07/31/2024 Narrative: CT ABDOMEN AND PELVIS W CONT CLINICAL HISTORY:Bowel obstruction suspected abdominal pain, vomiting. COMPARISON: None. TECHNIQUE: CT abdomen and pelvis was performed utilizing the standard protocol following the uneventful administration of 100 cc Omnipaque 300 nonionic intravenous contrast. Coronal and sagittal reformatted images were generated and reviewed. Automated exposure control was utilized. FINDINGS: Dependent right basilar opacities. Cardiac megaly. Severe calcified coronary arterial disease. Mild biatrial enlargement. Unremarkable liver, gallbladder, spleen, adrenal glands, pancreas, kidneys. Moderate to large volume colonic stool burden. No dilatation or wall thickening the bowel. Diminutive appendix. No acute appearing occlusion the major visceral vasculature. Mild fat stranding within the upper abdominal mesentery, relative sparing of adipose tissue immediately adjacent to the vasculature and lymph nodes. No gross adenopathy. Prostamegaly. No free fluid or fluid collections. No aggressive osseous lesions. 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 IMPRESSION: 1. Moderate to large volume colonic stool burden. No acute process within the abdomen or pelvis. 2. Features suggestive of mesenteric panniculitis. All CT scans at this facility use dose modulation, iterative reconstruction, and/or weight based dosing when appropriate to reduce radiation dose to as low as reasonably achievable. Finalized by Delfin Vera MD on 07/31/2024 12:[address] angiogram chest Result Date: 07/31/2024 Narrative: CTA PULMONARY ANGIOGRAM Clinical history: Vomiting. Nausea. Loss of consciousness and syncope. Hypotension. Pulmonary embolism suspected. Technique: Spiral multidetector CT pulmonary angiogram was performed after the intravenous administration of contrast material including 3-D reconstructions displayed on a PACS workstation and reviewed by the radiologist. Automated dose reduction techniques were utilized. All CT scans at this facility use dose modulation, iterative reconstruction, and/or weight based dosing when appropriate to reduce radiation dose to as low as reasonably achievable. Comparisons: 01/05/2024. Findings: Evaluation of peripheral, subsegmental pulmonary artery branches is limited due to gross patient motion/respiratory artifact. The central pulmonary arteries are patent and free of filling defects to suggest acute pulmonary thromboembolism. There is no isolated right ventricular dilation. Subsegmental atelectasis involves superior segment right lower lobe. Interval resolution of bilateral pleural effusions and extensive atelectasis on prior exam. Calcification right upper lobe is unchanged likely reflecting sequelae of prior granulomatous disease. Heavy coronary artery calcifications and/or stents are present. Changes of prior median sternotomy again seen. No pneumothorax. IMPRESSION: 1. No evidence for acute pulmonary thromboembolism. Finalized by Kenny Craig MD on 07/31/2024 12:[address] brain without contrast Result Date: 07/31/2024 Narrative: CT BRAIN WO CONT CLINICAL HISTORY: Altered mental status, nontraumatic (Ped 0-17y) COMPARISON: None. TECHNIQUE: CT head was performed without contrast using the standard protocol. Automated exposure control was utilized. FINDINGS: No acute, territorial region of diminished romeo-white differentiation. No acute intracranial hemorrhage. Disproportionate effacement of the subarachnoid space of the calvarial vertex with widening of the sylvian fissures. Moderate global parenchymal volume loss, apparent disproportionate hippocampal volume loss.. Mild/moderate heterogeneity through the deep, periventricular white matter, most often seen in the setting of chronic microvascular ischemia. Intracranial vascular calcifications. Lobular mucosal thickening alveolar recess bilateral maxillary sinuses. Unremarkable temporal bone structures, visualized suprahyoid neck. Unremarkable scalp soft tissues. IMPRESSION: A few features suggest normal pressure hydrocephalus, correlate clinically. Moderate global parenchymal volume loss with apparent disproportionate hippocampal volume loss. Correlate for clinical signs of underlying neurodegenerative process. Moderate heterogeneity through the deep, subcortical and periventricular white matter, most often seen in the setting of chronic microvascular ischemia. All CT scans at this facility use dose modulation, iterative reconstruction, and/or weight based dosing when appropriate to reduce radiation dose to as low as reasonably achievable. 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 # type 2 diabetes # HTN # HLD # ASCVD/CABG 2012 # NPH -patient has improved, mentation back to baseline, no longer nauseous or vomiting, able to tolerate oral intake, blood pressure stable -continue MiraLax and Dulcolax for bowel regimen -hold rate controlled medication due to bradycardia -continue Eliquis, Plavix, Lipitor -continue lispro 1-5 u q6h -Pt/OT -replace electrolytes per protocol Janet Sanderson MD 08/01/2024 12:36 PM [facility] Internal Medicine 7AM-7PM (all facilities): EpicChat or page through Vocera. 7PM-7AM ([facility], [facility] and Inpatient Re[facility]): EpicChat or page, [phone]. 7PM-7AM ([place], [place], [place], [place] [facility]): EpicChat or page through Vocera. documented in this encounter [facility] 08-02-2024 Plan of care note Problem: Pain Goal: Patient goal is pain score less than 4, able to rest, and participant in treatment plan as appropriate Description: INTERVENTIONS: 1. Encourage patient or legal fundraising sale representative to report early pain and ask for pain medicine when needed 2. Assess pain using appropriate pain scale and include the scale used when documenting 3. Administer analgesics based on type and severity of pain and evaluate response within appropriate time frame 4. Implement non-pharmacological measures as appropriate and evaluate response 5. Consider cultural and social influences on pain and pain management 6. Notify LIP if interventions ineffective or patient reports new pain 7. Monitor vital signs including pulse ox, end-tidal CO2 based on pain intervention 8. Reassess pain per policy 9. Teach patient or legal fundraising sale representative interventions for comforting Note: Evaluation of progress towards goal: Assess pain using appropriate pain scale and include the scale used when documenting 3. Administer analgesics based on type and severity of pain and evaluate response within appropriate time frame Problem: Safety Goal: Patient will be injury free during hospitalization Description: INTERVENTIONS: 1. Assess patient's risk for falls and implement fall prevention plan of care per policy 2. Provide and maintain a safe environment 3. Proper use of double Identifiers 4. Medication administration using the 5 rights 5. Hand hygiene 6. Specimens are labeled at the bedside 7. Instruct patient/ patient fundraising sale representative about use of safety devices 8. Include patient/ patient fundraising sale representative in decisions related to safety Note: Evaluation of progress towards goal: Assess patient's risk for falls and implement fall prevention plan of care per policy 2. Provide and maintain a safe environment Problem: Infection Goal: Absence of infection during hospitalization Description: Interventions: 1. Assess and monitor for signs and symptoms of infection 2. Monitor lab/diagnostic results 3. Monitor all insertion sites i.e., indwelling lines, tubes and drains 4. Monitor endotracheal (as able) and nasal secretions for changes in amount and color 5. Administer medications as ordered 6. Instruct and encourage patient and family to use good hand hygiene technique 7. Identify and instruct patient/patient fundraising sale representative in use of appropriate isolation precautions for identified infection/symptoms 8. Provide and discuss with patient/patient fundraising sale representative on educational MDRO sheet 9. Encourage and monitor nutritional status daily and consult bowling pin refinisher if indicated 10. Implement neutropenic guidelines as needed 11. Review exposure to history of communicable disease and recent travel history on admission 12. Encourage annual influenza vaccine 13. Encourage pneumonia vaccine Note: Evaluation of progress towards goal: Assess and monitor for signs and symptoms of infection 2. Monitor lab/diagnostic results Problem: Knowledge Deficit Goal: Patient/patient fundraising sale representative demonstrates understanding of disease process, treatment plan, medications, and discharge instructions Description: INTERVENTIONS 1. Complete learning assessment and assess knowledge base 2. Provide teaching at level of understanding 3. Provide teaching via preferred learning method(s) Note: Evaluation of progress towards goal: Complete learning assessment and assess knowledge base 2. Provide teaching at level of understanding Problem: Discharge Planning Goal: Discharge to post-acute care, other facility, or home with appropriate resources Description: Patient's goal is: INTERVENTIONS 1. Conduct assessment to determine patient/family and health care team treatment goals, and need for post-acute services based on payer coverage, community resources, and patient preferences, and barriers to discharge 2. Coordinate with Social work, Care Navigation, and Utilization Review to arrange appropriate level of services according to patient's needs based on patient preference and payer coverage in collaboration with the physician and health care team 3. Address psychosocial, clinical, and financial barriers to discharge as identified in assessment in conjunction with the patient/family and health care team 4. Consult appropriate ancillary services (i.e.. PT/OT/ST, etc) as needed 5. Communicate with and update the patient/family, physician, and health care team regarding progress on the discharge plan 6. Identify discharge learning needs (meds, wound care, etc). 7. Arrange for needed discharge transportation as appropriate Note: Evaluation of progress towards goal: Communicate with and update the patient/family, physician, and health care team regarding progress on the discharge plan Problem: Potential for Compromised Skin Integrity Goal: Skin integrity is maintained or improved Description: Patient's goal is: INTERVENTIONS 1. Perform initial skin assessment on admission and as needed 2. Turn patient every 2 hours and PRN 3. Relieve pressure to bony prominences 4. Avoid shearing 5. Keep skin clean and dry 6. Alternate a full bath with partial baths for elderly 7. Apply lotion/moisturizer on skin 8. Monitor patient's hygiene practices 9. Float heels 10. Collaborate with interdisciplinary team and initiate plans and interventions as needed Note: Evaluation of progress towards goal: Perform initial skin assessment on admission and as needed Goal: Patient's nutritional intake is adequate Description: Patient's goal is: INTERVENTIONS 1. Assess and monitor food intake and supplements, patient food preferences, nausea, vomiting, labs, oral cavity (gums, teeth, tongue, mucosa), proper denture fit, and cultural beliefs 2. Monitor for signs of hypoglycemia and hyperglycemia 3. Collaborate with interdisciplinary team and initiate plan and interventions as ordered 4. Monitor patient's weight 5. Assist patient with meals/food selection 6. Assist patient with eating 7. Allow adequate time for meals 8. Provide pleasant environment during mealtime 9. Increase social contact during mealtimes 10. Plan activities to conserve energy 11. Encourage/perform oral hygiene as appropriate 12. Encourage patient to take dietary supplement as ordered 13. Collaborate with clinical bowling pin refinisher 14. Include patient/ patient's fundraising sale representative in decisions related to nutrition Note: Evaluation of progress towards goal: Monitor for signs of hypoglycemia and hyperglycemia Problem: Urinary Incontinence Goal: Perineal skin integrity is maintained or improved Description: INTERVENTIONS 1. Assess genitourinary system, perineal skin, labs (urinalysis), and history of incontinence to include past management, aggravating, and alleviating factors 2. Keep skin clean and dry 3. Apply skin protectant 4. Develop skin care regimen 5. Provide privacy when changing patients incontinence device to maintain their dignity 6. Consider placing an indwelling catheter 7. Collaborate with interdisciplinary team and initiate plans and interventions as needed Note: Evaluation of progress towards goal: Keep skin clean and dry 3. Apply skin protectant Problem: Moderate - High Risk Fall Score Description: Esposito Fall Score of =/> 25 or indicated by [facility] Assessment Goal: Patient should be free from fall Description: Interventions: 1. [place] to environment 2. Hourly rounds addressing the 4 P's (Pain, Positioning, Possessions, Potty) 3. Clear area of hazards (spills, clutter, electrical cords, unnecessary equipment) 4. Place equipment (bed & TV controls, call light, phone, urinal) within reach 5. Encourage patient to wear glasses and hearing aides as appropriate 6. Maintain bed in lowest position 7. Lock wheels on bed/wheelchair 8. Provide adequate lighting, including night light 9. Assess need for additional bedding, food/fluids, pain med's prior to sleep/routinely 10. Provide gripper slippers or personal non-skid footwear 11. Teach patient and patient fundraising sale representative to maintain environment for safety and engage in all aspects of fall prevention program 12. Remind patient to call for help before getting out of bed 13. Initiate bed/chair/exit alarms supportive devices as appropriate, (chair wedge, no-skid floor mat, raised edge mattress, hip protectors) 14. Locate patient bed assignment for optimal visualization 15. Evaluate and identify Safe Patient Handling Equipment needs 16. Provide supervision when out of bed or chair 17. Utilize gait belt as needed to assist with ambulation 18. Place adaptive equipment (cane, walker) within reach 19. Request patient fundraising sale representative bring adaptive equipment/mobility aids from home or obtain and provide as needed 20. Consult pharmacy regarding effects of med's affecting mobility, cognition, and alternatives 21. Obtain physician order for PT if risk factors associated with mobility are present 22. Obtain physician order for OT as appropriate 23. Utilize diversional activities 24. Educate patient and patient fundraising sale representative how to maintain a safe environment during visitation times (notify nurse prior to leaving bedside) 25. Consider appropriateness of medical or non-medical photographer 26. Set up voiding schedule as appropriate (every 2 hours) Note: Evaluation of progress towards goal: [place] to environment 2. Hourly rounds addressing the 4 P's (Pain, Positioning, Possessions, Potty) Problem: Cardiovascular - Adult Goal: Maintains optimal cardiac output and hemodynamic stability Description: Patient's goal is: INTERVENTIONS: 1. Monitor vital signs, rhythm, and trends 2. Monitor for bleeding, hypotension and signs of decreased cardiac output 3. Administer ordered vasoactive medications to optimize hemodynamic stability 4. Monitor arterial and/or venous puncture sites for bleeding and/or hematoma 5. Assess quality of pulses, skin color and temperature Note: Evaluation of progress towards goal: Monitor vital signs, rhythm, and trends [facility] 08-01-2024 Plan of care note Problem: Pain Goal: Patient goal is pain score less than 4, able to rest, and participant in treatment plan as appropriate Description: INTERVENTIONS: 1. Encourage patient or legal fundraising sale representative to report early pain and ask for pain medicine when needed 2. Assess pain using appropriate pain scale and include the scale used when documenting 3. Administer analgesics based on type and severity of pain and evaluate response within appropriate time frame 4. Implement non-pharmacological measures as appropriate and evaluate response 5. Consider cultural and social influences on pain and pain management 6. Notify LIP if interventions ineffective or patient reports new pain 7. Monitor vital signs including pulse ox, end-tidal CO2 based on pain intervention 8. Reassess pain per policy 9. Teach patient or legal fundraising sale representative interventions for comforting Outcome: Progressing Note: Evaluation of progress towards goal: Pt using pain medication to good effect. Communicates needs to staff. Problem: Safety Goal: Patient will be injury free during hospitalization Description: INTERVENTIONS: 1. Assess patient's risk for falls and implement fall prevention plan of care per policy 2. Provide and maintain a safe environment 3. Proper use of double Identifiers 4. Medication administration using the 5 rights 5. Hand hygiene 6. Specimens are labeled at the bedside 7. Instruct patient/ patient fundraising sale representative about use of safety devices 8. Include patient/ patient fundraising sale representative in decisions related to safety Outcome: Progressing Note: Evaluation of progress towards goal: Pt is injury free and understands injury precautions. Problem: Infection Goal: Absence of infection during hospitalization Description: Interventions: 1. Assess and monitor for signs and symptoms of infection 2. Monitor lab/diagnostic results 3. Monitor all insertion sites i.e., indwelling lines, tubes and drains 4. Monitor endotracheal (as able) and nasal secretions for changes in amount and color 5. Administer medications as ordered 6. Instruct and encourage patient and family to use good hand hygiene technique 7. Identify and instruct patient/patient fundraising sale representative in use of appropriate isolation precautions for identified infection/symptoms 8. Provide and discuss with patient/patient fundraising sale representative on educational MDRO sheet 9. Encourage and monitor nutritional status daily and consult bowling pin refinisher if indicated 10. Implement neutropenic guidelines as needed 11. Review exposure to history of communicable disease and recent travel history on admission 12. Encourage annual influenza vaccine 13. Encourage pneumonia vaccine Outcome: Progressing Note: Evaluation of progress towards goal: Pt remains infection free. Problem: Knowledge Deficit Goal: Patient/patient fundraising sale representative demonstrates understanding of disease process, treatment plan, medications, and discharge instructions Description: INTERVENTIONS 1. Complete learning assessment and assess knowledge base 2. Provide teaching at level of understanding 3. Provide teaching via preferred learning method(s) Outcome: Progressing Note: Evaluation of progress towards goal: Pts guardians demonstrates understanding of disease process, plan, medications and discharge instructions. Problem: Discharge Planning Goal: Discharge to post-acute care, other facility, or home with appropriate resources Description: Patient's goal is: INTERVENTIONS 1. Conduct assessment to determine patient/family and health care team treatment goals, and need for post-acute services based on payer coverage, community resources, and patient preferences, and barriers to discharge 2. Coordinate with Social work, Care Navigation, and Utilization Review to arrange appropriate level of services according to patient's needs based on patient preference and payer coverage in collaboration with the physician and health care team 3. Address psychosocial, clinical, and financial barriers to discharge as identified in assessment in conjunction with the patient/family and health care team 4. Consult appropriate ancillary services (i.e.. PT/OT/ST, etc) as needed 5. Communicate with and update the patient/family, physician, and health care team regarding progress on the discharge plan 6. Identify discharge learning needs (meds, wound care, etc). 7. Arrange for needed discharge transportation as appropriate Outcome: Progressing Note: Evaluation of progress towards goal: Pt to be discharged a SNF. Problem: Potential for Compromised Skin Integrity Goal: Skin integrity is maintained or improved Description: Patient's goal is: INTERVENTIONS 1. Perform initial skin assessment on admission and as needed 2. Turn patient every 2 hours and PRN 3. Relieve pressure to bony prominences 4. Avoid shearing 5. Keep skin clean and dry 6. Alternate a full bath with partial baths for elderly 7. Apply lotion/moisturizer on skin 8. Monitor patient's hygiene practices 9. Float heels 10. Collaborate with interdisciplinary team and initiate plans and interventions as needed Outcome: Progressing Note: Evaluation of progress towards goal: Pt skin integrity maintained. Goal: Patient's nutritional intake is adequate Description: Patient's goal is: INTERVENTIONS 1. Assess and monitor food intake and supplements, patient food preferences, nausea, vomiting, labs, oral cavity (gums, teeth, tongue, mucosa), proper denture fit, and cultural beliefs 2. Monitor for signs of hypoglycemia and hyperglycemia 3. Collaborate with interdisciplinary team and initiate plan and interventions as ordered 4. Monitor patient's weight 5. Assist patient with meals/food selection 6. Assist patient with eating 7. Allow adequate time for meals 8. Provide pleasant environment during mealtime 9. Increase social contact during mealtimes 10. Plan activities to conserve energy 11. Encourage/perform oral hygiene as appropriate 12. Encourage patient to take dietary supplement as ordered 13. Collaborate with clinical bowling pin refinisher 14. Include patient/ patient's fundraising sale representative in decisions related to nutrition Outcome: Progressing Note: Evaluation of progress towards goal: Pt nutritional intake is adequate. Problem: Urinary Incontinence Goal: Perineal skin integrity is maintained or improved Description: INTERVENTIONS 1. Assess genitourinary system, perineal skin, labs (urinalysis), and history of incontinence to include past management, aggravating, and alleviating factors 2. Keep skin clean and dry 3. Apply skin protectant 4. Develop skin care regimen 5. Provide privacy when changing patients incontinence device to maintain their dignity 6. Consider placing an indwelling catheter 7. Collaborate with interdisciplinary team and initiate plans and interventions as needed Outcome: Progressing Note: Evaluation of progress towards goal: Pt skin integrity maintained. Problem: Moderate - High Risk Fall Score Description: Esposito Fall Score of =/> 25 or indicated by [facility] Assessment Goal: Patient should be free from fall Description: Interventions: 1. [place] to environment 2. Hourly rounds addressing the 4 P's (Pain, Positioning, Possessions, Potty) 3. Clear area of hazards (spills, clutter, electrical cords, unnecessary equipment) 4. Place equipment (bed & TV controls, call light, phone, urinal) within reach 5. Encourage patient to wear glasses and hearing aides as appropriate 6. Maintain bed in lowest position 7. Lock wheels on bed/wheelchair 8. Provide adequate lighting, including night light 9. Assess need for additional bedding, food/fluids, pain med's prior to sleep/routinely 10. Provide gripper slippers or personal non-skid footwear 11. Teach patient and patient fundraising sale representative to maintain environment for safety and engage in all aspects of fall prevention program 12. Remind patient to call for help before getting out of bed 13. Initiate bed/chair/exit alarms supportive devices as appropriate, (chair wedge, no-skid floor mat, raised edge mattress, hip protectors) 14. Locate patient bed assignment for optimal visualization 15. Evaluate and identify Safe Patient Handling Equipment needs 16. Provide supervision when out of bed or chair 17. Utilize gait belt as needed to assist with ambulation 18. Place adaptive equipment (cane, walker) within reach 19. Request patient fundraising sale representative bring adaptive equipment/mobility aids from home or obtain and provide as needed 20. Consult pharmacy regarding effects of med's affecting mobility, cognition, and alternatives 21. Obtain physician order for PT if risk factors associated with mobility are present 22. Obtain physician order for OT as appropriate 23. Utilize diversional activities 24. Educate patient and patient fundraising sale representative how to maintain a safe environment during visitation times (notify nurse prior to leaving bedside) 25. Consider appropriateness of medical or non-medical photographer 26. Set up voiding schedule as appropriate (every 2 hours) Outcome: Progressing Note: Evaluation of progress towards goal: Pt is free from falls. Problem: Cardiovascular - Adult Goal: Maintains optimal cardiac output and hemodynamic stability Description: Patient's goal is: INTERVENTIONS: 1. Monitor vital signs, rhythm, and trends 2. Monitor for bleeding, hypotension and signs of decreased cardiac output 3. Administer ordered vasoactive medications to optimize hemodynamic stability 4. Monitor arterial and/or venous puncture sites for bleeding and/or hematoma 5. Assess quality of pulses, skin color and temperature Outcome: Progressing Note: Evaluation of progress towards goal: Pt is hemodynamically stable. [facility] 08-01-2024 Progress note Formatting of t his note is different from the original. 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 No acute OT needs; will discontinue OT orders.) [facility] 08-01-2024 Progress note Formatting of t his note is different from the original. Physical Therapy Discharge from Therapy (per PT notes from 01/11, pt is completely dependent, ECF resident at baseline and not appropriate for PT) [facility] 07-31-2024 Plan of care note Problem: Pain Goal: Patient goal is pain score less than 4, able to rest, and participant in treatment plan as appropriate Description: INTERVENTIONS: 1. Encourage patient or legal fundraising sale representative to report early pain and ask for pain medicine when needed 2. Assess pain using appropriate pain scale and include the scale used when documenting 3. Administer analgesics based on type and severity of pain and evaluate response within appropriate time frame 4. Implement non-pharmacological measures as appropriate and evaluate response 5. Consider cultural and social influences on pain and pain management 6. Notify LIP if interventions ineffective or patient reports new pain 7. Monitor vital signs including pulse ox, end-tidal CO2 based on pain intervention 8. Reassess pain per policy 9. Teach patient or legal fundraising sale representative interventions for comforting Note: Evaluation of progress towards goal: Assess pain using appropriate pain scale and include the scale used when documenting 3. Administer analgesics based on type and severity of pain and evaluate response within appropriate time frame Problem: Safety Goal: Patient will be injury free during hospitalization Description: INTERVENTIONS: 1. Assess patient's risk for falls and implement fall prevention plan of care per policy 2. Provide and maintain a safe environment 3. Proper use of double Identifiers 4. Medication administration using the 5 rights 5. Hand hygiene 6. Specimens are labeled at the bedside 7. Instruct patient/ patient fundraising sale representative about use of safety devices 8. Include patient/ patient fundraising sale representative in decisions related to safety Note: Evaluation of progress towards goal: Assess patient's risk for falls and implement fall prevention plan of care per policy 2. Provide and maintain a safe environment 3. Proper use of double Identifiers Problem: Infection Goal: Absence of infection during hospitalization Description: Interventions: 1. Assess and monitor for signs and symptoms of infection 2. Monitor lab/diagnostic results 3. Monitor all insertion sites i.e., indwelling lines, tubes and drains 4. Monitor endotracheal (as able) and nasal secretions for changes in amount and color 5. Administer medications as ordered 6. Instruct and encourage patient and family to use good hand hygiene technique 7. Identify and instruct patient/patient fundraising sale representative in use of appropriate isolation precautions for identified infection/symptoms 8. Provide and discuss with patient/patient fundraising sale representative on educational MDRO sheet 9. Encourage and monitor nutritional status daily and consult bowling pin refinisher if indicated 10. Implement neutropenic guidelines as needed 11. Review exposure to history of communicable disease and recent travel history on admission 12. Encourage annual influenza vaccine 13. Encourage pneumonia vaccine Note: Evaluation of progress towards goal: . Assess and monitor for signs and symptoms of infection 2. Monitor lab/diagnostic results Problem: Knowledge Deficit Goal: Patient/patient fundraising sale representative demonstrates understanding of disease process, treatment plan, medications, and discharge instructions Description: INTERVENTIONS 1. Complete learning assessment and assess knowledge base 2. Provide teaching at level of understanding 3. Provide teaching via preferred learning method(s) Note: Evaluation of progress towards goal: Complete learning assessment and assess knowledge base Problem: Discharge Planning Goal: Discharge to post-acute care, other facility, or home with appropriate resources Description: Patient's goal is: INTERVENTIONS 1. Conduct assessment to determine patient/family and health care team treatment goals, and need for post-acute services based on payer coverage, community resources, and patient preferences, and barriers to discharge 2. Coordinate with Social work, Care Navigation, and Utilization Review to arrange appropriate level of services according to patient's needs based on patient preference and payer coverage in collaboration with the physician and health care team 3. Address psychosocial, clinical, and financial barriers to discharge as identified in assessment in conjunction with the patient/family and health care team 4. Consult appropriate ancillary services (i.e.. PT/OT/ST, etc) as needed 5. Communicate with and update the patient/family, physician, and health care team regarding progress on the discharge plan 6. Identify discharge learning needs (meds, wound care, etc). 7. Arrange for needed discharge transportation as appropriate Note: Evaluation of progress towards goal: Communicate with and update the patient/family, physician, and health care team regarding progress on the discharge plan Problem: Potential for Compromised Skin Integrity Goal: Skin integrity is maintained or improved Description: Patient's goal is: INTERVENTIONS 1. Perform initial skin assessment on admission and as needed 2. Turn patient every 2 hours and PRN 3. Relieve pressure to bony prominences 4. Avoid shearing 5. Keep skin clean and dry 6. Alternate a full bath with partial baths for elderly 7. Apply lotion/moisturizer on skin 8. Monitor patient's hygiene practices 9. Float heels 10. Collaborate with interdisciplinary team and initiate plans and interventions as needed Note: Evaluation of progress towards goal: . Perform initial skin assessment on admission and as needed Goal: Patient's nutritional intake is adequate Description: Patient's goal is: INTERVENTIONS 1. Assess and monitor food intake and supplements, patient food preferences, nausea, vomiting, labs, oral cavity (gums, teeth, tongue, mucosa), proper denture fit, and cultural beliefs 2. Monitor for signs of hypoglycemia and hyperglycemia 3. Collaborate with interdisciplinary team and initiate plan and interventions as ordered 4. Monitor patient's weight 5. Assist patient with meals/food selection 6. Assist patient with eating 7. Allow adequate time for meals 8. Provide pleasant environment during mealtime 9. Increase social contact during mealtimes 10. Plan activities to conserve energy 11. Encourage/perform oral hygiene as appropriate 12. Encourage patient to take dietary supplement as ordered 13. Collaborate with clinical bowling pin refinisher 14. Include patient/ patient's fundraising sale representative in decisions related to nutrition Note: Evaluation of progress towards goal: Plan activities to conserve energy 11. Encourage/perform oral hygiene as appropriate Problem: Urinary Incontinence Goal: Perineal skin integrity is maintained or improved Description: INTERVENTIONS 1. Assess genitourinary system, perineal skin, labs (urinalysis), and history of incontinence to include past management, aggravating, and alleviating factors 2. Keep skin clean and dry 3. Apply skin protectant 4. Develop skin care regimen 5. Provide privacy when changing patients incontinence device to maintain their dignity 6. Consider placing an indwelling catheter 7. Collaborate with interdisciplinary team and initiate plans and interventions as needed Note: Evaluation of progress towards goal: Keep skin clean and dry 3. Apply skin protectant Problem: Moderate - High Risk Fall Score Description: Esposito Fall Score of =/> 25 or indicated by [facility] Assessment Goal: Patient should be free from fall Description: Interventions: 1. [place] to environment 2. Hourly rounds addressing the 4 P's (Pain, Positioning, Possessions, Potty) 3. Clear area of hazards (spills, clutter, electrical cords, unnecessary equipment) 4. Place equipment (bed & TV controls, call light, phone, urinal) within reach 5. Encourage patient to wear glasses and hearing aides as appropriate 6. Maintain bed in lowest position 7. Lock wheels on bed/wheelchair 8. Provide adequate lighting, including night light 9. Assess need for additional bedding, food/fluids, pain med's prior to sleep/routinely 10. Provide gripper slippers or personal non-skid footwear 11. Teach patient and patient fundraising sale representative to maintain environment for safety and engage in all aspects of fall prevention program 12. Remind patient to call for help before getting out of bed 13. Initiate bed/chair/exit alarms supportive devices as appropriate, (chair wedge, no-skid floor mat, raised edge mattress, hip protectors) 14. Locate patient bed assignment for optimal visualization 15. Evaluate and identify Safe Patient Handling Equipment needs 16. Provide supervision when out of bed or chair 17. Utilize gait belt as needed to assist with ambulation 18. Place adaptive equipment (cane, walker) within reach 19. Request patient fundraising sale representative bring adaptive equipment/mobility aids from home or obtain and provide as needed 20. Consult pharmacy regarding effects of med's affecting mobility, cognition, and alternatives 21. Obtain physician order for PT if risk factors associated with mobility are present 22. Obtain physician order for OT as appropriate 23. Utilize diversional activities 24. Educate patient and patient fundraising sale representative how to maintain a safe environment during visitation times (notify nurse prior to leaving bedside) 25. Consider appropriateness of medical or non-medical photographer 26. Set up voiding schedule as appropriate (every 2 hours) Note: Evaluation of progress towards goal: [place] to environment 2. Hourly rounds addressing the 4 P's (Pain, Positioning, Possessions, Potty) Problem: Cardiovascular - Adult Goal: Maintains optimal cardiac output and hemodynamic stability Description: Patient's goal is: INTERVENTIONS: 1. Monitor vital signs, rhythm, and trends 2. Monitor for bleeding, hypotension and signs of decreased cardiac output 3. Administer ordered vasoactive medications to optimize hemodynamic stability 4. Monitor arterial and/or venous puncture sites for bleeding and/or hematoma 5. Assess quality of pulses, skin color and temperature Note: Evaluation of progress towards goal: Assess quality of pulses, skin color and temperature [facility] 07-31-2024 Plan of care note Problem: Pain Goal: Patient goal is pain score less than 4, able to rest, and participant in treatment plan as appropriate Description: INTERVENTIONS: 1. Encourage patient or legal fundraising sale representative to report early pain and ask for pain medicine when needed 2. Assess pain using appropriate pain scale and include the scale used when documenting 3. Administer analgesics based on type and severity of pain and evaluate response within appropriate time frame 4. Implement non-pharmacological measures as appropriate and evaluate response 5. Consider cultural and social influences on pain and pain management 6. Notify LIP if interventions ineffective or patient reports new pain 7. Monitor vital signs including pulse ox, end-tidal CO2 based on pain intervention 8. Reassess pain per policy 9. Teach patient or legal fundraising sale representative interventions for comforting Outcome: Progressing Note: Evaluation of progress towards goal: Pt using pain medication to good effect. Communicates needs to staff. Problem: Safety Goal: Patient will be injury free during hospitalization Description: INTERVENTIONS: 1. Assess patient's risk for falls and implement fall prevention plan of care per policy 2. Provide and maintain a safe environment 3. Proper use of double Identifiers 4. Medication administration using the 5 rights 5. Hand hygiene 6. Specimens are labeled at the bedside 7. Instruct patient/ patient fundraising sale representative about use of safety devices 8. Include patient/ patient fundraising sale representative in decisions related to safety Outcome: Progressing Note: Evaluation of progress towards goal: Pt is injury free and understands injury precautions. Problem: Infection Goal: Absence of infection during hospitalization Description: Interventions: 1. Assess and monitor for signs and symptoms of infection 2. Monitor lab/diagnostic results 3. Monitor all insertion sites i.e., indwelling lines, tubes and drains 4. Monitor endotracheal (as able) and nasal secretions for changes in amount and color 5. Administer medications as ordered 6. Instruct and encourage patient and family to use good hand hygiene technique 7. Identify and instruct patient/patient fundraising sale representative in use of appropriate isolation precautions for identified infection/symptoms 8. Provide and discuss with patient/patient fundraising sale representative on educational MDRO sheet 9. Encourage and monitor nutritional status daily and consult bowling pin refinisher if indicated 10. Implement neutropenic guidelines as needed 11. Review exposure to history of communicable disease and recent travel history on admission 12. Encourage annual influenza vaccine 13. Encourage pneumonia vaccine Outcome: Progressing Note: Evaluation of progress towards goal: Pt remains infection free. Problem: Knowledge Deficit Goal: Patient/patient fundraising sale representative demonstrates understanding of disease process, treatment plan, medications, and discharge instructions Description: INTERVENTIONS 1. Complete learning assessment and assess knowledge base 2. Provide teaching at level of understanding 3. Provide teaching via preferred learning method(s) Outcome: Progressing Note: Evaluation of progress towards goal: Pts caregivers demonstrates understanding of disease process, plan, medications and discharge instructions. Problem: Discharge Planning Goal: Discharge to post-acute care, other facility, or home with appropriate resources Description: Patient's goal is: INTERVENTIONS 1. Conduct assessment to determine patient/family and health care team treatment goals, and need for post-acute services based on payer coverage, community resources, and patient preferences, and barriers to discharge 2. Coordinate with Social work, Care Navigation, and Utilization Review to arrange appropriate level of services according to patient's needs based on patient preference and payer coverage in collaboration with the physician and health care team 3. Address psychosocial, clinical, and financial barriers to discharge as identified in assessment in conjunction with the patient/family and health care team 4. Consult appropriate ancillary services (i.e.. PT/OT/ST, etc) as needed 5. Communicate with and update the patient/family, physician, and health care team regarding progress on the discharge plan 6. Identify discharge learning needs (meds, wound care, etc). 7. Arrange for needed discharge transportation as appropriate Outcome: Progressing Note: Evaluation of progress towards goal: Pt to be discharged home to SNF. Problem: Potential for Compromised Skin Integrity Goal: Skin integrity is maintained or improved Description: Patient's goal is: INTERVENTIONS 1. Perform initial skin assessment on admission and as needed 2. Turn patient every 2 hours and PRN 3. Relieve pressure to bony prominences 4. Avoid shearing 5. Keep skin clean and dry 6. Alternate a full bath with partial baths for elderly 7. Apply lotion/moisturizer on skin 8. Monitor patient's hygiene practices 9. Float heels 10. Collaborate with interdisciplinary team and initiate plans and interventions as needed Outcome: Progressing Note: Evaluation of progress towards goal: Pt skin integrity maintained. Goal: Patient's nutritional intake is adequate Description: Patient's goal is: INTERVENTIONS 1. Assess and monitor food intake and supplements, patient food preferences, nausea, vomiting, labs, oral cavity (gums, teeth, tongue, mucosa), proper denture fit, and cultural beliefs 2. Monitor for signs of hypoglycemia and hyperglycemia 3. Collaborate with interdisciplinary team and initiate plan and interventions as ordered 4. Monitor patient's weight 5. Assist patient with meals/food selection 6. Assist patient with eating 7. Allow adequate time for meals 8. Provide pleasant environment during mealtime 9. Increase social contact during mealtimes 10. Plan activities to conserve energy 11. Encourage/perform oral hygiene as appropriate 12. Encourage patient to take dietary supplement as ordered 13. Collaborate with clinical bowling pin refinisher 14. Include patient/ patient's fundraising sale representative in decisions related to nutrition Outcome: Progressing Note: Evaluation of progress towards goal: Pt nutritional intake is adequate. Problem: Urinary Incontinence Goal: Perineal skin integrity is maintained or improved Description: INTERVENTIONS 1. Assess genitourinary system, perineal skin, labs (urinalysis), and history of incontinence to include past management, aggravating, and alleviating factors 2. Keep skin clean and dry 3. Apply skin protectant 4. Develop skin care regimen 5. Provide privacy when changing patients incontinence device to maintain their dignity 6. Consider placing an indwelling catheter 7. Collaborate with interdisciplinary team and initiate plans and interventions as needed Outcome: Progressing Note: Evaluation of progress towards goal: Pt skin integrity maintained. Problem: Moderate - High Risk Fall Score Description: Esposito Fall Score of =/> 25 or indicated by [facility] Assessment Goal: Patient should be free from fall Description: Interventions: 1. [place] to environment 2. Hourly rounds addressing the 4 P's (Pain, Positioning, Possessions, Potty) 3. Clear area of hazards (spills, clutter, electrical cords, unnecessary equipment) 4. Place equipment (bed & TV controls, call light, phone, urinal) within reach 5. Encourage patient to wear glasses and hearing aides as appropriate 6. Maintain bed in lowest position 7. Lock wheels on bed/wheelchair 8. Provide adequate lighting, including night light 9. Assess need for additional bedding, food/fluids, pain med's prior to sleep/routinely 10. Provide gripper slippers or personal non-skid footwear 11. Teach patient and patient fundraising sale representative to maintain environment for safety and engage in all aspects of fall prevention program 12. Remind patient to call for help before getting out of bed 13. Initiate bed/chair/exit alarms supportive devices as appropriate, (chair wedge, no-skid floor mat, raised edge mattress, hip protectors) 14. Locate patient bed assignment for optimal visualization 15. Evaluate and identify Safe Patient Handling Equipment needs 16. Provide supervision when out of bed or chair 17. Utilize gait belt as needed to assist with ambulation 18. Place adaptive equipment (cane, walker) within reach 19. Request patient fundraising sale representative bring adaptive equipment/mobility aids from home or obtain and provide as needed 20. Consult pharmacy regarding effects of med's affecting mobility, cognition, and alternatives 21. Obtain physician order for PT if risk factors associated with mobility are present 22. Obtain physician order for OT as appropriate 23. Utilize diversional activities 24. Educate patient and patient fundraising sale representative how to maintain a safe environment during visitation times (notify nurse prior to leaving bedside) 25. Consider appropriateness of medical or non-medical photographer 26. Set up voiding schedule as appropriate (every 2 hours) Outcome: Progressing Note: Evaluation of progress towards goal: Pt is free from falls. Problem: Cardiovascular - Adult Goal: Maintains optimal cardiac output and hemodynamic stability Description: Patient's goal is: INTERVENTIONS: 1. Monitor vital signs, rhythm, and trends 2. Monitor for bleeding, hypotension and signs of decreased cardiac output 3. Administer ordered vasoactive medications to optimize hemodynamic stability 4. Monitor arterial and/or venous puncture sites for bleeding and/or hematoma 5. Assess quality of pulses, skin color and temperature Outcome: Progressing Note: Evaluation of progress towards goal: Pt is maintaining normal pressures and hemodynamic stability. [facility] 07-31-2024 Progress note Formatting of t his note might be different from the original. DISCHARGE PLANNING NOTE [facility] Progress note Formatting of t his note is different from the original. Images from the original note were not included. DISCHARGE PLANNING NOTE Outsole Leveler met with patient, introduced self, and explained role. Patient educated on safe discharge plan. Pt admitted 07/31/2024 with Syncope [R55] per chart review. Consults: none Discharge Barriers per Daily Transition Rounds and chart review: DC Past Medical History: Diagnosis Date RAMYA (acute kidney injury) ([facility]) 08/18/2020 Anxiety Bipolar disorder ([facility]) Diabetes mellitus type 2, controlled ([facility]) 12/31/2023 Hypertension Metabolic encephalopathy Prior to admission patient was Patient was transferring from [facility] to [facility] and prior to admit to [facility] in [place]- patient transferred to ED. . Medical equipment patient used prior to admission includes: WC, Walker. Patient denies need for transportation/ food/ prescription medication assistance resources. PCP: NO PCP, NO PCP Pharmacy:[facility] PCP and pharmacy confirmed with patient. CN offered to assist with follow up appointment arrangements; declined. NO PCP, NO PCP added to Follow Up Providers for Summary of Care communication. Per patient self-report: Drug use: no Smoking: no ETOH Use: no Current discharge plan is: DC to [facility] Services Requested: Services Requested Discharge Disposition: SNF SNF Name: DC plan is to [facility]- [phone] Patient choice offered: Yes List Provided: Patient declined Patient Declined: Active with Provider Goals: Goals DC to [facility] (pt-stated) Evaluation of progress towards goal: DC to [facility] SW spoke to sister to confirmed DC plans- Tasked for referral to [facility] Will continue to follow as plan of care develops. CN discussed benefits and importance of medication compliance and follow ups. Please feel free to reach out for any discharge planning questions. - GAURI MCKAY 07/31/24 3:00 PM [facility] 07-31-2024 History and physical note Images from the original note were not included. [facility] INTERNAL MEDIC[facility] - 7 ONCOLOGY/STROKE [address] [facility] [id number] Hospital Medicine History & Physical Patient: Brandon Reardon Date of : 1950 Room: [facility] PCP: NO PCP, NO PCP Admission date: 07/31/2024 10:08 AM Encounter date: 07/31/24 Hospital Day: 1 SUBJECTIVE Brandon Reardon is a 74 y.o. 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 Per report patient was in the process being transferred from 1 facility to another, while he was being examined by a physician he said that he had nausea and vomiting, became hypotensive with blood pressure in the 80s, and nearly passed out. On exam, patient is not very verbal, able to answer some questions such as his age, and able to tell that he had nausea vomiting but could not answer whether he passed out or not. He is able to follow simple commands such as move his extremities, able to say no to any acute pain or discomfort. Labs were mostly unremarkable except lactate 2.4, magnesium 1.6. CT brain without contrast did not show acute pathology. CT abdomen and pelvis showed large volume colonic stool burden. CTA chest negative for PE. Spoke with sister over the phone, she is the POA, she stated patient code status DNR CCA DNI. Allergies: Amlodipine, Atorvastatin, Ibuprofen, Metformin, Pravastatin, Simvastatin, and Terazosin Prior to Admission medications Medication Sig Start Date End Date Taking? Authorizing Provider apixaban (ELIQUIS) 5 mg tablet Take 1 tablet (5 mg total) by mouth in the morning and 1 tablet (5 mg total) before bedtime. 01/12/24 Yes Kasey Vera APRN-KATHERINE atorvastatin (LIPITOR) 40 mg tablet Take 1 tablet (40 mg total) by mouth daily. 08/26/20 Yes Bear Tao MD busPIRone (BUSPAR) 5 mg tablet Take 1 tablet (5 mg total) by mouth in the morning and at bedtime Indications: repeated episodes of anxiety. Yes Not In System Ref Prov cholecalciferol, vitamin D3, 2,000 units tablet Take 1 tablet (2,000 Units total) by mouth daily. 08/13/20 Yes Leroy Munguia MD clopidogreL (PLAVIX) 75 mg tablet Take 1 tablet (75 mg total) by mouth in the morning. 12/16/23 Yes Not In System Ref Prov dilTIAZem CD (CARDIZEM CD) 240 mg 24 hr capsule Take 1 capsule (240 mg total) by mouth in the morning. 01/13/24 Yes SLIM Klein insulin glargine,hum.rec.anlog (BASAGLAR KWIKPEN U-100 INSULIN) 100 unit/mL (3 mL) insulin pen Inject 26 Units under the skin in the morning. 12/17/23 Yes Not In System Ref Prov insulin lispro (HumaLOG) 100 unit/mL insulin pen SQ 3 times with meals per scale: 151-200 : 2 units; 201-250 : 4; 251-300 : 6; 301-350 : 8; 351-400 : 10. 08/12/20 Yes Leroy Munguia MD insulin lispro (HumaLOG) 100 unit/mL insulin pen SQ at night per scale: 201-250 : 2 units; 251-300 : 4; 301-350 : 6; 351-400 : 8. 08/12/20 Yes Leroy Munguia MD levalbuterol (XOPENEX) 1.25 mg/0.5 mL nebulizer solution Inhale 0.5 mL (1.25 mg total) by nebulization every 6 (six) hours as needed for wheezing. 01/12/24 Yes SLIM Klein melatonin (CIRCADIN) tablet Take 1 tablet (3 mg total) by mouth nightly as needed for sleep. 01/12/24 Yes SLIM Klein metFORMIN (GLUCOPHAGE) 500 mg tablet Take 1 tablet (500 mg total) by mouth in the morning and 1 tablet (500 mg total) before bedtime. Yes Not In System Ref Prov metoprolol tartrate (LOPRESSOR) 50 mg tablet Take 1 tablet (50 mg total) by mouth in the morning and 1 tablet (50 mg total) before bedtime. 01/12/24 Yes SLIM Klein polyethylene glycol (GLYCOLAX) 17 gram packet Take 17 g by mouth in the morning. 01/13/24 Yes SLIM Klein QUEtiapine (SEROquel) 25 mg tablet Take 0.5 tablets (12.5 mg total) by mouth nightly. 01/12/24 Yes SLIM Klein sennosides-docusate sodium (SENOKOT-S) 8.6-50 mg Take 2 tablets by mouth nightly. 01/12/24 Yes SLIM Klein sodium chloride 0.9 % injection Irrigate with 10 mL as directed every 12 (twelve) hours. Patient not taking: Reported on 04/09/2024 01/12/24 SLIM Klein Past Medical History: Patient has a past medical history of RAMYA (acute kidney injury) ([facility]) (08/18/2020), Anxiety, Bipolar disorder ([facility]), Diabetes mellitus type 2, controlled ([facility]) (12/31/2023), Hypertension, and Metabolic encephalopathy. Past Surgical History: Patient has a past surgical history that includes Cardiac surgery. Review of Systems Review of Systems Constitutional: Negative for fever. Cardiovascular: Negative for chest pain. Respiratory: Negative for cough and shortness of breath. Gastrointestinal: Positive for nausea and vomiting. Negative for abdominal pain. Limited review of system due to patient not able to answer many questions OBJECTIVE BP 147/67 Pulse 63 Temp 36.4 C (97.6 F) (Oral) Resp 14 Ht 185.4 cm (6' 1 ) Wt 88 kg (193 lb 14.4 oz) SpO2 95% BMI 25.58 kg/m Temp: [36.3 C (97.3 F)-36.4 C (97.6 F)] 36.4 C (97.6 F) Pulse: [52-63] 63 Resp: [12-18] 14 BP: (136-147)/(58-67) 147/67 SpO2: [95 %] 95 % O2 Device: None (Room air) Intake/Output Summary (Last 24 hours) at 07/31/2024 1453 Last data filed at 07/31/2024 1042 Gross per 24 hour Intake -- Output 11 ml Net -11 ml Physical Exam Physical Exam Constitutional: Comments: Disoriented HENT: Head: Normocephalic and atraumatic. Mouth/Throat: Mouth: Mucous membranes are dry. Eyes: Pupils: Pupils are equal, round, and reactive to light. Cardiovascular: Rate and Rhythm: Bradycardia present. Pulses: Normal pulses. Heart sounds: Normal heart sounds. Pulmonary: Breath sounds: Normal breath sounds. Abdominal: Palpations: Abdomen is soft. Tenderness: There is no abdominal tenderness. Musculoskeletal: General: Normal range of motion. Right lower leg: No edema. Left lower leg: No edema. Skin: General: Skin is warm and dry. Neurological: Mental Status: He is alert. He is disoriented. Comments: Right-sided residue hemiparesis Psychiatric: Mood and Affect: Mood normal. Behavior: Behavior normal. Medications Scheduled: apixaban, 5 mg, oral, BID atorvastatin, 40 mg, oral, Nightly busPIRone, 5 mg, oral, BID clopidogreL, 75 mg, oral, Daily insulin lispro, 1-5 Units, subcutaneous, Q6H polyethylene glycol, 17 g, oral, Daily Infusions: dextrose 5 % in water, 100 mL/hr sodium chloride 0.9 %, 20 mL/hr As Needed: bisacodyL dextrose dextrose 5 % in water dextrose 50 % in water (D50W) glucagon (human recombinant) sodium chloride sodium chloride sodium chloride sodium chloride 0.9 % Allergies: Amlodipine, Atorvastatin, Ibuprofen, Metformin, Pravastatin, Simvastatin, and Terazosin Labs Recent Results (from the past 24 hour(s)) CBC auto differential Collection Time: 07/31/24 10:28 AM Result Value Ref Range White Blood Cells 10.7 4.0 - 11.0 X10E9/L RBC count 4.89 4.10 - 5.70 X10E12/L Hemoglobin 13.9 13.0 - 17.0 g/dL Hematocrit 41.3 39 - 49 % MCV 85 80 - 100 fL MCH 28.4 27 - 34 pg MCHC 33.7 32 - 36 g/dL RDW 15.9 (H) 11.5 - 15.0 % Platelets 233 150 - 450 X10E9/L MPV 7.9 7 - 12 fL % neutrophils 72.2 % % lymphocytes 18.3 % % monocytes 7.4 % % eosinophils 1.7 % % Basophils 0.4 % Neutrophils Absolute (A) 7.7 (H) 1.5 - 6.6 X10E9/L Lymphocytes Absolute 2.0 1.0 - 3.5 X10E9/L Monocytes Absolute 0.8 0 - 0.9 X10E9/L Eosinophils Absolute 0.2 0.0 - 0.4 X10E9/L Basophils Absolute 0.0 0.0 - 0.2 X10E9/L Comprehensive metabolic panel Collection Time: 07/31/24 10:28 AM Result Value Ref Range Sodium 140 134 - 146 mmol/L Potassium, Bld 4.5 3.5 - 5.0 mmol/L Chloride 108 98 - 109 mmol/L CO2 24 22 - 32 mmol/L Anion gap 8 5 - 15 mmol/L BUN 19 5 - 27 mg/dL Creatinine 0.79 0.60 - 1.30 mg/dL Glucose 166 (H) 65 - 99 mg/dL Calcium 8.9 8.5 - 10.5 mg/dL Total Protein 6.4 6.0 - 8.0 g/dL Albumin 3.9 3.2 - 5.3 g/dL Alkaline Phosphatase 78 39 - 130 U/L AST 17 0 - 41 U/L ALT 9 0 - 40 U/L Total bilirubin 0.6 0.3 - 1.2 mg/dL eGFR (CKD-EPI)non-race dependent >90 >59 ml/min/1.73sq.m Lipase Collection Time: 07/31/24 10:28 AM Result Value Ref Range Lipase 15 11 - 82 U/L Magnesium Collection Time: 07/31/24 10:28 AM Result Value Ref Range Magnesium 1.6 (L) 1.8 - 2.6 mg/dL Lactate w/ Reflex Collection Time: 07/31/24 10:28 AM Result Value Ref Range Lactate w/ Reflex 2.4 (H) 0.4 - 2.0 mmol/L Troponin I, High Sensitivity Collection Time: 07/31/24 10:28 AM Result Value Ref Range Troponin I, High Sensitivity 8 <21 ng/L Troponin I, High Sensitivity 1 Hour Collection Time: 07/31/24 11:38 AM Result Value Ref Range 1 Hour Trop I, High Sensitivity 7 <21 ng/L Radiology CT abdomen and pelvis with contrast Result Date: 07/31/2024 Narrative: CT ABDOMEN AND PELVIS W CONT CLINICAL HISTORY:Bowel obstruction suspected abdominal pain, vomiting. COMPARISON: None. TECHNIQUE: CT abdomen and pelvis was performed utilizing the standard protocol following the uneventful administration of 100 cc Omnipaque 300 nonionic intravenous contrast. Coronal and sagittal reformatted images were generated and reviewed. Automated exposure control was utilized. FINDINGS: Dependent right basilar opacities. Cardiac megaly. Severe calcified coronary arterial disease. Mild biatrial enlargement. Unremarkable liver, gallbladder, spleen, adrenal glands, pancreas, kidneys. Moderate to large volume colonic stool burden. No dilatation or wall thickening the bowel. Diminutive appendix. No acute appearing occlusion the major visceral vasculature. Mild fat stranding within the upper abdominal mesentery, relative sparing of adipose tissue immediately adjacent to the vasculature and lymph nodes. No gross adenopathy. Prostamegaly. No free fluid or fluid collections. No aggressive osseous lesions. 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 IMPRESSION: 1. Moderate to large volume colonic stool burden. No acute process within the abdomen or pelvis. 2. Features suggestive of mesenteric panniculitis. All CT scans at this facility use dose modulation, iterative reconstruction, and/or weight based dosing when appropriate to reduce radiation dose to as low as reasonably achievable. Finalized by Delfin Vera MD on 07/31/2024 12:[address] angiogram chest Result Date: 07/31/2024 Narrative: CTA PULMONARY ANGIOGRAM Clinical history: Vomiting. Nausea. Loss of consciousness and syncope. Hypotension. Pulmonary embolism suspected. Technique: Spiral multidetector CT pulmonary angiogram was performed after the intravenous administration of contrast material including 3-D reconstructions displayed on a PACS workstation and reviewed by the radiologist. Automated dose reduction techniques were utilized. All CT scans at this facility use dose modulation, iterative reconstruction, and/or weight based dosing when appropriate to reduce radiation dose to as low as reasonably achievable. Comparisons: 01/05/2024. Findings: Evaluation of peripheral, subsegmental pulmonary artery branches is limited due to gross patient motion/respiratory artifact. The central pulmonary arteries are patent and free of filling defects to suggest acute pulmonary thromboembolism. There is no isolated right ventricular dilation. Subsegmental atelectasis involves superior segment right lower lobe. Interval resolution of bilateral pleural effusions and extensive atelectasis on prior exam. Calcification right upper lobe is unchanged likely reflecting sequelae of prior granulomatous disease. Heavy coronary artery calcifications and/or stents are present. Changes of prior median sternotomy again seen. No pneumothorax. IMPRESSION: 1. No evidence for acute pulmonary thromboembolism. Finalized by Kenny Craig MD on 07/31/2024 12:[address] brain without contrast Result Date: 07/31/2024 Narrative: CT BRAIN WO CONT CLINICAL HISTORY: Altered mental status, nontraumatic (Ped 0-17y) COMPARISON: None. TECHNIQUE: CT head was performed without contrast using the standard protocol. Automated exposure control was utilized. FINDINGS: No acute, territorial region of diminished romeo-white differentiation. No acute intracranial hemorrhage. Disproportionate effacement of the subarachnoid space of the calvarial vertex with widening of the sylvian fissures. Moderate global parenchymal volume loss, apparent disproportionate hippocampal volume loss.. Mild/moderate heterogeneity through the deep, periventricular white matter, most often seen in the setting of chronic microvascular ischemia. Intracranial vascular calcifications. Lobular mucosal thickening alveolar recess bilateral maxillary sinuses. Unremarkable temporal bone structures, visualized suprahyoid neck. Unremarkable scalp soft tissues. IMPRESSION: A few features suggest normal pressure hydrocephalus, correlate clinically. Moderate global parenchymal volume loss with apparent disproportionate hippocampal volume loss. Correlate for clinical signs of underlying neurodegenerative process. Moderate heterogeneity through the deep, subcortical and periventricular white matter, most often seen in the setting of chronic microvascular ischemia. All CT scans at this facility use dose modulation, iterative reconstruction, and/or weight based dosing when appropriate to reduce radiation dose to as low as reasonably achievable. 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 7PM-7AM ([facility], [facility]): EpicChat or page, [phone]. 7PM-7AM ([place], [place], [place], [place] and [facility] Rehab): EpicChat or page through [employer]. [facility] 07-31-2024 History and physical note Images from the original note were not included. [facility] INTERNAL MEDICINE [facility] - ONCOLOGY/STROKE [address] [place] [address] Hospital Medicine History & Physical Patient: Brandon Reardon Date of : 1950 Room: [facility] PCP: NO PCP, NO PCP Admission date: 07/31/2024 10:08 AM Encounter date: 07/31/24 Hospital Day: 1 SUBJECTIVE Brandon Reardon is a 74 y.o. 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 Per report patient was in the process being transferred from 1 facility to another, while he was being examined by a physician he said that he had nausea and vomiting, became hypotensive with blood pressure in the 80s, and nearly passed out. On exam, patient is not very verbal, able to answer some questions such as his age, and able to tell that he had nausea vomiting but could not answer whether he passed out or not. He is able to follow simple commands such as move his extremities, able to say no to any acute pain or discomfort. Labs were mostly unremarkable except lactate 2.4, magnesium 1.6. CT brain without contrast did not show acute pathology. CT abdomen and pelvis showed large volume colonic stool burden. CTA chest negative for PE. Spoke with sister over the phone, she is the POA, she stated patient code status DNR CCA DNI. Allergies: Amlodipine, Atorvastatin, Ibuprofen, Metformin, Pravastatin, Simvastatin, and Terazosin Prior to Admission medications Medication Sig Start Date End Date Taking? Authorizing Provider apixaban (ELIQUIS) 5 mg tablet Take 1 tablet (5 mg total) by mouth in the morning and 1 tablet (5 mg total) before bedtime. 01/12/24 Yes SLIM Klein atorvastatin (LIPITOR) 40 mg tablet Take 1 tablet (40 mg total) by mouth daily. 08/26/20 Yes Bear Tao MD busPIRone (BUSPAR) 5 mg tablet Take 1 tablet (5 mg total) by mouth in the morning and at bedtime Indications: repeated episodes of anxiety. Yes Not In System Ref Prov cholecalciferol, vitamin D3, 2,000 units tablet Take 1 tablet (2,000 Units total) by mouth daily. 08/13/20 Yes Leroy Munguia MD clopidogreL (PLAVIX) 75 mg tablet Take 1 tablet (75 mg total) by mouth in the morning. 12/16/23 Yes Not In System Ref Prov dilTIAZem CD (CARDIZEM CD) 240 mg 24 hr capsule Take 1 capsule (240 mg total) by mouth in the morning. 01/13/24 Yes SLIM Klein insulin glargine,hum.rec.anlog (BASAGLAR KWIKPEN U-100 INSULIN) 100 unit/mL (3 mL) insulin pen Inject 26 Units under the skin in the morning. 12/17/23 Yes Not In System Ref Prov insulin lispro (HumaLOG) 100 unit/mL insulin pen SQ 3 times with meals per scale: 151-200 : 2 units; 201-250 : 4; 251-300 : 6; 301-350 : 8; 351-400 : 10. 08/12/20 Yes Leroy Munguia MD insulin lispro (HumaLOG) 100 unit/mL insulin pen SQ at night per scale: 201-250 : 2 units; 251-300 : 4; 301-350 : 6; 351-400 : 8. 08/12/20 Yes Leroy Munguia MD levalbuterol (XOPENEX) 1.25 mg/0.5 mL nebulizer solution Inhale 0.5 mL (1.25 mg total) by nebulization every 6 (six) hours as needed for wheezing. 01/12/24 Yes SLIM Klein melatonin (CIRCADIN) tablet Take 1 tablet (3 mg total) by mouth nightly as needed for sleep. 01/12/24 Yes SLIM Klein metFORMIN (GLUCOPHAGE) 500 mg tablet Take 1 tablet (500 mg total) by mouth in the morning and 1 tablet (500 mg total) before bedtime. Yes Not In System Ref Prov metoprolol tartrate (LOPRESSOR) 50 mg tablet Take 1 tablet (50 mg total) by mouth in the morning and 1 tablet (50 mg total) before bedtime. 01/12/24 Yes SLIM Klein polyethylene glycol (GLYCOLAX) 17 gram packet Take 17 g by mouth in the morning. 01/13/24 Yes SLIM Klein QUEtiapine (SEROquel) 25 mg tablet Take 0.5 tablets (12.5 mg total) by mouth nightly. 01/12/24 Yes SLIM Klein sennosides-docusate sodium (SENOKOT-S) 8.6-50 mg Take 2 tablets by mouth nightly. 01/12/24 Yes SLIM Klein sodium chloride 0.9 % injection Irrigate with 10 mL as directed every 12 (twelve) hours. Patient not taking: Reported on 04/09/2024 01/12/24 SLIM Klein Past Medical History: Patient has a past medical history of RAMYA (acute kidney injury) ([facility]) (08/18/2020), Anxiety, Bipolar disorder ([facility]), Diabetes mellitus type 2, controlled ([facility]) (12/31/2023), Hypertension, and Metabolic encephalopathy. Past Surgical History: Patient has a past surgical history that includes Cardiac surgery. Review of Systems Review of Systems Constitutional: Negative for fever. Cardiovascular: Negative for chest pain. Respiratory: Negative for cough and shortness of breath. Gastrointestinal: Positive for nausea and vomiting. Negative for abdominal pain. Limited review of system due to patient not able to answer many questions OBJECTIVE BP 147/67 Pulse 63 Temp 36.4 C (97.6 F) (Oral) Resp 14 Ht 185.4 cm (6' 1 ) Wt 88 kg (193 lb 14.4 oz) SpO2 95% BMI 25.58 kg/m Temp: [36.3 C (97.3 F)-36.4 C (97.6 F)] 36.4 C (97.6 F) Pulse: [52-63] 63 Resp: [12-18] 14 BP: (136-147)/(58-67) 147/67 SpO2: [95 %] 95 % O2 Device: None (Room air) Intake/Output Summary (Last 24 hours) at 07/31/2024 1453 Last data filed at 07/31/2024 1042 Gross per 24 hour Intake -- Output 11 ml Net -11 ml Physical Exam Physical Exam Constitutional: Comments: Disoriented HENT: Head: Normocephalic and atraumatic. Mouth/Throat: Mouth: Mucous membranes are dry. Eyes: Pupils: Pupils are equal, round, and reactive to light. Cardiovascular: Rate and Rhythm: Bradycardia present. Pulses: Normal pulses. Heart sounds: Normal heart sounds. Pulmonary: Breath sounds: Normal breath sounds. Abdominal: Palpations: Abdomen is soft. Tenderness: There is no abdominal tenderness. Musculoskeletal: General: Normal range of motion. Right lower leg: No edema. Left lower leg: No edema. Skin: General: Skin is warm and dry. Neurological: Mental Status: He is alert. He is disoriented. Comments: Right-sided residue hemiparesis Psychiatric: Mood and Affect: Mood normal. Behavior: Behavior normal. Medications Scheduled: apixaban, 5 mg, oral, BID atorvastatin, 40 mg, oral, Nightly busPIRone, 5 mg, oral, BID clopidogreL, 75 mg, oral, Daily insulin lispro, 1-5 Units, subcutaneous, Q6H polyethylene glycol, 17 g, oral, Daily Infusions: dextrose 5 % in water, 100 mL/hr sodium chloride 0.9 %, 20 mL/hr As Needed: bisacodyL dextrose dextrose 5 % in water dextrose 50 % in water (D50W) glucagon (human recombinant) sodium chloride sodium chloride sodium chloride sodium chloride 0.9 % Allergies: Amlodipine, Atorvastatin, Ibuprofen, Metformin, Pravastatin, Simvastatin, and Terazosin Labs Recent Results (from the past 24 hour(s)) CBC auto differential Collection Time: 07/31/24 10:28 AM Result Value Ref Range White Blood Cells 10.7 4.0 - 11.0 X10E9/L RBC count 4.89 4.10 - 5.70 X10E12/L Hemoglobin 13.9 13.0 - 17.0 g/dL Hematocrit 41.3 39 - 49 % MCV 85 80 - 100 fL MCH 28.4 27 - 34 pg MCHC 33.7 32 - 36 g/dL RDW 15.9 (H) 11.5 - 15.0 % Platelets 233 150 - 450 X10E9/L MPV 7.9 7 - 12 fL % neutrophils 72.2 % % lymphocytes 18.3 % % monocytes 7.4 % % eosinophils 1.7 % % Basophils 0.4 % Neutrophils Absolute (A) 7.7 (H) 1.5 - 6.6 X10E9/L Lymphocytes Absolute 2.0 1.0 - 3.5 X10E9/L Monocytes Absolute 0.8 0 - 0.9 X10E9/L Eosinophils Absolute 0.2 0.0 - 0.4 X10E9/L Basophils Absolute 0.0 0.0 - 0.2 X10E9/L Comprehensive metabolic panel Collection Time: 07/31/24 10:28 AM Result Value Ref Range Sodium 140 134 - 146 mmol/L Potassium, Bld 4.5 3.5 - 5.0 mmol/L Chloride 108 98 - 109 mmol/L CO2 24 22 - 32 mmol/L Anion gap 8 5 - 15 mmol/L BUN 19 5 - 27 mg/dL Creatinine 0.79 0.60 - 1.30 mg/dL Glucose 166 (H) 65 - 99 mg/dL Calcium 8.9 8.5 - 10.5 mg/dL Total Protein 6.4 6.0 - 8.0 g/dL Albumin 3.9 3.2 - 5.3 g/dL Alkaline Phosphatase 78 39 - 130 U/L AST 17 0 - 41 U/L ALT 9 0 - 40 U/L Total bilirubin 0.6 0.3 - 1.2 mg/dL eGFR (CKD-EPI)non-race dependent >90 >59 ml/min/1.73sq.m Lipase Collection Time: 07/31/24 10:28 AM Result Value Ref Range Lipase 15 11 - 82 U/L Magnesium Collection Time: 07/31/24 10:28 AM Result Value Ref Range Magnesium 1.6 (L) 1.8 - 2.6 mg/dL Lactate w/ Reflex Collection Time: 07/31/24 10:28 AM Result Value Ref Range Lactate w/ Reflex 2.4 (H) 0.4 - 2.0 mmol/L Troponin I, High Sensitivity Collection Time: 07/31/24 10:28 AM Result Value Ref Range Troponin I, High Sensitivity 8 <21 ng/L Troponin I, High Sensitivity 1 Hour Collection Time: 07/31/24 11:38 AM Result Value Ref Range 1 Hour Trop I, High Sensitivity 7 <21 ng/L Radiology CT abdomen and pelvis with contrast Result Date: 07/31/2024 Narrative: CT ABDOMEN AND PELVIS W CONT CLINICAL HISTORY:Bowel obstruction suspected abdominal pain, vomiting. COMPARISON: None. TECHNIQUE: CT abdomen and pelvis was performed utilizing the standard protocol following the uneventful administration of 100 cc Omnipaque 300 nonionic intravenous contrast. Coronal and sagittal reformatted images were generated and reviewed. Automated exposure control was utilized. FINDINGS: Dependent right basilar opacities. Cardiac megaly. Severe calcified coronary arterial disease. Mild biatrial enlargement. Unremarkable liver, gallbladder, spleen, adrenal glands, pancreas, kidneys. Moderate to large volume colonic stool burden. No dilatation or wall thickening the bowel. Diminutive appendix. No acute appearing occlusion the major visceral vasculature. Mild fat stranding within the upper abdominal mesentery, relative sparing of adipose tissue immediately adjacent to the vasculature and lymph nodes. No gross adenopathy. Prostamegaly. No free fluid or fluid collections. No aggressive osseous lesions. 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 IMPRESSION: 1. Moderate to large volume colonic stool burden. No acute process within the abdomen or pelvis. 2. Features suggestive of mesenteric panniculitis. All CT scans at this facility use dose modulation, iterative reconstruction, and/or weight based dosing when appropriate to reduce radiation dose to as low as reasonably achievable. Finalized by Delfin Vera MD on 07/31/2024 12:[address] angiogram chest Result Date: 07/31/2024 Narrative: CTA PULMONARY ANGIOGRAM Clinical history: Vomiting. Nausea. Loss of consciousness and syncope. Hypotension. Pulmonary embolism suspected. Technique: Spiral multidetector CT pulmonary angiogram was performed after the intravenous administration of contrast material including 3-D reconstructions displayed on a PACS workstation and reviewed by the radiologist. Automated dose reduction techniques were utilized. All CT scans at this facility use dose modulation, iterative reconstruction, and/or weight based dosing when appropriate to reduce radiation dose to as low as reasonably achievable. Comparisons: 01/05/2024. Findings: Evaluation of peripheral, subsegmental pulmonary artery branches is limited due to gross patient motion/respiratory artifact. The central pulmonary arteries are patent and free of filling defects to suggest acute pulmonary thromboembolism. There is no isolated right ventricular dilation. Subsegmental atelectasis involves superior segment right lower lobe. Interval resolution of bilateral pleural effusions and extensive atelectasis on prior exam. Calcification right upper lobe is unchanged likely reflecting sequelae of prior granulomatous disease. Heavy coronary artery calcifications and/or stents are present. Changes of prior median sternotomy again seen. No pneumothorax. IMPRESSION: 1. No evidence for acute pulmonary thromboembolism. Finalized by Kenny Craig MD on 07/31/2024 12:[address] brain without contrast Result Date: 07/31/2024 Narrative: CT BRAIN WO CONT CLINICAL HISTORY: Altered mental status, nontraumatic (Ped 0-17y) COMPARISON: None. TECHNIQUE: CT head was performed without contrast using the standard protocol. Automated exposure control was utilized. FINDINGS: No acute, territorial region of diminished romeo-white differentiation. No acute intracranial hemorrhage. Disproportionate effacement of the subarachnoid space of the calvarial vertex with widening of the sylvian fissures. Moderate global parenchymal volume loss, apparent disproportionate hippocampal volume loss.. Mild/moderate heterogeneity through the deep, periventricular white matter, most often seen in the setting of chronic microvascular ischemia. Intracranial vascular calcifications. Lobular mucosal thickening alveolar recess bilateral maxillary sinuses. Unremarkable temporal bone structures, visualized suprahyoid neck. Unremarkable scalp soft tissues. IMPRESSION: A few features suggest normal pressure hydrocephalus, correlate clinically. Moderate global parenchymal volume loss with apparent disproportionate hippocampal volume loss. Correlate for clinical signs of underlying neurodegenerative process. Moderate heterogeneity through the deep, subcortical and periventricular white matter, most often seen in the setting of chronic microvascular ischemia. All CT scans at this facility use dose modulation, iterative reconstruction, and/or weight based dosing when appropriate to reduce radiation dose to as low as reasonably achievable. 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 Internal [facility] 7AM-7PM (all facilities): EpicChat or page through [employer]. 7PM-7AM ([facility], [facility] Re[facility]): EpicChat or page, [phone]. 7PM-7AM ([place], [place], [place], [place] and [facility] Rehab): EpicChat or page through Myo[employer]. documented in this encounter [facility] 07-31-2024 Physician Emergency department Note Images from the original note were not included. History Chief Complaint Patient presents with Vomiting 74-year-old male presents today to the emergency room with complaint of vomiting prior to arrival. It was reported that the physician from the facility had evaluated the patient prior to transfer to [place] from [place] and reported acute onset of nausea vomiting, possible loss of consciousness and syncopal event as well as hypotension for EMS. It was reported that patient's blood pressure was in the 80s systolic. Patient has reported baseline is alert and oriented to self only. Patient currently denies any symptoms of headache or dizziness. No reported recent fall or injury. Denies any chest pain. No shortness of breath. There is evidence of emesis as food contents on his shirt, denies localizing abdominal pain or distention. He has past medical history including acute injury, hypertension, type 2 diabetes. History provided by: Patient and EMS/fire personnel Problem List Items Addressed This Visit None Past Medical History: Diagnosis Date RAMYA (acute kidney injury) ([facility]) 08/18/2020 Anxiety Bipolar disorder ([facility]) Diabetes mellitus type 2, controlled ([facility]) 12/31/2023 Hypertension Metabolic encephalopathy Past Surgical History: Procedure Laterality Date CARDIAC SURGERY Travel Screening No screening recorded since 07/28/24 1008 Travel History Travel since 07/01/24 No documented travel since 07/01/24 No family history on file. Social History Substance and Sexual Activity Drug Use Defer Social History Tobacco Use Smoking status: Former Smokeless tobacco: Never Vaping Use Vaping status: Never Used Substance Use Topics Alcohol use: Not Currently Drug use: Defer Review of Systems Unable to perform ROS: Dementia Constitutional: Negative for chills and fever. HENT: Negative. Respiratory: Negative. Negative for cough and shortness of breath. Cardiovascular: Negative. Negative for chest pain/discomfort. Gastrointestinal: Positive for abdominal pain and vomiting. Negative for diarrhea and nausea. Musculoskeletal: Negative for back pain. Skin: Negative for rash. Physical Exam ED Triage Vitals Temp Pulse Resp BP SpO2 -- -- -- -- -- Temp src Heart Rate Source Patient Position BP Location FiO2 (%) -- -- -- -- -- Vitals: 07/31/24 1021 07/31/24 1045 BP: 140/61 136/58 Temp: 36.3 C (97.3 F) Pulse: 57 52 Resp: 18 12 SpO2: 95% 95% MAP (mmHg): 82 Height: 185.4 cm (6' 1 ) Weight: 88 kg (193 lb 14.4 oz) Physical Exam Vitals and nursing note reviewed. Constitutional: Appearance: Normal appearance. He is well-developed. He is not ill-appearing. HENT: Head: Normocephalic and atraumatic. Neck: Trachea: Trachea normal. Cardiovascular: Rate and Rhythm: Normal rate and regular rhythm. Pulses: Normal pulses. Heart sounds: Normal heart sounds, S1 normal and S2 normal. No murmur heard. Pulmonary: Effort: Pulmonary effort is normal. No respiratory distress. Breath sounds: Normal breath sounds. No decreased breath sounds, wheezing, rhonchi or rales. Abdominal: General: Bowel sounds are normal. Palpations: Abdomen is soft. Tenderness: There is no abdominal tenderness. There is no right CVA tenderness, left CVA tenderness, guarding or rebound. Skin: General: Skin is warm and dry. Findings: No rash. Neurological: Mental Status: He is alert. GCS: GCS eye subscore is 4. GCS verbal subscore is 4. GCS motor subscore is 6. Sensory: Sensation is intact. Motor: Motor function is intact. Procedure Procedures Re-Evaluation Re-Evaluation ED Course Clinical Impressions as of 07/31/24 1310 Syncope MDM Medical Decision Making Amount and/or Complexity of Data Reviewed Labs: ordered. Radiology: ordered. ECG/medicine tests: ordered. Risk Prescription drug management. ----- IUmer (scribe), documented on behalf of Dr. Downey. 11:17 AM Brandon Reardon is a 74 y.o. M presenting to the ED for chief complaint of vomiting. Dr. Downey personally saw and evaluated the patient. Dr. Downey discussed the plan with the VINCENZO/ Resident. Dr. Downey personally made/approved the management plan for this patient and takes responsibility for the patient management. Exam findings as follows: Constitutional: Awake and alert HENT: Normocephalic and atraumatic Eyes: Conjunctiva unremarkable Cardiovascular: Heart rate regular Pulmonary: Easy work of breathing, speaking in full sentences Abdominal: Flat and non-distended. Soft. Skin: Warm and dry Musculoskeletal: Moving all extremities spontaneously Ddx: small bowel obstruction vs gastroenteritis ----- Attestation Provider Statement Evaluation and management services were performed by the RESIDENT CARE PROVIDER/PA-C under my supervision/collaboration with my participation. I have reviewed all pertinent clinical information, including history, physical exam and plan. Provider Statement: By electronically signing this emergency patient record, the Emergency Physician/RESIDENT CARE PROVIDER/PA-C attests that all entries made into the electronic medical record by the scribe prior to the Physician/RESIDENT CARE PROVIDER/PA-C signature reflect an accurate accounting of the evaluation and care rendered by that Emergency Physician/RESIDENT CARE PROVIDER/PA-C. The Emergency Physician/RESIDENT CARE PROVIDER/PA-C assumes full responsibility for those entries. SLIM Condon 07/31/24 1017 SLIM Condon 07/31/24 1113 Umer Riojas 07/31/24 1121 Umer Saldañaller 07/31/24 1141 Galileo Downey MD 08/01/24 0904 [facility] Work Phone: 07-31-2024 Emergency department Note Images from the original note were not included. History Chief Complaint Patient presents with Vomiting 74-year-old male presents today to the emergency room with complaint of vomiting prior to arrival. It was reported that the physician from the facility had evaluated the patient prior to transfer to [place] from [place] and reported acute onset of nausea vomiting, possible loss of consciousness and syncopal event as well as hypotension for EMS. It was reported that patient's blood pressure was in the 80s systolic. Patient has reported baseline is alert and oriented to self only. Patient currently denies any symptoms of headache or dizziness. No reported recent fall or injury. Denies any chest pain. No shortness of breath. There is evidence of emesis as food contents on his shirt, denies localizing abdominal pain or distention. He has past medical history including acute injury, hypertension, type 2 diabetes. History provided by: Patient and EMS/fire personnel Problem List Items Addressed This Visit None Past Medical History: Diagnosis Date RAMYA (acute kidney injury) ([facility]) 08/18/2020 Anxiety Bipolar disorder ([facility]) Diabetes mellitus type 2, controlled ([facility]) 12/31/2023 Hypertension Metabolic encephalopathy Past Surgical History: Procedure Laterality Date CARDIAC SURGERY Travel Screening No screening recorded since 07/28/24 1008 Travel History Travel since 07/01/24 No documented travel since 07/01/24 No family history on file. Social History Substance and Sexual Activity Drug Use Defer Social History Tobacco Use Smoking status: Former Smokeless tobacco: Never Vaping Use Vaping status: Never Used Substance Use Topics Alcohol use: Not Currently Drug use: Defer Review of Systems Unable to perform ROS: Dementia Constitutional: Negative for chills and fever. HENT: Negative. Respiratory: Negative. Negative for cough and shortness of breath. Cardiovascular: Negative. Negative for chest pain/discomfort. Gastrointestinal: Positive for abdominal pain and vomiting. Negative for diarrhea and nausea. Musculoskeletal: Negative for back pain. Skin: Negative for rash. Physical Exam ED Triage Vitals Temp Pulse Resp BP SpO2 -- -- -- -- -- Temp src Heart Rate Source Patient Position BP Location FiO2 (%) -- -- -- -- -- Vitals: 07/31/24 1021 07/31/24 1045 BP: 140/61 136/58 Temp: 36.3 C (97.3 F) Pulse: 57 52 Resp: 18 12 SpO2: 95% 95% MAP (mmHg): 82 Height: 185.4 cm (6' 1 ) Weight: 88 kg (193 lb 14.4 oz) Physical Exam Vitals and nursing note reviewed. Constitutional: Appearance: Normal appearance. He is well-developed. He is not ill-appearing. HENT: Head: Normocephalic and atraumatic. Neck: Trachea: Trachea normal. Cardiovascular: Rate and Rhythm: Normal rate and regular rhythm. Pulses: Normal pulses. Heart sounds: Normal heart sounds, S1 normal and S2 normal. No murmur heard. Pulmonary: Effort: Pulmonary effort is normal. No respiratory distress. Breath sounds: Normal breath sounds. No decreased breath sounds, wheezing, rhonchi or rales. Abdominal: General: Bowel sounds are normal. Palpations: Abdomen is soft. Tenderness: There is no abdominal tenderness. There is no right CVA tenderness, left CVA tenderness, guarding or rebound. Skin: General: Skin is warm and dry. Findings: No rash. Neurological: Mental Status: He is alert. GCS: GCS eye subscore is 4. GCS verbal subscore is 4. GCS motor subscore is 6. Sensory: Sensation is intact. Motor: Motor function is intact. Procedure Procedures Re-Evaluation Re-Evaluation ED Course Clinical Impressions as of 07/31/24 1310 Syncope MDM Medical Decision Making Amount and/or Complexity of Data Reviewed Labs: ordered. Radiology: ordered. ECG/medicine tests: ordered. Risk Prescription drug management. ----- Umer Shrestha (scribe), documented on behalf of Dr. Downey. 11:17 AM Brandon Reardon is a 74 y.o. M presenting to the ED for chief complaint of vomiting. Dr. Downey personally saw and evaluated the patient. Dr. Downey discussed the plan with the VINCENZO/ Resident. Dr. Downey personally made/approved the management plan for this patient and takes responsibility for the patient management. Exam findings as follows: Constitutional: Awake and alert HENT: Normocephalic and atraumatic Eyes: Conjunctiva unremarkable Cardiovascular: Heart rate regular Pulmonary: Easy work of breathing, speaking in full sentences Abdominal: Flat and non-distended. Soft. Skin: Warm and dry Musculoskeletal: Moving all extremities spontaneously Ddx: small bowel obstruction vs gastroenteritis ----- Attestation Provider Statement Evaluation and management services were performed by the RESIDENT CARE PROVIDER/PA-C under my supervision/collaboration with my participation. I have reviewed all pertinent clinical information, including history, physical exam and plan. Provider Statement: By electronically signing this emergency patient record, the Emergency Physician/RESIDENT CARE PROVIDER/PA-C attests that all entries made into the electronic medical record by the scribe prior to the Physician/RESIDENT CARE PROVIDER/PA-C signature reflect an accurate accounting of the evaluation and care rendered by that Emergency Physician/RESIDENT CARE PROVIDER/PA-C. The Emergency Physician/RESIDENT CARE PROVIDER/PA-C assumes full responsibility for those entries. Rosa De Souza APRN-KATHERINE 07/31/24 1017 Rosa De Souza APRN-KATHERINE 07/31/24 1113 Umer Riojas 07/31/24 1121 Umer Riojas 07/31/24 1141 Galileo Downey MD 08/01/24 0904 Bed: 23 Expected date: Expected time: Means of arrival: [facility] M63 Comments: 74M, Projectile chunky vomiting for 3 min, [facility], altered, 147/69, 96%RA, 18, IV in. documented in this encounter [facility] 07-31-2024 Emergency department Note Bed: 23 Expected date: Expected time: [facility]: 74M, Projectile chunky vomiting for 3 min, [facility], altered, 147/69, 96%RA, 18, IV in. [facility] 05-06-2024 History of Presen t illness Narrative Images from the original note were not included. [facility] [address] [place] [id number] Patient: Brandon Reardon Date of : 1950 Encounter Date: 05/06/2024 Patient Care Team: No Pcp No Pcp as PCP - General (Family Medicine) Reason for visit: New Patient for Left Vertebral Artery Occlusion and left M2 Stenosis History of Present Illness: Subjective: Brandon Reardon is a right handed 74 y.o. male with past medical history significant for hypertension, hyperlipidemia, CAD, diabetes mellitus, NPH, and atrial fibrillation on Eliquis who was hospitalized in August of 2023 for worsening stroke symptoms. His MRI brain was negative for acute stroke. His vessel imaging demonstrated left vertebral artery occlusion and left MCA M2 stenosis. Brandon was treated for pneumonia and cholecystitis. At that time he was also found to be in new onset afib. He is currently being maintained on Plavix and statin following his stroke and Eliquis for atrial fibrillation. Brandon is being seen in clinic today as a new patient. Brandon Reardon is seen in clinic today alone. He is not the best historian and some information gained via chart review. Brandon has residual right hemiparesis and dysarthria following his left pontine ischemic stroke. He denies new neurologic symptoms including vision changes, paresthesia, headache, dizziness, or diplopia. He feels his speech is at his baseline. He is currently residing at assisted facility and does not believe he is getting therapy. He presents to clinic in wheelchair but states he can ambulate with walker. He requires assistance with most ADLs except for feeding. He is compliant with his medications including plavix, eliquis and statin. His blood pressure is monitored at facility. It is 141/64 in clinic today. Past Medical, Family, Surgical, and Social History Update: The following portions of the patient's history were reviewed and updated as appropriate: allergies, current medications, past family history, past medical history, past social history, past surgical history and problem list. Review of Systems Review of Systems Constitutional: Negative for decreased appetite, malaise/fatigue, weight gain and weight loss. HENT: Negative for nosebleeds. Eyes: Negative for blurred vision, double vision, vision loss in left eye, vision loss in right eye and visual disturbance. Cardiovascular: Negative for irregular heartbeat, leg swelling, near-syncope, palpitations and syncope. Respiratory: Negative for shortness of breath and sleep disturbances due to breathing. Hematologic/Lymphatic: Negative for bleeding problem. Does not bruise/bleed easily. Skin: Negative for poor wound healing. Musculoskeletal: Negative for falls, muscle cramps, muscle weakness, myalgias and neck pain. Gastrointestinal: Negative for dysphagia. Neurological: Positive for focal weakness. Negative for aphonia, difficulty with concentration, disturbances in coordination, dizziness, headaches, light-headedness, loss of balance, numbness, paresthesias, seizures, sensory change, vertigo and weakness. Psychiatric/Behavioral: Negative for altered mental status, depression and memory loss. The patient does not have insomnia and is not nervous/anxious. Past Medical History: Diagnosis Date RAMYA (acute kidney injury) ([facility]) 08/18/2020 Anxiety Bipolar disorder ([facility]) Diabetes mellitus type 2, controlled ([facility]) 12/31/2023 Hypertension Metabolic encephalopathy No family history on file. Past Surgical History: Procedure Laterality Date CARDIAC SURGERY Current Outpatient Medications Medication Sig Dispense Refill apixaban (ELIQUIS) 5 mg tablet Take 1 tablet (5 mg total) by mouth in the morning and 1 tablet (5 mg total) before bedtime. atorvastatin (LIPITOR) 40 mg tablet Take 1 tablet (40 mg total) by mouth daily. busPIRone (BUSPAR) 5 mg tablet Take 1 tablet (5 mg total) by mouth in the morning and at bedtime Indications: repeated episodes of anxiety. cholecalciferol, vitamin D3, 2,000 units tablet Take 1 tablet (2,000 Units total) by mouth daily. clopidogreL (PLAVIX) 75 mg tablet Take 1 tablet (75 mg total) by mouth in the morning. dilTIAZem CD (CARDIZEM CD) 240 mg 24 hr capsule Take 1 capsule (240 mg total) by mouth in the morning. insulin glargine,hum.rec.anlog (BASAGLAR KWIKPEN U-100 INSULIN) 100 unit/mL (3 mL) insulin pen Inject 26 Units under the skin in the morning. insulin lispro (HumaLOG) 100 unit/mL insulin pen SQ 3 times with meals per scale: 151-200 : 2 units; 201-250 : 4; 251-300 : 6; 301-350 : 8; 351-400 : 10. 1 Box 12 insulin lispro (HumaLOG) 100 unit/mL insulin pen SQ at night per scale: 201-250 : 2 units; 251-300 : 4; 301-350 : 6; 351-400 : 8. 1 Box 12 levalbuterol (XOPENEX) 1.25 mg/0.5 mL nebulizer solution Inhale 0.5 mL (1.25 mg total) by nebulization every 6 (six) hours as needed for wheezing. melatonin (CIRCADIN) tablet Take 1 tablet (3 mg total) by mouth nightly as needed for sleep. metFORMIN (GLUCOPHAGE) 500 mg tablet Take 1 tablet (500 mg total) by mouth in the morning and 1 tablet (500 mg total) before bedtime. metoprolol tartrate (LOPRESSOR) 50 mg tablet Take 1 tablet (50 mg total) by mouth in the morning and 1 tablet (50 mg total) before bedtime. polyethylene glycol (GLYCOLAX) 17 gram packet Take 17 g by mouth in the morning. QUEtiapine (SEROquel) 25 mg tablet Take 0.5 tablets (12.5 mg total) by mouth nightly. sennosides-docusate sodium (SENOKOT-S) 8.6-50 mg Take 2 tablets by mouth nightly. (Patient not taking: Reported on 04/09/2024) sodium chloride 0.9 % injection Irrigate with 10 mL as directed every 12 (twelve) hours. (Patient not taking: Reported on 04/09/2024) No current facility-administered medications for this visit. (All medications reviewed and updated by provider since last office visit or hospitalization) Tobacco History: Social History Tobacco Use Smoking Status Former Smokeless Tobacco Never (If patient a smoker, smoking cessation counseling offered) Social History: Social History Substance and Sexual Activity Alcohol Use Not Currently Allergies: Allergies Allergen Reactions Amlodipine Atorvastatin Other Reaction(s): Muscle pain Ibuprofen Other Reaction(s): Urinary incontinence Metformin Other Reaction(s): Muscle pain Pravastatin Other Reaction(s): Muscle pain Simvastatin Other Reaction(s): Memory impairment Terazosin Dizziness Objective: BP 141/64 Pulse 60 Wt 99.8 kg (220 lb) BMI 29.03 kg/m Last Neuro Imaging: MRI brain:No acute intracranial abnormality. * Severe parenchymal atrophy asymmetrically involving the frontal lobes and temporal lobes. There are additional morphologic features which raise suspicion for normal pressure hydrocephalus. Clinical correlation is recommended. * Severe chronic microangiopathic changes with sequelae of remote ischemia in the left brendon. * Redemonstrated irregularity of the left V4 segment vertebral artery with multiple areas of apparent occlusion. Refer to recently performed CTA head for further characterization. CTA head: Calcified and noncalcified atherosclerotic disease fourth segment left vertebral artery with regions of occlusion. Mild to moderate luminal narrowing fourth segment right vertebral artery secondary to atherosclerotic disease, no complete occlusion however. Basilar artery is well opacified. There is some artifact however there may be subtle high-grade luminal narrowing of the proximal aspect of a left M2 vessel near its origin along the superior division (4/47, 601/79). No complete occlusion however. Distal vasculature remains opacified. CTA carotid findings dictated separately. CTA carotid: Stable exam with patent carotid arteries and right vertebral artery in the neck and diminutive or occluded V4 segment of the left vertebral artery. Physical Exam: Neurology Physical Exam General Appearance: Alert, cooperative, and in no distress Head: Normocephalic, without obvious abnormality, atraumatic Eyes: conjunctivae/corneas clear. PERRL, EOM's intact. Neck: supple, symmetrical, trachea midline Lungs: Non-labored Heart: regular rate per visit vitals Extremities: extremities normal, atraumatic, no cyanosis or edema Skin: Skin color, texture, turgor normal. No rashes or lesions Neurologic: NIH Stroke Scale 1a Level of consciousness: 0=alert; keenly responsive 1b. LOC questions: 2=Performs neither task correctly 1c. LOC commands: 0=Performs both tasks correctly 2. Best Gaze: 0=normal 3. Visual: 0=No visual loss 4. Facial Palsy: 1=Minor paralysis (flattened nasolabial fold, asymmetric on smiling) 5a. Motor left arm: 0=No drift, limb holds 90 (or 45) degrees for full 10 seconds 5b. Motor right arm: 1=Drift, limb holds 90 (or 45) degrees but drifts down before full 10 seconds: does not hit bed 6a. motor left le=No drift, limb holds 90 (or 45) degrees for full 10 seconds 6b Motor right le=Drift, limb holds 90 (or 45) degrees but drifts down before full 10 seconds: does not hit bed 7. Limb Ataxia: 0=Absent 8. Sensory: 0=Normal; no sensory loss 9. Best Language: 0=No aphasia, normal 10. Dysarthria: 1=Mild to moderate, patient slurs at least some words and at worst, can be understood with some difficulty 11. Extinction and Inattention: 0=No abnormality Total: 6 NIHSS6 MRS: 4 PHQ9: Depression Screening Risk Factor Management: Hypertension target range 130-140/70-80 Lipid range - LDL < 70 and checked every 6 months, fasting Diabetes - HgB A1C <7 Assessment/Plan: Patient Active Problem List Diagnosis COVID-19 CAD (coronary artery disease) NSVT (nonsustained ventricular tachycardia) ([facility] Essential hypertension Rhabdomyolysis Other specified diabetes mellitus without complications ([facility]) COVID-19 virus infection Acute cystitis without hematuria RAMYA (acute kidney injury) ([facility]) Metabolic encephalopathy Cerebrovascular accident (CVA) ([facility]) Stroke-like symptoms Cholecystitis, acute Multifocal pneumonia Type 2 diabetes mellitus with hyperglycemia, with long-term current use of insulin ([facility]) Acute metabolic encephalopathy Acute respiratory failure with hypoxia ([facility]) Sepsis with acute respiratory failure ([facility]) Ileus ([facility]) Type 2 diabetes mellitus with hyperglycemia ([facility]) Mixed hyperlipidemia New onset a-fib ([facility]) Brandon Reardon is a right handed 74 y.o. male with past medical history significant for hypertension, hyperlipidemia, CAD, diabetes mellitus, NPH, and atrial fibrillation on Eliquis who was hospitalized in August of 2023 for worsening stroke symptoms. His MRI brain was negative for acute stroke. His vessel imaging demonstrated left vertebral artery occlusion and left MCA M2 stenosis. Brandon was treated for pneumonia and cholecystitis. At that time he was also found to be in new onset afib. He is currently being maintained on Plavix and statin following his stroke and Eliquis for atrial fibrillation. MRI bobby and CTA head and neck independently reviewed and recommended medical management and optimization of risk factors. Left MCA M2 Stenosis and Left Vertebral Artery Occlusion -Imaging independently reviewed. Recommended medical management and optimization of risk factors. -Continue plavix and statin -Advise strict risk factor control -Follow up with PCP for risk factor management -Follow up in stroke clinic as needed Hx of Left Pontine Ischemic Stroke -Continue plavix and statin for stroke prevention -Advise strict risk factor control Hyperlipidemia- low fat/low cholesterol diet -Continue statin therapy -Recommend diet and exercise 4. Hypertension- Advise continuing to monitor for target SBP <130 -Continue antihypertensive regimen 5. Diabetes Mellitus -Recommend strict glycemic control with target hemoglobin A1c less than 7 - SLIM Piedra 05/06/24 4:41 PM In addition I did review the signs/ symptoms of stroke including BE FAST (B) balance issues, (E) acute eye/ vision changes, (F) facial droop, (A) Arm/ leg weakness, (S) speech disturbance and (T) time to call 911 if these symptoms occur. This note was completed using a voice blogs manager system. Every effort was made to ensure accuracy; however, inadvertent computerized blogs manager errors may be present Patient seen & examined in conjunction with [facility]. I have reviewed and agree with the HPI, ROS, examination, assessment and plan as outlined in the note above. documented in this encounter [employer] 05-06-2024 Instructions SLIM Piedra - 05/06/2024 3:30 PM EDT Images from the original note were not included. Patient was evaluated in stroke/ neurovascular clinic today as a new patient. The following was discussed including: Based on today's evaluation I do recommend: Recommend medical management for left MCA M2 stenosis and left chronic vertebral arty occlusion Continue medications as prescribed Monitor blood pressure and blood glucose Advise strict risk factor control Continue to follow up with PCP for risk factor management Follow up in stroke clinic as needed In addition I did review the signs/ symptoms of stroke including BE FAST (B) balance issues, (E) acute eye/ vision changes, (F) facial droop, (A) Arm/ leg weakness, (S) speech disturbance and (T) time to call 911 if these symptoms occur. Follow up is advised : as needed. I recommend that you sign up for MY CHART so that I can send you test results and communicate other information pertaining to the management of your health care. The instructions to gain access to MY CHART are at the bottom of this summary. If you are not signed up for access to MY CHART and have not received notification of ANY test result within 7 days, please call [phone] to leave a request for your results. If you have not been contacted about your test results, do not assume that your test results are normal. If you need to schedule a test such as a CT scan, Ultrasound, MRI or PET scan, please call [facility] Scheduling at [phone]. There are numerous area resources for area stroke and brain aneurysm survivors. To learn more, ask about the FREE Monthly stroke support group or request a stroke support group calendar from the Stroke Clinic. You can also email Stroke Support Group moderator: Reyna Leblanc at [email or web address]. Stroke survivors, family members, caregivers and friends are ALL WELCOME! documented in this encounter [employer] [facility] 04-09-2024 History of Presen t illness Narrative Brandon Reardon Date of visit: 04/09/2024 Date of : 1950 Age: 74 y.o. Patient Active Problem List Diagnosis COVID-19 CAD (coronary artery disease) NSVT (nonsustained ventricular tachycardia) ([facility]) Essential hypertension Rhabdomyolysis Other specified diabetes mellitus without complications ([facility]) COVID-19 virus infection Acute cystitis without hematuria RAMYA (acute kidney injury) ([facility]) Metabolic encephalopathy Cerebrovascular accident (CVA) ([facility]) Stroke-like symptoms Cholecystitis, acute Multifocal pneumonia Type 2 diabetes mellitus with hyperglycemia, with long-term current use of insulin ([facility]) Acute metabolic encephalopathy Acute respiratory failure with hypoxia ([facility]) Sepsis with acute respiratory failure ([facility]) Ileus ([facility]) Type 2 diabetes mellitus with hyperglycemia ([facility]) Mixed hyperlipidemia New onset a-fib ([facility]) Allergies Allergen Reactions Amlodipine Atorvastatin Other Reaction(s): Muscle pain Ibuprofen Other Reaction(s): Urinary incontinence Metformin Other Reaction(s): Muscle pain Pravastatin Other Reaction(s): Muscle pain Simvastatin Other Reaction(s): Memory impairment Terazosin Dizziness Current Outpatient Medications Medication Sig Dispense Refill apixaban (ELIQUIS) 5 mg tablet Take 1 tablet (5 mg total) by mouth in the morning and 1 tablet (5 mg total) before bedtime. atorvastatin (LIPITOR) 40 mg tablet Take 1 tablet (40 mg total) by mouth daily. busPIRone (BUSPAR) 5 mg tablet Take 1 tablet (5 mg total) by mouth in the morning and at bedtime Indications: repeated episodes of anxiety. cholecalciferol, vitamin D3, 2,000 units tablet Take 1 tablet (2,000 Units total) by mouth daily. clopidogreL (PLAVIX) 75 mg tablet Take 1 tablet (75 mg total) by mouth in the morning. dilTIAZem CD (CARDIZEM CD) 240 mg 24 hr capsule Take 1 capsule (240 mg total) by mouth in the morning. insulin glargine,hum.rec.anlog (BASAGLAR KWIKPEN U-100 INSULIN) 100 unit/mL (3 mL) insulin pen Inject 26 Units under the skin in the morning. insulin lispro (HumaLOG) 100 unit/mL insulin pen SQ 3 times with meals per scale: 151-200 : 2 units; 201-250 : 4; 251-300 : 6; 301-350 : 8; 351-400 : 10. 1 Box 12 insulin lispro (HumaLOG) 100 unit/mL insulin pen SQ at night per scale: 201-250 : 2 units; 251-300 : 4; 301-350 : 6; 351-400 : 8. 1 Box 12 levalbuterol (XOPENEX) 1.25 mg/0.5 mL nebulizer solution Inhale 0.5 mL (1.25 mg total) by nebulization every 6 (six) hours as needed for wheezing. melatonin (CIRCADIN) tablet Take 1 tablet (3 mg total) by mouth nightly as needed for sleep. metFORMIN (GLUCOPHAGE) 500 mg tablet Take 1 tablet (500 mg total) by mouth in the morning and 1 tablet (500 mg total) before bedtime. metoprolol tartrate (LOPRESSOR) 50 mg tablet Take 1 tablet (50 mg total) by mouth in the morning and 1 tablet (50 mg total) before bedtime. polyethylene glycol (GLYCOLAX) 17 gram packet Take 17 g by mouth in the morning. QUEtiapine (SEROquel) 25 mg tablet Take 0.5 tablets (12.5 mg total) by mouth nightly. sennosides-docusate sodium (SENOKOT-S) 8.6-50 mg Take 2 tablets by mouth nightly. (Patient not taking: Reported on 04/09/2024) sodium chloride 0.9 % injection Irrigate with 10 mL as directed every 12 (twelve) hours. (Patient not taking: Reported on 04/09/2024) No current facility-administered medications for this visit. Chief Complaint Patient presents with Follow-up HOSPT F/U TTH 01/07-LABS 03/19-ECHO 01/02-VAS VENOUS DUPLEX 01/06 Atrial Fibrillation History of Present Illness Brandon Reardon is a 74-year-old male with a past medical history of hypertension, ASCVD with CABG in 2012, CVA with residual aphasia, hypertension, diabetes mellitus, dyslipidemia, and history of nonsustained ventricular tachycardia as well as SVT with aberrancy in 2019 presenting for post hospital follow up. Patient does have a history of CVA with residual aphasia. He is present today with transport from his facility. He had a hospitalization back in December for altered mental status. He was found to be in acute hypoxic respiratory failure due to healthcare associated pneumonia. He also had a stented gallbladder consistent with cholecystitis. During his hospital admission, patient did have new onset atrial fibrillation with RVR prompting Cardiology consult. He was placed on a heparin drip. He was started on Cardizem and Lopressor to control his heart rate. Patient was transitioned to Eliquis prior to hospital discharge. Patient was not able to provide much of the history. Did confirm with his medication list that he was still on with the Eliquis, metoprolol, and Cardizem. He is heart rate is controlled in the clinic today. Past Medical History: Diagnosis Date RAMYA (acute kidney injury) ([facility]) 08/18/2020 Anxiety Bipolar disorder ([facility]) Diabetes mellitus type 2, controlled ([facility]) 12/31/2023 Hypertension Metabolic encephalopathy No data recorded No data recorded No data recorded Past Surgical History: Procedure Laterality Date CARDIAC SURGERY History reviewed. No pertinent family history. Social History Socioeconomic History Marital status: Spouse name: Not on file Number of children: Not on file Years of education: Not on file Highest education level: Not on file Occupational History Not on file Tobacco Use Smoking status: Former Smokeless tobacco: Never Vaping Use Vaping status: Never Used Substance and Sexual Activity Alcohol use: Not Currently Drug use: Defer Sexual activity: Defer Other Topics Concern Caffeine Use No Social History Narrative Not on file Social Determinants of Health Financial Resource Strain: Not on file Food Insecurity: No Food Insecurity (01/07/2024) Hunger Screening Food Insecurity - Worry: Never True Food Insecurity - Inability: Never True Transportation Needs: No Transportation Needs (01/07/2024) PRAPARE - Transportation Lack of Transportation (Medical): No Lack of Transportation (Non-Medical): No Physical Activity: Not on file Stress: Not on file Social Connections: Not on file Interpersonal Safety: Not At Risk (01/07/2024) Humiliation, Afraid, Rape, and Kick questionnaire Fear of Current or Ex-Partner: No Emotionally Abused: No Physically Abused: No Sexually Abused: No Housing Instability: Low Risk (01/07/2024) Housing Instability Housing Instability: No Review of Systems Review of Systems Reason unable to perform ROS: Unable to be assessed. CARDIOVASCULAR: Please review HPI. Physical Examination General appearance: Alert and cooperative. In no acute distress. Skin: Warm and dry to touch. Head: Normocephalic, without obvious abnormality, atraumatic. Ears, Nose, Mouth, Throat: Dentition intact. Eyes: Conjunctivae unremarkable, EOM intact. Neck: No JVD, No carotid bruit. Neck supple, trachea midline. Respiratory: Clear to auscultation bilaterally, no use of accessory muscles. Cardiovascular: RRR with normal S1 and S2 with no murmurs. Musculoskeletal: No peripheral edema. Neurologic: Oriented to time, person and place, affect appropriate. No focal/major motor defects noted. Psychiatric: Appropriate mood, memory and judgement. VITAL SIGNS: BP 126/66 (BP Site: Left Arm, BP Postition: Sitting, BP CUFF SIZE: M (9-13 inches)) Pulse 58 Ht 185.4 cm (6' 1 ) SpO2 93% BMI 29.03 kg/m No orders of the defined types were placed in this encounter. There are no discontinued medications. IMPRESSIONS/PLAN 1. New onset a-fib ([facility]) 2. Coronary artery disease involving benton coronary artery of benton heart without angina pectoris 3. NSVT (nonsustained ventricular tachycardia) ([facility]) 4. Mixed hyperlipidemia 5. Essential hypertension New onset atrial fibrillation: Patient had new onset atrial fibrillation during recent hospitalization for healthcare acquired pneumonia and cholecystitis. He appears to be in a regular rhythm now. Rate controlled with Lopressor and Cardizem. CHADS-VASc score of 7. Continue Eliquis 5 mg twice daily. I did confirm these medications are all on his list provided by the facility and that they are the correct dosages. ASCVD with remote CABG: Continue atorvastatin and metoprolol NSVT with an aberrancy in 2020. Hyperlipidemia: Continue atorvastatin Hypertension: Well controlled continue antihypertensives. CVA with residual aphasia. Patient was seen when Dr. Kay was present and immediately available in office suite. TODAYS ORDERS No orders of the defined types were placed in this encounter. FOLLOW UP Return in about 6 months (around 10/09/2024). PCP: NO PCP, NO PCP Referring Physician: No referring provider defined for this encounter. Stephanie Hall PA-C 04/09/24 [id number] documented in this encounter [facility] 04-08-[address] [facility] called in to reschedule appointment today 04/08/[address] De La Rosa. Best contact [phone] Resched for 04/22. [facility] called in to cancel and reschedule appointment today 05/02/[address] De La Rosa. Best contact [phone] Called SNF and the line kept ringing/busy. Will try again soon. documented in this encounter [facility] 04-08-[address] [facility] called in to reschedule appointment today 04/08/[address] De La Rosa. Best contact [phone] [facility] 04-08-2024 Telephone encounter Note Resched for 3. [facility] 04-08-2024 Telephone encounter Note [facility] in [place] called in to cancel and reschedule appointment today 05/02/[address] De La Rosa. Best contact [phone] [facility] 04-08-2024 Telephone encounter Note Called SNF and the line kept ringing/busy. Will try again soon. [facility] 03-19-2024 Note IR BILIARY TUBE RODRIGO SHAWANDA W FLUORO Pre-procedure diagnosis: See history below Post-procedure diagnosis: Same as above Assistants/resident: See the technologist's notes above Consent/pre-procedure evaluation: See below. Rillito protocol timeout verification performed. Estimated blood loss: Less than 10 mL Procedure/complications: See below Radiation dosage measurements: See below and see technologist's notes above Conscious sedation: If conscious sedation was administered, preprocedure evaluation for conscious sedation was performed and documented. History: Patient has indwelling cholecystostomy tube. The clinical service wanted evaluated and removed if the cystic duct and common bile duct are patent. Procedure: after explanation of the indications, procedure, risks, possible benefits and alternatives to the procedure to the patient, the patient gave consent. The risks include bleeding, infection, allergic reaction, pain, damage to the gallbladder or abdominal structures. One series of saved fluoroscopy, 9 mGy air kerma radiation, and 0.3 minutes of fluoroscopy time were used. The gallbladder to entry area was sterilely prepped and draped utilizing maximal sterile barrier technique with cap, mask, gown, gloves, sterile field, and chlorhexidine. Contrast was injected through the percutaneous cholecystostomy tube with fluoroscopy save. This demonstrated that the tube was either within the gallbladder or on the outside of the gallbladder. There was extravasation of contrast along the tube to the skin surface. Filling defects within the gallbladder consistent with stones. The cystic duct, nondilated common bile duct are patent. There is good flow through the common bile duct into the duodenum. Accordingly, the tube was removed without incident. A small amount of pus at the tube insertion site was cultured with a swab and sent for culture and sensitivity. Impression: 1. The cystic duct and common bile duct were patent. Accordingly, the gallbladder tube was removed. A small amount of pus at the tube exit site was cultured with a sterile swab and sent for culture and sensitivity. The patient denies any systemic symptoms. Finalized by Galo Brand MD on 03/19/2024 4:00 PM [facility] 01-08-2024 Miscellaneous Notes ----- Message from Birgit Lord MD sent at 01/08/2024 11:33 AM EDT ----- Can we please arrange for follow-up in 4-6 weeks? Thank you Dx: New onset atrial fibrillation [id number] at least 7 Hx of SVT with aberrance HX of NSVT Elevated troponin Trending down Acute hypoxic respiratory failure Intermittent bipap use Multifocal pneumonia Altered mental status ASCVD/CABG 2013 Hx of CVA Hypertension Diabetes type 2 Dyslipidemia Concern for cholecystitis on HIDA PT IS STILL ADMITTED PT STILL ADMITTED Called pt to schedule f/u appt, pt in [facility], transferred to Nurses station to schedule appt. No Answer. JLW Phoned pt to schedule hosp follow up, spoke with staff at [facility] and will have pt's nurse call back to schedule. PHONED [facility], SPOKE WITH STAFF AND WILL GIVE MESSAGE TO NURSE TO HAVE THEM CALL BACK. LETTER MAILED TO [facility] documented in this encounter [facility] 01-08-2024 Telephone encounter Note ----- Message from Birgit Lord MD sent at 01/08/2024 11:33 AM EDT ----- Can we please arrange for follow-up in 4-6 weeks? Thank you Dx: New onset atrial fibrillation [id number] at least 7 Hx of SVT with aberrance HX of NSVT Elevated troponin Trending down Acute hypoxic respiratory failure Intermittent bipap use Multifocal pneumonia Altered mental status ASCVD/CABG 2013 Hx of CVA Hypertension Diabetes type 2 Dyslipidemia Concern for cholecystitis on HIDA [facility] 01-08-2024 Telephone encounter Note PT IS STILL ADMITTED [facility] 01-08-2024 Telephone encounter Note PT STILL ADMITTED [facility] 01-08-2024 Telephone encounter Note Called pt to schedule f/u appt, pt in [facility], transferred to Nurses station to schedule appt. No Answer. GWENW [facility] 01-08-2024 Telephone encounter Note Phoned pt to schedule hosp follow up, spoke with staff at [facility] and will have pt's nurse call back to schedule. [facility] 01-08-2024 Telephone encounter Note PHONED [facility], SPOKE WITH STAFF AND WILL GIVE MESSAGE TO NURSE TO HAVE THEM CALL BACK. [facility] 01-08-2024 Telephone encounter Note LETTER MAILED TO [facility] Evaluation note Diagnosis Cerebrovascular accident (CVA), unspecified mechanism ([facility] Metabolic encephalopathy Bipolar affective disorder, remission status unspecified ([facility]) documented in this encounter [facility] Diagnosis Metabolic encephalopathy- Primary Cerebrovascular accident (CVA), unspecified mechanism ([facility]) Essential hypertension Unspecified essential hypertension Anxiety Anxiety state, unspecified Bipolar affective disorder, remission status unspecified ([facility]) documented [facility] this encounter [facility]* Diagnosis New onset a-fib ([facility] Primary Atrial fibrillation Coronary artery disease involving benton coronary artery of benton heart without angina pectoris NSVT (nonsustained ventricular tachycardia) ([facility]) Mixed hyperlipidemia Essential hypertension Unspecified essential hypertension documented in this encounter [facility]* Diagnosis Cerebrovascular accident (CVA), unspecified mechanism ([facility] Primary [facility] Diagnosis Syncope- Primary Syncope and collapse Syncope Syncope and collapse Vasovagal episode Syncope and collapse [facility] Diagnosis Vasovagal syncope- Primary Syncope and collapse Metabolic encephalopathy Type 2 diabetes mellitus with hyperglycemia, with long-term current use of insulin ([facility]) Essential hypertension Unspecified essential hypertension Cerebrovascular accident (CVA), unspecified mechanism ([facility]) Coronary artery disease involving benton coronary artery of benton heart without angina pectoris Mixed hyperlipidemia [facility] Diagnosis Cerebrovascular accident (CVA), unspecified mechanism ([facility])- Primary Type 2 diabetes mellitus with hyperglycemia, with long-term current use of insulin ([facility]) Metabolic encephalopathy Mixed hyperlipidemia Neoplasm of uncertain behavior of skin documented in this encounter [facility]* Diagnosis Metabolic encephalopathy- Primary Sepsis with acute hypoxic respiratory failure without septic shock, due to unspecified organism ([facility]) Cerebrovascular accident (CVA), unspecified mechanism ([facility]) Essential hypertension Unspecified essential hypertension documented in this encounter [facility]* Diagnosis Essential hypertension- Primary Unspecified essential hypertension Cerebrovascular accident (CVA), unspecified mechanism ([facility]) Anxiety Anxiety state, unspecified Bipolar affective disorder, remission status unspecified ([facility]) documented in this encounter [facility]* Diagnosis Cerebrovascular accident (CVA), unspecified mechanism ([facility] Primary Essential hypertension Unspecified essential hypertension Metabolic encephalopathy Anxiety Anxiety state, unspecified Bipolar affective disorder, remission status unspecified ([facility]) Dry skin Other symptoms involving skin and integumentary tissues documented in this encounter [facility]* Diagnosis Metabolic encephalopathy- Primary Essential hypertension Unspecified essential hypertension Pressure injury of skin of sacral region, unspecified injury stage documented in this encounter [facility]* Diagnosis Essential hypertension- Primary Unspecified essential hypertension Cerebrovascular accident (CVA), unspecified mechanism ([facility]) Metabolic encephalopathy documented in this encounter [facility]* Diagnosis Metabolic encephalopathy- Primary Type 2 diabetes mellitus with hyperglycemia, with long-term current use of insulin ([facility]) Pressure injury of skin of sacral region, unspecified injury stage Bipolar affective disorder, remission status unspecified ([facility]) documented in this encounter [facility]* Diagnosis Type 2 diabetes mellitus with hyperglycemia, with long-term current use of insulin ([facility] Primary Metabolic encephalopathy Bipolar affective disorder, remission status unspecified ([facility]) Essential hypertension Unspecified essential hypertension documented in this encounter [facility]* Diagnosis Essential hypertension- Primary Unspecified essential hypertension Cerebrovascular accident (CVA), unspecified mechanism ([facility]) Type 2 diabetes mellitus with hyperglycemia, with long-term current use of insulin ([facility]) [facility] Discharge instructionsNot on filedocumented in this encounterProLouis [facility] SystemInstructionsNot on filedocumented in this encounterProLouis [facility] SystemInstructionsNot on filedocumented in this encounterProOhiohealth Van [facility] HospitalInstructionsNot on filedocumented in this encounterProOhiohealth Van Wert HospitalInstructionsNot on filedocumented in this encounterProOhiohealth Van W[facility] HospitalInstructionsNot on filedocumented in this encounterProLouis [facility] SystemInstructionsNot on filedocumented in this encounterSt. [facility] SystemInstructionsNot on filedocumented in this encounterSt. [facility] Summary Purpose Family History No Family History Records FoundNo Family History Records FoundNo Family History Records FoundNo Family History Records Found Advance Directives Documents on File Type Date Recorded Patient Software Development Leader Expl anation DNR Physician Order 01/16/2024 11:58 AM Date Activated Date Inactivated Comments 01/09/2024 10:03 AM 01/12/2024 7:36 PM Date Activated Date Inactivated Comments 01/01/2024 11:11 AM 01/09/2024 10:03 AM Date Activated Date Inactivated Comments 09/17/2023 2:03 PM 09/21/2023 4:45 AM Date Activated Date Inactivated Comments 06/02/2021 7:54 PM 06/06/2021 3:37 PM Date Activated Date Inactivated Comments 08/18/2020 4:57 AM 08/26/2020 11:43 PM Latest Code Status on File Code Status Date Activated Date Inactivated Comments DNR Comfort Care Arrest (DNR-CCA) [place] 01/09/2024 10:03 AM 01/12/2024 7:36 PM Code Status History Code Status Date Activated Date Inactivated Comments Full Code 01/01/2024 11:11 AM 01/09/2024 10:03 AM Full Code 09/17/2023 2:03 PM 09/21/2023 4:45 AM Full Code 06/02/2021 7:54 PM 06/06/2021 3:37 PM Full Code 08/18/2020 4:57 AM 08/26/2020 11:43 PM Date Activated Date Inactivated Comments 07/31/2024 2:42 PM 08/03/2024 5:12 PM Date Activated Date Inactivated Comments 01/09/2024 10:03 AM 01/12/2024 7:36 PM Date Activated Date Inactivated Comments 01/01/2024 11:11 AM 01/09/2024 10:03 AM Date Activated Date Inactivated Comments 09/17/2023 2:03 PM 09/21/2023 4:45 AM Date Activated Date Inactivated Comments 06/02/2021 7:54 PM 06/06/2021 3:37 PM Documents on File Type Date Recorded Patient Software Development Leader Lyndsey taylor DNR Physician Order 01/16/2024 11:58 AM Date Activated Date Inactivated Comments 07/31/2024 2:42 PM 08/03/2024 5:12 PM Date Activated Date Inactivated Comments 01/09/2024 10:03 AM 01/12/2024 7:36 PM Date Activated Date Inactivated Comments 01/01/2024 11:11 AM 01/09/2024 10:03 AM Date Activated Date Inactivated Comments 09/17/2023 2:03 PM 09/21/2023 4:45 AM Date Activated Date Inactivated Comments 06/02/2021 7:54 PM 06/06/2021 3:37 PM Reason for Referral Specialty Diagnoses / Procedures Referred By Contac t Referred To Contact Diagnoses Vasovagal episode Procedures Follow-up with primary care provider Janet Sanderson MD [address], [facility] [address] [place] [address] Referral ID Status Reason Start Date Expiration Date V isits Requested Visits Authorized [id number] Pending Review 08/03/2024 08/03/2025 1 1 Specialty Diagnoses / Procedures Referred By Contac t Referred To Contact Occupational Therapy Diagnoses Vasovagal episode Janet Sanderson MD [address], [facility] [address] [place] [address] Referral ID Status Reason Start Date Expiration Date Visits Requested Visits Authorized [id number] Pending Review Specialty Services Required 02/01/2025 12 12 Specialty Diagnoses / Procedures Referred By Contac t Referred To Contact Rehabilitation Diagnoses Vasovagal episode Janet Sanderson MD [address], [facility] [address] [place] [address] Referral ID Status Reason Start Date Expiration Date Visits Requested Visits Authorized [id number] Pending Review Specialty Services Required 02/01/2025 12 12 Specialty Diagnoses / Procedures Referred By Contac t Referred To Contact Diagnoses Vasovagal episode Janet Sanderson MD [address], [facility] [address] [place] [address] Referral ID Status Reason Start Date Expiration Date V isits Requested Visits Authorized [id number] Pending Review 08/03/2024 08/03/2025 1 1 Specialty Diagnoses / Procedures Referred By Contac t Referred To Contact Procedures Adult diet Janet Sanderson MD [address], [address] [address] [place] [address] Referral ID Status Reason Start Date Expiration Date V isits Requested Visits Authorized [id number] Pending Review 08/03/2024 08/03/2025 1 1 Additional Source Comments (unrecognized sect ion and content) No Status Records FoundNo Status Records FoundNo Status Records FoundNo Status Records Found INFORMATION SOURCE (unrecogn ized section and content) DATE CREATED AUTHOR 06/01/2019 [facility] DATE CREATED AUTHOR AUTHOR'S ORGANIZ ATION 06/06/2023 [facility] DATE CREATED AUTHOR AUTHOR'S ORGANIZ ATION 05/10/2024 [facility] DATE CREATED AUTHOR AUTHOR'S ORGANIZ ATION 01/22/2025 [facility] Care Teams (unrecognized sec tion and content) Receiving Clerk Relationship Specialty Start Date End Date No Pcp, [place] [address] PCP - General Family Medicine 09/17/23 Receiving Clerk Relationship Specialty Start Date End Date No Pcp, [place] [address] PCP - General Family Medicine 09/17/23 Receiving Clerk Relationship Specialty Start Date End Date No Pcp, [place] [address] PCP - General Family Medicine 09/17/23 Receiving Clerk Relationship Specialty Start Date End Date No Pcp, [place] [address] PCP - General Family Medicine 09/17/23 Receiving Clerk Relationship Specialty Start Date End Date No Pcp, [place] [address] PCP - General Family Medicine 09/17/23 Receiving Clerk Relationship Specialty Start Date End Date No Pcp, [place] [address] PCP - General Family Medicine 09/17/23 Receiving Clerk Relationship Specialty Start Date End Date No Pcp, [place] [address] PCP - General Family Medicine 09/17/23 Receiving Clerk Relationship Specialty Start Date End Date No Pcp, [place] [address] PCP - General Family Medicine 09/17/23 Receiving Clerk Relationship Specialty Start Date End Date No Pcp, [place] [address] PCP - General Family Medicine 09/17/23 Reason for Visit (unrecogniz ed section and content) Reason Comments Follow-up HOSPT F/U TTH 01/07-L ABS 03/19-ECHO 01/02-VAS VENOUS DUPLEX 01/06 Atrial Fibrillation Reason Onset Date Comments Reschedule 04/08/2024 Reason Onset Date Comments Hospital Follow-up 01/08/2024 Reason Comments Vomiting Specialty Diagnoses / Procedures Referred By Contac t Referred To Contact Diagnoses Syncope Janet Sanderson MD [address] [facility] , [address] [address] Referral ID Status Reason Start Date Expiration Date Visits Re quested Visits Authorized [id number] 1 1 Scheduled Active and Recently Administ ered Medications (unrecognized section and content) Medication Order 08/01/2024 08/02/2024 08/03/2024 apixaban (ELIQUIS) tablet 5 mg 5 mg, oral, 2 times daily, First dose on Sat07/31/24 at 2100, Indication: Nonvalvular Atrial Fibrillation (NVAF) 0848 (Given - Provider: Elias Santana, CHANDLER)2011 (Given - Provider: María Elena Matthew, CHANDLER) 100 (Given - Provider: Moreno Murry, CHANDLER)2123 (Given - Provider: Ronnie Luque RN) 0841 (Given - Provider: Felicita Victoria, CHANDLER) atorvastatin (LIPITOR) tablet 40 mg 40 mg, oral, Nightly, First dose on Sat07/31/24 at 2200, Look-alike/sound-alike medication - verify indication for use. 2011 (Given - Provider: María Elena Matthew RN) 2123 (Given - Provider: Ronnie Luque, CHANDLER) busPIRone (BUSPAR) tablet 5 mg 5 mg, oral, 2 times daily, First dose on Sat07/31/24 at 2100, Look-alike/sound-alike medication - verify indication for use. Avoid grapefruit juice. 0848 (Given - Provider: Elias Santana, RN)2011 (Given - Provider: María Elena Matthew RN) 1001 (Given - Provider: Moreno Murry RN)2123 (Given - Provider: Ronnie Luque, CHANDLER) 0841 (Given - Provider: Felicita Victoria, RN) cholecalciferol (VITAMIN D3) tablet 2,000 Units 2,000 Units, oral, Daily, First dose on Sat08/02/24 at 0915, 1000 units = 25 mcg 1001 (Given - Provider: Moreno Murry RN) 0841 (Given - Provider: Felicita Victoria, RN) clopidogreL (PLAVIX) tablet 75 mg 75 mg, oral, Daily, First dose on Sat07/31/24 at 1500, Look-alike/sound-alike medication - verify indication for use. 0848 (Given - Provider: Elias Santana RN) 1001 (Given - Provider: Moreno Murry RN) 0841 (Given - Provider: Felicita Victoria, RN) dilTIAZem CD (CARDIZEM CD) 24 hr capsule 180 mg 180 mg, oral, Daily, First dose (after last modification) on 08/02/24 at 0915, Hold if SBP < 110 or HR < 60 Look-alike/sound-alike medication - verify indication for use. Do not crush or chew. 1002 (Given - Provider: Moreno Murry, CHANDLER) 0841 (Given - Provider: Felicita Victoria, RN) insulin lispro (HumaLOG) injection 1-5 Units (CANCELED) 1-5 Units, subcutaneous, Every 6 hours, First dose on Sat07/31/24 at 1500, Daytime hyperglycemia dosing. For blood glucose 151-200 mg/dL, give 1 unit. For blood glucose 201-250 mg/dL, give 2 units. For blood glucose 251-300 mg/dL, give 3 units. For blood glucose 301-350 mg/dL, give 4 units. For blood glucose 351-400 mg/dL, give 5 units. Give even if NPO or meals skipped. Do NOT give more often than every 4 hours when NPO. Notify prescriber if blood glucose greater than 400 mg/dL. Look-alike/sound-alike medication - verify indication for use. Prime with 2 units of insulin prior to administration. Prandial/supplemental Insulin. Pre-filled pens stable 28 days at room temperature. Insulin lispro should be administered within 15 minutes before or immediately after a meal. 0300 (Not Given - Provider: María Elena Matthew RN - Reason: Order parameters not met)0900 (Not Given - Provider: Elias Santana RN - Reason: Order parameters not met)1513 (Given - Provider: Elias Santana, RN)2015 (Given - Provider: María Elena Matthew RN) 0300 (Not Given - Provider: María Elena Matthew RN - Reason: Patient/family refused - Comment: bs [phone])0900 (Not Given - Provider: Moreno Murry RN - Reason: Other - Comment: fsbs [phone])1716 (Given - Provider: Moreno Murry RN) insulin lispro (HumaLOG) injection 1-5 Units 1-5 Units, subcutaneous, 4 times daily with meals and nightly, First dose (after last modification) on 08/02/24 at 2200, Daytime hyperglycemia dosing. For blood glucose 151-200 mg/dL, give 1 unit. For blood glucose 201-250 mg/dL, give 2 units. For blood glucose 251-300 mg/dL, give 3 units. For blood glucose 301-350 mg/dL, give 4 units. For blood glucose 351-400 mg/dL, give 5 units. Give even if NPO or meals skipped. Do NOT give more often than every 4 hours when NPO. Notify prescriber if blood glucose greater than 400 mg/dL. Look-alike/sound-alike medication - verify indication for use. Prime with 2 units of insulin prior to administration. Prandial/supplemental Insulin. Pre-filled pens stable 28 days at room temperature. Insulin lispro should be administered within 15 minutes before or immediately after a meal. 4 (Given - Provider: Ronnie Luque RN - Comment: BS [phone]) 0842 (Given - Provider: Felicita Henney, RN)1200 (Not Given - Provider: Felicita Victoria RN - Reason: Order parameters not met) polyethylene glycol (GLYCOLAX) packet 17 g 17 g, oral, Daily, First dose on Sat07/31/24 at 1500, Look-alike/sound-alike medication - verify indication for use. Dissolve 1 packet (17 gm) in 8 ounces of water, juice, soda, coffee or tea. 0847 (Given - Provider: Elias Santana RN) 1001 (Given - Provider: Moreno Murry RN) 1200 (Due - Provider: Felicita Victoria RN) Continuous Medication Order 08/01/2024 08/02/2024 08/03/2024 sodium chloride 0.9 % infusion () 75 mL/hr, intravenous, Continuous, Starting on Sat07/31/24 at 1515, For 10 hours 0356 (Rate/Dose Verify - Provider: María Elena Matthew, CHANDLER)0400 (Stop Bag - Provider: María Elena Matthew, CAHNDLER) PRN Medication Order 08/01/2024 08/02/2024 08/03/2024 bisacodyL (DULCOLAX) suppository 10 mg 10 mg, rectal, Daily PRN, constipation, Starting on Sat07/31/24 at 1448, Look-alike/sound-alike medication - verify indication for use. dextrose (GLUTOSE) 40 % gel 15 g 15 g, oral, As needed, low blood sugar, blood glucose less than 70 mg/dL, Starting on Sat07/31/24 at 1444, If patient conscious and taking PO. If blood glucose is not greater than 70 mg/dL after initial treatment, repeat treatment. dextrose 50 % in water (D50W) 50% solution 25 mL 25 mL, intravenous, As needed, low blood sugar, blood glucose less than 70 mg/dL and unconscious or NPO with IV access, Starting on Sat07/31/24 at 1444, Push over 1-3 minutes STAT. If conscious and not NPO, immediately follow with meal tray or high protein (7 grams) snack if tray not available. If NPO, initiate 5% dextrose in water at 100 mL/hr and contact prescriber for additional orders. If blood glucose is not greater than 70 mg/dL after initial treatment, repeat treatment. VESICANT (RED) Warning: HYPERTONIC solution. glucagon HCL injection 1 mg 1 mg, intramuscular, As needed, low blood sugar, blood glucose less than 70 mg/dL and unconscious or NPO without IV access., Starting on Sat07/31/24 at 1444, If conscious and not NPO, immediately follow with meal tray or high protein (7Grams) snack if tray not available. If NPO, initiate IV 5% Dextrose/Water at 100 mL/hr and contact prescriber for additional orders. If blood glucose is not greater than 70 mg/dL after initial treatment, repeat treatment. levalbuterol (XOPENEX) nebulizer solution 1.25 mg 1.25 mg, nebulization, Every 6 hours PRN, wheezing, Starting on Sat08/02/24 at 0906, Ordered in place of albuterol due to: tachycardia, Implement INPATIENT/ED Bronchodilator Clinical Practice Guidelines? Yes, Document: \[facility].org\epic\EP IC_Reference\Orders\Respirat ory Care Guidelines\CPG Bronchodilator 2016.pdf magnesium sulfate IVPB 2000 mg/50 mL in iso-osmotic water (40 mg/mL premix) 2,000 mg, intravenous, at 25 mL/hr, Administer over 120 Minutes, As needed, Magnesium level 1.7 to 1.9 mg/dL, or Ionized Magnesium level 0.45 to 0.5 mmol/L., Starting on 08/01/24 at 1711, Recheck magnesium level 4 hours after infusion complete. With each magnesium result continue the replacement orders as needed. 174 (New Bag - Provider: Elias Santana RN)1911 (Stop Bag - Provider: Anjali Brandt RN) 1008 (New Bag - Provider: Moreno Murry, CHANDLER)1208 (Stop Bag - Provider: Moreno Murry, CHANDLER) magnesium sulfate IVPB 4000 mg/100 mL in iso-osmotic water (40 mg/mL premix) 4,000 mg, intravenous, at 25 mL/hr, Administer over 240 Minutes, As needed, Magnesium level 1.6 mg/dL or less, or Ionized Magnesium level 0.44 mmol/L or less, Starting on 08/01/24 at 1711, Recheck magnesium level 4 hours after infusion complete. With each magnesium result continue the replacement orders as needed. melatonin (CIRCADIN) tablet 3 mg 3 mg, oral, Nightly PRN, sleep, Starting on 08/02/24 at 0906 potassium chloride (K-TAB,KLOR-CON) CR tablet 30-50 mEq(Linked Group 1) 30-50 mEq, oral, As needed, potassium supplementation, Starting on 08/01/24 at 1711, Progress to oral potassium replacement when patient tolerating oral intake. If dose administered, recheck potassium level 4 hours after last dose. For potassium level 3.4 to 3.8 mmol/L and GFR 30 mL/min or greater=30 mEq. For potassium level 3.1 to 3.3 mmol/L and GFR 30 mL/min or greater=40 mEq. For potassium level 3 mmol/L or less and GFR 30 mL/min or greater=50 mEq. Do not crush or chew. potassium chloride (KAYCIEL) 20 mEq/15 mL solution 30-50 mEq(Linked Group 1) 30-50 mEq, oral, As needed, potassium supplementation, Starting on 08/01/24 at 1711, Progress to oral potassium replacement when patient tolerating oral intake. If dose administered, recheck potassium level 4 hours after last dose. For potassium level 3.4 to 3.8 mmol/L and GFR 30 mL/min or greater=30 mEq. For potassium level 3.1 to 3.3 mmol/L and GFR 30 mL/min or greater=40 mEq. For potassium level 3 mmol/L or less and GFR 30 mL/min or greater=50 mEq. Must dilute before use - Mix in 3-8 ounces of water or juice before administration When administering in feeding tube, flush before and after per policy and monitor potassium levels sod phos di, mono-K phos mono (K-PHOS NEUTRAL) 250 mg tablet 2 tablet(Linked Group 2) 2 tablet, oral, As needed, for phosphorus level 2.3 mg/dL or less., Starting on 08/01/24 at 1711, If dose administered, recheck phosphorus level 4 hours after last dose. Look-alike/sound-alike medication - verify indication for use. Give with a full glass of water. sodium chloride 0.9 % flush 10 mL 10 mL, intravenous, As needed, line care, Starting on Sat07/31/24 at 1138 sodium chloride 0.9 % flush 3 mL 3 mL, intravenous, As needed, line care, before and after each intermittent use, Starting on Sat07/31/24 at 1017 sodium chloride 0.9 % flush bag 25 mL, intravenous, at 100 mL/hr, Administer over 15 Minutes, As needed, line care, line care after IVPB administration, Starting on Sat07/31/24 at 1444 sodium phosphate 20 mmol in sodium chloride 0.9 % 100 mL IVPB(Linked Group 2) 20 mmol, intravenous, at 26.7 mL/hr, Administer over 4 Hours, As needed, for phosphorus level 2.3 mg/dL or less., Starting on 08/01/24 at 1711, Administer over 4 hours via dedicated line (central line). If administered, recheck phosphorus level 4 hours after infusion complete. Infuse using central line access. sodium phosphate 20 mmol in sodium chloride 0.9 % 250 mL IVPB(Linked Group 2) 20 mmol, intravenous, at 42.8 mL/hr, Administer over 6 Hours, As needed, for phosphorus level 2.3 mg/dL or less, Starting on 08/01/24 at 1711, Administer over 6 hours via dedicated line (peripheral line). If administered, recheck phosphorus level 4 hours after infusion complete. Linked Groups Order Group 1: potassium chloride (K-TAB,KLOR-CON) CR tablet 30-50 mEqJump to med 30-50 mEq, oral, As needed, potassium supplementation, Starting on 08/01/24 at 1711, Progress to oral potassium replacement when patient tolerating oral intake. If dose administered, recheck potassium level 4 hours after last dose. For potassium level 3.4 to 3.8 mmol/L and GFR 30 mL/min or greater=30 mEq. For potassium level 3.1 to 3.3 mmol/L and GFR 30 mL/min or greater=40 mEq. For potassium level 3 mmol/L or less and GFR 30 mL/min or greater=50 mEq. Do not crush or chew. Or potassium chloride (KAYCIEL) 20 mEq/15 mL solution 30-50 mEqJump to med 30-50 mEq, oral, As needed, potassium supplementation, Starting on 08/01/24 at 1711, Progress to oral potassium replacement when patient tolerating oral intake. If dose administered, recheck potassium level 4 hours after last dose. For potassium level 3.4 to 3.8 mmol/L and GFR 30 mL/min or greater=30 mEq. For potassium level 3.1 to 3.3 mmol/L and GFR 30 mL/min or greater=40 mEq. For potassium level 3 mmol/L or less and GFR 30 mL/min or greater=50 mEq. Must dilute before use - Mix in 3-8 ounces of water or juice before administration When administering in feeding tube, flush before and after per policy and monitor potassium levels Group 2: sodium phosphate 20 mmol in sodium chloride 0.9 % 250 mL IVPBJump to med 20 mmol, intravenous, at 42.8 mL/hr, Administer over 6 Hours, As needed, for phosphorus level 2.3 mg/dL or less, Starting on 08/01/24 at 1711, Administer over 6 hours via dedicated line (peripheral line). If administered, recheck phosphorus level 4 hours after infusion complete. Or sodium phosphate 20 mmol in sodium chloride 0.9 % 100 mL IVPBJump to med 20 mmol, intravenous, at 26.7 mL/hr, Administer over 4 Hours, As needed, for phosphorus level 2.3 mg/dL or less., Starting on 08/01/24 at 1711, Administer over 4 hours via dedicated line (central line). If administered, recheck phosphorus level 4 hours after infusion complete. Infuse using central line access. Or sod phos di, mono-K phos mono (K-PHOS NEUTRAL) 250 mg tablet 2 tabletJump to med 2 tablet, oral, As needed, for phosphorus level 2.3 mg/dL or less., Starting on 08/01/24 at 1711, If dose administered, recheck phosphorus level 4 hours after last dose. Look-alike/sound-alike medication - verify indication for use. Give with a full glass of water. FOR RECORDS PERTAINING TO PATIENTS WHO ARE OR HAVE BEEN ENROLLED IN A CHEMICAL DEPENDENCY/SUBSTANCEABUSE PROGRAM, SOME INFORMATION MAY BE OMITTED. This clinical summary was aggregated from multiple sources. Caution should be exercised in using it in the provision of clinical care. This summary normalizes information from multiple sources, and as a consequence, information in this document may materially change the coding, format and clinical context of patient data. In addition, data may be omitted in some cases. CLINICAL DECISIONS SHOULD BE BASED ON THE PRIMARY CLINICAL RECORDS. [employer] [facility]. provides no warranty or guarantee of the accuracy or completeness of information in this document.
--- NOTE | 2025-04-08 21:19 | ECG_ITS ---
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 Measurements Intervals [place] Rate: 171 P: -03659 NE: -92482 QRS: -49 QRSD: 116 T: 101 QT: 334 QTc: 426 Interpretive Statements 40334 Atrial fibrillation with rapid ventricular response 3114 Cannot rule out anterior myocardial infarction, age undetermined 3634 Inferior myocardial infarction, age undetermined [address] depression, probably digitalis effect 9150 abnormal ECG No previous ECG available for comparison Electronically Signed On 04-09-2025 19:27:38 EDT by LUCIO CALLOWAY M.D.
--- NOTE | 2025-04-08 21:19 | CT_ITS ---
The [address] [address] Patient Name: LISSETT VU MRN: [id number] date: 1950 Sex: M Assigned Patient Location: ED.MAIN Current Patient Location: ED.MAIN Accession/Order Number: [id number] Exam Date: 04/08/2025 22:21 Report Date: 04/08/2025 22:30 At the request of: JACKIE HENRY DO Procedure: CT abdomen pelvis w con CT abdomen pelvis w con 04/08/2025 10:10 PM SIGNS AND SYMPTOMS: obstruction GI bleeding TECHNIQUE: Multidetector ct axial images of the abdomen and pelvis were obtained with IV contrast. Multiplanar reformats were performed and reviewed to further define anatomy and possible pathology. CT was performed with one or more of the following dose reduction techniques: Automated exposure control, adjustment of the mA and/or kV according to patient size, or use of iterative reconstruction technique. COMPARISON: None. FINDINGS: Lower Chest: Atherosclerotic changes are noted in the thoracic aorta and coronary arteries. ABDOMEN: Liver: The liver is hypoattenuating suggesting hepatic steatosis. Bile Ducts: Normal caliber. Gallbladder: No calcified gallstones. Normal caliber wall. Pancreas: Within normal limits. Spleen: Within normal limits. Adrenals: Within normal limits. Kidneys: There is a 6 mm obstructing stone in the left renal collecting system. Multiple radiodense stones are noted in the left renal pelvis and proximal ureter measuring up to 1.2 cm in greatest dimension. Pelvis: Reproductive Organs: No pelvic masses. Ureters: As above. No distal ureteral stones are visualized. Bladder: Dependently layering stones are noted in the bladder. Bowel: Normal caliber. There is a normal appendix in the right lower quadrant. Mesenteric Lymph Nodes: No enlarged mesenteric lymph nodes. Peritoneum: No ascites or free air, no fluid collection. Vessels: Atherosclerotic changes are noted throughout the abdominal aorta and its branches. Retroperitoneum: Within normal limits. Abdominal Wall: Within normal limits. Bones: Degenerative changes are noted in the thoracic lumbar spine, hips, and sacroiliac joints. CT/CT abdomen pelvis w con IMPRESSION: There is a 6 mm obstructing stone in the left renal collecting system. Multiple radiodense stones are noted in the left renal pelvis and proximal ureter measuring up to 1.2 cm in greatest dimension. Additional stones are noted dependently layering in the bladder. No bowel obstruction or obstructive uropathy. No mass or abnormal enhancement. Findings suggest hepatic steatosis. Impression dictated by: Axel Segovia M.D. 04/08/2025 10:30 PM Dictation Location: [place] [address] Electronically authenticated by: [id number] Y Date: 04/08/2025 22:30
--- NOTE | 2025-04-08 21:25 | PC.NURSE ---
oxygen level fell to 89% on room air when patient fell asleep. Oxygen was initiated at 2LPM/NC, now 97%.
[2025-04-08 21:31] LABS: Basophils Absolute Auto 0.1 10^3/uL (0.0-0.1); Basophils Percent Auto 0.5 % (0.2-2.0); Eosinophils Absolute Auto 0.1 10^3/uL (0.0-0.7); Eosinophils Percent Auto 0.5 % (0.9-7.0); Hematocrit 52.3 % (42.0-54.0); Hemoglobin 17.6 g/dL (14.0-18.0); Immature Granulocytes Abs Auto 0.15 10^3/uL (0.00-0.03); Immature Granulocytes Pct Auto 0.7 % (0.0-0.5); Lymphocytes Absolute Auto 2.4 10^3/uL (1.2-3.8); Mean Corpuscular HGB Conc 33.7 g/dL (29.9-35.2); Mean Corpuscular Hemoglobin 28.5 pg (25.9-34.0); Mean Corpuscular Volume 84.8 fL (80.0-94.0); Monocytes Absolute Auto 1.2 10^3/uL (0.3-0.8); Monocytes Percent Auto 5.4 % (1.7-12.0); Neutrophils Absolute Auto 17.6 10^3/uL (1.4-6.5); Neutrophils Percent Auto 81.9 % (43.0-75.0); Platelet Count 354 10^3/uL (150-450); Red Blood Count 6.17 10^6/uL (4.70-6.10); Red Cell Distribution Width 14.5 % (11.0-15.0); White Blood Count 21.5 10^3/uL (4.0-11.0)
[2025-04-08] MEDS: 0.9 % SODIUM CHLORIDE 1,000 ML 100 ML IV (21:40)
[2025-04-08] MEDS: PANTOPRAZOLE SODIUM 40 MG VIAL IV (21:40)
[2025-04-08 21:43] LABS: INR 1.02; Prothrombin Time 10.8 sec (9.0-11.6)
[2025-04-08 21:46] LABS: Anion Gap 19.6
[2025-04-08] MEDS: ONDANSETRON PF 4 MG/2 ML VIAL IV (21:46)
[2025-04-08 21:49] LABS: Alanine Aminotransferase 56 U/L (16-63); Albumin Level 3.9 g/dL (3.4-5.0); Alkaline Phosphatase 116 U/L (46-116); Aspartate Amino Transferase 32 U/L (15-37); BUN Creatinine Ratio 29.7; Bilirubin Total 0.7 mg/dL (0.2-1.0); Carbon Dioxide 22.9 mmol/L (21.0-32.0); Chloride 102 mmol/L (98-107); Estimated GFR (African America >60 (>=60 mL/min/1.73m^2); Estimated GFR (Non-African Ame >60 (>=60 mL/min/1.73m^2); Globulin 4.1 g/dL; Glucose 263 mg/dL (74-106); Magnesium 1.9 mg/dL (1.8-2.4); Potassium 4.5 mmol/L (3.5-5.1); Sodium 140 mmol/L (136-145); Troponin I High Sensitivity 34.8 pg/mL (4.0-76.1)
[2025-04-08] MEDS: DILTIAZEM HCL 25 MG/5 ML VIAL 10 MG IV (21:55)
[2025-04-08] MEDS: dilTIAZem HCL 125 MG in 0.9 % SODIUM CHLORIDE 100 ML 10 MG IV (21:56)
--- NOTE | 2025-04-08 23:32 | ED.GENADUL1 ---
HPI HPI - General Adult General Chief complaint: GI Bleed Stated complaint: GI BLEED Time Seen by Provider: 04/08/25 20:57 Source: other Source information: EMS, facility nurse Mode of arrival: ambulance History of Present Illness HPI narrative: The patient is a 75-year-old gentleman presenting to the emergency department from the [place]. The patient was transferred from the [place] because he had 1 episode of coffee-ground emesis. The patient is somewhat of a poor historian and EMS reports that the information that they were given was to just bring him to the hospital that they did not need to know anything more. Patient does have some behavioral issues and speaks intermittently when he feels like it and does have a history of bipolar disease. This however is his baseline he has not had any change in his behavior. Apparently prior to arrival the patient had a large episode of coffee-ground emesis. He has not had any constipation or diarrhea. No recent black, bloody, tarry stools. The patient is known to have Plavix and Eliquis and does have a history of atrial fibrillation managed with Cardizem. 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 Related Data Home Medications ?Medication ?Instructions ?Recorded ?Confirmed apixaban 5 mg tablet (Eliquis) mg 04/08/25 atorvastatin 40 mg tablet mg 04/08/25 buspirone 7.5 mg tablet mg 04/08/25 clopidogrel 75 mg tablet mg 04/08/25 dapagliflozin propanediol 10 mg mg 04/08/25 tablet (Farxiga) diltiazem HCl 120 mg tablet mg 04/08/25 insulin aspart U-100 100 unit/mL 04/08/25 subcutaneous solution metformin 500 mg tablet mg 04/08/25 tirzepatide 2.5 mg/0.5 mL mg subcut 04/08/25 subcutaneous pen injector (Mounjaro) Previous Rx's ?Medication ?Instructions ?Recorded cephalexin 500 mg capsule 500 mg PO Q8H 7 days #21 caps 11/17/24 Allergies Allergy/AdvReac Type Severity Reaction Status Date / Time No Known Drug Allergies Allergy Verified 04/08/25 21:07 Review of Systems ROS Narrative 10 Systems were reviewed, and unless noted in the HPI, all other systems are reviewed, unremarkable, or noncontributory. [facility] Medical History Cognitive communication deficit ?R41.841 - Cognitive communication deficit (ICD-10) Hemiplegia and hemiparesis following cerebral infarction affecting right dominant side ?I69.351 - Hemiplegia and hemiparesis following cerebral infarction affecting right dominant side (ICD-10) Anxiety ?F41.9 - Anxiety disorder, unspecified (ICD-10) Bipolar disorder ?F31.9 - Bipolar disorder, unspecified (ICD-10) (Idiopathic) normal pressure hydrocephalus ?G91.2 - (Idiopathic) normal pressure hydrocephalus (ICD-10) Ventricular tachycardia ?I47.20 - Ventricular tachycardia, unspecified (ICD-10) Type 2 diabetes mellitus ?E11.9 - Type 2 diabetes mellitus without complications (ICD-10) Dysphagia ?R13.10 - Dysphagia, unspecified (ICD-10) Afib ?I48.91 - Unspecified atrial fibrillation (ICD-10) Social History Little interest or pleasure in doing things: not at all Feeling down, depressed, or hopeless: not at all Exam Narrative Exam Narrative: Prior to examining the patient, I have washed with hospital approved and provided Antiseptic 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 Prior to touching the patient, I asked for consent to examine the patient.? General: Alert and oriented, well nourished, mild distress. Patient does not speak very much. Eye: PERRL, EOMI, normal conjunctiva. HENT: Normocephalic, normal hearing, moist oral mucosa, no scleral icterus, no sinus tenderness. Patient does have plaque on his teeth. Neck: Supple, non-tender, no carotid bruits, no JVD, no lymphadenopathy. Lungs: Clear to auscultation and percussion, non-labored respiration. No rhonchi, rales, wheezing Heart: Rapid rate with an irregular rhythm, no murmur, gallop or edema. Abdomen: Soft, non-tender, non-distended, normal bowel sounds, no masses. Musculoskeletal: Normal range of motion and strength, no tenderness or swelling. Skin: Skin is warm, dry and pink, no rashes or lesions. Neurologic: Awake, alert, and oriented X3, CN II-XII intact. Psychiatric: Cooperative, appropriate mood and affect.? Following the conclusion of the examination, I have washed my hands thoroughly after removing examination gloves. Constitutional Vital Signs, click to edit/add: Last Vital Signs Temp 98.8 F 04/08/25 20:54 Pulse 97 H 04/09/25 01:00 Resp 18 04/09/25 01:00 BP 96/67 04/09/25 01:00 Pulse Ox 93 L 04/09/25 01:00 O2 Del Method Nasal Cannula 04/08/25 21:25 O2 Flow Rate 2 04/08/25 21:25 Course Course Hospital Course: Patient is a 75-year-old gentleman originally brought to the emergency department for GI bleeding. Patient does not have a history of GI bleeding, per available medical records. The patient is known to be on Plavix, and Eliquis for his atrial fibrillation. Patient was given Protonix 40 mg IV push for any type of gastritis or irritated gastric tissues. Patient also had a CT scan of the abdomen and pelvis to determine if the patient had any evidence of bleeding or pathology that would have caused him to bleed such as an obstruction. And there is none. Reevaluation(s) Reevaluation #1: Patient had atrial fibrillation with rapid ventricular response upon arrival. The patient was started on a Cardizem drip trying to maintain the continuity of medications and mitigate side effects. However the Cardizem drip did cause the patient to become hypotensive at 88. The patient was not going to be able to tolerate any escalating doses. I had an opportunity speak with cardiology who recommended digoxin. At present time the patient's heart rate is in the 80s to 90s at this time. Time: 01:45 Consultations Consultation #1: Discussed this case with Dr. Graves who is the rn community on-call. The patient has had atrial fibrillation with rapid ventricular response. I attempted to provide the patient Cardizem since he does take Cardizem as an outpatient. However, he was intolerant to it and he got hypotensive. I do think some of it is that the patient genuinely is dehydrated however we did give him a liter normal saline bolus and I do believe he is euvolemic at this time. I suggested maybe amiodarone but he stated without having an ejection fraction without knowing how long he has been on anticoagulants that this could be an unwise decision and he favors digoxin 0.25 mg intravenously. Time: 23:33 Vital Signs Vital signs: Vital Signs Temperature 98.8 F 04/08/25 20:54 Pulse Rate 150 H 04/08/25 20:54 Respiratory Rate 20 04/08/25 20:54 Blood Pressure 157/116 H 04/08/25 20:54 Pulse Oximetry 93 L 04/08/25 20:54 Oxygen Delivery Method Room Air 04/08/25 20:54 Temperature 98.8 F 04/08/25 20:54 Pulse Rate 97 H 04/09/25 01:00 Respiratory Rate 18 04/09/25 01:00 Blood Pressure 96/67 04/09/25 01:00 Pulse Oximetry 93 L 04/09/25 01:00 Oxygen Delivery Method Nasal Cannula 04/08/25 21:25 Oxygen Delivery Flow Rate 2 04/08/25 21:25 Medical Decision Making Differential Diagnosis Differential Diagnosis: GI bleeding, atrial fibrillation, congestive heart failure, obstruction Lab Data Labs: Lab Results 04/08/25 04/08/25 Range/Units 21:10 23:23 WBC 21.5 H (4.0-11.0) 10^3/uL RBC 6.17 H (4.70-6.10) 10^6/uL Hgb 17.6 (14.0-18.0) g/dL Hct 52.3 (42.0-54.0) % MCV 84.8 (80.0-94.0) fL MCH 28.5 (25.9-34.0) pg MCHC 33.7 (29.9-35.2) g/dL RDW 14.5 (11.0-15.0) % Plt Count 354 (150-450) 10^3/uL MPV 10.0 (9.5-13.5) fL Neut % (Auto) 81.9 H (43.0-75.0) % Lymph % (Auto) 11.0 L (20.5-60.0) % Gaines % (Auto) 5.4 (1.7-12.0) % Eos % (Auto) 0.5 L (0.9-7.0) % Baso % (Auto) 0.5 (0.2-2.0) % Neut # (Auto) 17.6 H (1.4-6.5) 10^3/uL Lymph # (Auto) 2.4 (1.2-3.8) 10^3/uL Gaines # (Auto) 1.2 H (0.3-0.8) 10^3/uL Eos # (Auto) 0.1 (0.0-0.7) 10^3/uL Baso # (Auto) 0.1 (0.0-0.1) 10^3/uL Abs Immat Gran (auto) 0.15 H (0.00-0.03) 10^3/uL Imm/Tot Granulo (auto) 0.7 H (0.0-0.5) % PT 10.8 (9.0-11.6) sec INR 1.02 Sodium 140 (136-145) mmol/L Potassium 4.5 (3.5-5.1) mmol/L Chloride 102 (98-107) mmol/L Carbon Dioxide 22.9 (21.0-32.0) mmol/L Anion Gap 19.6 BUN 30.0 H (7.0-18.0) mg/dL Creatinine 1.01 (0.70-1.30) mg/dL Est GFR ( Amer) >60 (>=60 mL/min/1.73m^2) Est GFR (Non-Af Amer) >60 (>=60 mL/min/1.73m^2) BUN/Creatinine Ratio 29.7 Glucose 263 H (74-106) mg/dL Calcium 10.0 (8.5-10.1) mg/dL Magnesium 1.9 (1.8-2.4) mg/dL Total Bilirubin 0.7 (0.2-1.0) mg/dL AST 32 (15-37) U/L ALT 56 (16-63) U/L Alkaline Phosphatase 116 (46-116) U/L Troponin I High Sens 34.8 (4.0-76.1) pg/mL Total Protein 8.0 (6.4-8.2) g/dL Albumin 3.9 (3.4-5.0) g/dL Globulin 4.1 g/dL Albumin/Globulin Ratio 1.0 Lipase 81.0 H (16.0-77.0) U/L Urine Color Yellow (YELLOW) Urine Clarity Clear (CLEAR) Urine pH 5.5 (5.0-9.0) Ur Specific [place] 1.020 (1.005-1.025) Urine Protein 100 A (NEG/TRACE) mg/dL Urine Glucose (UA) >=1000 A (NEGATIVE) mg/dL Urine Ketones Negative (NEGATIVE) mg/dL Urine Occult Blood Large A (NEGATIVE) Urine Nitrite Negative (NEGATIVE) Urine Bilirubin Negative (NEGATIVE) Urine Urobilinogen 0.2 (0.2-1.0) EU/dL Ur Leukocyte Esterase Negative (NEGATIVE) Urine RBC 50-75 A (0-2) #/HPF Urine WBC 0-2 A (NONE SEEN) #/HPF Ur Squamous Epith Cells Rare (NONE/RARE) #/LPF Urine Crystals None seen (None Seen) #/HPF Urine Bacteria Trace A (NONE SEEN) #/HPF Urine Casts None seen (NONE SEEN) #/LPF Urine Mucus None seen (NONE SEEN) Ur Culture Indicated? No Blood Type A Positive Antibody Screen Negative Discharge Plan Discharge Chief Complaint: GI Bleed Prescriptions / Home Meds: No Action cephalexin 500 mg capsule 500 mg PO Q8H 7 Days Qty: 21 0RF atorvastatin 40 mg tablet metformin 500 mg tablet clopidogrel 75 mg tablet diltiazem HCl 120 mg tablet insulin aspart U-100 100 unit/mL solution buspirone 7.5 mg tablet Eliquis 5 mg tablet dapagliflozin propanediol [Farxiga] 10 mg tablet Mounjaro 2.5 mg/0.5 mL pen injector SUBCUT Print Language: Macedonian Referrals: MATTHEW FRAZIER [Primary Care Provider, [facility]] - 1 week
[2025-04-08] MEDS: DIGOXIN 500 MCG/2 ML AMPUL 250 MCG IV (23:51)
[2025-04-09] VITALS (29 sets, daily range): BP systolic 88–144; BP diastolic 60–77; PULSE 71–151; TEMP 36–36.8; O2SAT 92–95; BMI 22.1
[2025-04-09] LABS: Bilirubin Urine NEGATIVE (NEGATIVE); Blood Urine LARGE (NEGATIVE); Clarity Urine CLEAR (CLEAR); Color Urine YELLOW (YELLOW); Glucose Urine UA >=1000 mg/dL (NEGATIVE); Ketones Urine NEGATIVE (NEGATIVE); Leukocyte Esterase Urine NEGATIVE (NEGATIVE); Nitrite Urine NEGATIVE (NEGATIVE); Protein Urine 100 mg/dL (NEG/TRACE); Urobilinogen Urine 0.2 EU/dL (0.2-1.0); pH Urine 5.5 (5.0-9.0)
[2025-04-09 00:06] LABS: WBC Urine 0-2 #/HPF (NONE SEEN)
[2025-04-09 00:07] LABS: Bacteria Urine TRACE #/HPF (NONE SEEN); Cast Seen? NONE SEEN #/LPF (NONE SEEN); Crystals Seen? None Seen #/HPF (None Seen); Mucus Urine NONE SEEN (NONE SEEN); RBC Urine 50-75 #/HPF (0-2); Squamous Epithelial Cell Urine RARE #/LPF (NONE/RARE); Urine Culture Indicated NO
--- OUTSIDE RECORDS SUMMARY | 2025-04-09 02:24 | XMS_ITS | CCD ---
Author Organization [facility] Care Team Providers Care Supervisor [employer] Name Role Phone ZACKARY HAYNES Admitting Unavailable [...] Active docusate sodium 50 mg / sennosides, nursing home 8.6 mg oral tablet (18 sources) Start: [...] total) before bedtime. Active polyethylene glycol 3350 40521 mg powder for oral solution (19 sources) [...] mcg Start: 08-13-2020 take 1 tablet by [facility] once daily cholecalciferol, vitamin D3, 2,000 [...] SBP Start: 01-13-2024 take 1 capsule by [facility] every twenty-four hours in the morning dilTIAZem [...] Coronary arteriosclerosis; Translations: [Atherosclerotic heart disease of [place] coronary artery without angina pectoris] Onset: 07-31-2020 [...] Projectile chunky vomiting for 3 min, from [facility], altered, 147/69, 96%RA, 18, IV in. [...] 08-03-20 ABSOLUTE BASOPHIL 0.0 X10E9/L Normal 0.0-0.2 [facility] Comment on above: Performed By: #### C BCA, CMP, 3040-3, 13502-6, 31891-6, 40677- 1 #### [facility] MA[facility] ([id number]) [address] [place] [address] ABSOLUTE NEUTROPHIL 5.8 X10E9/L Normal 1.5-6.6 [facility] Comment on above: Performed By: #### C BCA, CMP, 3040-3, 73450-1, 33136-7, 83934- 1 #### [facility] ([id number]) [address] [place] [address] Basophils/100 WBC (Bld) 0.5 % Normal [facility] Comment on above: Performed By: #### C BCA, CMP, 3040-3, 95317-0, 95483-5, 43325- 1 #### [facility] ([id number]) [address] [place] [address] Eosinophils (Bld) [#/Vol] 0.2 10*3/uL Normal 0.0-0.4 [facility] Comment on above: Performed By: #### C BCA, CMP, 3040-3, 71216-8, 76627-7, 75509- 1 #### [facility] ([id number]) [address] [place] [address] Eosinophils/100 WBC (Bld) 2.1 % Normal [facility] Comment on above: Performed By: #### C BCA, CMP, 3040-3, 50352-7, 44683-1, 21198- 1 #### [facility] ([id number]) [address] [place] [address] Erythrocyte distribution width (RBC) [Ratio] 15.8 % High 11.5-15.0 [facility] Comment on above: Performed By: #### C BCA, CMP, 3040-3, 49651-5, 62692-5, 56342- 1 #### [facility] ([id number]) [address] [place] [address] Hematocrit (Bld) [Volume fraction] 35.9 % Low 39-49 [facility] Comment on above: Performed By: #### C BCA, CMP, 3040-3, 62372-6, 70256-9, 30260- 1 #### [facility] ([id number]) [address] [place] [address] Hemoglobin (Bld) [Mass/Vol] 12.5 g/dL Low 13.0-17.0 [facility] Comment on above: Performed By: #### C BCA, CMP, 3040-3, 89846-4, 49259-3, 16113- 1 #### [facility] ([id number]) [facility] [place] [address] Lymphocytes (Bld) [#/Vol] 2.2 10*3/uL Normal 1.0-3.5 [facility] Comment on above: Performed By: #### C BCA, CMP, 3040-3, 04747-0, 91129-7, 94463- 1 #### [facility] ([id number]) [facility] [place] [address] Lymphocytes/100 WBC (Bld) 24.7 % Normal [facility] Comment on above: Performed By: #### C BCA, CMP, 3040-3, 11348-9, 84422-1, 55928- 1 #### [facility] ([id number]) [facility] [place] [address] MCH (RBC) [Entitic mass] 29.6 pg Normal 27-34 [facility] Comment on above: Performed By: #### C BCA, CMP, 3040-3, 05470-5, 70169-5, 02850- 1 #### [facility] ([id number]) [address] [place] [address] MCHC (RBC) [Mass/Vol] 34.8 g/dL Normal 32-36 [facility] Comment on above: Performed By: #### C BCA, CMP, 3040-3, 97312-5, 30164-4, 25935- 1 #### [facility] ([id number]) [address] [place] [address] MCV (RBC) [Entitic vol] 85 fL Normal 80-100 [facility] Comment on above: Performed By: #### C BCA, CMP, 3040-3, 04998-4, 60515-1, 40307- 1 #### [facility] ([id number]) [address] [place] [address] Monocytes (Bld) [#/Vol] 0.7 10*3/uL Normal 0-0.9 [facility] Comment on above: Performed By: #### C BCA, CMP, 3040-3, 70120-9, 42302-6, 28797- 1 #### [facility] ([id number]) [facility] [place] [address] Monocytes/100 WBC (Bld) 7.6 % Normal [facility] Comment on above: Performed By: #### C BCA, CMP, 3040-3, 29518-5, 99706-5, 03621- 1 #### [facility] ([id number]) [facility] [place] [address] Neutrophils/100 WBC (Bld) 65.1 % Normal [facility] Comment on above: Performed By: #### C BCA, CMP, 3040-3, 56794-2, 27833-6, 78283- 1 #### [facility] ([id number]) [facility] [place] [address] Platelet mean volume (Bld) [Entitic vol] 7.8 fL Normal 7-12 [facility] Comment on above: Performed By: #### C BCA, CMP, 3040-3, 53041-8, 65629-3, 28996- 1 #### [facility] ([id number]) [facility] [place] [address] Platelets (Bld) [#/Vol] 181 10*3/uL Normal 150-450 [facility] Comment on above: Performed By: #### C BCA, CMP, 3040-3, 94829-3, 79768-1, 85330- 1 #### [facility] ([id number]) [address] [place] [address] RBC COUNT 4.22 X10E12/L Normal 4.10-5.70 [facility] Comment on above: Performed By: #### C BCA, CMP, 3040-3, 27217-7, 64425-5, 21482- 1 #### [facility] ([id number]) [address] [place] [address] WBC (Bld) [#/Vol] 9.0 10*3/uL Normal 4.0-11.0 [facility] Comment on above: Performed By: #### C BCA, CMP, 3040-3, 56785-8, 67147-3, 50440- 1 #### [facility] ([id number]) [address] [place] [address] CBC auto differentialon 07-21 Basophils (Bld) [#/Vol] 0.0 10*3/uL [facility] Basophils/100 WBC (Bld) 0.5 % [facility] Eosinophils (Bld) [#/Vol] 0.2 10*3/uL [facility] Eosinophils/100 WBC (Bld) 2.1 % [facility] Erythrocyte distribution width (RBC) [Ratio] 15.8 % High 11.5 - 15.0 % [facility] Hematocrit (Bld) [Volume fraction] 35.9 % Low 39 - 49 % [facility] Hemoglobin (Bld) [Mass/Vol] 12.5 g/dL Low 13.0 - 17.0 g/dL [facility] Interpretation and review of laboratory results Abnormal [facility] Lymphocytes (Bld) [#/Vol] 2.2 10*3/uL [facility] Lymphocytes/100 WBC (Bld) 24.7 % [facility] MCH (RBC) [Entitic mass] 29.6 pg 27 - 34 pg [facility] MCHC (RBC) [Mass/Vol] 34.8 g/dL 32 - 36 g/dL [facility] MCV (RBC) [Entitic vol] 85 fL 80 [...] 08-03-2024 Albumin [Mass/Vol] 3.6 g/dL Normal 3.2-5.3 [facility] Comment on above: Performed By: #### C BCA, CMP, 3040-3, 02446-9, 76328-7, 81575- 1 #### [facility] ([id number]) [facility] [place] [address] ALP [Catalytic activity/Vol] 72 U/L Normal 39-130 [facility] Comment on above: Performed By: #### C BCA, CMP, 3040-3, 80153-7, 98447-3, 77310- 1 #### [facility] ([id number]) [address] [place] [address] ALT [Catalytic activity/Vol] 7 U/L Normal 0-40 [facility] Comment on above: Performed By: #### C BCA, CMP, 3040-3, 06742-3, 73580-1, 55663- 1 #### [facility] ([id number]) [address] [place] [address] Anion gap [Moles/Vol] 8 mmol/L Normal 5-15 [facility] Comment on above: Performed By: #### C BCA, CMP, 3040-3, 75233-0, 58236-7, 80768- 1 #### [facility] ([id number]) [address] [place] [address] AST [Catalytic activity/Vol] 9 U/L Normal 0-41 [facility] Comment on above: Performed By: #### C BCA, CMP, 3040-3, 41987-6, 32992-3, 79353- 1 #### [facility] ([id number]) [address] [place] [address] Bilirubin [Mass/Vol] 0.6 mg/dL Normal 0.3-1.2 [facility] Comment on above: Performed By: #### C BCA, CMP, 3040-3, 48817-2, 94488-4, 23430- 1 #### [facility] ([id number]) [address] [place] [address] Calcium [Mass/Vol] 8.9 mg/dL Normal 8.5-10.5 [facility] Comment on above: Performed By: #### C BCA, CMP, 3040-3, 52240-3, 02520-4, 20940- 1 #### [facility] ([id number]) [address] [place] [address] Chloride [Moles/Vol] 107 mmol/L Normal 98-109 [facility] Comment on above: Performed By: #### C BCA, CMP, 3040-3, 52272-7, 69536-8, 80328- 1 #### [facility] ([id number]) [address] [place] [address] CO2 [Moles/Vol] 23 mmol/L Normal 22-32 [facility] Comment on above: Performed By: #### C BCA, CMP, 3040-3, 26164-3, 99665-3, 28623- 1 #### [facility] ([id number]) [address] [place] [address] Creatinine [Mass/Vol] 0.83 mg/dL Normal 0.60-1.30 [facility] Comment on above: Result Comment: METH OD TRACEABLE TO IDMS STANDARD Performed By: #### C BCA, CMP, 3040-3, 01412-2, 87239-8, 63739-5 #### [facility] ([id number]) [address] [facility] [place] [address] eGFR (CKD-EPI) NON-RACE DEPENDENT >90 Normal >59 [facility] Comment on above: Result Comment: Reported eGFR is based on the CKD-EPI 2020 equation that does not use a race coefficient. Performed By: #### C BCA, CMP, 3040-3, 18611-8, 00985-4, 97089-4 #### [facility] ([id number]) [address] [place] [address] Glucose [Mass/Vol] 175 mg/dL High 65-99 [facility] Comment on above: Performed By: #### C BCA, CMP, 3040-3, 37687-8, 80949-9, 74948- 1 #### [facility] ([id number]) [address] [place] [address] Potassium [Moles/Vol] 4.1 mmol/L Normal 3.5-5.0 [facility] Comment on above: Performed By: #### C BCA, CMP, 3040-3, 90340-3, 70247-3, 11064- 1 #### [facility] ([id number]) [address] [place] [address] Protein [Mass/Vol] 5.9 g/dL Low 6.0-8.0 [facility] Comment on above: Performed By: #### C BCA, CMP, 3040-3, 26177-0, 01858-2, 83309- 1 #### [facility] ([id number]) [address] [facility] [place] [address] Sodium [Moles/Vol] 138 mmol/L Normal 134-146 [facility] Comment on above: Performed By: #### C BCA, CMP, 3040-3, 09618-0, 71698-6, 31803- 1 #### [facility] ([id number]) [address] [place] [address] Urea nitrogen [Mass/Vol] 22 mg/dL Normal 5-27 [facility] Comment on above: Performed By: #### C BCA, CMP, 3040-3, 90377-9, 19865-7, 54074- 1 #### [facility] ([id number]) [address] [place] [address] Comprehensive metabolic pane domenico 08-03-2024 Albumin [Mass/Vol] 3.6 g/dL 3.2 - 5.3 g/dL [facility] ALP [Catalytic activity/Vol] 72 U/L 39 - 130 U/L [facility] ALT No additional P-5'-P [Catalytic activity/Vol] 7 U/L 0 - 40 U/L [facility] Anion gap [Moles/Vol] 8 mmol/L 5 - 15 mmol/L [facility] AST [Catalytic activity/Vol] 9 U/L 0 - 41 U/L [facility] Bilirubin [Mass/Vol] 0.6 mg/dL 0.3 - 1 .2 mg/dL [facility] Calcium [Mass/Vol] 8.9 mg/dL 8.5 - 10. 5 mg/dL [facility] Chloride [Moles/Vol] 107 mmol/L 98 - 10 9 mmol/L [facility] CO2 [Moles/Vol] 23 mmol/L 22 - 32 mmol/L [facility] Creatinine [Mass/Vol] 0.83 mg/dL 0.60 - 1.30 mg/dL [facility] Comment on above: METHOD TRACEABLE TO IDMS STANDARD eGFR (CKD-EPI)non-race dependent - PINF [facility] Comment on above: Reported eGFR is based on the CKD-EPI 2020 equation that does not use a race coefficient. Glucose [Mass/Vol] 175 mg/dL High 65 - 99 mg/dL [facility] Potassium [Moles/Vol] 4.1 mmol/L 3.5 - 5.0 mmol/L [facility] Protein [Mass/Vol] 5.9 g/dL Low 6.0 - 8.0 g/dL [facility] Sodium [Moles/Vol] 138 mmol/L 134 - 146 mmol/L [facility] Urea nitrogen [Mass/Vol] 22 mg/dL 5 - 27 mg/dL [facility] Glucose Glucometer (BldC) [M ass/Vol]on 08-03-2024 Glucose [Mass/Vol] 150 mg/dL High 65 - 99 mg/dL [facility] Interpretation and review of laboratory results Abnormal [facility] Glucose [Mass/Vol] 150 mg/dL High 65-99 [facility] Glucose [Mass/Vol] 161 mg/dL High 65 - 99 mg/dL [facility] Interpretation and review of laboratory results Abnormal [facility] Glucose [Mass/Vol] 161 mg/dL High 65-99 [facility] MAGNESIUMon 08-03-2024 Magnesium [Mass/Vol] 1.7 mg/dL Low 1.8-2.6 [facility] Comment on above: Performed By: #### C BCA, CMP, 3040-3, 48039-3, 78157-4, 24946- 1 #### [facility] ([id number]) [address] [place] [address] Magnesiumon 08-03-2024 Magnesium [Mass/Vol] 1.7 mg/dL Low 1.8 - 2 .6 mg/dL [facility] No Panel Informationon 08-03 Interpretation and review of laboratory results Abnormal [facility] CBC AND AUTO DIFFon 08-02-20 24 ABSOLUTE BASOPHIL 0.0 X10E9/L Normal 0.0-0.2 [facility] Comment on above: Performed By: #### C BCA, CMP, 3040-3, 81353-1, 64198-1, 16815- 1 #### [facility] ([id number]) [address] [place] [address] ABSOLUTE NEUTROPHIL 5.5 X10E9/L Normal 1.5-6.6 [facility] Comment on above: Performed By: #### C BCA, CMP, 3040-3, 10069-6, 91490-2, 53400- 1 #### [facility] ([id number]) [facility] [place] [address] Basophils/100 WBC (Bld) 0.4 % Normal [facility] Comment on above: Performed By: #### C BCA, CMP, 3040-3, 05424-5, 91834-7, 40965- 1 #### [facility] ([id number]) [facility] [place] [address] Eosinophils (Bld) [#/Vol] 0.1 10*3/uL Normal 0.0-0.4 [facility] Comment on above: Performed By: #### C BCA, CMP, 3040-3, 43854-3, 71919-6, 16388- 1 #### [facility] ([id number]) [address] [place] [address] Eosinophils/100 WBC (Bld) 1.5 % Normal [facility] Comment on above: Performed By: #### C BCA, CMP, 3040-3, 96932-6, 41723-5, 01087- 1 #### [facility] ([id number]) [address] [place] [address] Erythrocyte distribution width (RBC) [Ratio] 15.4 % High 11.5-15.0 [facility] Comment on above: Performed By: #### C BCA, CMP, 3040-3, 69549-8, 32406-0, 29387- 1 #### [facility] ([id number]) [facility] [place] [address] Hematocrit (Bld) [Volume fraction] 37.0 % Low 39-49 [facility] Comment on above: Performed By: #### C BCA, CMP, 3040-3, 87946-3, 10224-5, 42671- 1 #### [facility] ([id number]) [address] [place] [address] Hemoglobin (Bld) [Mass/Vol] 12.6 g/dL Low 13.0-17.0 [facility] Comment on above: Performed By: #### C BCA, CMP, 3040-3, 07911-8, 42824-0, 33363- 1 #### [facility] ([id number]) [address] [place] [address] Lymphocytes (Bld) [#/Vol] 2.0 10*3/uL Normal 1.0-3.5 [facility] Comment on above: Performed By: #### C BCA, CMP, 3040-3, 55210-0, 99512-4, 67219- 1 #### [facility] ([id number]) [address] [place] [address] Lymphocytes/100 WBC (Bld) 24.0 % Normal [facility] Comment on above: Performed By: #### C BCA, CMP, 3040-3, 38046-4, 16023-5, 56126- 1 #### [facility] ([id number]) [address] [place] [address] MCH (RBC) [Entitic mass] 28.8 pg Normal 27-34 [facility] Comment on above: Performed By: #### C BCA, CMP, 3040-3, 09040-4, 49489-2, 58808- 1 #### [facility] ([id number]) [address] [place] [address] MCHC (RBC) [Mass/Vol] 34.0 g/dL Normal 32-36 [facility] Comment on above: Performed By: #### C BCA, CMP, 3040-3, 71671-3, 42218-5, 77440- 1 #### [facility] ([id number]) [address] [place] [address] MCV (RBC) [Entitic vol] 85 fL Normal 80-100 [facility] Comment on above: Performed By: #### C BCA, CMP, 3040-3, 82384-4, 04334-6, 29981- 1 #### [facility] ([id number]) [address] [place] [address] Monocytes (Bld) [#/Vol] 0.6 10*3/uL Normal 0-0.9 [facility] Comment on above: Performed By: #### C BCA, CMP, 3040-3, 60416-9, 62888-4, 64924- 1 #### [facility] ([id number]) [address] [place] [address] Monocytes/100 WBC (Bld) 7.6 % Normal [facility] Comment on above: Performed By: #### C BCA, CMP, 3040-3, 66329-5, 90123-3, 67843- 1 #### [facility] ([id number]) [facility] [place] [address] Neutrophils/100 WBC (Bld) 66.5 % Normal [facility] Comment on above: Performed By: #### C BCA, CMP, 3040-3, 79906-2, 63835-6, 69731- 1 #### [facility] ([id number]) [facility] [place] [address] Platelet mean volume (Bld) [Entitic vol] 8.0 fL Normal 7-12 [facility] Comment on above: Performed By: #### C BCA, CMP, 3040-3, 40045-9, 72601-0, 17821- 1 #### [facility] ([id number]) [address] [place] [address] Platelets (Bld) [#/Vol] 177 10*3/uL Normal 150-450 [facility] Comment on above: Performed By: #### C BCA, CMP, 3040-3, 08734-9, 59290-1, 74739- 1 #### [facility] ([id number]) [address] [place] [address] RBC COUNT 4.38 X10E12/L Normal 4.10-5.70 [facility] Comment on above: Performed By: #### C BCA, CMP, 3040-3, 83774-8, 00204-1, 39511- 1 #### [facility] ([id number]) [address] [place] [address] WBC (Bld) [#/Vol] 8.3 10*3/uL Normal 4.0-11.0 [facility] Comment on above: Performed By: #### C BCA, CMP, 3040-3, 76648-0, 85637-5, 99312- 1 #### [facility] ([id number]) [address] [place] [address] CBC auto differentialon 07-21 Basophils (Bld) [#/Vol] 0.0 10*3/uL [facility] Basophils/100 WBC (Bld) 0.4 % [facility] Eosinophils (Bld) [#/Vol] 0.1 10*3/uL [facility] Eosinophils/100 WBC (Bld) 1.5 % [facility] Erythrocyte distribution width (RBC) [Ratio] 15.4 % High 11.5 - 15.0 % [facility] Hematocrit (Bld) [Volume fraction] 37.0 % Low 39 - 49 % [facility] Hemoglobin (Bld) [Mass/Vol] 12.6 g/dL Low 13.0 - 17.0 g/dL [facility] Interpretation and review of laboratory results Abnormal [facility] Lymphocytes (Bld) [#/Vol] 2.0 10*3/uL [facility] Lymphocytes/100 WBC (Bld) 24.0 % [facility] MCH (RBC) [Entitic mass] 28.8 pg 27 - 34 pg [facility] MCHC (RBC) [Mass/Vol] 34.0 g/dL 32 - 36 g/dL [facility] MCV (RBC) [Entitic vol] 85 fL 80 - 100 fL [facility] Monocytes (Bld) [#/Vol] 0.6 10*3/uL [facility] Monocytes/100 WBC (Bld) 7.6 % [facility] Neutrophils (Bld) [#/Vol] 5.5 10*3/uL [facility] Neutrophils/100 WBC (Bld) 66.5 % [facility] Platelet mean volume (Bld) [Entitic vol] 8.0 fL 7 - 12 fL [facility] Platelets (Bld) [#/Vol] 177 10*3/uL [facility] RBC (Bld) [#/Vol] 4.38 10*6/uL [facility] WBC corrected for nucl RBC Auto (Bld) [#/Vol] 8.3 [facility] COMPREHENSIVE METABOLIC PANE Domenico 08-02-2024 Albumin [Mass/Vol] 3.6 g/dL Normal 3.2-5.3 [facility] Comment on above: Performed By: #### C BCA, CMP, 3040-3, 60002-4, 04610-5, 19149- 1 #### [facility] ([id number]) [facility] [place] [address] ALP [Catalytic activity/Vol] 77 U/L Normal 39-130 [facility] Comment on above: Performed By: #### C BCA, CMP, 3040-3, 51590-7, 71480-6, 23085- 1 #### [facility] ([id number]) [address] [place] [address] ALT [Catalytic activity/Vol] 7 U/L Normal 0-40 [facility] Comment on above: Performed By: #### C BCA, CMP, 3040-3, 68930-3, 83617-0, 92269- 1 #### [facility] ([id number]) [facility] [place] [address] Anion gap [Moles/Vol] 7 mmol/L Normal 5-15 [facility] Comment on above: Performed By: #### C BCA, CMP, 3040-3, 33754-6, 27548-5, 51623- 1 #### [facility] ([id number]) [address] [place] [address] AST [Catalytic activity/Vol] 10 U/L Normal 0-41 [facility] Comment on above: Performed By: #### C BCA, CMP, 3040-3, 15475-3, 83003-5, 16595- 1 #### [facility] ([id number]) [address] [place] [address] Bilirubin [Mass/Vol] 0.5 mg/dL Normal 0.3-1.2 [facility] Comment on above: Performed By: #### C BCA, CMP, 3040-3, 13408-4, 04732-3, 25461- 1 #### [facility] ([id number]) [address] [place] [address] Calcium [Mass/Vol] 9.0 mg/dL Normal 8.5-10.5 [facility] Comment on above: Performed By: #### C BCA, CMP, 3040-3, 65787-6, 12058-7, 32122- 1 #### [facility] ([id number]) [address] [place] [address] Chloride [Moles/Vol] 108 mmol/L Normal 98-109 [facility] Comment on above: Performed By: #### C BCA, CMP, 3040-3, 44109-7, 03234-2, 00974- 1 #### [facility] ([id number]) [address] [place] [address] CO2 [Moles/Vol] 24 mmol/L Normal 22-32 [facility] Comment on above: Performed By: #### C BCA, CMP, 3040-3, 04451-6, 43559-0, 74460- 1 #### [facility] ([id number]) [address] [place] [address] Creatinine [Mass/Vol] 0.86 mg/dL Normal 0.60-1.30 [facility] Comment on above: Result Comment: METH OD TRACEABLE TO IDMS STANDARD Performed By: #### C BCA, CMP, 3040-3, 07129-2, 64314-0, 93163-2 #### [facility] ([id number]) [address] [place] [address] GFR/1.73 sq M.predicted among non-blacks MDRD (S/P/Bld) [Vol rate/Area] 90 mL/min/{1.73_m2} Normal >59 [facility] Comment on above: Result Comment: Reported eGFR is based on the CKD-EPI 2020 equation that does not use a race coefficient. Performed By: #### C BCA, CMP, 3040-3, 00882-1, 23282-8, 52061-9 #### [facility] ([id number]) [address] [place] [address] Glucose [Mass/Vol] 179 mg/dL High 65-99 [facility] Comment on above: Performed By: #### C BCA, CMP, 3040-3, 84101-6, 05274-6, 42263- 1 #### [facility] ([id number]) [address] [place] [address] Potassium [Moles/Vol] 4.1 mmol/L Normal 3.5-5.0 [facility] Comment on above: Performed By: #### C BCA, CMP, 3040-3, 99006-2, 94554-0, 44430- 1 #### [facility] ([id number]) [address] [place] [address] Protein [Mass/Vol] 6.0 g/dL Normal 6.0-8.0 [facility] Comment on above: Performed By: #### C BCA, CMP, 3040-3, 63524-2, 50604-9, 86507- 1 #### [facility] ([id number]) [address] [place] [address] Sodium [Moles/Vol] 139 mmol/L Normal 134-146 [facility] Comment on above: Performed By: #### C BCA, CMP, 3040-3, 39528-2, 42262-5, 21167- 1 #### [facility] ([id number]) [address] [place] [address] Urea nitrogen [Mass/Vol] 21 mg/dL Normal 5-27 [facility] Comment on above: Performed By: #### C BCA, CMP, 3040-3, 81404-7, 72510-3, 87746- 1 #### [facility] ([id number]) [address] [place] [address] Comprehensive metabolic pane domenico 08-02-2024 Albumin [Mass/Vol] 3.6 g/dL 3.2 - 5.3 g/dL [facility] ALP [Catalytic activity/Vol] 77 U/L 39 - 130 U/L [facility] ALT No additional P-5'-P [Catalytic activity/Vol] 7 U/L 0 - 40 U/L [facility] Anion gap [Moles/Vol] 7 mmol/L 5 - 15 mmol/L [facility] AST [Catalytic activity/Vol] 10 U/L 0 - 41 U/L [facility] Bilirubin [Mass/Vol] 0.5 mg/dL 0.3 - 1 .2 mg/dL [facility] Calcium [Mass/Vol] 9.0 mg/dL 8.5 - 10. 5 mg/dL [facility] Chloride [Moles/Vol] 108 mmol/L 98 - 10 9 mmol/L [facility] CO2 [Moles/Vol] 24 mmol/L 22 - 32 mmol/L [facility] Creatinine [Mass/Vol] 0.86 mg/dL 0.60 - 1.30 mg/dL [facility] Comment on above: METHOD TRACEABLE TO IDGA STANDARD eGFR (CKD-EPI)non-race dependent 90 - PINF [facility] Comment on above: Reported eGFR is based on the CKD-EPI 2020 equation that does not use a race coefficient. Glucose [Mass/Vol] 179 mg/dL High 65 - 99 mg/dL [facility] Interpretation and review of laboratory results Abnormal [facility] Potassium [Moles/Vol] 4.1 mmol/L 3.5 - 5.0 mmol/L [facility] Protein [Mass/Vol] 6.0 g/dL 6.0 - 8.0 g/dL [facility] Sodium [Moles/Vol] 139 mmol/L 134 - 146 mmol/L [facility] Urea nitrogen [Mass/Vol] 21 mg/dL 5 - 27 mg/dL [facility] Glucose Glucometer (BldC) [M ass/Vol]on 08-02-2024 Glucose [Mass/Vol] 167 mg/dL High 65 - 99 mg/dL [facility] Interpretation and review of laboratory results Abnormal [facility] Glucose [Mass/Vol] 167 mg/dL High 65-99 [facility] Glucose [Mass/Vol] 243 mg/dL High 65 - 99 mg/dL [facility] Interpretation and review of laboratory results Abnormal [facility] Glucose [Mass/Vol] 243 mg/dL High 65-99 [facility] Glucose [Mass/Vol] 185 mg/dL High 65 - 99 mg/dL [facility] Interpretation and review of laboratory results Abnormal [facility] Glucose [Mass/Vol] 185 mg/dL High 65-99 [facility] Glucose [Mass/Vol] 148 mg/dL High 65 - 99 mg/dL [facility] Interpretation and review of laboratory results Abnormal [facility] Glucose [Mass/Vol] 148 mg/dL High 65-99 [facility] Glucose [Mass/Vol] 198 mg/dL High 65 - 99 mg/dL [facility] Interpretation and review of laboratory results Abnormal [facility] Glucose [Mass/Vol] 198 mg/dL High 65-99 [facility] Glucose [Mass/Vol] 250 mg/dL High 65 - 99 mg/dL [facility] Interpretation and review of laboratory results Abnormal [facility] MAGNESIUMon 08-02-2024 Magnesium [Mass/Vol] 1.9 mg/dL Normal 1.8-2.6 [facility] Comment on above: Performed By: #### C BCA, CMP, 3191-4, 61554-9, 59406-7, 35823- 1 #### [facility] ([id number]) [address] [place] [address] Magnesium [Mass/Vol] 1.8 mg/dL Normal 1.8-2.6 [facility] Comment on above: Performed By: #### C BCA, CMP, 3040-3, 80418-4, 71988-7, 21769- 1 #### [facility] ([id number]) [address] [place] [address] Magnesiumon 08-02-2024 Magnesium [Mass/Vol] 1.9 mg/dL 1.8 - 2 .6 mg/dL [facility] Magnesium [Mass/Vol] 1.8 mg/dL 1.8 - 2 .6 mg/dL [facility] Magnesium [Mass/Vol]on 08-02 [facility] No Panel Informationon 08-02 [facility] CBC AND AUTO DIFFon 08-01-20 24 ABSOLUTE BASOPHIL 0.0 X10E9/L Normal 0.0-0.2 [facility] Comment on above: Performed By: #### 6 32-0 #### [facility] ([id number]) [address] [facility], [address] [place] [address] ABSOLUTE NEUTROPHIL 6.4 X10E9/L Normal 1.5-6.6 [facility] Comment on above: Performed By: #### 6 32-0 #### [facility] ([id number]) [address], [address] [place] [address] Basophils/100 WBC (Bld) 0.5 % Normal [facility] Comment on above: Performed By: #### 6 32-0 #### [facility] ([id number]) [address] [facility] [facility], [address] [place] [address] Eosinophils (Bld) [#/Vol] 0.1 10*3/uL Normal 0.0-0.4 [facility] Comment on above: Performed By: #### 6 32-0 #### [facility] ([id number]) [address], [address] [place] [address] Eosinophils/100 WBC (Bld) 1.4 % Normal [facility] Comment on above: Performed By: #### 6 32-0 #### [facility] ([id number]) [address], [address] [place] [address] Erythrocyte distribution width (RBC) [Ratio] 16.0 % High 11.5-15.0 [facility] Comment on above: Performed By: #### 6 32-0 #### [facility] ([id number]) [address] [facility] [address] [place] [address] Hematocrit (Bld) [Volume fraction] 37.7 % Low 39-49 [facility] Comment on above: Performed By: #### 6 32-0 #### [facility] ([id number]) [address] [address] [place] [address] Hemoglobin (Bld) [Mass/Vol] 12.9 g/dL Low 13.0-17.0 [facility] Comment on above: Performed By: #### 6 32-0 #### [facility] ([id number]) [address], [address] [place] [address] Lymphocytes (Bld) [#/Vol] 2.5 10*3/uL Normal 1.0-3.5 [facility] Comment on above: Performed By: #### 6 32-0 #### [facility] ([id number]) [address], [address] [place] [address] Lymphocytes/100 WBC (Bld) 25.2 % Normal [facility] Comment on above: Performed By: #### 6 32-0 #### [facility] ([id number]) [address], [address] [place] [address] MCH (RBC) [Entitic mass] 28.7 pg Normal 27-34 [facility] Comment on above: Performed By: #### 6 32-0 #### [facility] ([id number]) [address], [address] [place] [address] MCHC (RBC) [Mass/Vol] 34.1 g/dL Normal 32-36 [facility] Comment on above: Performed By: #### 6 32-0 #### [facility] ([id number]) [address], [address] [place] [address] MCV (RBC) [Entitic vol] 84 fL Normal 80-100 [facility] Comment on above: Performed By: #### 6 32-0 #### [facility] ([id number]) [address], [address] [place] [address] Monocytes (Bld) [#/Vol] 0.8 10*3/uL Normal 0-0.9 [facility] Comment on above: Performed By: #### 6 32-0 #### [facility] ([id number]) [address], [address] [place] [address] Monocytes/100 WBC (Bld) 7.8 % Normal [facility] Comment on above: Performed By: #### 6 32-0 #### [facility] ([id number]) [address], [address] [place] [address] Neutrophils/100 WBC (Bld) 65.1 % Normal [facility] Comment on above: Performed By: #### 6 32-0 #### [facility] ([id number]) [address], [address] [place] [address] Platelet mean volume (Bld) [Entitic vol] 8.0 fL Normal 7-12 [facility] Comment on above: Performed By: #### 6 32-0 #### [facility] ([id number]) [address], [address] [place] [address] Platelets (Bld) [#/Vol] 198 10*3/uL Normal 150-450 [facility] Comment on above: Performed By: #### 6 32-0 #### [facility] ([id number]) [address] [facility] [address] [place] [address] RBC COUNT 4.48 X10E12/L Normal 4.10-5.70 [facility] Comment on above: Performed By: #### 6 32-0 #### [facility] ([id number]) [address] [facility], [address] [address] WBC (Bld) [#/Vol] 9.8 10*3/uL Normal 4.0-11.0 [facility] Comment on above: Performed By: #### 6 32-0 #### [facility] ([id number]) [address] [address] CBC auto differentialon 07-21 Basophils (Bld) [#/Vol] 0.0 10*3/uL [facility] Basophils/100 WBC (Bld) 0.5 % [facility] Eosinophils (Bld) [#/Vol] 0.1 10*3/uL [facility] Eosinophils/100 WBC (Bld) 1.4 % [facility] Erythrocyte distribution width (RBC) [Ratio] 16.0 % High 11.5 - 15.0 % [facility] Hematocrit (Bld) [Volume fraction] 37.7 % Low 39 - 49 % [facility] Hemoglobin (Bld) [Mass/Vol] 12.9 g/dL Low 13.0 - 17.0 g/dL [facility] Interpretation and review of laboratory results Abnormal [facility] Lymphocytes (Bld) [#/Vol] 2.5 10*3/uL [facility] Lymphocytes/100 WBC (Bld) 25.2 % [facility] MCH (RBC) [Entitic mass] 28.7 pg 27 - [address] [facility] MCHC (RBC) [Mass/Vol] 34.1 g/dL 32 - 36 g/dL P [facility] MCV (RBC) [Entitic vol] 84 fL 80 - 100 fL [facility] Monocytes (Bld) [#/Vol] 0.8 10*3/uL [facility] Monocytes/100 WBC (Bld) 7.8 % [facility] Neutrophils (Bld) [#/Vol] 6.4 10*3/uL [facility] Neutrophils/100 WBC (Bld) 65.1 % [facility] Platelet mean volume (Bld) [Entitic vol] 8.0 fL 7 - 12 fL [facility] Platelets (Bld) [#/Vol] 198 10*3/uL [facility] RBC (Bld) [#/Vol] 4.48 10*6/uL [facility] WBC corrected for nucl RBC Auto (Bld) [#/Vol] 9.8 [facility] COMPREHENSIVE METABOLIC PANE Domenico 08-01-2024 Albumin [Mass/Vol] 3.7 g/dL Normal 3.2-5.3 [facility] Comment on above: Performed By: #### 6 32-0 #### [facility] ([id number]) [address], [address] [place] [address] ALP [Catalytic activity/Vol] 82 U/L Normal 39-130 [facility] Comment on above: Performed By: #### 6 32-0 #### [facility] ([id number]) [address], [address] [place] [address] ALT [Catalytic activity/Vol] 8 U/L Normal 0-40 [facility] Comment on above: Performed By: #### 6 32-0 #### [facility] ([id number]) [address], [address] [place] [address] Anion gap [Moles/Vol] 6 mmol/L Normal 5-15 [facility] Comment on above: Performed By: #### 6 32-0 #### [facility] ([id number]) [address], [address] [place] [address] AST [Catalytic activity/Vol] 10 U/L Normal 0-41 [facility] Comment on above: Performed By: #### 6 32-0 #### [facility] ([id number]) [address], [address] [place] [address] Bilirubin [Mass/Vol] 0.6 mg/dL Normal 0.3-1.2 [facility] Comment on above: Performed By: #### 6 32-0 #### [facility] ([id number]) [address], [address] [place] [address] Calcium [Mass/Vol] 8.8 mg/dL Normal 8.5-10.5 [facility] Comment on above: Performed By: #### 6 32-0 #### [facility] ([id number]) [address], [address] [place] [address] Chloride [Moles/Vol] 108 mmol/L Normal 98-109 [facility] Comment on above: Performed By: #### 6 32-0 #### [facility] ([id number]) [address], [address] [place] [address] CO2 [Moles/Vol] 26 mmol/L Normal 22-32 [facility] Comment on above: Performed By: #### 6 32-0 #### [facility] ([id number]) [address] [place] [address] Creatinine [Mass/Vol] 0.79 mg/dL Normal 0.60-1.30 [facility] Comment on above: Result Comment: METH OD TRACEABLE TO IDMS STANDARD Performed By: #### 6 32-0 #### [facility] ([id number]) [address] [place] [address] eGFR (CKD-EPI) NON-RACE DEPENDENT >90 Normal >59 [facility] Comment on above: Result Comment: Reported eGFR is based on the CKD-EPI 2020 equation that does not use a race coefficient. Performed By: #### 6 32-0 #### [facility] ([id number]) [address], [address] [place] [address] Glucose [Mass/Vol] 124 mg/dL High 65-99 [facility] Comment on above: Performed By: #### 6 32-0 #### [facility] ([id number]) [address] [address] [place] [address] Potassium [Moles/Vol] 3.9 mmol/L Normal 3.5-5.0 [facility] Comment on above: Performed By: #### 6 32-0 #### [facility] ([id number]) [address], [address] [place] [address] Protein [Mass/Vol] 6.1 g/dL Normal 6.0-8.0 [facility] Comment on above: Performed By: #### 6 32-0 #### [facility] ([id number]) [address], [address] [place] [address] Sodium [Moles/Vol] 140 mmol/L Normal 134-146 [facility] Comment on above: Performed By: #### 6 32-0 #### [facility] ([id number]) [address] [address] [place] [address] Urea nitrogen [Mass/Vol] 16 mg/dL Normal 5-27 [facility] Comment on above: Performed By: #### 6 32-0 #### [facility] ([id number]) [address], [address] [place] [address] Comprehensive metabolic pane domenico 08-01-2024 Albumin [Mass/Vol] 3.7 g/dL 3.2 - 5.3 g/dL [facility] ALP [Catalytic activity/Vol] 82 U/L 39 - 130 U/L [facility] ALT No additional P-5'-P [Catalytic activity/Vol] 8 U/L 0 - 40 U/L [facility] Anion gap [Moles/Vol] 6 mmol/L 5 - 15 mmol/L [facility] AST [Catalytic activity/Vol] 10 U/L 0 - 41 U/L [facility] Bilirubin [Mass/Vol] 0.6 mg/dL 0.3 - 1 .2 mg/dL [facility] Calcium [Mass/Vol] 8.8 mg/dL 8.5 - 10. 5 mg/dL [facility] Chloride [Moles/Vol] 108 mmol/L 98 - 10 9 mmol/L [facility] CO2 [Moles/Vol] 26 mmol/L 22 - 32 mmol/L [facility] Creatinine [Mass/Vol] 0.79 mg/dL 0.60 - 1.30 mg/dL [facility] Comment on above: METHOD TRACEABLE TO [facility] STANDARD eGFR (CKD-EPI)non-race dependent - PINF [facility] Comment on above: Reported eGFR is based on the CKD-EPI 2020 equation that does not use a race coefficient. Glucose [Mass/Vol] 124 mg/dL High 65 - 99 mg/dL [facility] Potassium [Moles/Vol] 3.9 mmol/L 3.5 - 5.0 mmol/L [facility] Protein [Mass/Vol] 6.1 g/dL 6.0 - 8.0 g/dL [facility] Sodium [Moles/Vol] 140 mmol/L 134 - 146 mmol/L [facility] Urea nitrogen [Mass/Vol] 16 mg/dL 5 - 27 mg/dL [facility] Glucose Glucometer (BldC) [M ass/Vol]on 08-01-2024 Glucose [Mass/Vol] 250 mg/dL High 65-99 [facility] Glucose [Mass/Vol] 210 mg/dL High 65 - 99 mg/dL [facility] Interpretation and review of laboratory results Abnormal [facility] Glucose [Mass/Vol] 210 mg/dL High 65-99 [facility] Glucose [Mass/Vol] 122 mg/dL High 65 - 99 mg/dL [facility] Interpretation and review of laboratory results Abnormal [facility] Glucose [Mass/Vol] 122 mg/dL High 65-99 [facility] MAGNESIUMon 08-01-2024 Magnesium [Mass/Vol] 2.0 mg/dL Normal 1.8-2.6 [facility] Comment on above: Performed By: #### C BCA, CMP, 3040-3, 73245-3, 13471-5, 54275- 1 #### [facility] ([id number]) [address] [place] [address] Magnesium [Mass/Vol] 1.7 mg/dL Low 1.8-2.6 [facility] Comment on above: Performed By: #### C BCA, CMP, 3040-3, 42007-0, 31507-6, 48926- 1 #### [facility] ([id number]) [address] [place] [address] Magnesiumon 08-01-2024 Magnesium [Mass/Vol] 2.0 mg/dL 1.8 - 2 .6 mg/dL [facility] Magnesium [Mass/Vol] 1.7 mg/dL Low 1.8 - 2 .6 mg/dL [facility] Magnesium [Mass/Vol]on 08-01 [facility] No Panel Informationon 08-01 Interpretation and review of laboratory results Abnormal [facility] CBC AND AUTO DIFFon 07-31-20 24 ABSOLUTE BASOPHIL 0.0 X10E9/L Normal 0.0-0.2 [facility] Comment on above: Performed By: #### C BCA, CMP, 3040-3, 18752-4, 14036-8, 01193- 1 #### [facility] ([id number]) [address] [place] [address] ABSOLUTE NEUTROPHIL 7.7 X10E9/L High 1.5-6.6 [facility] Comment on above: Performed By: #### C BCA, CMP, 3040-3, 57375-7, 07888-5, 38939- 1 #### [facility] ([id number]) [address] [place] [address] Basophils/100 WBC (Bld) 0.4 % Normal [facility] Comment on above: Performed By: #### C BCA, CMP, 3040-3, 71841-9, 11300-3, 20596- 1 #### [facility] ([id number]) [facility] [place] [address] Eosinophils (Bld) [#/Vol] 0.2 10*3/uL Normal 0.0-0.4 [facility] Comment on above: Performed By: #### C BCA, CMP, 3040-3, 01552-1, 38253-2, 30883- 1 #### [facility] ([id number]) [facility] [place] [address] Eosinophils/100 WBC (Bld) 1.7 % Normal [facility] Comment on above: Performed By: #### C BCA, CMP, 3040-3, 85396-4, 52348-1, 16137- 1 #### [facility] ([id number]) [facility] [place] [address] Erythrocyte distribution width (RBC) [Ratio] 15.9 % High 11.5-15.0 [facility] Comment on above: Performed By: #### C BCA, CMP, 3040-3, 80526-8, 88442-4, 19954- 1 #### [facility] ([id number]) [facility] [place] [address] Hematocrit (Bld) [Volume fraction] 41.3 % Normal 39-49 [facility] Comment on above: Performed By: #### C BCA, CMP, 3040-3, 51032-2, 88174-7, 27887- 1 #### [facility] ([id number]) [facility] [place] [address] Hemoglobin (Bld) [Mass/Vol] 13.9 g/dL Normal 13.0-17.0 [facility] Comment on above: Performed By: #### C BCA, CMP, 3040-3, 31592-1, 37944-6, 83676- 1 #### [facility] ([id number]) [address] [place] [address] Lymphocytes (Bld) [#/Vol] 2.0 10*3/uL Normal 1.0-3.5 [facility] Comment on above: Performed By: #### C BCA, CMP, 3040-3, 67912-4, 54571-7, 41337- 1 #### [facility] ([id number]) [address] [place] [address] Lymphocytes/100 WBC (Bld) 18.3 % Normal [facility] Comment on above: Performed By: #### C BCA, CMP, 3040-3, 24580-0, 08983-9, 25286- 1 #### [facility] ([id number]) [address] [place] [address] MCH (RBC) [Entitic mass] 28.4 pg Normal 27-34 [facility] Comment on above: Performed By: #### C BCA, CMP, 3040-3, 47862-3, 96451-1, 63178- 1 #### [facility] ([id number]) [address] [place] [address] MCHC (RBC) [Mass/Vol] 33.7 g/dL Normal 32-36 [facility] Comment on above: Performed By: #### C BCA, CMP, 3040-3, 62423-1, 81401-2, 85777- 1 #### [facility] ([id number]) [address] [place] [address] MCV (RBC) [Entitic vol] 85 fL Normal 80-100 [facility] Comment on above: Performed By: #### C BCA, CMP, 3040-3, 91120-5, 75584-5, 54684- 1 #### [facility] ([id number]) [address] [place] [address] Monocytes (Bld) [#/Vol] 0.8 10*3/uL Normal 0-0.9 [facility] Comment on above: Performed By: #### C BCA, CMP, 3040-3, 68558-5, 45544-5, 57305- 1 #### [facility] ([id number]) [address] [place] [address] Monocytes/100 WBC (Bld) 7.4 % Normal [facility] Comment on above: Performed By: #### C BCA, CMP, 3040-3, 11852-7, 12919-0, 24905- 1 #### [facility] ([id number]) [facility] [place] [address] Neutrophils/100 WBC (Bld) 72.2 % Normal [facility] Comment on above: Performed By: #### C BCA, CMP, 3040-3, 53422-9, 10451-8, 92232- 1 #### [facility] ([id number]) [facility] [place] [address] Platelet mean volume (Bld) [Entitic vol] 7.9 fL Normal 7-12 [facility] Comment on above: Performed By: #### C BCA, CMP, 3040-3, 33103-9, 73713-1, 57539- 1 #### [facility] ([id number]) [facility] [place] [address] Platelets (Bld) [#/Vol] 233 10*3/uL Normal 150-450 [facility] Comment on above: Performed By: #### C BCA, CMP, 3040-3, 36757-7, 10254-1, 44866- 1 #### [facility] ([id number]) [address] [place] [address] RBC COUNT 4.89 X10E12/L Normal 4.10-5.70 [facility] Comment on above: Performed By: #### C BCA, CMP, 3040-3, 38050-9, 97452-1, 92800- 1 #### [facility] ([id number]) [address] [place] [address] WBC (Bld) [#/Vol] 10.7 10*3/uL Normal 4.0-11.0 [facility] Comment on above: Performed By: #### C BCA, CMP, 3040-3, 04751-9, 75842-8, 82996- 1 #### [facility] ([id number]) [address] [place] [address] CBC auto differentialon 07-21 Basophils (Bld) [#/Vol] 0.0 10*3/uL [facility] Basophils/100 WBC (Bld) 0.4 % [facility] Eosinophils (Bld) [#/Vol] 0.2 10*3/uL [facility] Eosinophils/100 WBC (Bld) 1.7 % [facility] Erythrocyte distribution width (RBC) [Ratio] 15.9 % High 11.5 - 15.0 % [facility] Hematocrit (Bld) [Volume fraction] 41.3 % 39 - 49 % [facility] Hemoglobin (Bld) [Mass/Vol] 13.9 g/dL 13.0 - 17.0 g/dL [facility] Interpretation and review of laboratory results Abnormal [facility] Lymphocytes (Bld) [#/Vol] 2.0 10*3/uL [facility] Lymphocytes/100 WBC (Bld) 18.3 % [facility] MCH (RBC) [Entitic mass] 28.4 pg 27 - [address] [facility] MCHC (RBC) [Mass/Vol] 33.7 g/dL 32 - 36 g/dL P [facility] MCV (RBC) [Entitic vol] 85 fL 80 - [address] [facility] Monocytes (Bld) [#/Vol] 0.8 10*3/uL [facility] Monocytes/100 WBC (Bld) 7.4 % [facility] Neutrophils (Bld) [#/Vol] 7.7 10*3/uL High [facility] Neutrophils/100 WBC (Bld) 72.2 % [facility] Platelet mean volume (Bld) [Entitic vol] 7.9 fL 7 - [address] [facility] Platelets (Bld) [#/Vol] 233 10*3/uL [facility] RBC (Bld) [#/Vol] 4.89 10*6/uL [place] WBC corrected for nucl RBC Auto (Bld) [#/Vol] 10.7 [facility] COMPREHENSIVE METABOLIC PANE Domenico 07-31-2024 Albumin [Mass/Vol] 3.9 g/dL Normal 3.2-5.3 [facility] Comment on above: Performed By: #### C BCA, CMP, 3040-3, 00467-1, 72473-9, 54287- 1 #### [facility] ([id number]) [address] [place] [address] ALP [Catalytic activity/Vol] 78 U/L Normal 39-130 [facility] Comment on above: Performed By: #### C BCA, CMP, 3040-3, 72029-8, 77912-1, 52965- 1 #### [facility] ([id number]) [address] [place] [address] ALT [Catalytic activity/Vol] 9 U/L Normal 0-40 [facility] Comment on above: Performed By: #### C BCA, CMP, 3040-3, 13638-1, 11084-6, 71555- 1 #### [facility] ([id number]) [address] [place] [address] Anion gap [Moles/Vol] 8 mmol/L Normal 5-15 [facility] Comment on above: Performed By: #### C BCA, CMP, 3040-3, 04399-5, 57853-2, 02731- 1 #### [facility] ([id number]) [address] [place] [address] AST [Catalytic activity/Vol] 17 U/L Normal 0-41 [facility] Comment on above: Performed By: #### C BCA, CMP, 3040-3, 45468-3, 67188-4, 93276- 1 #### [facility] ([id number]) [address] [place] [address] Bilirubin [Mass/Vol] 0.6 mg/dL Normal 0.3-1.2 [facility] Comment on above: Performed By: #### C BCA, CMP, 3040-3, 04124-4, 34323-7, 65822- 1 #### [facility] ([id number]) [address] [place] [address] Calcium [Mass/Vol] 8.9 mg/dL Normal 8.5-10.5 [facility] Comment on above: Performed By: #### C BCA, CMP, 3040-3, 89258-3, 44647-4, 49069- 1 #### [facility] ([id number]) [facility] [place] [address] Chloride [Moles/Vol] 108 mmol/L Normal 98-109 [facility] Comment on above: Performed By: #### C BCA, CMP, 3040-3, 98819-2, 67086-4, 88721- 1 #### [facility] ([id number]) [facility] [place] [address] CO2 [Moles/Vol] 24 mmol/L Normal 22-32 [facility] Comment on above: Performed By: #### C BCA, CMP, 3040-3, 23556-7, 93015-6, 31595- 1 #### [facility] ([id number]) [facility] [place] [address] Creatinine [Mass/Vol] 0.79 mg/dL Normal 0.60-1.30 [facility] Comment on above: Result Comment: METH OD TRACEABLE TO IDMS STANDARD Performed By: #### C BCA, CMP, 3040-3, 98189-3, 96727-4, 92689-7 #### [facility] ([id number]) [address] [place] [address] eGFR (CKD-EPI) NON-RACE DEPENDENT >90 Normal >59 [facility] Comment on above: Result Comment: Reported eGFR is based on the CKD-EPI 2020 equation that does not use a race coefficient. Performed By: #### C BCA, CMP, 3040-3, 46346-2, 48444-0, 36903-7 #### [facility] ([id number]) [address] [facility] [place] [address] Glucose [Mass/Vol] 166 mg/dL High 65-99 [facility] Comment on above: Performed By: #### C BCA, CMP, 3040-3, 17639-1, 03580-2, 20916- 1 #### [facility] ([id number]) [address] [place] [address] Potassium [Moles/Vol] 4.5 mmol/L Normal 3.5-5.0 [facility] Comment on above: Result Comment: SPEC IMEN HEMOLYZED, RESULTS INCREASED MODERATELY HEMOLYZED Performed By: #### C BCA, CMP, 3040-3, 90311-2, 48110-3, 71129-6 #### [facility] ([id number]) [address] [facility] [address] Protein [Mass/Vol] 6.4 g/dL Normal 6.0-8.0 [facility] Comment on above: Performed By: #### C BCA, CMP, 3040-3, 72148-3, 66220-6, 84389- 1 #### [facility] ([id number]) [address] [facility] [place] [address] Sodium [Moles/Vol] 140 mmol/L Normal 134-146 [facility] Comment on above: Performed By: #### C BCA, CMP, 3040-3, 53116-3, 69787-3, 63384- 1 #### [facility] ([id number]) [address] [facility] [place] [address] Urea nitrogen [Mass/Vol] 19 mg/dL Normal 5-27 [facility] Comment on above: Performed By: #### C BCA, CMP, 3040-3, 10470-7, 84501-1, 30621- 1 #### [facility] ([id number]) [address] [place] [address] CT ABDOMEN AND PELVIS W CONT on [...] Vera MD on 07/31/2024 12:23 PM Normal [facility] CT Abdomen and Pelvis W cont [...] Delfin Vera MD on 07/31/2024 12:23 PM [facility] Radiology Study observation (narrative) [facility] CT BRAIN WO CONTon CT BRAIN WO [...] Vera MD on 07/31/2024 12:17 PM Normal [facility] CT CTA CHESTon 07-31-2024 CT CTA [...] Kenny Craig MD on 07/31/2024 12:22 PM [facility] CT Chest WO and CT angiogram Coronary [...] Kenny Craig MD on 07/31/2024 12:22 PM [email or web address] Study [facility] (narrative) [email or web address] Chest WO and CT angiogram Coronary arteries W contrast IVOrdered By: Kenny Craig on 07-31-2024 [employer] Work Phone: CT Head WO contraston 2023 [...] Delfin Vera MD on 07/31/2024 12:17 PM [facility] Delf[facility] Vera MD - 07/31/2024 CT BRAIN [...] Delfin Vera MD on 07/31/2024 12:17 PM [employer] Radiology Study observation (narrative) [facility] CT Head WO contrastOrdered B y: Delfin Vera on 07-31-2024 [employer] Work Phone: Cardiac echo study Procedure Ordered By: Bobby Dillon on 07-31-2024 Aortic root 3.50 cm [employer] Work Phone: AV mean gradient 5.00 mmHg [employer] Work Phone: AV peak gradient 9.73 mmHg [employer] Work Phone: AV peak ten 156.00 cm/s [employer] Work Phone: AV valve area 2.06 [employer] Work Phone: AV Velocity Ratio 0.59 [employer] Work Phone: AV VTI 32.00 cm [employer] Work Phone: E wave deceleration time 364.00 msec [employer] Work Phone: E/A ratio 0.58 [employer] Work Phone: Energy loss index 20.39 [employer] Work Phone: Est. RA pressure 3 mmHg [employer] Work Phone: FS 30 % 28 - 44 % [employer] Work Phone: Interventricular Septum Diastolic Thickness by 2D 15.9 cm [employer] Work Phone: IVS 1.59 cm 0.6 - 1.1 cm [employer] Work Phone: LA size 4.30 cm [employer] Work Phone: LA volume 49.10 cm3 [employer] Work Phone: LA Volume Index 23.1 mL/m2 [employer] Work Phone: Left Ventricle Mass [id number] g [employer] Work Phone: LV ESV A2C 54.60 mL [employer] Work Phone: LV ESV A4C 40.50 mL [employer] Work Phone: LV RWT 2D 55.19 [employer] Work Phone: LVIDd 5.11 cm 5.69 - 7.90 cm [employer] Work Phone: LVIDs 3.60 cm 3.32 - 5.03 cm [facility] Work Phone: [phone] LVOT diameter 2.10 cm [facility] Work Phone: [phone] LVOT peak ten 1.06 m/s [email or web address] Work Phone: LVOT peak VTI 19.00 cm [facility] Work Phone: LVOT stroke volume 65.81 ml [facility] Work Phone: [phone] MV Peak A Ten 86.10 cm/s [facility] Work Phone: MV Peak E Ten 50.10 cm/s [facility] Work Phone: MV pressure 1/2 time 107.00 ms [facility] Work Phone: MV TDI E' (medial) 5.33 cm/s [facility] [employer] Work Phone: MV valve area p 1/2 method 2.06 cm2 [facility] Work Phone: PV peak gradient 4.16 mmHg [facility] Work Phone: PW 1.41 cm 0.6 - 1.1 cm [email or web address] Work Phone: RV diastolic dimension (basal) 27.1 mm [email or web address] Work Phone: RV Peak Systolic Pressure 19 mmHg [facility] Work Phone: TAPSE 1.31 cm [email or web address] Work Phone: TDI 6.96 cm/s [facility] Work Phone: TR peak gradient 15.52 mmHg [facility] Work Phone: TR Peak Ten 2.0 m/s [email or web address] Work Phone: Valve area - Index 1.0 [facility] Work Phone: ZLVIDD -[address] Work Phone: ZLVIDS -[address] Work Phone: [facility] [address] [address] [facility] [address] Work Phone: Cardiac echo study Procedure on [...] performed 01/03/2024. [facility] Radiology Study observation (narrative) [facility] Comprehensive metabolic pane domenico 07-31-2024 Albumin [Mass/Vol] 3.9 g/dL 3.2 - 5.3 g/dL [facility] ALP [Catalytic activity/Vol] 78 U/L 39 - 130 U/L [facility] ALT No additional P-5'-P [Catalytic activity/Vol] 9 U/L 0 - 40 U/L [facility] Anion gap [Moles/Vol] 8 mmol/L 5 - 15 mmol/L [facility] AST [Catalytic activity/Vol] 17 U/L 0 - 41 U/L [facility] Bilirubin [Mass/Vol] 0.6 mg/dL 0.3 - 1 .2 mg/dL [facility] Calcium [Mass/Vol] 8.9 mg/dL 8.5 - 10. 5 mg/dL [facility] Chloride [Moles/Vol] 108 mmol/L 98 - 10 9 mmol/L [facility] CO2 [Moles/Vol] 24 mmol/L 22 - 32 mmol/L [facility] Creatinine [Mass/Vol] 0.79 mg/dL 0.60 - 1.30 mg/dL [facility] Comment on above: METHOD TRACEABLE TO IDGA STANDARD eGFR (CKD-EPI)non-race dependent - PINF [facility] Comment on above: Reported eGFR is based on the CKD-EPI 2020 equation that does not use a race coefficient. Glucose [Mass/Vol] 166 mg/dL High 65 - 99 mg/dL [facility] Potassium [Moles/Vol] 4.5 mmol/L 3.5 - 5.0 mmol/L [facility] Comment on above: SPECIMEN HEMOLYZED, RESULTS INCREASED MODERATELY HEMOLYZED Protein [Mass/Vol] 6.4 g/dL 6.0 - 8.0 g/dL [facility] Sodium [Moles/Vol] 140 mmol/L 134 - 146 mmol/L [facility] Urea nitrogen [Mass/Vol] 19 mg/dL 5 - 27 mg/dL [facility] ECG 12 leadOrdered By: Jerica De La Vega on 07-31-2024 [facility] Glucose Glucometer (BldC) [M ass/Vol]on 07-31-2024 Glucose [Mass/Vol] 192 mg/dL High 65 - 99 mg/dL [facility] Interpretation and review of laboratory results Abnormal [facility] Glucose [Mass/Vol] 192 mg/dL High 65-99 [facility] Glucose [Mass/Vol] 123 mg/dL High 65 - 99 mg/dL [facility] Interpretation and review of laboratory results Abnormal [facility] Glucose [Mass/Vol] 123 mg/dL High 65-99 [facility] LIPASEon 07-31-2024 Lipase [Catalytic activity/Vol] 15 U/L Normal 11-82 [facility] Comment on above: Performed By: #### C JAMES CARRANZA, 3040-3, 23465-8, 14061-1, 50429- 1 #### [facility] ([id number]) [address] [place] [address] Lactateon 07-31-2024 Lactate (P eriberto) [Moles/Vol] 1.9 mmol/L 0.4 - 2.0 mmol/L [facility] Lactate (P eriberto) [Moles/Vol]o n 07-31-2024 [facility] Lactate [Moles/Vol] 1.9 mmol/L Normal 0.4-2.0 [facility] Comment on above: Performed By: #### 6 32-0 #### [facility] ([id number]) [address], [address] [place] [address] Interpretation and review of laboratory results Abnormal [facility] LACTATE W/REFLEX 2.4 mmol/L High 0.4-2.0 [facility] Comment on above: Performed By: #### Binh CARRANZA CMP, 3040-3, 72356-3, 86005-8, 19685- 1 #### [facility] ([id number]) [address] [place] [address] Lactate w/ Reflexon 07-31-20 Lactate (P eriberto) [Moles/Vol] 2.4 mmol/L High 0.4 - 2.0 mmol/L [facility] Lipaseon 07-31-2024 Lipase [Catalytic activity/Vol] 15 U/L 11 - 82 U/L [facility] MAGNESIUMon 07-31-2024 Magnesium [Mass/Vol] 1.9 mg/dL Normal 1.8-2.6 [facility] Comment on above: Performed By: #### 6 32-0 #### [facility] ([id number]) [address], [address] [place] [address] Magnesium [Mass/Vol] 1.6 mg/dL Low 1.8-2.6 [facility] Comment on above: Performed By: #### C BCA, CMP, 3040-3, 76891-3, 08298-1, 42056- 1 #### [facility] ([id number]) [address] [place] [address] MR BRAIN WO CONTon MR BRAIN WO [...] Cerrato MD on 07/31/2024 5:04 PM Normal [facility] MR Brain WO contraston 07-31 EXAM: [...] Olu Cerrato MD on 07/31/2024 5:04 PM [facility] Radiology Study observation (narrative) [facility] MR Brain WO contrastOrdered By: Olu Cerrato on 07-31-2024 [facility] Work Phone: Magnesiumon 07-31-2024 Magnesium [Mass/Vol] 1.9 mg/dL 1.8 - 2 .6 mg/dL [facility] Magnesium [Mass/Vol] 1.6 mg/dL Low 1.8 - 2 .6 mg/dL [facility] Magnesium [Mass/Vol]on 07-31 [facility] No Panel Informationon 07-31 Interpretation and review of laboratory results Abnormal [facility] Troponin I, High Sensitivity on 07-31-2024 Troponin I.cardiac High sensitivity method [Mass/Vol] 8 ng/L NINF - 21 ng/L [facility] Troponin I, High Sensitivity 1 Houron 07-31-2024 Troponin I.cardiac High sensitivity method [Mass/Vol] 7 ng/L [facility] ng/L [facility] Troponin I.cardiac High sens itivity method [Mass/Vol]on 07-31-2024 [facility] 1 HOUR TROP I, HIGH SENSITIVITY 7 ng/L Normal <21 [facility] Comment on above: Performed By: #### 6 32-0 #### [facility] ([id number]) [address], [address] [place] [address] [facility] TROPONIN I, HIGH SENSITIVITY 8 ng/L Normal <21 [facility] Comment on above: Performed By: #### C BCA, CMP, 3040-3, 27370-0, 19693-6, 41928- 1 #### [facility] ([id number]) [address] [place] [address] SUPERFICIAL WOUND CULTUREon 03-19-2024 Bacteria identified Aer [...] 1 F DOXYCYCLINE S 2 F Susceptible [facility] Comment on above: Performed By: #### 6 32-0 #### [facility] ([id number]) [address] [place] [address], [address] [place] [address] Hemoglobin A1Con 06-05-2023 Glucose [Mass/Vol] 197 mg/dL Normal [facility] Comment on above: Result Comment: The ADA and AACC recommend providing the estimated average glucose result to permit better patient understanding of their HBA1c result. Performed By: #### L IVP, CBC, BMP #### [facility] [address] [place], [place] [address] Pipeman: Zackary Norris MD HbA1c (Bld) [Mass fraction] 8.5 % High 4.0-6.0 [facility] Comment on above: Performed By: #### L IVP, CBC, BMP #### [facility] [address] [facility] [place], [place] [address] Pipeman: Zackary Norris MD Average glucose Estimated from glycated hemoglobin (Bld) [Mass/Vol] 197 mg/dL [facility] Comment on above: The ADA and AACC rec ommend providing the estimated average glucose result to permit better patient understanding of their HBA1c result. HbA1c (Bld) [Mass fraction] 8.5 % High 4.0 - 6.0 % [facility] Interpretation and review of laboratory results Abnormal [facility] Hemoglobin A1Con 05-07-2023 Glucose [Mass/Vol] 192 mg/dL Normal [facility] Comment on above: Result Comment: The ADA and AACC recommend providing the estimated average glucose result to permit better patient understanding of their HBA1c result. Performed By: #### G LYHGB #### [address] [address] Pipeman: Tao Bradshaw MD HbA1c (Bld) [Mass fraction] 8.3 % High 4.0-6.0 [facility] Comment on above: Performed By: #### G LYHGB #### [address] [address] Pipeman: Tao Bradshaw MD Basic Metabolic Profon 04-25 Anion gap [Moles/Vol] 13 mmol/L Normal 9-17 [facility] Comment on above: Performed By: #### L IVP, CBC, BMP #### [facility] [address] [place] [address] Pipeman: Zackary Norris MD BUN/CRE Ratio 19 Normal -20 [facility] Comment on above: Performed By: #### L IVP, CBC, BMP #### [facility] [address] [place] [address] Pipeman: Zackary Norris MD Calcium [Mass/Vol] 9.0 mg/dL Normal 8.6-10.4 [facility] Comment on above: Performed By: #### L IVP, CBC, BMP #### [facility] [address] [place] [address] Pipeman: Zackary Norris MD Chloride [Moles/Vol] 104 mmol/L Normal 98-107 [facility] Comment on above: Performed By: #### L IVP, CBC, BMP #### [facility] [address] [place] [address] Pipeman: Zackary Norris MD CO2 [Moles/Vol] 23 mmol/L Normal 20-31 [facility] Comment on above: Performed By: #### L IVP, CBC, BMP #### [facility] [address] [place] [address]. [place] [address] Pipeman: Zackary Norris MD Creatinine [Mass/Vol] 0.63 mg/dL Low 0.70-1.20 [facility] Comment on above: Performed By: #### L IVP, CBC, BMP #### [facility] [address] [place] [address]. [place] [address] Pipeman: Zackary Norris MD GFR/1.73 sq M.predicted among non-blacks MDRD (S/P/Bld) [Vol rate/Area] mL/min/{1.73_m2} Normal >60 [facility] Comment on above: Result Comment: These [...] By: #### L IVP, CBC, BMP #### [facility] [address] [place] [address] Pipeman: Zackary Norris MD Glucose [Mass/Vol] 153 mg/dL High 70-99 [facility] Comment on above: Performed By: #### L IVP, CBC, BMP #### [facility] [address] [place] [address] Pipeman: Zackary Norris MD Potassium [Moles/Vol] 3.6 mmol/L Low 3.7-5.3 [facility] Comment on above: Performed By: #### L IVP, CBC, BMP #### [facility] [address] [place] [address] Pipeman: Zackary Norris MD Sodium [Moles/Vol] 140 mmol/L Normal 135-144 [facility] Comment on above: Performed By: #### L IVP, CBC, BMP #### [facility] [address] [place], [place] [address] [place] [address] Pipeman: Zackary Norris MD Urea nitrogen [Mass/Vol] 12 mg/dL Normal 8-23 [facility] Comment on above: Performed By: #### L IVP, CBC, BMP #### [facility] [address] [place] [address] Pipeman: Zackary Norris MD CBCon 04-25-2023 Erythrocyte distribution width (RBC) [Ratio] 13.5 % Normal 11.8-14.4 [facility] Comment on above: Performed By: #### L IVP, CBC, BMP #### [facility] [address] [place] [address] Pipeman: Zackary Norris MD Hematocrit (Bld) [Volume fraction] 41.2 % Normal 40.7-50.3 [facility] Comment on above: Performed By: #### L IVP, CBC, BMP #### [facility] [address] [place] [address] Pipeman: Zackary Norris MD Hemoglobin (Bld) [Mass/Vol] 13.6 g/dL Normal 13.0-17.0 [facility] Comment on above: Performed By: #### L IVP, CBC, BMP #### [facility] [address] [place] [address] Pipeman: Zackary Norris MD MCH (RBC) [Entitic mass] 28.3 pg Normal 25.2-33.5 [facility] Comment on above: Performed By: #### L IVP, CBC, BMP #### [facility] [address] [place] [address] Pipeman: Zackary Norris MD MCHC (RBC) [Mass/Vol] 33.0 g/dL Normal 28.4-34.8 [facility] Comment on above: Performed By: #### L IVP, CBC, BMP #### [facility] [address] [place] [address] Pipeman: Zackary Norris MD MCV (RBC) [Entitic vol] 85.7 fL Normal 82.6-102.9 [facility] Comment on above: Performed By: #### L IVP, CBC, BMP #### [facility] [address] [place] [address] Pipeman: Zackary Norris MD NRBC Automated 0.0 per 100 WBC Normal 0.0 [facility] Comment on above: Performed By: #### L IVP, CBC, BMP #### [facility] [address] [place] [address] Pipeman: Zackary Norris MD Platelet mean volume (Bld) [Entitic vol] 10.2 fL Normal 8.1-13.5 [facility] Comment on above: Performed By: #### L IVP, CBC, BMP #### [facility] [address] [place] [address] Pipeman: Zackary Norris MD Platelets (Bld) [#/Vol] 228 10*3/uL Normal 138-453 [facility] Comment on above: Performed By: #### L IVP, CBC, BMP #### [facility] [address] [place] [address] Pipeman: Zackary Norris MD RBC (Bld) [#/Vol] 4.81 10*6/uL Normal 4.21-5.77 [facility] Comment on above: Performed By: #### L IVP, CBC, BMP #### [facility] [address] [place] [address] Pipeman: Zackary Norris MD WBC (Bld) [#/Vol] 8.5 10*3/uL Normal 3.5-11.3 [facility] Comment on above: Performed By: #### L IVP, CBC, BMP #### [facility] [address] [place] [address] Pipeman: Zackary Norris MD Liver Profileon 04-25-2023 Albumin [Mass/Vol] 3.5 g/dL Normal 3.5-5.2 [facility] Comment on above: Performed By: #### L IVP, CBC, BMP #### [facility] [address] [place] [address] Pipeman: Zackary Norris MD Alkaline Phos 83 U/L Normal 40-129 [facility] Comment on above: Performed By: #### L IVP, CBC, BMP #### [facility] [address] [place] [address] Pipeman: Zackary Norris MD ALT [Catalytic activity/Vol] 19 U/L Normal 5-41 [facility] Comment on above: Performed By: #### L IVP, CBC, BMP #### [facility] [address] [place] [address] Pipeman: Zackary Norris MD AST [Catalytic activity/Vol] 13 U/L Normal <40 [facility] Comment on above: Performed By: #### L IVP, CBC, BMP #### [facility] [address] [place] [address] Pipeman: Zackary Norris MD Bilirubin [Mass/Vol] 0.6 mg/dL Normal 0.3-1.2 [facility] Comment on above: Performed By: #### L IVP, CBC, BMP #### [facility] [address] [place], [place] [address]ia [facility] [place] [address] Pipeman: Zackary Norris MD Bilirubin, Indirect 0.4 mg/dL Normal 0.0-1.0 [facility] Comment on above: Performed By: #### L IVP, CBC, BMP #### [facility] [facility] [place] [address] Pipeman: Zackary Norris MD Bilirubin.indirect [Mass/Vol] 0.2 mg/dL Normal <0.3 [facility] Comment on above: Performed By: #### L IVP, CBC, BMP #### [facility] [address] [facility] [place] [address] Pipeman: Zackary Norris MD Protein [Mass/Vol] 6.6 g/dL Normal 6.4-8.3 [facility] Comment on above: Performed By: #### L IVP, CBC, BMP #### [facility] [place] [address] Pipeman: Zackary Norris MD Hemoglobin A1Con 2023 Glucose [Mass/Vol] 212 mg/dL Normal [facility] Comment on above: Result Comment: The ADA and AACC recommend providing the estimated average glucose result to permit better patient understanding of their HBA1c result. Performed By: #### G LYHGB #### [facility] [address] [place], [place] [id number] Pipeman: Tao Bradshaw MD HbA1c (Bld) [Mass fraction] 9.0 % High 4.0-6.0 [facility] Comment on above: Performed By: #### G LYHGB #### [facility] [address] [place], [place] [id number] Pipeman: Tao Bradshaw MD Average glucose Estimated from glycated hemoglobin (Bld) [Mass/Vol] 212 mg/dL [facility] Comment on above: The ADA and AACC rec ommend providing the estimated average glucose result to permit better patient understanding of their HBA1c result. HbA1c (Bld) [Mass fraction] 9.0 % High 4.0 - 6.0 % [employer] Interpretation and review of laboratory results Abnormal [facility] What's Trending [facility] What's Trending Basic Metabolic Panelon Anion gap [Moles/Vol] 13 mmol/L 9 - 17 mmol/L [facility] What's Trending Calcium [Mass/Vol] 9.2 mg/dL 8.6 - 10. 4 mg/dL [facility] Chloride [Moles/Vol] 103 mmol/L 98 - 10 7 mmol/L [employer] [facility] CO2 [Moles/Vol] 24 mmol/L 20 - 31 mmol/L [employer] Creatinine [Mass/Vol] 0.85 mg/dL 0.70 - 1.20 mg/dL [facility] What's Trending GFR/1.73 sq M.predicted MDRD (S/P/Bld) [Vol rate/Area] - PINF [employer] [facility] Comment on above: Effective Jul 23, 2022 [...] 200 mg/dL High 70 - 99 mg/dL [facility] Interpretation and review of laboratory results Abnormal [facility] Potassium [Moles/Vol] 4.2 mmol/L 3.7 - 5.3 mmol/L [facility] Sodium [Moles/Vol] 140 mmol/L 135 - 144 mmol/L [facility] Urea nitrogen (BldV) [Mass/Vol] 19 mg/dL 8 - 23 mg/dL [facility] Urea nitrogen/Creatinine (Bld) [Mass ratio] 22 High 9 - 20 [facility] Basic Metabolic Profon 10-23 Anion gap [Moles/Vol] 13 mmol/L Normal 9-17 [facility] Comment on above: Performed By: #### G LYHGB #### [address] [address] Pipeman: Tao Bradshaw MD #### DARSHANA, LIVP, CBC #### [facility] [address] [place], [place] [id number] Pipeman: Zackary Norris MD BUN/CRE Ratio 22 High 9-20 [facility] Comment on above: Performed By: #### G LYHGB #### [facility] [address] [place] [id number] Pipeman: Tao Bradshaw MD #### BMP, LIVP, CBC #### [facility] [address] [place], [place] [id number] Pipeman: Zackary Norris MD Calcium [Mass/Vol] 9.2 mg/dL Normal 8.6-10.4 [facility] Comment on above: Performed By: #### G LYHGB #### [address] [address] Pipeman: Tao Bradshaw MD #### BMP, LIVP, CBC #### [facility] [address] [place], [place] [id number] Pipeman: Zackary Norris MD Chloride [Moles/Vol] 103 mmol/L Normal 98-107 [facility] Comment on above: Performed By: #### G LYHGB #### [address] [address] Pipeman: Tao Bradshaw MD #### DARSHANA, LIVP, CBC #### [facility] [address] [place] [id number] Pipeman: Zackary Norris MD CO2 [Moles/Vol] 24 mmol/L Normal 20-31 [facility] Comment on above: Performed By: #### Yolanda LYHGB #### [address] [address] Pipeman: Tao Bradshaw MD #### DARSHANA, LIVP, CBC #### [facility] [address] [place] [address] Pipeman: Zackary Norris MD Creatinine [Mass/Vol] 0.85 mg/dL Normal 0.70-1.20 [facility] Comment on above: Performed By: #### G LYHGB #### [address] [address] Pipeman: Tao Bradshaw MD #### BMP, LIVP, CBC #### [facility] [address] [place] [address] Pipeman: Zackary Norris MD GFR/1.73 sq M.predicted among non-blacks MDRD (S/P/Bld) [Vol rate/Area] mL/min/{1.73_m2} Normal >60 [facility] Comment on above: Result Comment: Effective [...] secretion. Performed By: #### G LYHGB #### [address] [address] Pipeman: Tao Bradshaw MD #### TEN GILLIL[place], CBC #### [facility] [address] [place], [place] [phone] Pipeman: Zackary Norris MD Glucose [Mass/Vol] 200 mg/dL High 70-99 [facility] Comment on above: Performed By: #### Yolanda LYHGB #### [address] [address] Pipeman: Tao Bradshaw MD #### DARSHANA LIVMarshall, CBC #### [facility] [address] [place] [address] Pipeman: Zackary Norris MD Potassium [Moles/Vol] 4.2 mmol/L Normal 3.7-5.3 [facility] Comment on above: Performed By: #### G LYHGB #### [address] [address] Pipeman: Tao Bradshaw MD #### DARSHANA LIVP, CBC #### [facility] [address] [place] [address] Pipeman: Zackary Norris MD Sodium [Moles/Vol] 140 mmol/L Normal 135-144 [facility] Comment on above: Performed By: #### Yolanda LYHGB #### [facility] [address] [place] [address] Pipeman: Tao Bradshaw MD #### BMP, LIVP, CBC #### [facility] [address] [place] [address] Pipeman: Zackary Norris MD Urea nitrogen [Mass/Vol] 19 mg/dL Normal 8-23 [facility] Comment on above: Performed By: #### G LYHGB #### [facility] [address] [place] [address] Pipeman: Tao Bradshaw MD #### BMP, LIVP, CBC #### [facility] [address] [place] [address] Pipeman: Zackary Norris MD CBCon 10-23-2022 Erythrocyte distribution width (RBC) [Ratio] 13.3 % Normal 11.8-14.4 [facility] Comment on above: Performed By: #### G LYHGB #### [address] [address] Pipeman: Tao Bradshaw MD #### BMP, LIVP, CBC #### [facility] [address] [place] [address] Pipeman: Zackary Norris MD Hematocrit (Bld) [Volume fraction] 41.4 % Normal 40.7-50.3 [facility] Comment on above: Performed By: #### G LYHGB #### [address] [address] Pipeman: Tao Bradshaw MD #### BMP, LIVP, CBC #### [facility] [address] [place] [address] Pipeman: Zackary Norris MD Hemoglobin (Bld) [Mass/Vol] 13.1 g/dL Normal 13.0-17.0 [facility] Comment on above: Performed By: #### G LYHGB #### [address] [address] Pipeman: Tao Bradshaw MD #### BMP, LIVP, CBC #### [facility] [address] [place] [phone] Pipeman: Zackary Norris MD MCH (RBC) [Entitic mass] 27.3 pg Normal 25.2-33.5 [facility] Comment on above: Performed By: #### Yolanda LYHGB #### [address] [address] Pipeman: Tao Bradshaw MD #### BMP, LIVP, CBC #### [facility] [address] [place] [phone] Pipeman: Zackary Norris MD MCHC (RBC) [Mass/Vol] 31.6 g/dL Normal 28.4-34.8 [facility] Comment on above: Performed By: #### Yolanda LYHGB #### [address] [id number] Pipeman: Tao Bradshaw MD #### BMP, LIVP, CBC #### [facility] [address] [place] [address] Pipeman: Zackary Norris MD MCV (RBC) [Entitic vol] 86.4 fL Normal 82.6-102.9 [facility] Comment on above: Performed By: #### G LYHGB #### [address] [id number] Pipeman: Tao Bradshaw MD #### BMP, LIVP, CBC #### [facility] [address] [place] [address], [place] [address] Pipeman: Zackary Norris MD NRBC Automated 0.0 per 100 WBC Normal 0.0 [facility] Comment on above: Performed By: #### G LYHGB #### [address] [address] Pipeman: Tao Bradshaw MD #### BMP, LIVP, CBC #### [facility] [address] [place] [address] Pipeman: Zackary Norris MD Platelet mean volume (Bld) [Entitic vol] 9.7 fL Normal 8.1-13.5 [facility] Comment on above: Performed By: #### G LYHGB #### [address] [address] Pipeman: Tao Bradshaw MD #### BMP, LIVP, CBC #### [facility] [address] [place] [address] Pipeman: Zackary Norris MD Platelets (Bld) [#/Vol] 228 10*3/uL Normal 138-453 [facility] Comment on above: Performed By: #### G LYHGB #### [address] [address] Pipeman: Tao Bradshaw MD #### BMP, LIVP, CBC #### [facility] [place] [address] Pipeman: Zackary Norris MD RBC (Bld) [#/Vol] 4.79 10*6/uL Normal 4.21-5.77 [facility] Comment on above: Performed By: #### G LYHGB #### [address] [address] Pipeman: Tao Bradshaw MD #### BMP, LIVP, CBC #### [facility] [address] [place] [address] Pipeman: Zackary Norris MD WBC (Bld) [#/Vol] 9.1 10*3/uL Normal 3.5-11.3 [facility] Comment on above: Performed By: #### G LYHGB #### [facility] [address] [place], [place] [phone] Pipeman: Tao Bradshaw MD #### BMP, LIVP, CBC #### [facility] [address] [place] [address] Pipeman: Zackary Norris MD Hematocrit (Bld) [Volume fraction] 41.4 % 40.7 - 50.3 % [facility] Hemoglobin (Bld) [Mass/Vol] 13.1 g/dL 13.0 - 17.0 g/dL [facility] MCH (RBC) [Entitic mass] 27.3 pg 25.2 - 33.5 pg [facility] MCHC (RBC) [Mass/Vol] 31.6 g/dL 28.4 - 34.8 g/dL [facility] MCV (RBC) [Entitic vol] 86.4 fL 82.6 - 102.9 fL [facility] NRBC Automated 0.0 0.0 per 100 WBC [facility] Platelet distribution width (Bld) [Ratio] 13.3 % 11.8 - 14.4 % [facility] Platelet mean volume (Bld) [Entitic vol] 9.7 fL 8.1 - 13.5 fL [facility] Platelets (Bld) [#/Vol] 228 10*3/uL [facility] RBC (Bld) [#/Vol] 4.79 10*6/uL 4.21 - 5.7 7 m/uL [facility] WBC (Bld) [#/Vol] 9.1 10*3/uL [facility] Hemoglobin A1Con 10-23-2022 Glucose [Mass/Vol] 189 mg/dL Normal [facility] Comment on above: Result Comment: The ADA and AACC recommend providing the estimated average glucose result to permit better patient understanding of their HBA1c result. Performed By: #### G LYHGB #### [address] [place] [place] [address] Pipeman: Tao Bradshaw MD #### BMP, LIVP, CBC #### [facility] [address] [place] [address] Pipeman: Zackary Norris MD HbA1c (Bld) [Mass fraction] 8.2 % High 4.0-6.0 [facility] Comment on above: Performed By: #### G LYHGB #### [address] [address] Pipeman: Tao Bradshaw MD #### DARSHANA, LIVP, CBC #### [facility] [address] [place] [address] Pipeman: Zackary Norris MD Glucose [Mass/Vol] 189 mg/dL [facility] Comment on above: The ADA and AACC rec ommend providing the estimated average glucose result to permit better patient understanding of their HBA1c result. HbA1c (Bld) [Mass fraction] 8.2 % High 4.0 - 6.0 % [facility] Interpretation and review of laboratory results Abnormal [facility] Hepatic Function Panelon Albumin [Mass/Vol] 3.6 g/dL 3.5 - 5.2 g/dL [facility] ALP (Bld) [Catalytic activity/Vol] 87 U/L 40 - 129 U/L [facility] ALT [Catalytic activity/Vol] 17 U/L 5 - 41 U/L [facility] AST [Catalytic activity/Vol] 12 U/L NINF - 40 U/L [facility] Bilirubin [Mass/Vol] 0.9 mg/dL 0.3 - 1 .2 mg/dL [facility] Bilirubin, Indirect 0.7 mg/dL 0.0 - 1. 0 mg/dL [facility] Bilirubin.indirect [Mass/Vol] 0.2 mg/dL NINF - 0.3 mg/dL [facility] Protein [Mass/Vol] 6.6 g/dL 6.4 - 8.3 g/dL [facility] Liver Profileon 10-23-2022 Albumin [Mass/Vol] 3.6 g/dL Normal 3.5-5.2 [facility] Comment on above: Performed By: #### G LYHGB #### [address] [address] Pipeman: Tao Bradshaw MD #### BMP, LIVP, CBC #### [facility] [address] [place], [place] [phone] Pipeman: Zackary Norris MD Alkaline Phos 87 U/L Normal 40-129 [facility] Comment on above: Performed By: #### G LYHGB #### [facility] [address] [place], [place] [phone] Pipeman: Tao Bradshaw MD #### BMP, LIVP, CBC #### [facility] [address] [place], [place] [phone] Pipeman: Zackary Norris MD ALT [Catalytic activity/Vol] 17 U/L Normal 5-41 [facility] Comment on above: Performed By: #### G LYHGB #### [facility] [address] [place] [address] Pipeman: Tao Bradshaw MD #### BMP, LIVP, CBC #### [facility] [address] [place] [address] Pipeman: Zackary Norris MD AST [Catalytic activity/Vol] 12 U/L Normal <40 [facility] Comment on above: Performed By: #### G LYHGB #### [address] [address] Pipeman: Tao Bradshaw MD #### BMP, LIVP, CBC #### [facility] [address] [place] [address] Pipeman: Zackary Norris MD Bilirubin [Mass/Vol] 0.9 mg/dL Normal 0.3-1.2 [facility] Comment on above: Performed By: #### G LYHGB #### [address] [address] Pipeman: Tao Bradshaw MD #### BMP, LIVP, CBC #### [facility] [address] [place] [address] Pipeman: Zackary Norris MD Bilirubin, Indirect 0.7 mg/dL Normal 0.0-1.0 [facility] Comment on above: Performed By: #### G LYHGB #### [address] [address] Pipeman: Tao Bradshaw MD #### BMP, LIVP, CBC #### [facility] [address] [place] [address] Pipeman: Zackary Norris MD Bilirubin.indirect [Mass/Vol] 0.2 mg/dL Normal <0.3 [facility] Comment on above: Performed By: #### G LYHGB #### [address] [address] Pipeman: Tao Bradshaw MD #### BMP, LIVP, CBC #### [facility] [address] [place] [address] Pipeman: Zackary Norris MD Protein [Mass/Vol] 6.6 g/dL Normal 6.4-8.3 [facility] Comment on above: Performed By: #### G LYHGB #### [facility] [address] [place] [address] Pipeman: Tao Bradshaw MD #### BMP, LIVP, CBC #### [facility] [address] [place], [place] [phone] Pipeman: Zackary Norris MD No Panel Informationon 10-23 [facility] Hemoglobin A1Con 08-07-2022 Glucose [Mass/Vol] 194 mg/dL Normal [facility] Comment on above: Result Comment: The ADA and AACC recommend providing the estimated average glucose result to permit better patient understanding of their HBA1c result. Performed By: #### G LYHGB #### [facility] [address] [place] [address] Pipeman: Tao Bradshaw MD HbA1c (Bld) [Mass fraction] 8.4 % High 4.0-6.0 [facility] Comment on above: Performed By: #### G LYHGB #### [facility] [address] [place] [address] Pipeman: Tao Bradshaw MD Glucose [Mass/Vol] 194 mg/dL [facility] Comment on above: The ADA and AACC rec ommend providing the estimated average glucose result to permit better patient understanding of their HBA1c result. HbA1c (Bld) [Mass fraction] 8.4 % High 4 - 6 % [facility] Interpretation and review of laboratory results Abnormal [facility] Comprehensive Metabolic Pane domenico 03-27-2022 Albumin [Mass/Vol] 4.1 g/dL 3.5 - 5.2 g/dL [facility] ALP (Bld) [Catalytic activity/Vol] 98 U/L 40 - 129 U/L [facility] ALT [Catalytic activity/Vol] 17 U/L 5 - 41 U/L [facility] Anion gap [Moles/Vol] 10 mmol/L 9 - 17 mmol/L [facility] AST [Catalytic activity/Vol] 13 U/L <40 [facility] Bilirubin [Mass/Vol] 0.47 mg/dL 0.3 - 1 .2 mg/dL [facility] Calcium [Mass/Vol] 9.6 mg/dL 8.6 - 10. 4 mg/dL [facility] Chloride [Moles/Vol] 105 mmol/L 98 - 10 7 mmol/L [facility] CO2 [Moles/Vol] 25 mmol/L 20 - 31 mmol/L [facility] Creatinine [Mass/Vol] 0.67 mg/dL Low 0.70 - 1.20 mg/dL [facility] Free PSA/Total PSA [Mass fraction] 6.5 g/dL 6.4 - 8.3 g/dL [facility] GFR >60 >60 mL/min [facility] GFR Non- >60 >60 mL/min [facility] GFR/1.73 sq M.predicted MDRD (S/P/Bld) [Vol rate/Area] [facility] Comment on above: Average GFR for 70 o r more years old: 75 mL/min/1.73sq m Chronic Kidney Disease: <60 mL/min/1.73sq m Kidney failure: <15 mL/min/1.73sq m eGFR calculated using average adult body mass. Additional eGFR calculator available at: http://www.[employer]/multiple_crcl_2012.htm Glucose [Mass/Vol] 134 mg/dL High 70 - 99 mg/dL [facility] Interpretation and review of laboratory results Abnormal [facility] Potassium [Moles/Vol] 4.0 mmol/L 3.7 - 5.3 mmol/L [facility] Sodium [Moles/Vol] 140 mmol/L 135 - 144 mmol/L [facility] Urea nitrogen (BldV) [Mass/Vol] 12 mg/dL 8 - 23 mg/dL [facility] Urea nitrogen/Creatinine (Bld) [Mass ratio] 18 [facility] Hemoglobin A1Con 03-27-2022 Glucose [Mass/Vol] 235 mg/dL [facility] Comment on above: The ADA and AACC rec ommend providing the estimated average glucose result to permit better patient understanding of their HBA1c result. HbA1c (Bld) [Mass fraction] 9.8 % High 4.0 - 6.0 % [facility] Interpretation and review of laboratory results Abnormal [facility] Vitamin D 25 Hydroxyon 03-27 Vit D, 25-Hydroxy 32.6 ng/mL >29.9 [facility] Comment on above: Reference Range: Vitamin D status Range Deficiency <20 ng/mL Mild Deficiency 20-30 ng/mL Sufficiency 30-100 ng/mL Toxicity >100 ng/mL [facility] Basic Metabolic Panelon 12-20 Anion gap [Moles/Vol] 11 mmol/L 9 - 17 mmol/L [facility] Calcium [Mass/Vol] 9.3 mg/dL 8.6 - 10. 4 mg/dL [facility] Chloride [Moles/Vol] 101 mmol/L 98 - 10 7 mmol/L [facility] [employer] CO2 [Moles/Vol] 25 mmol/L 20 - 31 mmol/L [facility] Creatinine [Mass/Vol] 0.61 mg/dL Low 0.70 - 1.20 mg/dL [facility] GFR >60 >60 mL/min [facility] GFR Non- >60 >60 mL/min [facility] GFR/1.73 sq M.predicted MDRD (S/P/Bld) [Vol rate/Area] [facility] Comment on above: Average GFR for 70 o r more years old: 75 mL/min/1.73sq m Chronic Kidney Disease: <60 mL/min/1.73sq m Kidney failure: <15 mL/min/1.73sq m eGFR calculated using average adult body mass. Additional eGFR calculator available at: http://www.Respi/multiple_crcl_2012.htm Glucose [Mass/Vol] 243 mg/dL High 70 - 99 mg/dL [facility] Interpretation and review of laboratory results Abnormal [facility] Potassium [Moles/Vol] 4.1 mmol/L 3.7 - 5.3 mmol/L [facility] Sodium [Moles/Vol] 137 mmol/L 135 - 144 mmol/L [facility] Urea nitrogen (BldV) [Mass/Vol] 15 mg/dL 8 - 23 mg/dL [facility][Note 2] CBCon 01-10-2022 Hematocrit (Bld) [Volume fraction] 43.2 % 40.7 - 50.3 % [facility] Hemoglobin.gastrointes tinal spec 1 Ql (Stl) 14.5 g/dL 13.0 - 17.0 g/dL [facility] MCH (RBC) [Entitic mass] 28.7 pg 25.2 - 33.5 pg [facility] MCHC (RBC) [Mass/Vol] 33.6 g/dL 28.4 - 34.8 g/dL [facility] MCV (RBC) [Entitic vol] 85.4 fL 82.6 - 102.9 fL [facility] NRBC Automated 0.0 0.0 per 100 WBC [facility] Platelet distribution width (Bld) [Ratio] 13.2 % 11.8 - 14.4 % [facility] Platelets (Bld) [#/Vol] See Reflexed IPF Result [facility] RBC (Bld) [#/Vol] 5.06 10*6/uL 4.21 - 5.7 7 m/uL [facility] WBC (Bld) [#/Vol] 6.9 10*3/uL [facility][Note 2] Immature Platelet Fractionon 01-10-2022 Platelet, Fluorescence 188 [facility] Comment on above: ORDERED BY LAB Platelet, Immature Fraction 3.1 % 1.1 - 10.3 % [facility] Comment on above: ORDERED BY LAB [facility] Lipid Panelon 01-10-2022 Cholesterol [Mass/Vol] 127 mg/dL <200 [facility] Comment on above: Cholesterol Guidelines: <200 Desirable 200-240 Borderline >240 Undesirable Cholesterol in HDL [Mass/Vol] 33 mg/dL Low >40 [facility] Comment on above: HDL Guidelines: <40 Undesirable 40-59 Borderline >59 Desirable Cholesterol in LDL [Mass/Vol] 64 mg/dL 0 - 130 mg/dL [facility] Comment on above: LDL Guidelines: <100 Desirable 100-129 Near to/above Desirable 130-159 Borderline >159 Undesirable Direct (measured) LDL and calculated LDL are not interchangeable tests. Cholesterol.total/Chol esterol in HDL [Mass ratio] 3.8 {ratio} <5 [facility] Interpretation and review of laboratory results Abnormal [facility] Triglyceride [Mass/Vol] 151 mg/dL High <150 [facility] Comment on above: Triglyceride Guidelines: <150 Desirable 150-199 Borderline 200-499 High >499 Very high Based on AHA Guidelines for fasting triglyceride, July 2012. [facility] Vitamin D 25 Hydroxyon 01-10 Interpretation and review of laboratory results Abnormal [facility] Vit D, 25-Hydroxy 27.9 ng/mL Low >29.9 [employer] [facility] Comment on above: Reference Range: Vitamin D status Range Deficiency <20 ng/mL Mild Deficiency 20-30 ng/mL Sufficiency 30-100 ng/mL Toxicity >100 ng/mL [facility] Basic Metabolic PanelOrdered By: Mi Nichols on 05-10-2021 Anion gap [Moles/Vol] 15 mmol/L 9 - 17 mmol/L [employer] Phone: Calcium [Mass/Vol] 9.4 mg/dL 8.6 - 10. 4 mg/dL [employer] Phone: Chloride [Moles/Vol] 106 mmol/L 98 - 10 7 mmol/L [employer] Phone: CO2 [Moles/Vol] 22 mmol/L 20 - 31 mmol/L [employer] Phone: Creatinine [Mass/Vol] 0.85 mg/dL 0.70 - 1.20 mg/dL [employer] Phone: GFR >60 >60 mL/min [employer] Phone: GFR Non- >60 >60 mL/min [employer] Phone: GFR/1.73 sq M.predicted MDRD (S/P/Bld) [Vol rate/Area] [employer] Phone: Comment on above: Average GFR for 70 o r more years old: 75 mL/min/1.73sq m Chronic Kidney Disease: <60 mL/min/1.73sq m Kidney failure: <15 mL/min/1.73sq m eGFR calculated using average adult body mass. Additional eGFR calculator available at: http://www.Respi/multiple_crcl_2012.htm GFR/1.73 sq M.predicted MDRD (S/P/Bld) [Vol rate/Area] NOT REPORTED [facility] Phone: Glucose [Mass/Vol] 118 mg/dL High 70 - 99 mg/dL [facility] [employer] Phone: Interpretation and review of laboratory results Abnormal [facility]: Potassium [Moles/Vol] 4.4 mmol/L 3.7 - 5.3 mmol/L [facility]: Sodium [Moles/Vol] 143 mmol/L 135 - 144 mmol/L [facility]: Urea nitrogen (BldV) [Mass/Vol] 21 mg/dL 8 - 23 mg/dL [facility]: Urea nitrogen/Creatinine (Bld) [Mass ratio] NOT REPORTED [facility] Phone: CBCOrdered By: Mi lockett 05-10-2021 Hematocrit (Bld) [Volume fraction] 46.1 % 40.7 - 50.3 % [facility] Phone: Hemoglobin.gastrointes tinal spec 1 Ql (Stl) 15.1 g/dL 13.0 - 17.0 g/dL [facility] Phone: MCH (RBC) [Entitic mass] 28.5 pg 25.2 - 33.5 pg [facility]: MCHC (RBC) [Mass/Vol] 32.8 g/dL 28.4 - 34.8 g/dL [facility]: MCV (RBC) [Entitic vol] 87.1 fL 82.6 - 102.9 fL [employer] Phone: NRBC Automated 0.0 0.0 per 100 WBC [employer] Phone: Platelet distribution width (Bld) [Ratio] 14.1 % 11.8 - 14.4 % [employer] Phone: Platelet mean volume (Bld) [Entitic vol] 10.2 fL 8.1 - 13.5 fL [employer] Phone: Platelets (Bld) [#/Vol] 221 10*3/uL [employer] Phone: RBC (Bld) [#/Vol] 5.29 10*6/uL 4.21 - 5.7 7 m/uL [employer] Phone: WBC (Bld) [#/Vol] 10.2 10*3/uL [employer] Phone: [employer] Phone: Hepatic Function PanelOrdere d By: Mi Nichols on 05-10-2021 Albumin [Mass/Vol] 4.6 g/dL 3.5 - 5.2 g/dL [employer] Phone: Albumin/Globulin [Mass ratio] 1.6 {ratio} [employer] Phone: ALP (Bld) [Catalytic activity/Vol] 81 U/L 40 - 129 U/L [employer] Phone: ALT [Catalytic activity/Vol] 27 U/L 5 - 41 U/L [employer] Phone: AST [Catalytic activity/Vol] 26 U/L <40 [employer] Phone: Bilirubin [Mass/Vol] 0.47 mg/dL 0.3 - 1 .2 mg/dL [employer] Phone: Bilirubin, Indirect 0.37 mg/dL 0.00 - 1 .00 mg/dL [employer] Phone: Bilirubin.indirect [Mass/Vol] 0.10 mg/dL <0.31 [employer] Phone: Free PSA/Total PSA [Mass fraction] 7.4 g/dL 6.4 - 8.3 g/dL [employer] Phone: Globulin NOT REPORTED 1.5 - 3.8 g/dL [employer] Phone: No Panel InformationOrdered By: Mi Nichols on 05-10-2021 [employer] Phone: Basic Metabolic PanelOrdered By: Nuha Cifuentes on 03-30-2021 Anion gap [Moles/Vol] 12 mmol/L 9 - 17 mmol/L [employer] Phone: Calcium [Mass/Vol] 9.2 mg/dL 8.6 - 10. 4 mg/dL [employer] Phone: Chloride [Moles/Vol] 104 mmol/L 98 - 10 7 mmol/L [employer] Phone: CO2 [Moles/Vol] 22 mmol/L 20 - 31 mmol/L [employer] Phone: Creatinine [Mass/Vol] 0.66 mg/dL Low 0.70 - 1.20 mg/dL [employer] Phone: GFR >60 >60 mL/min [employer] Phone: GFR Non- >60 >60 mL/min [employer] Phone: GFR/1.73 sq M.predicted MDRD (S/P/Bld) [Vol rate/Area] [employer] Phone: Comment on above: Average GFR for 70 o r more years old: 75 mL/min/1.73sq m Chronic Kidney Disease: <60 mL/min/1.73sq m Kidney failure: <15 mL/min/1.73sq m eGFR calculated using average adult body mass. Additional eGFR calculator available at: http://www.[employer]/multiple_crcl_2012.htm GFR/1.73 sq M.predicted MDRD (S/P/Bld) [Vol rate/Area] NOT REPORTED [facility]: Glucose [Mass/Vol] 162 mg/dL High 70 - 99 mg/dL [facility] [employer] Phone: Interpretation and review of laboratory results Abnormal [facility]: Potassium [Moles/Vol] 4.2 mmol/L 3.7 - 5.3 mmol/L [facility]: Sodium [Moles/Vol] 138 mmol/L 135 - 144 mmol/L [facility]: Urea nitrogen (BldV) [Mass/Vol] 17 mg/dL 8 - 23 mg/dL [facility]: Urea nitrogen/Creatinine (Bld) [Mass ratio] NOT REPORTED [facility] Phone: CBCOrdered By: Nuha Cifuentes on 03-30-2021 Hematocrit (Bld) [Volume fraction] 41.2 % 40.7 - 50.3 % [facility] Phone: Hemoglobin.gastrointes tinal spec 1 Ql (Stl) 13.7 g/dL 13.0 - 17.0 g/dL [employer] Phone: MCH (RBC) [Entitic mass] 28.0 pg 25.2 - 33.5 pg [facility]: MCHC (RBC) [Mass/Vol] 33.3 g/dL 28.4 - 34.8 g/dL [facility]: MCV (RBC) [Entitic vol] 84.1 fL 82.6 - 102.9 fL [employer] Phone: NRBC Automated 0.0 0.0 per 100 WBC [employer] Phone: Platelet distribution width (Bld) [Ratio] 14.4 % 11.8 - 14.4 % [employer] Phone: Platelet mean volume (Bld) [Entitic vol] 10.1 fL 8.1 - 13.5 fL [employer] Phone: Platelets (Bld) [#/Vol] 187 10*3/uL [employer] Phone: RBC (Bld) [#/Vol] 4.90 10*6/uL 4.21 - 5.7 7 m/uL [employer] Phone: WBC (Bld) [#/Vol] 7.1 10*3/uL [employer] Phone: [employer] Phone: Hemoglobin [id number] By: Ra manjinder Cifuentes on 03-30-2021 Glucose [Mass/Vol] 137 mg/dL [employer] Phone: Comment on above: The ADA and AACC rec ommend providing the estimated average glucose result to permit better patient understanding of their HBA1c result. HbA1c (Bld) [Mass fraction] 6.4 % High 4.0 - 6.0 % [employer] Phone: Interpretation and review of laboratory results Abnormal [employer] Phone: [employer] Phone: No Panel InformationOrdered By: Nuha Cifuentes on 03-30-2021 [employer] Phone: TSH without ReflexOrdered By : Nuha Cifuentes on 03-30-2021 TSH Qn 2.34 m[IU]/L [employer] Phone: C-Reactive ProteinOrdered By : Nuha Cifuentes on 02-10-2021 CRP [Mass/Vol] 106.6 mg/L High 0.0 - 5.0 mg/L [employer] Phone: CBCOrdered By: Nuha Cifuentes on 02-10-2021 Hematocrit (Bld) [Volume fraction] 45.1 % 40.7 - 50.3 % [employer] Phone: Hemoglobin.gastrointes tinal spec 1 Ql (Stl) 14.5 g/dL 13.0 - 17.0 g/dL [employer] Phone: Interpretation and review of laboratory results Abnormal [employer] Phone: MCH (RBC) [Entitic mass] 27.4 pg 25.2 - 33.5 pg [employer] Phone: MCHC (RBC) [Mass/Vol] 32.2 g/dL 28.4 - 34.8 g/dL [employer] Phone: MCV (RBC) [Entitic vol] 85.1 fL 82.6 - 102.9 fL [employer] Phone: NRBC Automated 0.0 0.0 per 100 WBC [employer] Phone: Platelet distribution width (Bld) [Ratio] 14.8 % High 11.8 - 14.4 % [employer] Phone: Platelet mean volume (Bld) [Entitic vol] 10.2 fL 8.1 - 13.5 fL [employer] Phone: Platelets (Bld) [#/Vol] 165 10*3/uL [employer] Phone: RBC (Bld) [#/Vol] 5.30 10*6/uL 4.21 - 5.7 7 m/uL [employer] Phone: WBC (Bld) [#/Vol] 6.2 10*3/uL [employer] Phone: Comprehensive Metabolic Pane lOrdered By: Nuha Cifuentes on 02-10-2021 Albumin [Mass/Vol] 4.1 g/dL 3.5 - 5.2 g/dL [employer] Phone: Albumin/Globulin [Mass ratio] 1.3 {ratio} [employer] Phone: ALP (Bld) [Catalytic activity/Vol] 67 U/L 40 - 129 U/L [employer] Phone: ALT [Catalytic activity/Vol] 19 U/L 5 - 41 U/L [employer] Phone: Anion gap [Moles/Vol] 14 mmol/L 9 - 17 mmol/L [employer] Phone: AST [Catalytic activity/Vol] 21 U/L <40 [employer] Phone: Bilirubin [Mass/Vol] 0.93 mg/dL 0.3 - 1 .2 mg/dL [employer] Phone: Calcium [Mass/Vol] 9.5 mg/dL 8.6 - 10. 4 mg/dL [employer] Phone: Chloride [Moles/Vol] 102 mmol/L 98 - 10 7 mmol/L [employer] Phone: CO2 [Moles/Vol] 22 mmol/L 20 - 31 mmol/L [employer] Phone: Creatinine [Mass/Vol] 0.71 mg/dL 0.70 - 1.20 mg/dL [employer] Phone: Free PSA/Total PSA [Mass fraction] 7.3 g/dL 6.4 - 8.3 g/dL [employer] Phone: GFR >60 >60 mL/min [employer] Phone: GFR Non- >60 >60 mL/min [employer] Phone: GFR/1.73 sq M.predicted MDRD (S/P/Bld) [Vol rate/Area] [employer] Phone: Comment on above: Average GFR for 70 o r more years old: 75 mL/min/1.73sq m Chronic Kidney Disease: <60 mL/min/1.73sq m Kidney failure: <15 mL/min/1.73sq m eGFR calculated using average adult body mass. Additional eGFR calculator available at: http://www.[employer]/multiple_crcl_2012.htm GFR/1.73 sq M.predicted MDRD (S/P/Bld) [Vol rate/Area] NOT REPORTED [employer] Phone: Glucose [Mass/Vol] 109 mg/dL High 70 - 99 mg/dL [facility] [employer] Phone: Potassium [Moles/Vol] 4.0 mmol/L 3.7 - 5.3 mmol/L [facility]: Sodium [Moles/Vol] 138 mmol/L 135 - 144 mmol/L [facility]: Urea nitrogen (BldV) [Mass/Vol] 22 mg/dL 8 - 23 mg/dL [facility]: Urea nitrogen/Creatinine (Bld) [Mass ratio] NOT REPORTED [employer] Phone: Lipid PanelOrdered By: Nuha Cifuentes on 02-10-2021 Cholesterol [Mass/Vol] 128 mg/dL <200 [employer] Phone: Comment on above: Cholesterol Guidelines: <200 Desirable 200-240 Borderline >240 Undesirable Cholesterol in HDL [Mass/Vol] 47 mg/dL >40 [facility]: Comment on above: HDL Guidelines: <40 Undesirable 40-59 Borderline >59 Desirable Cholesterol in LDL [Mass/Vol] 57 mg/dL 0 - 130 mg/dL [employer] Phone: Comment on above: LDL Guidelines: <100 Desirable 100-129 Near to/above Desirable 130-159 Borderline >159 Undesirable Direct (measured) LDL and calculated LDL are not interchangeable tests. Cholesterol in VLDL [Mass/Vol] NOT REPORTED 1 - 30 mg/dL [employer] Phone: Cholesterol.total/Chol esterol in HDL [Mass ratio] 2.7 {ratio} <5 [employer] Phone: Triglyceride [Mass/Vol] 118 mg/dL <150 [employer] Phone: Comment on above: Triglyceride Guidelines: <150 Desirable 150-199 Borderline 200-499 High >499 Very high Based on AHA Guidelines for fasting triglyceride, July 2012. No Panel InformationOrdered By: Nuha Cifuentes on 02-10-2021 Interpretation and review of laboratory results Abnormal [employer] Phone: Rheumatoid FactorOrdered By: Nuha Cifuentes on 02-10-2021 Rheumatoid Factor 12.4 <14 IU/mL [email or web address] Phone: Sedimentation RateOrdered By : Nuha Cifuentes on 02-10-2021 Interpretation and review of laboratory results Abnormal [employer] Phone: Sed Rate 36 mm High 0 - 20 mm [employer] Phone: Uric AcidOrdered By: Nuha nelson on 02-10-2021 Urate [Mass/Vol] 7.3 mg/dL High 3.4 - 7.0 mg/dL [employer] Phone: Basic Metabolic Panelon 10-22 Anion gap [Moles/Vol] 13 mmol/L 9 - 17 mmol/L [place] Bun/Cre Ratio NOT REPORTED [place] Calcium [Mass/Vol] 9.9 mg/dL 8.6 - 10. 4 mg/dL [place] Chloride [Moles/Vol] 106 mmol/L 98 - 10 7 mmol/L [place] CO2 [Moles/Vol] 22 mmol/L 20 - 31 mmol/L [place] Creatinine [Mass/Vol] 0.74 mg/dL 0.7 - 1.2 mg/dL [place] GFR >60 >60 mL/min [place] GFR Non- >60 >60 mL/min [place] GFR/1.73 sq M predicted among non-blacks MDRD (S/P/Bld) [Vol rate/Area] NOT REPORTED [place] GFR/1.73 sq M predicted among non-blacks MDRD (S/P/Bld) [Vol rate/Area] [place] Comment on above: Average GFR for 70 o r more years old: 75 mL/min/1.73sq m Chronic Kidney Disease: <60 mL/min/1.73sq m Kidney failure: <15 mL/min/1.73sq m eGFR calculated using average adult body mass. Additional eGFR calculator available at: http://www.[employer]_crcl_2011.htm Glucose [Mass/Vol] 101 mg/dL High 70 - 99 mg/dL [place] Interpretation and review of laboratory results Abnormal [place] Potassium [Moles/Vol] 4.1 mmol/L 3.7 - 5.3 mmol/L [place] Sodium [Moles/Vol] 141 mmol/L 135 - 144 mmol/L [place] Urea nitrogen [Mass/Vol] 16 mg/dL 8 - 23 mg/dL [place] CBCon 11-11-2020 Erythrocyte distribution width (RBC) [Ratio] 13.7 % 11.8 - 14.4 % [place] Hematocrit (Bld) [Volume fraction] 40.4 % Low 40.7 - 50.3 % [place] Hemoglobin (Bld) [Mass/Vol] 12.8 g/dL Low 13 - 17 g/dL [place] Interpretation and review of laboratory results Abnormal [place] MCH (RBC) [Entitic mass] 26.5 pg 25.2 - 33.5 pg [place] MCHC (RBC) [Mass/Vol] 31.7 g/dL 28.4 - 34.8 g/dL [place] MCV (RBC) [Entitic vol] 83.6 fL 82.6 - 102.9 fL [place] Platelet mean volume (Bld) [Entitic vol] 10.1 fL 8.1 - 13.5 fL [place] Platelets (Bld) [#/Vol] 213 10*3/uL [place] RBC (Bld) [#/Vol] 4.83 10*6/uL 4.21 - 5.7 7 m/uL [place] WBC (Bld) [#/Vol] 7.7 10*3/uL [place] WBC (Bld) [#/Vol] 0.0 10*3/uL 0.0 per 10 0 WBC [place] Hemoglobin A1Con 11-11-2020 Glucose [Mass/Vol] 131 mg/dL [place] Comment on above: The ADA and AACC rec ommend providing the estimated average glucose result to permit better patient understanding of their HBA1c result. HbA1c (Bld) [Mass fraction] 6.2 % High 4 - 6 % [place] Interpretation and review of laboratory results Abnormal [place] Hepatic Function Panelon Albumin [Mass/Vol] 3.8 g/dL 3.5 - 5.2 g/dL [place] Albumin/Globulin [Mass ratio] 1.4 {ratio} [place] ALP [Catalytic activity/Vol] 76 U/L 40 - 129 U/L [place] ALT [Catalytic activity/Vol] 12 U/L 5 - 41 U/L [place] AST [Catalytic activity/Vol] 15 U/L <40 [place] Bilirubin Ql (U) 0.43 mg/dL 0.3 - 1.2 mg/dL [place] Bilirubin, Indirect 0.32 mg/dL 0 - 1 mg/dL [place] Bilirubin.direct [Mass/Vol] 0.11 mg/dL <0.31 [place] Globulin (S) [Mass/Vol] NOT REPORTED 1.5 - 3.8 g/dL [place] Protein [Mass/Vol] 6.6 g/dL 6.4 - 8.3 g/dL [place] Basic Metabolic Panelon 11-2 3-2020 Anion gap [Moles/Vol] 14 mmol/L 9 - 17 mmol/L [place] Bun/Cre Ratio NOT REPORTED [place] Calcium [Mass/Vol] 9.3 mg/dL 8.6 - 10. 4 mg/dL [place] Chloride [Moles/Vol] 103 mmol/L 98 - 10 7 mmol/L [place] CO2 [Moles/Vol] 22 mmol/L 20 - 31 mmol/L [place] Creatinine [Mass/Vol] 0.77 mg/dL 0.7 - 1.2 mg/dL [place] GFR >60 >60 mL/min [place] GFR Non- >60 >60 mL/min [place] GFR/1.73 sq M predicted among non-blacks MDRD (S/P/Bld) [Vol rate/Area] NOT REPORTED [place] GFR/1.73 sq M predicted among non-blacks MDRD (S/P/Bld) [Vol rate/Area] [place] Comment on above: Average GFR for 70 o r more years old: 75 mL/min/1.73sq m Chronic Kidney Disease: <60 mL/min/1.73sq m Kidney failure: <15 mL/min/1.73sq m eGFR calculated using average adult body mass. Additional eGFR calculator available at: http://www.[employer]/multiple_crcl_2012.htm Glucose [Mass/Vol] 141 mg/dL High 70 - 99 mg/dL [place] Interpretation and review of laboratory results Abnormal [place] Potassium [Moles/Vol] 4.0 mmol/L 3.7 - 5.3 mmol/L [place] Sodium [Moles/Vol] 139 mmol/L 135 - 144 mmol/L [place] Urea nitrogen [Mass/Vol] 15 mg/dL 8 - 23 mg/dL [place] CBCon 09-12-2020 Erythrocyte distribution width (RBC) [Ratio] 13.4 % 11.8 - 14.4 % [place] Hematocrit (Bld) [Volume fraction] 39.2 % Low 40.7 - 50.3 % [place] Hemoglobin (Bld) [Mass/Vol] 12.3 g/dL Low 13 - 17 g/dL [place] Interpretation and review of laboratory results Abnormal [place] MCH (RBC) [Entitic mass] 27.6 pg 25.2 - 33.5 pg [place] MCHC (RBC) [Mass/Vol] 31.4 g/dL 28.4 - 34.8 g/dL [place] MCV (RBC) [Entitic vol] 88.1 fL 82.6 - 102.9 fL [place] Platelet mean volume (Bld) [Entitic vol] 10.4 fL 8.1 - 13.5 fL [place] Platelets (Bld) [#/Vol] 228 10*3/uL [place] RBC (Bld) [#/Vol] 4.45 10*6/uL 4.21 - 5.7 7 m/uL [place] WBC (Bld) [#/Vol] 0.0 10*3/uL 0.0 per 10 0 WBC [place] WBC (Bld) [#/Vol] 7.2 10*3/uL [place] Basic Metabolic Panelon 11-1 Anion gap [Moles/Vol] 21 mmol/L High 9 - 17 mmol/L [place] Bun/Cre Ratio NOT REPORTED [place] Calcium [Mass/Vol] 9.7 mg/dL 8.6 - 10. 4 mg/dL [place] Chloride [Moles/Vol] 106 mmol/L 98 - 10 7 mmol/L [place] CO2 [Moles/Vol] 19 mmol/L Low 20 - 31 mmol/L [place] Creatinine [Mass/Vol] 0.86 mg/dL 0.7 - 1.2 mg/dL [place] GFR >60 >60 mL/min [place] GFR Non- >60 >60 mL/min [place] GFR/1.73 sq M predicted among non-blacks MDRD (S/P/Bld) [Vol rate/Area] NOT REPORTED [place] GFR/1.73 sq M predicted among non-blacks MDRD (S/P/Bld) [Vol rate/Area] [place] Comment on above: Average GFR for 70 o r more years old: 75 mL/min/1.73sq m Chronic Kidney Disease: <60 mL/min/1.73sq m Kidney failure: <15 mL/min/1.73sq m eGFR calculated using average adult body mass. Additional eGFR calculator available at: http://www.[employer]pi/CY[employer]_crcl_2011.htm Glucose [Mass/Vol] 49 mg/dL Low 70 - 99 mg/dL [place] Interpretation and review of laboratory results Abnormal [place] Potassium [Moles/Vol] 3.9 mmol/L 3.7 - 5.3 mmol/L [place] Sodium [Moles/Vol] 146 mmol/L High 135 - 144 mmol/L [place] Urea nitrogen [Mass/Vol] 15 mg/dL 8 - 23 mg/dL [place] CBCon 09-07-2020 Erythrocyte distribution width (RBC) [Ratio] 13.5 % 11.8 - 14.4 % [place] Hematocrit (Bld) [Volume fraction] 44.0 % 40.7 - 50.3 % [place] Hemoglobin (Bld) [Mass/Vol] 13.7 g/dL 13 - 17 g/dL [place] MCH (RBC) [Entitic mass] 27.6 pg 25.2 - 33.5 pg [place] MCHC (RBC) [Mass/Vol] 31.1 g/dL 28.4 - 34.8 g/dL [place] MCV (RBC) [Entitic vol] 88.5 fL 82.6 - 102.9 fL [place] Platelet mean volume (Bld) [Entitic vol] 10.3 fL 8.1 - 13.5 fL [place] Platelets (Bld) [#/Vol] 249 10*3/uL [place] RBC (Bld) [#/Vol] 4.97 10*6/uL 4.21 - 5.7 7 m/uL [place] WBC (Bld) [#/Vol] 0.0 10*3/uL 0.0 per 10 0 WBC [place] WBC (Bld) [#/Vol] 7.4 10*3/uL [place] Basic Metabolic Panelon 11-0 Anion gap [Moles/Vol] 12 mmol/L 9 - 17 mmol/L [place] Bun/Cre Ratio NOT REPORTED [place] Calcium [Mass/Vol] 9.6 mg/dL 8.6 - 10. 4 mg/dL [place] Chloride [Moles/Vol] 105 mmol/L 98 - 10 7 mmol/L [place] CO2 [Moles/Vol] 23 mmol/L 20 - 31 mmol/L [place] Creatinine [Mass/Vol] 0.85 mg/dL 0.7 - 1.2 mg/dL [place] GFR >60 >60 mL/min [place] GFR Non- >60 >60 mL/min [place] GFR/1.73 sq M predicted among non-blacks MDRD (S/P/Bld) [Vol rate/Area] NOT REPORTED [place] GFR/1.73 sq M predicted among non-blacks MDRD (S/P/Bld) [Vol rate/Area] [place] Comment on above: Average GFR for 70 o r more years old: 75 mL/min/1.73sq m Chronic Kidney Disease: <60 mL/min/1.73sq m Kidney failure: <15 mL/min/1.73sq m eGFR calculated using average adult body mass. Additional eGFR calculator available at: http://www.[employer]/multiple_crcl_2012.htm Glucose [Mass/Vol] 125 mg/dL High 70 - 99 mg/dL [place] Interpretation and review of laboratory results Abnormal [place] Potassium [Moles/Vol] 4.6 mmol/L 3.7 - 5.3 mmol/L [place] Sodium [Moles/Vol] 140 mmol/L 135 - 144 mmol/L [place] Urea nitrogen [Mass/Vol] 20 mg/dL 8 - 23 mg/dL [place] CBCon 08-29-2020 Erythrocyte distribution width (RBC) [Ratio] 13.3 % 11.8 - 14.4 % [place] Hematocrit (Bld) [Volume fraction] 38.9 % Low 40.7 - 50.3 % [place] Hemoglobin (Bld) [Mass/Vol] 11.9 g/dL Low 13 - 17 g/dL [place] Interpretation and review of laboratory results Abnormal [place] MCH (RBC) [Entitic mass] 27.6 pg 25.2 - 33.5 pg [place] MCHC (RBC) [Mass/Vol] 30.6 g/dL 28.4 - 34.8 g/dL [place] MCV (RBC) [Entitic vol] 90.3 fL 82.6 - 102.9 fL [place] Platelet mean volume (Bld) [Entitic vol] 10.0 fL 8.1 - 13.5 fL [place] Platelets (Bld) [#/Vol] 320 10*3/uL [place] RBC (Bld) [#/Vol] 4.31 10*6/uL 4.21 - 5.7 7 m/uL [place] WBC (Bld) [#/Vol] 0.0 10*3/uL 0.0 per 10 0 WBC [place] WBC (Bld) [#/Vol] 8.8 10*3/uL [place] Basic Metabolic Panelon 07-22 Anion gap [Moles/Vol] 12 mmol/L 9 - 17 mmol/L [place] Bun/Cre Ratio NOT REPORTED [place] Calcium [Mass/Vol] 9.0 mg/dL 8.6 - 10. 4 mg/dL [place] Chloride [Moles/Vol] 103 mmol/L 98 - 10 7 mmol/L [place] CO2 [Moles/Vol] 22 mmol/L 20 - 31 mmol/L [place] Creatinine [Mass/Vol] 1.2 mg/dL 0.7 - 1.2 mg/dL [place] GFR >60 >60 mL/min [place] GFR Non- 60 mL/min Low >60 [place] GFR/1.73 sq M predicted among non-blacks MDRD (S/P/Bld) [Vol rate/Area] NOT REPORTED [place] GFR/1.73 sq M predicted among non-blacks MDRD (S/P/Bld) [Vol rate/Area] [place] Comment on above: Average GFR for 70 o r more years old: 75 mL/min/1.73sq m Chronic Kidney Disease: <60 mL/min/1.73sq m Kidney failure: <15 mL/min/1.73sq m eGFR calculated using average adult body mass. Additional eGFR calculator available at: http://www.Respi/multiple_crcl_2011.htm Glucose [Mass/Vol] 203 mg/dL High 70 - 99 mg/dL [place] Interpretation and review of laboratory results Abnormal [place] Potassium [Moles/Vol] 4.4 mmol/L 3.7 - 5.3 mmol/L [place] Sodium [Moles/Vol] 137 mmol/L 135 - 144 mmol/L [place] Urea nitrogen [Mass/Vol] 42 mg/dL High 8 - 23 mg/dL [place] CBCon 08-15-2020 Erythrocyte distribution width (RBC) [Ratio] 14.1 % 11.8 - 14.4 % [place] Hematocrit (Bld) [Volume fraction] 45.2 % 40.7 - 50.3 % [place] Hemoglobin (Bld) [Mass/Vol] 14.1 g/dL 13 - 17 g/dL [place] MCH (RBC) [Entitic mass] 27.8 pg 25.2 - 33.5 pg [place] MCHC (RBC) [Mass/Vol] 31.2 g/dL 28.4 - 34.8 g/dL [place] MCV (RBC) [Entitic vol] 89.0 fL 82.6 - 102.9 fL [place] Platelet mean volume (Bld) [Entitic vol] 10.8 fL 8.1 - 13.5 fL [place] Platelets (Bld) [#/Vol] 195 10*3/uL [place] RBC (Bld) [#/Vol] 5.08 10*6/uL 4.21 - 5.7 7 m/uL [place] WBC (Bld) [#/Vol] 0.0 10*3/uL 0.0 per 10 0 WBC [place] WBC (Bld) [#/Vol] 7.0 10*3/uL [place] CBC AUTO DIFFon 03-29-2019 Basophils (Bld) [#/Vol] 0.1 103/ul Normal 0.0-0.1 [facility] Comment on above: Performed By: #### C BC #### [facility] [address] [place], [place] [id number] Jayant Belem Basophils/100 WBC (Bld) 0.5 % Normal 0.2-2.0 [facility] Comment on above: Performed By: #### C BC #### [facility] [address] [place] [id number] Jayant Belem Eosinophils (Bld) [#/Vol] 0.1 103/ul Normal 0.0-0.7 [facility] Comment on above: Performed By: #### C BC #### [facility] [address] [place] [id number] Jayant Belem Eosinophils/100 WBC (Bld) 1.3 % Normal 0.9-7.0 [facility] Comment on above: Performed By: #### C BC #### [facility] [address] [place], [place] [id number] Jayant Belem Erythrocyte distribution width (RBC) [Ratio] 13.5 % Normal 11.0-15.0 [facility] Comment on above: Performed By: #### C BC #### [facility] [address] [place] [address] Jayant Patricia Hematocrit (Bld) [Volume fraction] 41.8 % Critically low 42.0-54.0 [facility] Comment on above: Performed By: #### C BC #### [facility] [address] [place] [address] Jayant Patricia Hemoglobin (Bld) [Mass/Vol] 14.4 g/dL Normal 14.0-18.0 [facility] Comment on above: Performed By: #### C BC #### [facility] [address] [place] [address] Jayant Patricia IG # 0.04 [id number] Critically high 0.00-0.03 [facility] Comment on above: Performed By: #### C BC #### [facility] [address] [place] [address] Jayant Patricia IG % 0.4 % Normal 0.0-0.5 [facility] Comment on above: Performed By: #### C BC #### [facility] [address] [place] [address] Jayant Patricia Lymphocytes (Bld) [#/Vol] 1.4 103/ul Normal 1.2-3.8 [facility] Comment on above: Performed By: #### C BC #### [facility] [address] [place] [address] Jayant Patricia Lymphocytes/100 WBC (Bld) 14.9 % Critically low 20.5-60.0 [facility] Comment on above: Performed By: #### C BC #### [facility] [address] [place], [place] [id number] Jayant Patricia MANUAL DIFF REQ NO Normal [facility] Comment on above: Performed By: #### C BC #### [facility] [address] [place] [address] Jayant Patricia MCH (RBC) [Entitic mass] 28.1 pg Normal 25.9-34.0 [facility] Comment on above: Performed By: #### C BC #### [facility] [address] [place], [place] [id number] Jayantestelle Patricia MCHC (RBC) [Mass/Vol] 34.4 g/dL Normal 29.9-35.2 [facility] Comment on above: Performed By: #### C BC #### [facility] [address] [place], [place] [address] Jayant Belem MCV (RBC) [Entitic vol] 81.6 fL Normal 80.0-94.0 [facility] Comment on above: Performed By: #### C BC #### [facility] Laboratory [address] [place], [place] [id number] Jayant Belem Monocytes (Bld) [#/Vol] 0.8 103/ul Normal 0.3-0.8 The [facility] Comment on above: Performed By: #### C BC #### [facility] [address] [place] [address] Jayant Belem Monocytes/100 WBC (Bld) 7.8 % Normal 1.7-12.0 [facility] Comment on above: Performed By: #### C BC #### [facility] [address] [place], [place] [id number] Jayant Belem Neutrophils (Bld) [#/Vol] 7.2 103/ul Critically high 1.4-6.5 [facility] Comment on above: Performed By: #### C BC #### [facility] [address] [place], [place] [id number] Jayant Belem Neutrophils/100 WBC (Bld) 75.1 % Critically high 43.0-75.0 [facility] Comment on above: Performed By: #### C BC #### [facility] [address] [place], [place] [id number] Jayant Belem Platelet mean volume (Bld) [Entitic vol] 10.6 fL Normal 9.5-13.5 [facility] Comment on above: Performed By: #### C BC #### [facility] [address] [place], [place] [id number] Jayant Belem Platelets (Bld) [#/Vol] 178 103/ul Normal 150-450 [facility] Comment on above: Performed By: #### C BC #### [facility] [address] [id number] Jayant Belem RBC (Bld) [#/Vol] 5.12 106/ul Normal 4.70-6.10 The [facility] Comment on above: Performed By: #### C BC #### [facility] [address] [id number] Jayant Belem WBC (Bld) [#/Vol] 9.6 103/ul Normal 4.0-11.0 The [facility] Comment on above: Performed By: #### C BC #### [facility] [address] [place], [place] [id number] Jayant Belem PROF CHEM 8 (BAS METB)on Anion gap [Moles/Vol] 15.5 mmol/L Normal [facility] Comment on above: Performed By: #### B MP #### [facility] [address] [place], [place] [address] Jayant Belem Calcium [Mass/Vol] 9.3 mg/dL Normal 8.4-10.2 The [facility] Comment on above: Performed By: #### B MP #### [facility] [address] [place], [place] [address] Jayant Belem Chloride [Moles/Vol] 100 mmol/L Normal 98-107 [facility] Comment on above: Performed By: #### B MP #### [facility] [address] [place], [place] [address] Jayant Belem CO2 [Moles/Vol] 23.8 mmol/L Normal 22.0-30.0 The [facility] Comment on above: Performed By: #### B MP #### [facility] [address] [place], [place] [address] Jayant Belem Creatinine [Mass/Vol] 1.29 mg/dL Critically high 0.66-1.25 [facility] Comment on above: Performed By: #### B MP #### [facility] [address] [place], [place] [address] Jayant Belem EGFR-AF MALAYSIAN >60 Normal >=60 [facility] Comment on above: Performed By: #### B MP #### [facility] [address] [place], [place] [address] Jayant Belem EGFR-NON AF MALAYSIAN 55 mL/min/1.73m2 Critically low >=60 [facility] Comment on above: Performed By: #### B MP #### [facility] [address] [phone] Jayant Belem Glucose [Mass/Vol] 356 mg/dL Critically high 74-106 T [facility] Comment on above: Performed By: #### B MP #### [facility] [address] [phone] Jayant Belem Potassium [Moles/Vol] 4.3 mmol/L Normal 3.4-5.0 [facility] Comment on above: Performed By: #### B MP #### [facility] [address] [phone] Jayant Belem Sodium [Moles/Vol] 135 mmol/L Critically low 137-145 Th [facility] Comment on above: Performed By: #### B MP #### [facility] [address] [place], [place] [address] Jayant Belem Urea nitrogen [Mass/Vol] 25.0 mg/dL Critically high 9.0-20.0 [facility] Comment on above: Performed By: #### B MP #### [facility] [address] [phone] Jayant Belem Urea nitrogen/Creatinine [Mass ratio] 19.4 mg/mg Normal [facility] Comment on above: Performed By: #### B MP #### [facility] [address] [place], [place] [phone] Jayant Belem Vital Signs Date Time Vital Sign Value Performing Clinician Facility 04-07-2025 15:37-0400 Body mass index (BMI) [Ratio] 23.05 kg/m2 Fahad Knight DO Work Phone: [facility] 04-07-2025 15:37-0400 Body weight 79.24 kg Fahad Furlong DO Work Phone: [facility] 04-07-2025 15:37-0400 Diastolic blood pressure 64 mm[Hg] Fahad Furlong DO Work Phone: [facility] 04-07-2025 15:37-0400 Systolic blood pressure 134 mm[Hg] Fahad Furlong DO Work Phone: [facility] 02-23-2025 09:51-0400 Body mass index (BMI) [Ratio] 23.67 kg/m2 Fahad Furlong DO Work Phone: [facility] 02-23-2025 09:51-0400 Body temperature 96.21 [degF] Fahad Furlong DO Work Phone: [facility] 02-23-2025 09:51-0400 Body weight 81.38 kg Fahad Furlong DO Work Phone: [facility] 02-23-2025 09:51-0400 Diastolic blood pressure 74 mm[Hg] Fahad Furlong DO Work Phone: [facility] 02-23-2025 09:51-0400 Heart rate 53 /min Fahad Furlong DO Work Phone: [facility] 02-23-2025 09:51-0400 Respiratory rate 20 /min Fahad Furlong DO Work Phone: [facility] 02-23-2025 09:51-0400 SaO2% (BldA) [Mass fraction] 93 % Fahad Furlong DO Work Phone: [facility] 02-23-2025 09:51-0400 Systolic blood pressure 149 mm[Hg] Fahad Furlong DO Work Phone: [facility] 02-16-2025 11:34-0400 Body mass index (BMI) [Ratio] 23.67 kg/m2 Fahad Furlong DO Work Phone: [facility] 02-16-2025 11:34-0400 Body temperature 97.59 [degF] Fahad Furlong DO Work Phone: [facility] 02-16-2025 11:34-0400 Body weight 81.38 kg Fahad Furlong DO Work Phone: [facility] 02-16-2025 11:34-0400 Diastolic blood pressure 76 mm[Hg] Fahad Furlong DO Work Phone: [facility] 02-16-2025 11:34-0400 Heart rate 77 /min Fahad Furlong DO Work Phone: [facility] 02-16-2025 11:34-0400 Respiratory rate 18 /min Fahad Furlong DO Work Phone: [facility] 02-16-2025 11:34-0400 Systolic blood pressure 143 mm[Hg] Fahad Furlong DO Work Phone: [facility] 01-15-2025 16:56-0400 Diastolic blood pressure 66 mm[Hg] Fahad Furlong DO Work Phone: [facility] 01-15-2025 16:56-0400 Systolic blood pressure 132 mm[Hg] Fahad Furlong DO Work Phone: [facility] 12-18-2024 15:28-0500 Body mass index (BMI) [Ratio] 24.94 kg/m2 Fahad Furlong DO Work Phone: [facility] 12-18-2024 15:28-0500 Body weight 85.73 kg Fahad Furlong DO Work Phone: [facility] 12-18-2024 15:28-0500 Diastolic blood pressure 68 mm[Hg] Fahad Furlong DO Work Phone: [facility] 12-18-2024 15:28-0500 Heart rate 78 /min Fahad Furlong DO Work Phone: [facility] 12-18-2024 15:28-0500 Systolic blood pressure 160 mm[Hg] Fahad Furlong DO Work Phone: [facility] 11-13-2024 09:14-0500 Body mass index (BMI) [Ratio] 24.96 kg/m2 Fahad Furlong DO Work Phone: [facility] 11-13-2024 09:14-0500 Body temperature 98.01 [degF] Fahad Furlong DO Work Phone: [facility] 11-13-2024 09:14-0500 Body weight 85.82 kg Fahad Furlong DO Work Phone: [facility] 11-13-2024 09:14-0500 Diastolic blood pressure 71 mm[Hg] Fahad Furlong DO Work Phone: [facility] 11-13-2024 09:14-0500 Heart rate 76 /min Fahad Furlong DO Work Phone: [facility] 11-13-2024 09:14-0500 Respiratory rate 18 /min Fahad Furlong DO Work Phone: [facility] 11-13-2024 09:14-0500 SaO2% (BldA) [Mass fraction] 93 % Fahad Furlong DO Work Phone: [facility] 11-13-2024 09:14-0500 Systolic blood pressure 139 mm[Hg] Fahad Furlong DO Work Phone: [facility] 10-09-2024 13:14-0500 Body mass index (BMI) [Ratio] 24.96 kg/m2 Fahad Furlong DO Work Phone: [facility] 10-09-2024 13:14-0500 Body temperature 98.29 [degF] Fahad Furlong DO Work Phone: [facility] 10-09-2024 13:14-0500 Body weight 85.82 kg Fahad Furlong DO Work Phone: [facility] 10-09-2024 13:14-0500 Diastolic blood pressure 70 mm[Hg] Fahad Furlong DO Work Phone: [facility] 10-09-2024 13:14-0500 Heart rate 68 /min Fahad Furlong DO Work Phone: [facility] 10-09-2024 13:14-0500 Respiratory rate 18 /min Fahad Furlong DO Work Phone: [facility] 10-09-2024 13:14-0500 SaO2% (BldA) [Mass fraction] 93 % Fahad Furlong DO Work Phone: [facility] 10-09-2024 13:14-0500 Systolic blood pressure 136 mm[Hg] Fahad Furlong DO Work Phone: [facility] 09-08-2024 18:18-0500 Diastolic blood pressure 74 mm[Hg] Fahad Furlong DO Work Phone: [facility] 09-08-2024 18:18-0500 Heart rate 73 /min Fahad Furlong DO Work Phone: [facility] 09-08-2024 18:18-0500 Systolic blood pressure 118 mm[Hg] Fahad Furlong DO Work Phone: [facility] 08-25-2024 23:26-0500 Body mass index (BMI) [Ratio] 25.12 kg/m2 Fahad Furlong DO Work Phone: [facility] 08-25-2024 23:26-0500 Body temperature 98.4 [degF] Fahad Furlong DO Work Phone: [facility] 08-25-2024 23:26-0500 Body weight 86.36 kg [facility] 08-07-2024 15:35-0400 Body height 185.4 cm Fahad Furlong DO [facility] 08-07-2024 15:35-0400 Body mass index (BMI) [Ratio] 24.91 kg/m2 Fahad Furlong DO Work Phone: [facility] 08-07-2024 15:35-0400 Body temperature 97 [degF] Fahad Furlong DO [facility] 08-07-2024 15:35-0400 Body weight 85.64 kg Fahad Furlong DO [facility] 08-07-2024 15:35-0400 Diastolic blood pressure 77 mm[Hg] Fahad Furlong DO Work Phone: [facility] 08-07-2024 15:35-0400 Heart rate 71 /min Fahad Furlong DO [facility] 08-07-2024 15:35-0400 Respiratory rate 18 /min Fahad Furlong DO [facility] 08-07-2024 15:35-0400 SaO2% (BldA) [Mass fraction] 92 % Fahad Furlong DO Work Phone: [facility] 08-07-2024 15:35-0400 Systolic blood pressure 133 mm[Hg] Fahad Furlong DO [facility] 08-03-2024 12:01-0400 Body temperature 97.5 [degF] Janet Sanderson MD [facility] 08-03-2024 12:01-0400 Diastolic blood pressure 70 mm[Hg] Janet Sanderson MD Work Phone: [facility] 08-03-2024 12:01-0400 Heart rate 69 /min Janet Sanderson MD Work Phone: [facility] 08-03-2024 12:01-0400 Respiratory rate 14 /min Janet Sanderson MD Work Phone: [facility] 08-03-2024 12:01-0400 SaO2% (BldA) [Mass fraction] 95 % Janet Sanderson MD Work Phone: [facility] 08-03-2024 12:01-0400 Systolic blood pressure 151 mm[Hg] Janet Sanderson MD Work Phone: [facility] 08-02-2024 04:11-0400 Body mass index (BMI) [Ratio] 25.39 kg/m2 Janet Sanderson MD Work Phone: [facility] 08-02-2024 04:11-0400 Body weight 87.3 kg Janet Sanderson MD Work Phone: [facility] 07-31-2024 15:47-0400 Body height 185.4 cm Janet Sanderson MD Work Phone: [facility] 05-06-2024 15:20-0400 Body mass index (BMI) [Ratio] 29.03 kg/m2 Evans De La Rosa MD Work Phone: [facility] 05-06-2024 15:20-0400 Body weight 99.79 kg Evans De La Rosa MD Work Phone: [facility] 05-06-2024 15:20-0400 Diastolic blood pressure 64 mm[Hg] Evans De La Rosa MD Work Phone: [facility] 05-06-2024 15:20-0400 Heart rate 60 /min Evans De La Rosa MD Work Phone: [facility] 05-06-2024 15:20-0400 Systolic blood pressure 141 mm[Hg] Evans De La Rosa MD Work Phone: [facility] 04-09-2024 13:22-0400 Body height 185.4 cm Stephanie DEL RIO-C Work Phone: [facility] 04-09-2024 13:22-0400 Diastolic blood pressure 66 mm[Hg] Stephanie Hall PA-C Work Phone: [facility] 04-09-2024 13:22-0400 Heart rate 58 /min Stephanie Hall PA-C Work Phone: [facility] 04-09-2024 13:22-0400 SaO2% (BldA) [Mass fraction] 93 % Stephanie Hall PA-C Work Phone: [facility] 04-09-2024 13:22-0400 Systolic blood pressure 126 mm[Hg] Stephanie Hall PA-C Work Phone: [facility] Encounters Encounter Date Encounter Type Care Provider Facility Start: 04-07-2025 End: 04-07-2025 ambulatory Fahad Knight DO Work Phone: [facility] Comment on above: Essential hypertensi on (Primary Dx); Cerebrovascular accident (CVA), unspecified mechanism ([facility] Type 2 diabetes mellitus with hyperglycemia, with long-term current use of insulin ([facility]) Start: 02-23-2025 End: 03-15-2025 Continuing Care Fahad Knight DO Work Phone: [facility] Comment on above: Type 2 diabetes abbie itus with hyperglycemia, with long-term current use of insulin ([facility]) (Primary Dx); Metabolic encephalopathy; Bipolar affective disorder, remission status unspecified ([facility]); Essential hypertension Start: 02-16-2025 End: 02-16-2025 Continuing Care Fahad Knight DO Work Phone: [facility] Comment on above: Metabolic encephalop athy (Primary Dx); Type 2 diabetes mellitus with hyperglycemia, with long-term current use of insulin ([facility]); Pressure injury of skin of sacral region, unspecified injury stage; Bipolar affective disorder, remission status unspecified (CMS-HCC) Start: 01-15-2025 End: 01-18-2025 ambulatory Fahad Knight DO Work Phone: [facility] Comment on above: Essential hypertensi on (Primary Dx); Cerebrovascular accident (CVA), unspecified mechanism (CMS-HCC); Metabolic encephalopathy Start: 12-18-2024 End: 12-18-2024 ambulatory Fahad Knight DO Work Phone: [facility] Comment on above: Metabolic encephalop athy (Primary Dx); Essential hypertension; Pressure injury of skin of sacral region, unspecified injury stage Start: 11-13-2024 End: 11-16-2024 Continuing Care Fahad Knight DO Work Phone: [facility] Comment on above: Metabolic encephalop athy (Primary Dx); Cerebrovascular accident (CVA), unspecified mechanism (CMS-HCC); Essential hypertension; Anxiety; Bipolar affective disorder, remission status unspecified (CMS-HCC) Start: 10-09-2024 End: 10-10-2024 Continuing Care Fahad Knight DO Work Phone: [facility] Comment on above: Cerebrovascular acci dent (CVA), unspecified mechanism (CMS- HCC) (Primary Dx); Metabolic encephalopathy; Bipolar affective disorder, remission status unspecified (CMS-HCC) Start: 09-08-2024 End: 09-13-2024 Continuing Care Fahad Knight DO Work Phone: [facility] Comment on above: Cerebrovascular acci dent (CVA), unspecified mechanism (CMS- HCC) (Primary Dx); Essential hypertension; Metabolic encephalopathy; Anxiety; Bipolar affective disorder, remission status unspecified (CMS-HCC); Dry skin Start: 09-04-2024 End: 09-04-2024 Continuing Care Fahad Knight DO Work Phone: [facility] Comment on above: Essential hypertensi on (Primary Dx); Cerebrovascular accident (CVA), unspecified mechanism ([facility]); Anxiety; Bipolar affective disorder, remission status unspecified ([facility]) Start: 09-01-2024 End: 09-01-2024 ambulatory Fahad Knight Archsy Work Phone: [facility] Comment on above: Metabolic encephalop athy (Primary Dx); Sepsis with acute hypoxic respiratory failure without septic shock, due to unspecified organism (CMS-HCC); Cerebrovascular accident (CVA), unspecified mechanism ([facility]); Essential hypertension Start: 08-25-2024 End: 08-25-2024 ambulatory Fahad Knight Archsy Work Phone: [facility] Comment on above: Cerebrovascular acci dent (CVA), unspecified mechanism ([facility]- HCC) (Primary Dx); Type 2 diabetes mellitus with hyperglycemia, with long-term current use of insulin ([facility]); Metabolic encephalopathy; Mixed hyperlipidemia; Neoplasm of uncertain behavior of skin Start: 08-09-2024 ambulatory [facility] Start: 08-07-2024 End: 08-07-2024 ambulatory Fahad Knight Archsy Work Phone: [facility] Comment on above: Vasovagal syncope (P rimary Dx); Metabolic encephalopathy; Type 2 diabetes mellitus with hyperglycemia, with long-term current use of insulin ([facility]); Essential hypertension; Cerebrovascular accident (CVA), unspecified mechanism ([facility]); Coronary artery disease involving upper [place] coronary artery of upper [place] heart without angina pectoris; Mixed hyperlipidemia Start: 07-31-2024 End: 08-04-2024 ambulatory [facility] Start: 07-31-2024 End: 08-04-2024 ambulatory [facility] Start: 07-31-2024 End: 08-04-2024 Emergency department patient visit ROSA DE SOUZA [facility] Start: 07-31-2024 End: 08-03-2024 ambulatory NO PCP NO PCP [facility] Start: 07-31-2024 End: 08-03-2024 Emergency department patient visit Galileo Downey MD Work Phone: [facility] - 7 Oncology/Stroke Comment on above: Syncope (Primary Dx) ; Vasovagal episode Start: 05-06-2024 End: 05-06-2024 Office outpatient visit 15 minutes Evans De La Rosa MD Work Phone: [facility] Comment on above: Cerebrovascular acci dent (CVA), unspecified mechanism (CMS- HCC) (Primary Dx) Start: 05-06-2024 End: 05-06-2024 ambulatory [facility] Start: 04-09-2024 End: 04-09-2024 Office outpatient visit 25 minutes Stephanie Hall PA-C Work Phone: [facility] Comment on above: New onset a-fib ([facility]) (Primary Dx); Coronary artery disease involving upper [place] coronary artery of upper [place] heart without angina pectoris; NSVT (nonsustained ventricular tachycardia) ([facility]); Mixed hyperlipidemia; Essential hypertension Start: 04-09-2024 End: 04-09-2024 ambulatory STEPHANIE HALL [facility] Start: 04-08-2024 End: 04-22-2024 Telephone encounter [facility] Comment on above: Reschedule Start: 03-31-2024 End: 03-31-2024 Chart abstracting Scanning Provider External [facility] Start: 03-19-2024 End: 03-19-2024 ambulatory BELLA YOUNG [facility] Start: 01-08-2024 Telephone encounter Birgit hollis MD Work Phone: [facility] Comment on above: Hospital Follow-up Start: 06-05-2023 End: 06-06-2023 ambulatory [facility] Start: 06-05-2023 End: 06-05-2023 Subsequent hospital visit by physician [facility] Start: 06-04-2023 [facility] Start: 05-07-2023 End: 05-08-2023 [facility] Start: 04-25-2023 End: 04-26-2023 [facility] Start: 04-24-2023 [facility] Start: 2023 End: 02-07-2023 [facility] Start: 2023 End: 2023 Subsequent hospital visit by physician [facility] Start: 10-23-2022 End: 10-24-2022 [facility] Start: 10-23-2022 End: 10-23-2022 Subsequent hospital visit by physician [facility] Start: 08-07-2022 End: 08-08-2022 [facility] Start: 08-07-2022 End: 08-07-2022 Subsequent hospital visit [...] 07-31-2024 Assay of lactate Rosa De Souza MAIL OFFICER[employer]IT MANAGER Work Phone: Start: 07-31-2024 Ct abdomen & pelvis w/contrast material Rosa De Souza MAIL OFFICER-NONPROFIT MANAGER Work Phone: Start: 07-31-2024 Ct head/brain w/o co ntrast material Rosa De Souza MAIL OFFICER-NONPROFIT MANAGER Work Phone: Start: 07-31-2024 Ct angiography chest w/contrast/noncontrast Galileo Downey MD Work Phone: Start: 07-31-2024 Assay of troponin quantitative Rosa De Souza MAIL OFFICER-NONPROFIT MANAGER Work Phone: Start: 07-31-2024 Ecg routine ecg w/le ast 12 lds trcg only w/o i&r Rosa De Souza MAIL OFFICER-NONPROFIT MANAGER Work Phone: Start: 07-31-2024 Comprehensive metabo lic panel Rosa De Souza MAIL OFFICER-NONPROFIT MANAGER Work Phone: Start: 04-09-2024 Follow-up visit Follow-up [...] metabolic pane l calcium total Mi Nichols MAIL OFFICER - NONPROFIT MANAGER Work Phone: Start: 05-10-2021 Hepatic function panel Mi Nichols MAIL OFFICER - NONPROFIT MANAGER Work Phone: Start: 03-30-2021 Basic metabolic pane [...] Td Vaccines (2 - Td or Tdap) [facility] Start: 04-05-2026 DTaP,Tdap and Td Vac cines (3 - Td or Tdap) DTaP,Tdap and Td Vaccines (3 - Td or Tdap) [facility] Start: 11-16-2025 Tobacco Screening Tobacco Screening [facility] Start: 08-02-2025 Adult BMI Screening Adult BMI Screen ing [facility] Start: 06-21-2025 Influenza vaccination Influenza Vacc ine [facility] Start: 05-06-2025 Adult BMI Screening Adult BMI Screen ing [facility] Start: 05-06-2025 Tobacco Screening Tobacco Screening [facility] Start: 04-09-2025 Tobacco Screening Tobacco Screening [facility] Start: 03-19-2025 Adult BMI Screening Adult BMI Screen ing [facility] Start: 01-11-2025 Adult BMI Screening Adult BMI Screen ing [facility] Start: 09-17-2024 Tobacco Screening Tobacco Screening [facility] Start: 06-21-2024 COVID-19 Vaccine () COVID-19 Vaccine () [facility] Start: 06-21-2024 COVID-19 Vaccine () COVID-19 Vaccine () [facility] Start: 06-21-2024 Influenza vaccination Influenza Vacc ine [facility] Start: 04-22-2024 End: 04-22-2024 Patient encounter procedure 04/22/2024 2:30 PM EDT Office Visit [facility] [address] [place] [id number] Evans De La Rosa MD [address] [place], [place] [id number] [facility] Start: 04-09-2024 End: 04-09-2024 Patient encounter procedure 04/09/2024 1:30 PM EDT Office Visit [facility] [address] [place] [phone] Stephanie Hall PA-C [address] [place] [address] [facility] Start: 04-08-2024 End: 04-08-2024 Patient encounter procedure 04/08/2024 1:30 PM EDT Office Visit [facility] [address] [place] [phone] Evans De La Rosa MD [address] [place] [phone] [facility] Start: 02-12-2024 End: 02-12-2024 Patient encounter procedure 02/12/2024 3:00 PM EDT Office Visit [facility] [address] [place] [phone] Evans De La Rosa MD [address] [facility] [address] [place] [phone] [facility] Start: 06-21-2023 COVID-19 Vaccine ( season) COVID-19 Vaccine ( season) [facility] Start: 05-21-2023 Influenza vaccination B [facility] Start: 06-21-2022 Influenza vaccination Flu vacc ine (Season Ended) [facility] Start: 05-21-2022 Influenza vaccination Flu vaccine (# 1) [facility] Start: 06-21-2021 Influenza vaccination [facility] Start: 03-08-2021 COVID-19 Vaccine (3 - Moderna risk series) COVID-19 Vaccine (3 - Moderna risk series) [facility] Start: 09-12-2020 Hospital Encounter 09/12/2020 Hospital Encounter [facility] Start: 09-05-2020 Hospital Encounter 09/05/2020 Hospital Encounter [facility] Start: 06-21-2020 Influenza vaccination Flu vaccine (# 1) [place], [place] Start: 07-02-2017 Urine screening for protein Urine Mi croalbumin [facility] Start: 02-05-2013 Abdominal aortic ane urysm screening Abdominal Aortic Aneurysm (AAA) Screen [facility] Start: 02-05-2013 Fall Risk Screening Fall Risk Screen ing [facility] Start: 02-05-1998 Administration of va ricella zoster vaccine Zoster (Shingles) Vaccine (1 of 2) [facility] Start: 02-05-1967 DTaP/Tdap/Td vaccine (1 - Tdap) DTaP/Tdap/Td vaccine (1 - Tdap) [facility] Start: 02-05-1966 Adult BMI Follow Up Plan Adult BMI Follow Up Plan [facility] Start: 1964 COVID-19 Vaccine (1) COVID-19 Vaccin e (1) [employer] Phone: Start: 1960 COVID-19 Vaccine (1) COVID-19 Vaccin e (1) [employer] Phone: Start: 1960 Depression Screening Depression Scre ening [facility] Start: 02-05-1953 COVID-19 Vaccine (1) COVID-19 Vaccin e (1) [employer] Start: 1950 COVID-19 Vaccine (#1) COVID-19 Vacci ne (#1) [facility] [employer] Start: 1950 Glaucoma screening Diabetic Op hthalmology Exam [facility] Start: 1950 Medicare Annual Well ness Visit Medicare Annual Wellness Visit [facility] End: 06-05-2023 Hemoglobin A1c/Hemoglobin.total in Blood [employer] Phone: Comment on above: Once for 1 Occurrenc es starting 06/05/2023 until 06/05/2023 End: 02-10-2021 Nuclear Ab [Titer] in Serum by Immunofluorescence [facility] Routine Once for 1 Occurrences starting 02/10/2021 until 02/10/2021 [employer] Phone: Comment on above: Once for 1 Occurrenc es starting 02/10/2021 until 02/10/2021 Nuclear Ab [Titer] i n Serum by Immunofluorescence [facility] Routine 02/10/2021 8:43 AM EDT [employer] Phone: Immunizations Immunization Date Immunization Notes Care Provider Mert stover 08-21-2018 influenza virus vaccine, unspecified formulation Scanning External [facility] Payers Date Payer Category Payer Medicaid [id number] 2014 Medicaid [id number]. [id number] 2013 Medicare [id number] 2013 Medicare [id number] 1959 Unknown [id number] 1950 Unknown [id number] 2.16.84 0.1.787378.3.579.2.593 1948 Unknown [id number] 2.16.8 40.1.702038.3.579.2.177 1948 Unknown [id number] 2.16.8 40.1.531812.3.579.2.177 1948 Unknown [id number] 2.16.8 40.1.703623.3.579.2.177 1948 Unknown [id number] 2.16.8 40.1.362626.3.579.2.177 1948 Unknown [id number] 2.16.8 40.1.607885.3.579.2.177 1948 Unknown [id number] 2.16.8 40.1.322499.3.579.2.177 1948 Unknown [id number] 2.16.8 40.1.289291.3.579.2.177 1948 Unknown [id number] 2.16.8 40.1.630342.3.579.2.177 1948 Unknown [id number] 2.16.8 40.1.292599.3.579.2.1286 1948 Unknown [id number] 2.16. 840.1.844178.3.579.2.128 1948 Unknown [id number] 2.16.8 40.1.420952.3.579.2.128 1948 Unknown [id number] 2.16.8 40.1.640805.3.579.2.1285 1948 Unknown [id number] 2.16.8 40.1.758964.3.579.2.1286 1948 Unknown [id number] 2.16.8 40.1.097604.3.579.2.1286 1948 Unknown [id number] 2.16.8 40.1.930803.3.579.2.1286 1948 Unknown [id number] 2.16.8 40.1.785728.3.579.2.1286 1948 Unknown [id number] 2.16.8 40.1.063803.3.579.2.1286 1948 Unknown [id number] 2.16.8 40.1.571179.3.579.2.1286 Social History Date Type Detail Facility Tobacco smoking stat [facility] Unknown if ever smoked [employer] Start: 1950 Sex Assigned At Not on file [employer] Tobacco smoking stat [facility] Tobacco smoking consumption unknown [employer] Work Phone: Start: 02-19-2018 Tobacco smoking status [facility] Ex-smoker [facility] History of tobacco use Current smoker [facility] Start: 02-19-2018 Tobacco use and exposure Smokeless tobacco non-user [facility] Start: 05-06-2024 End: 11-16-2024 Alcoholic beverage intake [facility] (finding[facility] Start: 12-01-2020 End: 07-31-2024 History of Social function [facility] Start: 12-01-2020 End: 07-31-2024 [facility] Utilities [facility] Has the [employer], or [employer] threatened to shut off services in your home in past 12Mo No [facility] In the past 12 month s, has lack of transportation kept you from medical appointments or from getting medications? No [facility] Start: 05-26-2015 Sex Male (finding) [facility] Goals Date Patient Goal Desired Activity /State Personal health goal Comment on above: Formatting of this n ote might be different from the original. Evaluation of progress towards goal: DC to [facility] Clinical Notes 01-08-2024 to 04-07-2025 Fahad Knight DO - 04/07/2025 3:37 PM Pricilla Knight, DO - 02/23/2025 11:59 PM Pricilla Knight, DO - 02/16/2025 11:34 AM Pricilla Knight, DO - 01/15/2025 11:59 PM EDT Note Date & Type Note Facility 04-07-2025 History of Presen t illness Narrative Patient Name: Brandon Reardon Date of : 1950 Date of Service: 04/07/2025 Facility: [facility] Type of Visit: Subsequent Visit Subjective Brandon Reardon is a 75 y.o. male [facility]. No new problems reported [...] was on HENT: Head: Normocephalic. Mouth/Throat: Lips: Ritchie. Cardiovascular: Rate and Rhythm: Normal rate and [...] hypertension 2. Cerebrovascular accident (CVA), unspecified mechanism ([facility]) 3. Type 2 diabetes mellitus with hyperglycemia, with long-term current use of insulin ([facility]) Medically stable. Continue current regimen. All medications reviewed and are medically necessary ELECTRONICALLY SIGNED BY: Fahad Knight DO documented in this encounter [facility] 02-23-2025 History of Presen t illness Narrative Patient Name: Brandon Reardon Date of : 1950 Date of Service: 02/23/2025 Facility: [facility] Type of Visit: Acute Visit Subjective Brandon Reardon is a 75 y.o. male seen today at halfway facility for problem visit. Staff reports abnormal labs for my review. No other new issues. He is being seen by [facility] for his psychiatric issues. Allergies: Amlodipine, Atorvastatin, [...] watching TV HENT: Head: Normocephalic. Mouth/Throat: Lips: Ritchie. Cardiovascular: Rate and Rhythm: Normal rate and [...] hyperglycemia, with long-term current use of insulin ([facility]) 2. Metabolic encephalopathy 3. Bipolar affective disorder, remission status unspecified ([facility]) 4. Essential hypertension Add Mounjaro 2.5mg SQ weekly. Continue other orders as before. All medications reviewed and are medically necessary. ELECTRONICALLY SIGNED BY: Fahad Knight DO documented in this encounter [facility] 02-16-2025 History of Presen t illness Narrative Patient Name: Brandon Reardon Date of : 1950 Date of Service: 02/16/2025 Facility: [facility] Type of Visit: Subsequent Visit Subjective Brandon Reardon is a 75 y.o. male seen today at halfway facility for regular visit. No new problems [...] watching TV HENT: Head: Normocephalic. Mouth/Throat: Lips: Ritchie. Cardiovascular: Rate and Rhythm: Normal rate and [...] hyperglycemia, with long-term current use of insulin ([facility]) 3. Pressure injury of skin of sacral region, unspecified injury stage 4. Bipolar affective disorder, remission status unspecified ([facility]) Medically stable. Check CMP, CBC and A1c in February. Continue current regimen. All medications reviewed and are medically necessary. ELECTRONICALLY SIGNED BY: Fahad Knight DO documented in this encounter [facility] 01-15-2025 History of Presen t illness Narrative Patient Name: Brandon Reardon Date of : 1950 Date of Service: 01/15/2025 Facility: [facility] Type of Visit: Subsequent Visit Subjective Brandon Reardon is a 74 y.o. male seen today at halfway facility for regular monthly visit. No new problems reported by staff or patient. Allergies: Amlodipine, Atorvastatin, Ibuprofen, Metformin, Pravastatin, Simvastatin, and Terazosin Code Status: DNRCC-A BP 132/66 Physical Exam Vitals reviewed. Exam conducted with a recruiter account manager present (Wild Bustamante MS 3). Constitutional: General: He is sleeping. He is not in acute distress. Appearance: He is normal weight. He is not ill-appearing. Comments: He is in bed sleeping HENT: Head: Normocephalic. Mouth/Throat: Lips: Ritchie. Cardiovascular: Rate and Rhythm: Normal rate and [...] Fahad Knight DO documented in this encounter [facility] 12-18-2024 History of Presen t illness Narrative Patient Name: Brandon Reardon Date of : 1950 Date of Service: 12/18/2024 Facility: [facility] Type of Visit: Subsequent Visit Subjective Brandon Reardon is a 74 y.o. male seen today at halfway facility for monthly visit. No new problems [...] watching TV HENT: Head: Normocephalic. Mouth/Throat: Lips: Ritchie. Cardiovascular: Rate and Rhythm: Normal rate and [...] Fahad Knight DO documented in this encounter [facility] 11-13-2024 History of Presen t illness Narrative Patient Name: Brandon Reardon Date of : 1950 Date of Service: 11/13/2024 Facility: [facility] Type of Visit: Acute Visit Subjective Brandon Reardon is a 74 y.o. male seen today at halfway facility for problem visit. Brandon was seen [...] Exam Vitals reviewed. Exam conducted with a recruiter account manager present (Kirstin Davies MS III). Constitutional: General: He is not in acute distress. Appearance: He is normal weight. He is not ill-appearing. Comments: Up in [facility] in room HENT: Head: Normocephalic. Mouth/Throat: Lips: Ritchie. Cardiovascular: Rate and Rhythm: Normal rate and [...] encephalopathy 2. Cerebrovascular accident (CVA), unspecified mechanism ([facility]) 3. Essential hypertension 4. Anxiety 5. Bipolar affective disorder, remission status unspecified ([facility]) He may be having pain from his sacral wound so we will schedule his Tylenol twice a day. I will see increase his BuSpar to 7.5 mg twice a day to see if that helps as well. Continue other orders as directed. All medications reviewed and are medically necessary. ELECTRONICALLY SIGNED BY: Fahad Knight DO documented in this encounter [facility] 10-09-2024 History of Presen t illness Narrative Patient Name: Brandon Reardon Date of : 1950 Date of Service: 10/09/2024 Facility: [facility] Type of Visit: Subsequent Visit Subjective Brandon Reardon is a 74 y.o. male seen today at halfway facility for monthly visit. No new problems reported by staff or patient. Allergies: Amlodipine, Atorvastatin, Ibuprofen, Metformin, Pravastatin, Simvastatin, and Terazosin Code Status: DNRCC-A BP 136/70 Pulse 68 Temp 36.8 C (98.3 F) Resp 18 Wt 85.8 kg (189 lb 3.2 oz) SpO2 93% BMI 24.96 kg/m Physical Exam Exam conducted with a recruiter account manager present (Kirstin Davies MS III). Constitutional: General: He is not in acute distress. Appearance: He is normal weight. He is not ill-appearing. Comments: Up in [facility] in room HENT: Mouth/Throat: Lips: Ritchie. Cardiovascular: Rate and Rhythm: Normal rate and [...] Fahad Knight DO documented in this encounter [facility] 09-08-2024 History of Presen t illness Narrative Patient Name: Brandon Reardon Date of : 1950 Date of Service: 09/08/2024 Facility: [facility] Type of Visit: Skilled Visit Subjective Brandon Reardon is a 74 y.o. male seen today at halfway facility for therapy visit No new problems reported by staff or patient. No behaviors since stopping seroquel. He is now on diltiazem 120mg BID and BP is ok. Allergies: Amlodipine, Atorvastatin, Ibuprofen, Metformin, Pravastatin, Simvastatin, and Terazosin Code [facility] BP 118/74 Pulse 73 Physical Exam Exam conducted with a recruiter account manager present (Peng Sanabria MS III). Constitutional: General: He is not in acute distress. Appearance: He is normal weight. He is not ill-appearing. Comments: In bed watching TV HENT: Mouth/Throat: Lips: Ritchie. Cardiovascular: Rate and Rhythm: Normal rate and [...] Plan 1. Cerebrovascular accident (CVA), unspecified mechanism ([facility]) 2. Essential hypertension 3. Metabolic encephalopathy 4. Anxiety 5. Bipolar affective disorder, remission status unspecified ([facility]) 6. Dry skin Continue therapy to reach maximum improvement. Moisturizer daily to rash on feet x 14 days. Continue other orders as before. All medications reviewed and are medically necessary. ELECTRONICALLY SIGNED BY: Fahad Knight DO [facility] History of Presen t illness Narrative Patient Name: Brandon Reardon Date of : 1950 Date of Service: 09/04/2024 Facility: [facility] Type of Visit: Acute Visit Subjective Brandon Reardon is a 74 y.o. male seen today at halfway facility for problem visit. I was asked [...] up for his skin lesion with a wafer fabricator. His extended-release diltiazem is not covered so they are requesting an alternative. Allergies: Amlodipine, Atorvastatin, Ibuprofen, Metformin, Pravastatin, Simvastatin, and Terazosin Code Status: DNRCC-A There were no vitals taken for this visit. Physical Exam Exam conducted with a recruiter account manager present (Peng Sanabria MS III). Constitutional: General: He is not in acute distress. Appearance: He is normal weight. He is not ill-appearing. Comments: In bed watching TV HENT: Head: Normocephalic. Mouth/Throat: Lips: Ritchie. Cardiovascular: Rate and Rhythm: Normal rate and [...] hypertension 2. Cerebrovascular accident (CVA), unspecified mechanism ([facility]) 3. Anxiety 4. Bipolar affective disorder, remission status unspecified ([facility]) I do see in [facility] that he has a diagnosis of bipolar [...] Fahad Knight DO documented in this encounter [facility] 09-01-2024 History of Presen t illness Narrative Patient Name: Brandon Reardon Date of : 1950 Date of Service: 09/01/2024 Facility: [facility] Type of Visit: Skilled Visit Subjective Brandon Reardon is a 74 y.o. male seen today at halfway facility for therapy visit. Brandon is in [...] visit. Physical Exam Exam conducted with a recruiter account manager present (Peng Disla MS III). Constitutional: General: He is not in acute distress. Appearance: He is normal weight. He is not ill-appearing. Comments: In bed watching eating lunch. Pleasant but confused. Did not know yesterday was HENT: Head: Normocephalic. Mouth/Throat: Lips: Ritchie. Cardiovascular: Rate and Rhythm: Normal rate and [...] Fahad Knight DO documented in this encounter [facility] 08-25-2024 History of Presen t illness Narrative Patient Name: Brandon Reardon Date of : 1950 Date of Service: 08/25/2024 Facility: [facility] Type of Visit: Skilled Visit Subjective Brandon Reardon is a 74 y.o. male seen today at halfway facility for therapy visit. Brandon is in [...] Metformin, Pravastatin, Simvastatin, and Terazosin Code [facility]: [facility] Temp 36.9 C (98.4 F) Wt 86.4 kg (190 lb 6.4 oz) BMI 25.12 kg/m Physical Exam Vitals reviewed. Constitutional: General: He is not in acute distress. Appearance: He is normal weight. He is not ill-appearing. Comments: In bed watching TV. Pleasant but confused HENT: Head: Normocephalic. Right Ear: External ear normal. Left Ear: External ear normal. Nose: Nose normal. Mouth/Throat: Lips: Ritchie. Mouth: Mucous membranes are moist. Cardiovascular: Rate [...] Plan 1. Cerebrovascular accident (CVA), unspecified mechanism ([facility]) 2. Type 2 diabetes mellitus with hyperglycemia, with long-term current use of insulin ([facility]) 3. Metabolic encephalopathy 4. Mixed hyperlipidemia 5. Neoplasm of uncertain behavior of skin Lesion on left cheek appears to be basal cell carcinoma clinically. Will make a referral to dermatology. Check CMP, CBC, lipids and A1c. Continue therapy to reach maximum improvement. All medications reviewed and are medically necessary. ELECTRONICALLY SIGNED BY: Fahad Knight DO documented in this encounter [facility] 08-07-2024 History of Presen t illness Narrative Patient Name: Brandon Reardon Date of : 1950 Date of Service: 08/07/2024 Facility: [facility] Type of Visit: Admission H&P Subjective Brandon Reardon is a 74 y.o. male seen today at halfway facility for admission H&P. Patient presents to [facility] for in therapy following discharge from [facility]. He is here for therapies. Apparently [...] History: Diagnosis Date RAMYA (acute kidney injury) ([facility]) 08/18/2020 Anxiety Bipolar disorder ([facility]) Diabetes mellitus type 2, controlled ([facility]) 12/31/2023 Hypertension Metabolic encephalopathy Past Surgical History: Procedure Laterality Date CARDIAC SURGERY No family history on file. See med list at [facility] Allergies: Amlodipine, Atorvastatin, Ibuprofen, Metformin, Pravastatin, Simvastatin, [...] ear normal. Nose: Nose normal. Mouth/Throat: Lips: Ritchie. Mouth: Mucous membranes are moist. Cardiovascular: Rate [...] hyperglycemia, with long-term current use of insulin ([facility]) 4. Essential hypertension 5. Cerebrovascular accident (CVA), unspecified mechanism ([facility]) 6. Coronary artery disease involving upper [place] coronary artery of upper [place] heart without angina pectoris 7. Mixed hyperlipidemia Admit for therapies. He is cognitively impaired. I do not think he is going to be able to go back to living on his own but we will see how he lives. He is DNR comfort care. Continue current regimen Fair rehab potential ELECTRONICALLY SIGNED BY: Fahad Knight DO documented in this encounter [facility] 08-03-2024 Plan of care note Problem: Pain Goal: Patient goal is pain score less than 4, able to rest, and participant in treatment plan as appropriate Description: INTERVENTIONS: 1. Encourage patient or legal real estate representative to report early pain and ask [...] per policy 9. Teach patient or legal real estate representative interventions for comforting Outcome: Adequate for [...] at the bedside 7. Instruct patient/ patient real estate representative about use of safety devices 8. Include patient/ patient real estate representative in decisions related to safety Outcome: [...] hygiene technique 7. Identify and instruct patient/patient real estate representative in use of appropriate isolation precautions for identified infection/symptoms 8. Provide and discuss with patient/patient real estate representative on educational MDRO sheet 9. Encourage and monitor nutritional status daily and consult cosmetic sales assistant if indicated 10. Implement neutropenic guidelines as needed 11. Review exposure to history of communicable disease and recent travel history on admission 12. Encourage annual influenza vaccine 13. Encourage pneumonia vaccine Outcome: Adequate for Discharge Problem: Knowledge Deficit Goal: Patient/patient real estate representative demonstrates understanding of disease process, treatment [...] supplement as ordered 13. Collaborate with clinical cosmetic sales assistant 14. Include patient/ patient's real estate representative in decisions related to nutrition Outcome: [...] be free from fall Description: Interventions: 1. [place] to environment 2. Hourly rounds addressing the [...] non-skid footwear 11. Teach patient and patient real estate representative to maintain environment for safety and [...] (cane, walker) within reach 19. Request patient real estate representative bring adaptive equipment/mobility aids from home or obtain and provide as needed 20. Consult pharmacy regarding effects of med's affecting mobility, cognition, and alternatives 21. Obtain physician order for PT if risk factors associated with mobility are present 22. Obtain physician order for OT as appropriate 23. Utilize diversional activities 24. Educate patient and patient real estate representative how to maintain a safe environment during visitation times (notify nurse prior to leaving bedside) 25. Consider appropriateness of medical or non-medical office supervisor 26. Set up voiding schedule as appropriate [...] color and temperature Outcome: Adequate for Discharge [facility] 10-14-2024 Miscellaneous Notes Problem: Pain Goal: Patient goal is pain score less than 4, able to rest, and participant in treatment plan as appropriate Description: INTERVENTIONS: 1. Encourage patient or legal real estate representative to report early pain and ask [...] per policy 9. Teach patient or legal real estate representative interventions for comforting Outcome: Adequate for [...] at the bedside 7. Instruct patient/ patient real estate representative about use of safety devices 8. Include patient/ patient real estate representative in decisions related to safety Outcome: [...] hygiene technique 7. Identify and instruct patient/patient real estate representative in use of appropriate isolation precautions for identified infection/symptoms 8. Provide and discuss with patient/patient real estate representative on educational MDRO sheet 9. Encourage and monitor nutritional status daily and consult cosmetic sales assistant if indicated 10. Implement neutropenic guidelines as needed 11. Review exposure to history of communicable disease and recent travel history on admission 12. Encourage annual influenza vaccine 13. Encourage pneumonia vaccine Outcome: Adequate for Discharge Problem: Knowledge Deficit Goal: Patient/patient real estate representative demonstrates understanding of disease process, treatment [...] supplement as ordered 13. Collaborate with clinical cosmetic sales assistant 14. Include patient/ patient's real estate representative in decisions related to nutrition Outcome: [...] Moderate - High Risk Fall Score Description: [place] Fall Score of =/> 25 or indicated by [facility] Assessment Goal: Patient should be free from fall Description: Interventions: 1. [place] to environment 2. Hourly rounds addressing the [...] non-skid footwear 11. Teach patient and patient real estate representative to maintain environment for safety and [...] (cane, walker) within reach 19. Request patient real estate representative bring adaptive equipment/mobility aids from home or obtain and provide as needed 20. Consult pharmacy regarding effects of med's affecting mobility, cognition, and alternatives 21. Obtain physician order for PT if risk factors associated with mobility are present 22. Obtain physician order for OT as appropriate 23. Utilize diversional activities 24. Educate patient and patient real estate representative how to maintain a safe environment during visitation times (notify nurse prior to leaving bedside) 25. Consider appropriateness of medical or non-medical office supervisor 26. Set up voiding schedule as appropriate [...] for Discharge DISCHARGE PLANNING NOTE BLS to [facility] at 2 PM. Confirmed in Zoll DISCHARGE PLANNING NOTE Case discussed in daily transition rounds and chart reviewed by CN. Barriers to discharge include DC orders, Discharge Plan remains: DC to [facility].SW called sister, chelsea VM- Awaiting transport time CN will continue to follow and is available should any further needs arise. - GAURI MCKAY 08/03/24 11:57 AM 13:37- Confirmed PTN transport for 2pm. CRF sent to [facility]- Called sisterNichelle left her VM with DC update Problem: Pain Goal: Patient goal is pain score less than 4, able to rest, and participant in treatment plan as appropriate Description: INTERVENTIONS: 1. Encourage patient or legal real estate representative to report early pain and ask [...] per policy 9. Teach patient or legal real estate representative interventions for comforting 08/03/202433 by CHANDLER [...] at the bedside 7. Instruct patient/ patient real estate representative about use of safety devices 8. Include patient/ patient real estate representative in decisions related to safety 08/03/202433 [...] hygiene technique 7. Identify and instruct patient/patient real estate representative in use of appropriate isolation precautions for identified infection/symptoms 8. Provide and discuss with patient/patient real estate representative on educational MDRO sheet 9. Encourage and monitor nutritional status daily and consult cosmetic sales assistant if indicated 10. Implement neutropenic guidelines as needed 11. Review exposure to history of communicable disease and recent travel history on admission 12. Encourage annual influenza vaccine 13. Encourage pneumonia vaccine 08/03/202433 by CHANDLER Trujillo Outcome: Progressing Note: Evaluation of progress towards goal: Pt afebrile, no s/s of infection, monitoring continued 08/03/202432 by CHANDLER Truijllo Outcome: Progressing Note: Evaluation of progress towards goal: Pt afebrile, no s/s of infection, monitoring continued Problem: Knowledge Deficit Goal: Patient/patient real estate representative demonstrates understanding of disease process, treatment [...] supplement as ordered 13. Collaborate with clinical cosmetic sales assistant 14. Include patient/ patient's real estate representative in decisions related to nutrition 08/03/202433 [...] Score of =/> 25 or indicated by [facility] Assessment Goal: Patient should be free from fall Description: Interventions: 1. Napoleon to environment 2. Hourly rounds addressing the [...] non-skid footwear 11. Teach patient and patient real estate representative to maintain environment for safety and [...] (cane, walker) within reach 19. Request patient real estate representative bring adaptive equipment/mobility aids from home or obtain and provide as needed 20. Consult pharmacy regarding effects of med's affecting mobility, cognition, and alternatives 21. Obtain physician order for PT if risk factors associated with mobility are present 22. Obtain physician order for OT as appropriate 23. Utilize diversional activities 24. Educate patient and patient real estate representative how to maintain a safe environment during visitation times (notify nurse prior to leaving bedside) 25. Consider appropriateness of medical or non-medical office supervisor 26. Set up voiding schedule as appropriate [...] Description: INTERVENTIONS: 1. Encourage patient or legal real estate representative to report early pain and ask [...] per policy 9. Teach patient or legal real estate representative interventions for comforting Note: Evaluation of [...] at the bedside 7. Instruct patient/ patient real estate representative about use of safety devices 8. Include patient/ patient real estate representative in decisions related to safety Note: [...] hygiene technique 7. Identify and instruct patient/patient real estate representative in use of appropriate isolation precautions for identified infection/symptoms 8. Provide and discuss with patient/patient real estate representative on educational MDRO sheet 9. Encourage and monitor nutritional status daily and consult cosmetic sales assistant if indicated 10. Implement neutropenic guidelines as needed 11. Review exposure to history of communicable disease and recent travel history on admission 12. Encourage annual influenza vaccine 13. Encourage pneumonia vaccine Note: Evaluation of progress towards goal: Assess and monitor for signs and symptoms of infection 2. Monitor lab/diagnostic results Problem: Knowledge Deficit Goal: Patient/patient real estate representative demonstrates understanding of disease process, treatment [...] supplement as ordered 13. Collaborate with clinical cosmetic sales assistant 14. Include patient/ patient's real estate representative in decisions related to nutrition Note: [...] Score of =/> 25 or indicated by [facility] Assessment Goal: Patient should be free from fall Description: Interventions: 1. Napoleon to environment 2. Hourly rounds addressing the [...] non-skid footwear 11. Teach patient and patient real estate representative to maintain environment for safety and [...] (cane, walker) within reach 19. Request patient real estate representative bring adaptive equipment/mobility aids from home or obtain and provide as needed 20. Consult pharmacy regarding effects of med's affecting mobility, cognition, and alternatives 21. Obtain physician order for PT if risk factors associated with mobility are present 22. Obtain physician order for OT as appropriate 23. Utilize diversional activities 24. Educate patient and patient real estate representative how to maintain a safe environment during visitation times (notify nurse prior to leaving bedside) 25. Consider appropriateness of medical or non-medical office supervisor 26. Set up voiding schedule as appropriate (every 2 hours) Note: Evaluation of progress towards goal: Napoleon to environment 2. Hourly rounds addressing the [...] Description: INTERVENTIONS: 1. Encourage patient or legal real estate representative to report early pain and ask [...] per policy 9. Teach patient or legal real estate representative interventions for comforting Outcome: Progressing Note: [...] at the bedside 7. Instruct patient/ patient real estate representative about use of safety devices 8. Include patient/ patient real estate representative in decisions related to safety Outcome: [...] hygiene technique 7. Identify and instruct patient/patient real estate representative in use of appropriate isolation precautions for identified infection/symptoms 8. Provide and discuss with patient/patient real estate representative on educational MDRO sheet 9. Encourage and monitor nutritional status daily and consult cosmetic sales assistant if indicated 10. Implement neutropenic guidelines as needed 11. Review exposure to history of communicable disease and recent travel history on admission 12. Encourage annual influenza vaccine 13. Encourage pneumonia vaccine Outcome: Progressing Note: Evaluation of progress towards goal: Pt remains infection free. Problem: Knowledge Deficit Goal: Patient/patient real estate representative demonstrates understanding of disease process, treatment [...] supplement as ordered 13. Collaborate with clinical cosmetic sales assistant 14. Include patient/ patient's real estate representative in decisions related to nutrition Outcome: [...] Score of =/> 25 or indicated by [facility] Assessment Goal: Patient should be free from fall Description: Interventions: 1. Napoleon to environment 2. Hourly rounds addressing the [...] non-skid footwear 11. Teach patient and patient real estate representative to maintain environment for safety and [...] (cane, walker) within reach 19. Request patient real estate representative bring adaptive equipment/mobility aids from home or obtain and provide as needed 20. Consult pharmacy regarding effects of med's affecting mobility, cognition, and alternatives 21. Obtain physician order for PT if risk factors associated with mobility are present 22. Obtain physician order for OT as appropriate 23. Utilize diversional activities 24. Educate patient and patient real estate representative how to maintain a safe environment during visitation times (notify nurse prior to leaving bedside) 25. Consider appropriateness of medical or non-medical office supervisor 26. Set up voiding schedule as appropriate [...] Description: INTERVENTIONS: 1. Encourage patient or legal real estate representative to report early pain and ask [...] per policy 9. Teach patient or legal real estate representative interventions for comforting Note: Evaluation of [...] at the bedside 7. Instruct patient/ patient real estate representative about use of safety devices 8. Include patient/ patient real estate representative in decisions related to safety Note: [...] hygiene technique 7. Identify and instruct patient/patient real estate representative in use of appropriate isolation precautions for identified infection/symptoms 8. Provide and discuss with patient/patient real estate representative on educational MDRO sheet 9. Encourage and monitor nutritional status daily and consult cosmetic sales assistant if indicated 10. Implement neutropenic guidelines as needed 11. Review exposure to history of communicable disease and recent travel history on admission 12. Encourage annual influenza vaccine 13. Encourage pneumonia vaccine Note: Evaluation of progress towards goal: . Assess and monitor for signs and symptoms of infection 2. Monitor lab/diagnostic results Problem: Knowledge Deficit Goal: Patient/patient real estate representative demonstrates understanding of disease process, treatment [...] supplement as ordered 13. Collaborate with clinical cosmetic sales assistant 14. Include patient/ patient's real estate representative in decisions related to nutrition Note: [...] Score of =/> 25 or indicated by [facility] Assessment Goal: Patient should be free from fall Description: Interventions: 1. Napoleon to environment 2. Hourly rounds addressing the [...] non-skid footwear 11. Teach patient and patient real estate representative to maintain environment for safety and [...] (cane, walker) within reach 19. Request patient real estate representative bring adaptive equipment/mobility aids from home or obtain and provide as needed 20. Consult pharmacy regarding effects of med's affecting mobility, cognition, and alternatives 21. Obtain physician order for PT if risk factors associated with mobility are present 22. Obtain physician order for OT as appropriate 23. Utilize diversional activities 24. Educate patient and patient real estate representative how to maintain a safe environment during visitation times (notify nurse prior to leaving bedside) 25. Consider appropriateness of medical or non-medical office supervisor 26. Set up voiding schedule as appropriate (every 2 hours) Note: Evaluation of progress towards goal: Napoleon to environment 2. Hourly rounds addressing the [...] Description: INTERVENTIONS: 1. Encourage patient or legal real estate representative to report early pain and ask [...] per policy 9. Teach patient or legal real estate representative interventions for comforting Outcome: Progressing Note: [...] at the bedside 7. Instruct patient/ patient real estate representative about use of safety devices 8. Include patient/ patient real estate representative in decisions related to safety Outcome: [...] hygiene technique 7. Identify and instruct patient/patient real estate representative in use of appropriate isolation precautions for identified infection/symptoms 8. Provide and discuss with patient/patient real estate representative on educational MDRO sheet 9. Encourage and monitor nutritional status daily and consult cosmetic sales assistant if indicated 10. Implement neutropenic guidelines as needed 11. Review exposure to history of communicable disease and recent travel history on admission 12. Encourage annual influenza vaccine 13. Encourage pneumonia vaccine Outcome: Progressing Note: Evaluation of progress towards goal: Pt remains infection free. Problem: Knowledge Deficit Goal: Patient/patient real estate representative demonstrates understanding of disease process, treatment [...] supplement as ordered 13. Collaborate with clinical cosmetic sales assistant 14. Include patient/ patient's real estate representative in decisions related to nutrition Outcome: [...] Moderate - High Risk Fall Score Description: [place] Fall Score of =/> 25 or indicated by [facility] Assessment Goal: Patient should be free from fall Description: Interventions: 1. [place] to environment 2. Hourly rounds addressing the [...] non-skid footwear 11. Teach patient and patient real estate representative to maintain environment for safety and [...] (cane, walker) within reach 19. Request patient real estate representative bring adaptive equipment/mobility aids from home or obtain and provide as needed 20. Consult pharmacy regarding effects of med's affecting mobility, cognition, and alternatives 21. Obtain physician order for PT if risk factors associated with mobility are present 22. Obtain physician order for OT as appropriate 23. Utilize diversional activities 24. Educate patient and patient real estate representative how to maintain a safe environment during visitation times (notify nurse prior to leaving bedside) 25. Consider appropriateness of medical or non-medical office supervisor 26. Set up voiding schedule as appropriate [...] stability. DISCHARGE PLANNING NOTE Referral sent to. [facility] (P# ; F# ) Images from the original note were not included. DISCHARGE PLANNING NOTE Cardiac Surgeon met with patient, introduced self, and explained role. Patient educated on safe discharge plan. Pt admitted 07/31/2024 with Syncope [R55] per chart review. Consults: none Discharge Barriers per Daily Transition Rounds and chart review: DC Past Medical History: Diagnosis Date RAMYA (acute kidney injury) ([facility] 08/18/2020 Anxiety Bipolar disorder ([facility]) Diabetes mellitus type 2, controlled ([facility]) 12/31/2023 Hypertension Metabolic encephalopathy Prior to admission patient was Patient was transferring from [facility] to [facility] and prior to admit to [facility] in [place]- patient transferred to ED. . Medical equipment [...] no Current discharge plan is: DC to [facility] Services Requested: Services Requested Discharge Disposition: SNF SNF Name: DC plan is to [facility]- [id number] Patient choice offered: Yes List Provided: Patient declined Patient Declined: Active with Provider Goals: Goals DC to [facility] (pt-stated) Evaluation of progress towards goal: DC to [facility] SW spoke to sister to confirmed DC plans- Tasked for referral to [facility] Will continue to follow as plan of care develops. CN discussed benefits and importance of medication compliance and follow ups. Please feel free to reach out for any discharge planning questions. - GAURI MCKAY 07/31/24 3:00 PM documented in this encounter [facility] 08-03-2024 Hospital course Narrative Images from the original note were not included. [facility] INTER[facility] DIVISION OF [facility] - 7 ONCOLOGY/STROKE [address] [facility] [id number] Hospital Medicine Discharge Summary Patient: Brandon Reardon Date of : 1950 Room: [facility] Encounter date: 08/03/24 DATE OF ADMISSION: 07/31/2024 [...] to bradycardia. He will be discharged to halfway facility, follow up with physician at the [...] Your Medications These medications were sent to [id number] - [address] [address] bisacodyL 10 mg suppository insulin lispro 100 unit/mL insulin pen >30 minutes were spent on discharging this patient. Janet Sanderson MD 08/03/2024 2:33 PM [facility] Internal Medicine 7AM-7PM (all facilities): EpicAdoret or page through Vocera. 7PM-7AM ([facility]): EpicChat or page, [phone]. 7PM-7AM ([place], [place], [facility], [facility] and [facility] Re[facility]): EpicChat or page through [employer]. documented in this encounter [facility] 08-03-2024 Progress note Formatting of t his note might be different from the original. DISCHARGE PLANNING NOTE BLS to [facility] at 2 PM. Confirmed in Zoll [facility] 08-03-2024 Progress note Formatting of t his note might be different from the original. DISCHARGE PLANNING NOTE Case discussed in daily transition rounds and chart reviewed by CN. Barriers to discharge include DC orders, Discharge Plan remains: DC to [facility].SW called sister, chelsea VM- Awaiting transport time CN will continue to follow and is available should any further needs arise. - GAURI MCKAY 08/03/24 11:57 AM 13:37- Confirmed PTN transport for 2pm. CRF sent to [facility]- Called sisterNichelle left her VM with DC update [facility] 08-03-2024 Plan of care note Problem: Pain Goal: Patient goal is pain score less than 4, able to rest, and participant in treatment plan as appropriate Description: INTERVENTIONS: 1. Encourage patient or legal real estate representative to report early pain and ask [...] per policy 9. Teach patient or legal real estate representative interventions for comforting 08/03/202433 by CHANDLER [...] at the bedside 7. Instruct patient/ patient real estate representative about use of safety devices 8. Include patient/ patient real estate representative in decisions related to safety 08/03/202433 [...] hygiene technique 7. Identify and instruct patient/patient real estate representative in use of appropriate isolation precautions for identified infection/symptoms 8. Provide and discuss with patient/patient real estate representative on educational MDRO sheet 9. Encourage and monitor nutritional status daily and consult cosmetic sales assistant if indicated 10. Implement neutropenic guidelines as [...] monitoring continued Problem: Knowledge Deficit Goal: Patient/patient real estate representative demonstrates understanding of disease process, treatment [...] supplement as ordered 13. Collaborate with clinical cosmetic sales assistant 14. Include patient/ patient's real estate representative in decisions related to nutrition 08/03/202433 [...] be free from fall Description: Interventions: 1. [place] to environment 2. Hourly rounds addressing the [...] non-skid footwear 11. Teach patient and patient real estate representative to maintain environment for safety and [...] (cane, walker) within reach 19. Request patient real estate representative bring adaptive equipment/mobility aids from home or obtain and provide as needed 20. Consult pharmacy regarding effects of med's affecting mobility, cognition, and alternatives 21. Obtain physician order for PT if risk factors associated with mobility are present 22. Obtain physician order for OT as appropriate 23. Utilize diversional activities 24. Educate patient and patient real estate representative how to maintain a safe environment during visitation times (notify nurse prior to leaving bedside) 25. Consider appropriateness of medical or non-medical office supervisor 26. Set up voiding schedule as appropriate [...] remains hemodynamically stable, trending labs, monitoing contineud [facility] 08-02-2024 Plan of care note Patient continues to deny any pain. Patient also remains free of falls and injury. [facility] 08-02-2024 History of Presen t illness Narrative Images from the original note were not included. [facility] INTER[facility] MEDICINE [facility] DIV[facility] OF [facility] - ONCOLOGY/STROKE [address] [facility] [address] Hospital Medicine Progress Note Patient: Brandon Reardon Date of : 1950 Room: [facility] PCP: NO PCP, NO PCP Admission date: [...] -Pt/OT -replace electrolytes per protocol - pending halfway facility Janet Sanderson MD 08/02/2024 2:19 PM [facility] 7AM-7PM (all facilities): EpicChat or page through [employer]. 7PM-7AM ([facility], [facility]): EpicChat or page, [phone]. 7PM-7AM ([facility] and [facility] Re[facility]): EpicChat or page through [employer]. Images from the original note were not included. [facility] INTER[facility] MEDICINE [facility] DIV[facility] OF [facility] - 7 ONCOLOGY/STROKE [address] [facility] [address] Hospital Medicine Progress Note Patient: Brandon Reardon Date of : 1950 Room: [facility] PCP: NO PCP, NO PCP Admission date: [...] protocol Janet Sanderson MD 08/01/2024 12:36 PM [facility] 7AM-7PM (all facilities): EpicChat or page through Vocera. 7PM-7AM ([facility], [facility]): EpicChat or page, [phone]. 7PM-7AM ([place], [place], [place], [place] and [facility]): EpicChat or page through Vocera. documented in this encounter [facility] 08-02-2024 Plan of care note Problem: Pain Goal: Patient goal is pain score less than 4, able to rest, and participant in treatment plan as appropriate Description: INTERVENTIONS: 1. Encourage patient or legal real estate representative to report early pain and ask [...] per policy 9. Teach patient or legal real estate representative interventions for comforting Note: Evaluation of [...] at the bedside 7. Instruct patient/ patient real estate representative about use of safety devices 8. Include patient/ patient real estate representative in decisions related to safety Note: [...] hygiene technique 7. Identify and instruct patient/patient real estate representative in use of appropriate isolation precautions for identified infection/symptoms 8. Provide and discuss with patient/patient real estate representative on educational MDRO sheet 9. Encourage and monitor nutritional status daily and consult cosmetic sales assistant if indicated 10. Implement neutropenic guidelines as needed 11. Review exposure to history of communicable disease and recent travel history on admission 12. Encourage annual influenza vaccine 13. Encourage pneumonia vaccine Note: Evaluation of progress towards goal: Assess and monitor for signs and symptoms of infection 2. Monitor lab/diagnostic results Problem: Knowledge Deficit Goal: Patient/patient real estate representative demonstrates understanding of disease process, treatment [...] supplement as ordered 13. Collaborate with clinical cosmetic sales assistant 14. Include patient/ patient's real estate representative in decisions related to nutrition Note: [...] be free from fall Description: Interventions: 1. Napoleon to environment 2. Hourly rounds addressing the [...] non-skid footwear 11. Teach patient and patient real estate representative to maintain environment for safety and [...] (cane, walker) within reach 19. Request patient real estate representative bring adaptive equipment/mobility aids from home or obtain and provide as needed 20. Consult pharmacy regarding effects of med's affecting mobility, cognition, and alternatives 21. Obtain physician order for PT if risk factors associated with mobility are present 22. Obtain physician order for OT as appropriate 23. Utilize diversional activities 24. Educate patient and patient real estate representative how to maintain a safe environment during visitation times (notify nurse prior to leaving bedside) 25. Consider appropriateness of medical or non-medical office supervisor 26. Set up voiding schedule as appropriate (every 2 hours) Note: Evaluation of progress towards goal: Napoleon to environment 2. Hourly rounds addressing the [...] goal: Monitor vital signs, rhythm, and trends [facility] 08-01-2024 Plan of care note Problem: Pain Goal: Patient goal is pain score less than 4, able to rest, and participant in treatment plan as appropriate Description: INTERVENTIONS: 1. Encourage patient or legal real estate representative to report early pain and ask [...] per policy 9. Teach patient or legal real estate representative interventions for comforting Outcome: Progressing Note: [...] at the bedside 7. Instruct patient/ patient real estate representative about use of safety devices 8. Include patient/ patient real estate representative in decisions related to safety Outcome: [...] hygiene technique 7. Identify and instruct patient/patient real estate representative in use of appropriate isolation precautions for identified infection/symptoms 8. Provide and discuss with patient/patient real estate representative on educational MDRO sheet 9. Encourage and monitor nutritional status daily and consult cosmetic sales assistant if indicated 10. Implement neutropenic guidelines as needed 11. Review exposure to history of communicable disease and recent travel history on admission 12. Encourage annual influenza vaccine 13. Encourage pneumonia vaccine Outcome: Progressing Note: Evaluation of progress towards goal: Pt remains infection free. Problem: Knowledge Deficit Goal: Patient/patient real estate representative demonstrates understanding of disease process, treatment [...] supplement as ordered 13. Collaborate with clinical cosmetic sales assistant 14. Include patient/ patient's real estate representative in decisions related to nutrition Outcome: [...] be free from fall Description: Interventions: 1. Napoleon to environment 2. Hourly rounds addressing the [...] non-skid footwear 11. Teach patient and patient real estate representative to maintain environment for safety and [...] (cane, walker) within reach 19. Request patient real estate representative bring adaptive equipment/mobility aids from home or obtain and provide as needed 20. Consult pharmacy regarding effects of med's affecting mobility, cognition, and alternatives 21. Obtain physician order for PT if risk factors associated with mobility are present 22. Obtain physician order for OT as appropriate 23. Utilize diversional activities 24. Educate patient and patient real estate representative how to maintain a safe environment during visitation times (notify nurse prior to leaving bedside) 25. Consider appropriateness of medical or non-medical office supervisor 26. Set up voiding schedule as appropriate [...] progress towards goal: Pt is hemodynamically stable. [facility] 08-01-2024 Progress note Formatting of t his note is different from the original. 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 No acute OT needs; will discontinue OT orders.) [facility] 08-01-2024 Progress note Formatting of t his note is different from the original. Physical Therapy Discharge from Therapy (per PT notes from 01/11, pt is completely dependent, ECF resident at baseline and not appropriate for PT) [facility] 07-31-2024 Plan of care note Problem: Pain Goal: Patient goal is pain score less than 4, able to rest, and participant in treatment plan as appropriate Description: INTERVENTIONS: 1. Encourage patient or legal real estate representative to report early pain and ask [...] per policy 9. Teach patient or legal real estate representative interventions for comforting Note: Evaluation of [...] at the bedside 7. Instruct patient/ patient real estate representative about use of safety devices 8. Include patient/ patient real estate representative in decisions related to safety Note: [...] hygiene technique 7. Identify and instruct patient/patient real estate representative in use of appropriate isolation precautions for identified infection/symptoms 8. Provide and discuss with patient/patient real estate representative on educational MDRO sheet 9. Encourage and monitor nutritional status daily and consult cosmetic sales assistant if indicated 10. Implement neutropenic guidelines as needed 11. Review exposure to history of communicable disease and recent travel history on admission 12. Encourage annual influenza vaccine 13. Encourage pneumonia vaccine Note: Evaluation of progress towards goal: . Assess and monitor for signs and symptoms of infection 2. Monitor lab/diagnostic results Problem: Knowledge Deficit Goal: Patient/patient real estate representative demonstrates understanding of disease process, treatment [...] supplement as ordered 13. Collaborate with clinical cosmetic sales assistant 14. Include patient/ patient's real estate representative in decisions related to nutrition Note: [...] be free from fall Description: Interventions: 1. Napoleon to environment 2. Hourly rounds addressing the [...] non-skid footwear 11. Teach patient and patient real estate representative to maintain environment for safety and [...] (cane, walker) within reach 19. Request patient real estate representative bring adaptive equipment/mobility aids from home or obtain and provide as needed 20. Consult pharmacy regarding effects of med's affecting mobility, cognition, and alternatives 21. Obtain physician order for PT if risk factors associated with mobility are present 22. Obtain physician order for OT as appropriate 23. Utilize diversional activities 24. Educate patient and patient real estate representative how to maintain a safe environment during visitation times (notify nurse prior to leaving bedside) 25. Consider appropriateness of medical or non-medical office supervisor 26. Set up voiding schedule as appropriate (every 2 hours) Note: Evaluation of progress towards goal: Napoleon to environment 2. Hourly rounds addressing the [...] quality of pulses, skin color and temperature [facility] 07-31-2024 Plan of care note Problem: Pain Goal: Patient goal is pain score less than 4, able to rest, and participant in treatment plan as appropriate Description: INTERVENTIONS: 1. Encourage patient or legal real estate representative to report early pain and ask [...] per policy 9. Teach patient or legal real estate representative interventions for comforting Outcome: Progressing Note: [...] at the bedside 7. Instruct patient/ patient real estate representative about use of safety devices 8. Include patient/ patient real estate representative in decisions related to safety Outcome: [...] hygiene technique 7. Identify and instruct patient/patient real estate representative in use of appropriate isolation precautions for identified infection/symptoms 8. Provide and discuss with patient/patient real estate representative on educational MDRO sheet 9. Encourage and monitor nutritional status daily and consult cosmetic sales assistant if indicated 10. Implement neutropenic guidelines as needed 11. Review exposure to history of communicable disease and recent travel history on admission 12. Encourage annual influenza vaccine 13. Encourage pneumonia vaccine Outcome: Progressing Note: Evaluation of progress towards goal: Pt remains infection free. Problem: Knowledge Deficit Goal: Patient/patient real estate representative demonstrates understanding of disease process, treatment [...] supplement as ordered 13. Collaborate with clinical cosmetic sales assistant 14. Include patient/ patient's real estate representative in decisions related to nutrition Outcome: [...] Score of =/> 25 or indicated by [facility] Re[facility] Assessment Goal: Patient should be free from fall Description: Interventions: 1. [place] to environment 2. Hourly rounds addressing the [...] non-skid footwear 11. Teach patient and patient real estate representative to maintain environment for safety and [...] (cane, walker) within reach 19. Request patient real estate representative bring adaptive equipment/mobility aids from home or obtain and provide as needed 20. Consult pharmacy regarding effects of med's affecting mobility, cognition, and alternatives 21. Obtain physician order for PT if risk factors associated with mobility are present 22. Obtain physician order for OT as appropriate 23. Utilize diversional activities 24. Educate patient and patient real estate representative how to maintain a safe environment during visitation times (notify nurse prior to leaving bedside) 25. Consider appropriateness of medical or non-medical office supervisor 26. Set up voiding schedule as appropriate [...] is maintaining normal pressures and hemodynamic stability. [facility] 07-31-2024 Progress note Formatting of t his note might be different from the original. DISCHARGE PLANNING NOTE [facility] ; F[facility] ) [facility] 07-31-2024 Progress note Formatting of t his note is different from the original. Images from the original note were not included. DISCHARGE PLANNING NOTE Cardiac Surgeon met with patient, introduced self, and explained role. Patient educated on safe discharge plan. Pt admitted 07/31/2024 with Syncope [R55] per chart review. Consults: none Discharge Barriers per Daily Transition Rounds and chart review: DC Past Medical History: Diagnosis Date RAMYA (acute kidney injury) ([facility]) 08/18/2020 Anxiety Bipolar disorder ([facility]) Diabetes mellitus type 2, controlled ([facility]) 12/31/2023 Hypertension Metabolic encephalopathy Prior to admission patient was Patient was transferring from [facility] to [facility] and prior to admit to F in [place]- patient transferred to ED. . Medical equipment [...] no Current discharge plan is: DC to [facility] Services Requested: Services Requested Discharge Disposition: SNF SNF Name: DC plan is to [facility]- [phone] Patient choice offered: Yes List Provided: Patient declined Patient Declined: Active with Provider Goals: Goals DC to [facility] (pt-stated) Evaluation of progress towards goal: DC to [facility] SW spoke to sister to confirmed DC plans- Tasked for referral to [facility] Will continue to follow as plan of care develops. CN discussed benefits and importance of medication compliance and follow ups. Please feel free to reach out for any discharge planning questions. - GAURI MCKAY 07/31/24 3:00 PM [facility] 07-31-2024 History and physical note Images from the original note were not included. [facility] INTERNAL MEDICINE [facility] DIVISION OF [facility] - 7 ONCOLOGY/STROKE [address] [facility] [id number] Hospital Medicine History & Physical Patient: Brandon Reardon Date of : 1950 Room: [facility] PCP: NO PCP, NO PCP Admission date: [...] medical history of RAMYA (acute kidney injury) ([facility]) (08/18/2020), Anxiety, Bipolar disorder ([facility]), Diabetes mellitus type 2, controlled ([facility]) (12/31/2023), Hypertension, and Metabolic encephalopathy. Past Surgical [...] MD 07/31/2024 2:53 PM [facility] Internal Medicine 7AM-7PM (all facilities): EpicChat or page through [employer]. 7PM-7AM ([facility], [facility] Psychiatry and Inpatient Rehab): EpicChat or page, [phone]. 7PM-7AM ([place], [place], [place], [place] and [facility] Rehab): EpicChat or page through [employer]. [facility] 07-31-2024 History and physical note Images from the original note were not included. [facility] INTERNAL MEDICINE [facility] DIV[facility] OF [facility] - ONCOLOGY/STROKE [address] [place] [address] Hospital Medicine History & Physical Patient: Brandon Reardon Date of : 1950 Room: [facility] PCP: NO PCP, NO PCP Admission date: [...] medical history of RAMYA (acute kidney injury) ([facility]) (08/18/2020), Anxiety, Bipolar disorder ([facility]), Diabetes mellitus type 2, controlled ([facility]) (12/31/2023), Hypertension, and Metabolic encephalopathy. Past Surgical [...] protocol Janet Sanderson MD 07/31/2024 2:53 PM [facility] Internal Medicine 7AM-7PM (all facilities): EpicChat or page through [employer]. 7PM-7AM ([facility], [facility] Psychiatry and Inpatient Rehab): EpicChat or page, [phone]. 7PM-7AM ([place], [place], [place], [place] and [facility] Rehab): EpicChat or page through [employer]. documented in this encounter [facility] 07-31-2024 Physician Emergency department Note Images from the original note were not included. History Chief Complaint Patient presents with Vomiting 74-year-old male presents today to the emergency room with complaint of vomiting prior to arrival. It was reported that the physician from the facility had evaluated the [place] and reported acute onset of nausea vomiting, [...] History: Diagnosis Date RAMYA (acute kidney injury) ([facility]) 08/18/2020 Anxiety Bipolar disorder ([facility]) Diabetes mellitus type 2, controlled ([facility]) 12/31/2023 Hypertension Metabolic encephalopathy Past Surgical History: [...] and management services were performed by the IDENTIFICATION TECHNICIAN/PA-C under my supervision/collaboration with my participation. I have reviewed all pertinent clinical information, including history, physical exam and plan. Provider Statement: By electronically signing this emergency patient record, the Emergency Physician/IDENTIFICATION TECHNICIAN/PA-C attests that all entries made into the electronic medical record by the scribe prior to the Physician/IDENTIFICATION TECHNICIAN/PA-C signature reflect an accurate accounting of the evaluation and care rendered by that Emergency Physician/IDENTIFICATION TECHNICIAN/PA-C. The Emergency Physician/IDENTIFICATION TECHNICIAN/PA-C assumes full responsibility for those entries. SLIM Condon 07/31/24 1017 SLIM Condon 07/31/24 1113 Umer Riojas 07/31/24 1121 Umer Saldañaller 07/31/24 1141 Galileo Downey MD 08/01/24 0904 [facility] Work Phone: 07-31-2024 Emergency department Note Images from the original note were not included. History Chief Complaint Patient presents with Vomiting 74-year-old male presents today to the emergency room with complaint of vomiting prior to arrival. It was reported that the physician from the facility had evaluated the [place] and reported acute onset of nausea vomiting, [...] History: Diagnosis Date RAMYA (acute kidney injury) ([facility]) 08/18/2020 Anxiety Bipolar disorder ([facility]) Diabetes mellitus type 2, controlled ([facility]) 12/31/2023 Hypertension Metabolic encephalopathy Past Surgical History: [...] and management services were performed by the IDENTIFICATION TECHNICIAN/PA-C under my supervision/collaboration with my participation. I have reviewed all pertinent clinical information, including history, physical exam and plan. Provider Statement: By electronically signing this emergency patient record, the Emergency Physician/IDENTIFICATION TECHNICIAN/PA-C attests that all entries made into the electronic medical record by the scribe prior to the Physician/IDENTIFICATION TECHNICIAN/PA-C signature reflect an accurate accounting of the evaluation and care rendered by that Emergency Physician/IDENTIFICATION TECHNICIAN/PA-C. The Emergency Physician/IDENTIFICATION TECHNICIAN/PA-C assumes full responsibility for those entries. Rosa De Souza APRN-KATHERINE 07/31/24 1017 Rosa De Souza APRN-KATHERINE 07/31/24 1113 Umer Riojas 07/31/24 1121 Umer Riojas 07/31/24 1141 Galileo Downey MD 08/01/24 0904 Bed: 23 Expected date: Expected time: Means of arrival: Nicole [facility] M63 Comments: 74M, Projectile chunky vomiting for 3 min, [facility] care, altered, 147/69, 96%RA, 18, IV in. documented in this encounter [facility] 07-31-2024 Emergency department Note Bed: 23 Expected date: Expected time: [facility] Comments: 74M, Projectile chunky vomiting for 3 min, [facility] care, altered, 147/69, 96%RA, 18, IV in. [facility] 05-06-2024 History of Presen t illness Narrative Images from the original note were not included. [facility] [address] [facility] [id number] Patient: Brandon Reardon Date of : 1950 [...] his baseline. He is currently residing at halfway facility and does not believe he is [...] History: Diagnosis Date RAMYA (acute kidney injury) ([facility]) 08/18/2020 Anxiety Bipolar disorder ([facility]) Diabetes mellitus type 2, controlled ([facility]) 12/31/2023 Hypertension Metabolic encephalopathy No family history [...] (coronary artery disease) NSVT (nonsustained ventricular tachycardia) ([facility]) Essential hypertension Rhabdomyolysis Other specified diabetes mellitus without complications ([facility]) COVID-19 virus infection Acute cystitis without hematuria RAMYA (acute kidney injury) ([facility]) Metabolic encephalopathy Cerebrovascular accident (CVA) ([facility]) Stroke-like symptoms Cholecystitis, acute Multifocal pneumonia Type 2 diabetes mellitus with hyperglycemia, with long-term current use of insulin ([facility]) Acute metabolic encephalopathy Acute respiratory failure with hypoxia ([facility]) Sepsis with acute respiratory failure ([facility]) Ileus ([facility]) Type 2 diabetes mellitus with hyperglycemia ([facility]) Mixed hyperlipidemia New onset a-fib ([facility]) Brandon Reardon is a right handed 74 [...] This note was completed using a voice construction pit worker system. Every effort was made to ensure accuracy; however, inadvertent computerized construction pit worker errors may be present Patient seen & examined in conjunction with VINCENZO. I have reviewed and agree with the HPI, ROS, examination, assessment and plan as outlined in the note above. documented in this encounter [facility] 05-06-2024 Instructions SLIM Piedra - 05/06/2024 3:30 [...] test result within 7 days, please call [phone] to leave a request for your results. If you have not been contacted about your test results, do not assume that your test results are normal. If you need to schedule a test such as a CT scan, Ultrasound, MRI or PET scan, please call [facility] [facility] Scheduling at [phone]. There are numerous area resources for area stroke and brain aneurysm survivors. To learn more, ask about the FREE Monthly stroke support group or request a stroke support group calendar from the Stroke Clinic. You can also email Stroke Support Group moderator: Reyna Leblanc at [email or web address]. Stroke survivors, family members, caregivers and friends are ALL WELCOME! documented in this encounter [employer] [facility] 04-09-2024 History of Presen t illness Narrative Brandon Reardon Date of visit: 04/09/2024 Date of : 1950 Age: 74 y.o. Patient Active Problem List Diagnosis COVID-19 CAD (coronary artery disease) NSVT (nonsustained ventricular tachycardia) ([facility]) Essential hypertension Rhabdomyolysis Other specified diabetes mellitus without complications ([facility]) COVID-19 virus infection Acute cystitis without hematuria RAMYA (acute kidney injury) ([facility]) Metabolic encephalopathy Cerebrovascular accident (CVA) ([facility]) Stroke-like symptoms Cholecystitis, acute Multifocal pneumonia Type 2 diabetes mellitus with hyperglycemia, with long-term current use of insulin ([facility]) Acute metabolic encephalopathy Acute respiratory failure with hypoxia ([facility]) Sepsis with acute respiratory failure ([facility]) Ileus ([facility]) Type 2 diabetes mellitus with hyperglycemia ([facility]) Mixed hyperlipidemia New onset a-fib ([facility]) Allergies Allergen Reactions Amlodipine Atorvastatin Other Reaction(s): [...] History: Diagnosis Date RAMYA (acute kidney injury) ([facility]) 08/18/2020 Anxiety Bipolar disorder ([facility]) Diabetes mellitus type 2, controlled ([facility]) 12/31/2023 Hypertension Metabolic encephalopathy No data recorded [...] discontinued medications. IMPRESSIONS/PLAN 1. New onset a-fib ([facility]) 2. Coronary artery disease involving upper [place] coronary artery of [place] heart without angina pectoris 3. NSVT (nonsustained ventricular tachycardia) ([facility]) 4. Mixed hyperlipidemia 5. Essential hypertension New [...] PA-C 04/09/24 1519 documented in this encounter [facility] 04-08-2024 Miscellaneous Notes [facility] called in to reschedule appointment today 04/08/[address] De La Rosa. Best contact [phone] Resched for 04/22. [facility] called in to cancel and reschedule appointment today 05/02/[address] De La Rosa. Best contact [phone] Called SNF and the line kept ringing/busy. Will try again soon. documented in this encounter [facility] 04-08-2024 Telephone encounter Note [facility] called in to reschedule appointment today 04/08/[address] De La Rosa. Best contact [phone] [facility] 04-08-2024 Telephone encounter Note Resched for 3. [facility] 04-08-2024 Telephone encounter Note [facility] in [place] called in to cancel and reschedule appointment today 05/02/[address] De La Rosa. Best contact [phone] [facility] 04-08-2024 Telephone encounter Note Called SNF and the line kept ringing/busy. Will try again soon. [facility] 03-19-2024 Note IR BILIARY TUBE RODRIGO SHAWANDA W FLUORO Pre-procedure diagnosis: See history below Post-procedure diagnosis: Same as above Assistants/resident: See the technologist's notes above Consent/pre-procedure evaluation: See below. [place] protocol timeout verification performed. Estimated blood loss: [...] Galo Brand MD on 03/19/2024 4:00 PM [facility] 01-08-2024 Miscellaneous Notes ----- Message from Birgit Lord MD sent at 01/08/2024 11:33 AM EDT ----- Can we please arrange for follow-up in 4-6 weeks? Thank you Dx: New onset atrial fibrillation [id number] at least 7 Hx of SVT with aberrance HX of NSVT Elevated troponin Trending down Acute hypoxic respiratory failure Intermittent bipap use Multifocal pneumonia Altered mental status ASCVD/CABG 2013 Hx of CVA Hypertension Diabetes type 2 Dyslipidemia Concern for cholecystitis on HIDA PT IS STILL ADMITTED PT STILL ADMITTED Called pt to schedule f/u appt, pt in [facility], transferred to Nurses station to schedule appt. No Answer. JLW Phoned pt to schedule hosp follow up, spoke with staff at [facility] and will have pt's nurse call back to schedule. PHONED [facility], SPOKE WITH STAFF AND WILL GIVE MESSAGE TO NURSE TO HAVE THEM CALL BACK. LETTER MAILED TO [facility] documented in this encounter [facility] 01-08-2024 Telephone encounter Note ----- Message from Birgit Lord MD sent at 01/08/2024 11:33 AM EDT ----- Can we please arrange for follow-up in 4-6 weeks? Thank you Dx: New onset atrial fibrillation [id number] at least 7 Hx of SVT with aberrance HX of NSVT Elevated troponin Trending down Acute hypoxic respiratory failure Intermittent bipap use Multifocal pneumonia Altered mental status ASCVD/CABG 2013 Hx of CVA Hypertension Diabetes type 2 Dyslipidemia Concern for cholecystitis on HIDA [facility] 01-08-2024 Telephone encounter Note PT IS STILL ADMITTED [facility] 01-08-2024 Telephone encounter Note PT STILL ADMITTED [facility] 01-08-2024 Telephone encounter Note Called pt to schedule f/u appt, pt in [facility], transferred to Nurses station to schedule appt. No Answer. GWENW [facility] 01-08-2024 Telephone encounter Note Phoned pt to schedule hosp follow up, spoke with staff at [facility] and will have pt's nurse call back to schedule. [facility] 01-08-2024 Telephone encounter Note PHONED [facility], SPOKE WITH STAFF AND WILL GIVE MESSAGE TO NURSE TO HAVE THEM CALL BACK. [facility] 01-08-2024 Telephone encounter Note LETTER MAILED TO [facility] Evaluation note Diagnosis Cerebrovascular accident (CVA), unspecified mechanism ([facility])- Primary Metabolic encephalopathy Bipolar affective disorder, remission status unspecified ([facility] documented [facility] encounter [facility] Diagnosis Metabolic encephalopathy- Primary Cerebrovascular accident (CVA), unspecified mechanism ([facility]) Essential hypertension Unspecified essential hypertension Anxiety Anxiety state, unspecified Bipolar affective disorder, remission status unspecified ([facility] Diagnosis New onset a-fib ([facility])- Primary Atrial fibrillation Coronary artery disease involving upper [place] coronary artery of [place] heart without angina pectoris NSVT (nonsustained ventricular tachycardia) ([facility]) Mixed hyperlipidemia Essential hypertension Unspecified essential hypertension [facility] this [facility] Diagnosis Cerebrovascular accident (CVA), unspecified mechanism ([facility])- Primary [facility] Diagnosis Syncope- Primary Syncope and collapse Syncope Syncope and collapse Vasovagal episode Syncope and collapse [facility] Diagnosis Vasovagal syncope- Primary Syncope and collapse Metabolic encephalopathy Type 2 diabetes mellitus with hyperglycemia, with long-term current use of insulin ([facility]) Essential hypertension Unspecified essential hypertension Cerebrovascular accident (CVA), unspecified mechanism ([facility]) Coronary artery disease involving upper [place] coronary artery of upper [place] heart without angina pectoris Mixed hyperlipidemia [facility] Diagnosis Cerebrovascular accident (CVA), unspecified mechanism ([facility])- Primary Type 2 diabetes mellitus with hyperglycemia, with long-term current use of insulin ([facility]) Metabolic encephalopathy Mixed hyperlipidemia Neoplasm of uncertain behavior of skin documented [facility] this encounter [facility] Diagnosis Metabolic encephalopathy- Primary Sepsis with acute hypoxic respiratory failure without septic shock, due to unspecified organism ([facility]) Cerebrovascular accident (CVA), unspecified mechanism ([facility]) Essential hypertension Unspecified essential hypertension documented [facility] this encounter [facility] Diagnosis Essential hypertension- Primary Unspecified essential hypertension Cerebrovascular accident (CVA), unspecified mechanism ([facility]) Anxiety Anxiety state, unspecified Bipolar affective disorder, remission status unspecified ([facility] documented in this encounter [facility]* Diagnosis Cerebrovascular accident (CVA), unspecified mechanism ([facility])- Primary Essential hypertension Unspecified essential hypertension Metabolic encephalopathy Anxiety Anxiety state, unspecified Bipolar affective disorder, remission status unspecified ([facility]) Dry skin Other symptoms involving skin and integumentary tissues documented in this encounter [facility] Diagnosis Metabolic encephalopathy- Primary Essential hypertension Unspecified essential hypertension Pressure injury of skin of sacral region, unspecified injury stage documented [facility] this encounter [facility] Diagnosis Essential hypertension- Primary Unspecified essential hypertension Cerebrovascular accident (CVA), unspecified mechanism ([facility]) Metabolic encephalopathy documented [facility] this encounter [facility] Diagnosis Metabolic encephalopathy- Primary Type 2 diabetes mellitus with hyperglycemia, with long-term current use of insulin ([facility]) Pressure injury of skin of sacral region, unspecified injury stage Bipolar affective disorder, remission status unspecified ([facility]) documented in this encounter [facility]* Diagnosis Type 2 diabetes mellitus with hyperglycemia, with long-term current use of insulin ([facility])- Primary Metabolic encephalopathy Bipolar affective disorder, remission status unspecified ([facility]) Essential hypertension Unspecified essential hypertension documented in this encounter [facility] Diagnosis Essential hypertension- Primary Unspecified essential hypertension Cerebrovascular accident (CVA), unspecified mechanism ([facility]) Type 2 diabetes mellitus with hyperglycemia, with long-term current use of insulin ([facility]) [facility] Dis[facility] instructionsNot on filedocumented in this [facility]ructionsNot on filedocumented in this encounterProNewark [facility] SystemInstructionsNot on filedocumented in this encounterProWadsworth-[facility] HospitalInstructionsNot on filedocumented in this encounterProWadsworth-Rittman HospitalInstructionsNot on filedocumented in this encounterProWadsworth-Rittman HospitalInstructionsNot on filedocumented in this encounterProNewark Hospital SystemInstructionsNot on filedocumented in this encounterSt. [facility] SystemInstructionsNot on filedocumented in this encounterSt. [facility] Summary Purpose Family History No Family History Records FoundNo Family History Records FoundNo Family History Records FoundNo Family History Records Found Advance Directives Documents on File Type Date Recorded Patient Biodiesel Product Manager Expl anation DNR Physician Order 01/16/2024 11:58 [...] Inactivated Comments DNR Comfort Care Arrest (DNR-CCA) [place] 01/09/2024 10:03 AM 01/12/2024 7:36 PM Code [...] Documents on File Type Date Recorded Patient Biodiesel Product Manager Lyndsey taylor DNR Physician Order 01/16/2024 11:58 [...] provider Janet Sanderson MD [address], [facility] [[email or web address]] [address] [place] [address] Referral ID Status Reason Start Date Expiration Date V isits Requested Visits Authorized [id number] Pending Review 08/03/2024 08/03/2025 1 1 Specialty Diagnoses / Procedures Referred By Contac t Referred To Contact Occupational Therapy Diagnoses Vasovagal episode Janet Sanderson MD [address], [facility] [[email or web address]] [address] [place] [address] Referral ID Status Reason Start Date Expiration Date Visits Requested Visits Authorized [id number] Pending Review Specialty Services Required 02/01/2025 12 12 Specialty Diagnoses / Procedures Referred By Contac t Referred To Contact Rehabilitation Diagnoses Vasovagal episode Janet Sanderson MD [address], [facility] [[email or web address]] [address] [place] [address] Referral ID Status Reason Start Date Expiration Date Visits Requested Visits Authorized [id number] Pending Review Specialty Services Required 02/01/2025 12 12 Specialty Diagnoses / Procedures Referred By Contac t Referred To Contact Diagnoses Vasovagal episode Janet Sanderson MD [address], [address] [place] [address] Referral ID Status Reason Start Date Expiration Date V isits Requested Visits Authorized [id number] Pending Review 08/03/2024 08/03/2025 1 1 Specialty Diagnoses / Procedures Referred By Contac t Referred To Contact Procedures Adult diet Janet Sanderson MD [address], [address] [place] [address] Referral ID Status Reason Start Date Expiration Date V isits Requested Visits Authorized [id number] Pending Review 08/03/2024 08/03/2025 1 1 Additional Source Comments (unrecognized sect ion and content) No Status Records FoundNo Status Records FoundNo Status Records FoundNo Status Records Found INFORMATION SOURCE (unrecogn ized section and content) DATE CREATED AUTHOR 06/01/2019 [facility] DATE CREATED AUTHOR AUTHOR'S ORGANIZ ATION 06/06/2023 [facility] DATE CREATED AUTHOR AUTHOR'S ORGANIZ ATION 05/10/2024 [facility] DATE CREATED AUTHOR AUTHOR'S ORGANIZ ATION 01/22/2025 [facility] Care Teams (unrecognized sec tion and content) Supervisor [employer] Relationship Specialty Start Date End Date No Pcp, [place] [address] PCP - General Family Medicine 09/17/23 [employer] Relationship Specialty Start Date End Date No Pcp, [place] [address] PCP - General Family Medicine 09/17/23 Supervisor [employer] Relationship Specialty Start Date End Date No Pcp, [place] [address] PCP - General Family Medicine 09/17/23 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[employer] Relationship Specialty Start Date End Date No Pcp, [place] [address] PCP - General Family Medicine 09/17/23 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[employer] Relationship Specialty Start Date End Date No Pcp, [place] [address] PCP - General Family Medicine 09/17/23 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[employer] Relationship Specialty Start Date End Date No Pcp, [place] [address] PCP - General Family Medicine 09/17/23 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[employer] Relationship Specialty Start Date End Date No Pcp, [place] [address] PCP - General Family Medicine 09/17/23 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[employer] Relationship Specialty Start Date End Date No Pcp, [place] [address] PCP - General Family Medicine 09/17/23 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[employer] Relationship Specialty Start Date End Date No Pcp, [place] [address] PCP - General Family Medicine 09/17/23 Reason for Visit (unrecogniz ed section and content) Reason Comments Follow-up HOSPT F/U TTH 01/07-L ABS 03/19-ECHO 01/02-VAS VENOUS DUPLEX 01/06 Atrial Fibrillation Reason Onset Date Comments Reschedule 04/08/2024 Reason Onset Date Comments Hospital Follow-up 01/08/2024 Reason Comments Vomiting Specialty Diagnoses / Procedures Referred By Contac t Referred To Contact Diagnoses Syncope Janet Sanderson MD [address] [facility] , [address] [address] Referral ID Status Reason Start Date Expiration Date Visits Re quested Visits Authorized [id number] 1 1 Scheduled Active and Recently Administ [...] (Stop Bag - Provider: María Elena Matthew, CHANDLER) PRN Medication Order 08/01/2024 08/02/2024 08/03/2024 [email or web address] [...] BE BASED ON THE PRIMARY CLINICAL RECORDS. [employer] [facility]. provides no warranty or guarantee of the accuracy or completeness of information in this document.
[2025-04-09 03:08] LABS: C Reactive Protein 0.58 mg/dL (<=0.50)
[2025-04-09 05:12] LABS: Glucometer 177 mg/dL (74-106)
[2025-04-09 05:24] LABS: Basophils Absolute Auto 0.1 10^3/uL (0.0-0.1); Basophils Percent Auto 0.5 % (0.2-2.0); Eosinophils Absolute Auto 0.1 10^3/uL (0.0-0.7); Eosinophils Percent Auto 0.4 % (0.9-7.0); Hematocrit 49.9 % (42.0-54.0); Hemoglobin 16.7 g/dL (14.0-18.0); Immature Granulocytes Abs Auto 0.08 10^3/uL (0.00-0.03); Immature Granulocytes Pct Auto 0.5 % (0.0-0.5); Lymphocytes Percent Auto 12.9 % (20.5-60.0); Mean Corpuscular HGB Conc 33.5 g/dL (29.9-35.2); Mean Corpuscular Hemoglobin 28.6 pg (25.9-34.0); Mean Corpuscular Volume 85.4 fL (80.0-94.0); Mean Platelet Volume 9.7 fL (9.5-13.5); Monocytes Percent Auto 6.3 % (1.7-12.0); Neutrophils Absolute Auto 12.3 10^3/uL (1.4-6.5); Neutrophils Percent Auto 79.4 % (43.0-75.0); Platelet Count 271 10^3/uL (150-450); Red Blood Count 5.84 10^6/uL (4.70-6.10); Red Cell Distribution Width 14.5 % (11.0-15.0); White Blood Count 15.5 10^3/uL (4.0-11.0)
[2025-04-09 05:46] LABS: Alanine Aminotransferase 53 U/L (16-63); Albumin Level 3.5 g/dL (3.4-5.0); Alkaline Phosphatase 99 U/L (46-116); Anion Gap 17.9; Aspartate Amino Transferase 21 U/L (15-37); BUN Creatinine Ratio 31.5; Bilirubin Total 0.5 mg/dL (0.2-1.0); Calcium 9.4 mg/dL (8.5-10.1); Carbon Dioxide 24.8 mmol/L (21.0-32.0); Chloride 104 mmol/L (98-107); Estimated GFR (African America >60 (>=60 mL/min/1.73m^2); Estimated GFR (Non-African Ame >60 (>=60 mL/min/1.73m^2); Globulin 3.5 g/dL; Glucose 206 mg/dL (74-106); Magnesium 1.9 mg/dL (1.8-2.4); Potassium 4.7 mmol/L (3.5-5.1); Sodium 142 mmol/L (136-145)
[2025-04-09] MEDS: PANTOPRAZOLE SODIUM 40 MG VIAL IV (08:19)
[2025-04-09] MEDS: 0.9 % SODIUM CHLORIDE 1,000 ML 100 ML IV (08:20)
--- NOTE | 2025-04-09 09:00 | CM.NOTE ---
Rounds made with Dr. Azar, pt will transfer to [facility] for obstructive kidney stone. Attempted to call urology special education para professional, will not be able to see pt today (reason for transfer). Dr. Azar will reach out to [facility].
[2025-04-09] MEDS: CEFTRIAXONE 1,000 MG in 0.9 % SODIUM CHLORIDE 50 ML 100 MG IV (10:04)
--- NOTE | 2025-04-09 10:29 | PM.IMHP1 ---
Internal Medicine - H&P: HPI History of Present Illness Chief complaint: GI BLEED, A FIB W RVR, UPPER GI BLEED, Narrative: PLEASE be aware that I am seeing this pt as of today 04/09/2025, and he was accepted for admission by the overnight admitting team. This is a 75 y.o male with past medical hx of NPH, CAD, Dysphagia, CVA with left sided weakness, generalized weakness, atrial fibrillation, was brought in from [facility] for an episode of vomiting. Hx obtained from the ED staff, and pt's chart at the [place], very limited hx was obtained from the pt at bedside. As per the [place] papers, pt had an episode of emesis of small undigested food, followed by another episode of brown colored vomitus on another occasion. Pt is on Apixaban for Atrial fibrillation and is on plavix. Here in the ED, His CBC showed Hgb of 17.6 later today of 16.7, with negative occult blood and no further episodes of hematemesis, coffee ground emesis, or hematochezia or melena. He did have WBC count of 21.5 later today of 15.5. His INR was 1.02. CMP showed increased BUN, with normal creatinine. In the ED, pt was given IV push of pantoprazole 40 mg, and he was in afib with RVR, started on Cardizem drip later on became hypotensieve on cardizem. ED contacted cardiology textile conservator who recommended 1 dose of digoxin of 0.25 mcg. When I saw him he was in controlled rate. He was at baseline mental status Imaging in the ED, included a CT abdomen pelvis with IV contrast that showed: There is a 6 mm obstructing stone in the left renal collecting system. Multiple radiodense stones are noted in the left renal pelvis and proximal ureter measuring up to 1.2 cm in greatest dimension. Additional stones are noted dependently layering in the bladder. No bowel obstruction or obstructive uropathy. No mass or abnormal enhancement. Findings suggest hepatic steatosis. Pt was admitted under hospitalist service by the night team for further workup and management. Review of Systems ROS Status of ROS unobtainable due to medical condition and unobtainable due to mental status [facility] Medical History Cognitive communication deficit ?R41.841 - Cognitive communication deficit (ICD-10) Hemiplegia and hemiparesis following cerebral infarction affecting right dominant side ?I69.351 - Hemiplegia and hemiparesis following cerebral infarction affecting right dominant side (ICD-10) Anxiety ?F41.9 - Anxiety disorder, unspecified (ICD-10) Bipolar disorder ?F31.9 - Bipolar disorder, unspecified (ICD-10) (Idiopathic) normal pressure hydrocephalus ?G91.2 - (Idiopathic) normal pressure hydrocephalus (ICD-10) Ventricular tachycardia ?I47.20 - Ventricular tachycardia, unspecified (ICD-10) Type 2 diabetes mellitus ?E11.9 - Type 2 diabetes mellitus without complications (ICD-10) Dysphagia ?R13.10 - Dysphagia, unspecified (ICD-10) Afib ?I48.91 - Unspecified atrial fibrillation (ICD-10) Social History Little interest or pleasure in doing things: not at all Feeling down, depressed, or hopeless: not at all Meds Home Medications and Allergies Home Medications ?Medication ?Instructions ?Recorded ?Confirmed ?Type apixaban 5 mg tablet (Eliquis) 5 mg PO Q12H 04/08/25 04/09/25 History atorvastatin 40 mg tablet 40 mg PO .night 04/08/25 04/09/25 History buspirone 7.5 mg tablet 7.5 mg PO BID 04/08/25 04/09/25 History clopidogrel 75 mg tablet 75 mg PO DAILY 04/08/25 04/09/25 History dapagliflozin propanediol 10 mg 10 mg PO DAILY 04/08/25 04/09/25 History tablet (Farxiga) diltiazem HCl 120 mg tablet 120 mg PO BID 04/08/25 04/09/25 History insulin aspart U-100 100 unit/mL 1 sliding scale dose subcut ACHS 04/08/25 04/09/25 History subcutaneous solution metformin 500 mg tablet 500 mg PO BID 04/08/25 04/09/25 History tirzepatide 2.5 mg/0.5 mL 2.5 mg subcut .every sat04/08/25 04/09/25 History subcutaneous pen injector (Griselda) acetaminophen 500 mg tablet 1,000 mg PO BID PRN pain 04/09/25 04/09/25 History (Acetaminophen Extra Strength) cholecalciferol (vitamin D3) 25 2,000 unit PO BID 04/09/25 04/09/25 History mcg (1,000 unit) tablet docusate sodium 100 mg capsule 100 mg PO BID PRN constipation 04/09/25 04/09/25 History (Colace) docusate sodium 100 mg capsule 100 mg PO DAILY 04/09/25 04/09/25 History (Colace) loperamide 2 mg capsule 4 mg PO Q6H PRN loose stool 04/09/25 04/09/25 History (Anti-Diarrheal (loperamide)) magnesium hydroxide 400 mg/5 mL 30 ml PO DAILY PRN constipation 04/09/25 04/09/25 History oral suspension (Milk of Magnesia) melatonin 3 mg capsule 3 mg PO HS PRN sleep 04/09/25 04/09/25 History ondansetron HCl 4 mg tablet 4 mg PO Q6H PRN nausea and vomiting 04/09/25 04/09/25 History polyethylene glycol 3350 17 gram 17 g PO DAILY PRN constipation 04/09/25 04/09/25 History oral powder packet (Miralax) sennosides 8.6 mg-docusate sodium 2 tab-cap PO DAILY PRN constipation 04/09/25 04/09/25 History 50 mg tablet (Docuzen) Allergies Allergy/AdvReac Type Severity Reaction Status Date / Time No Known Drug Allergies Allergy Verified 04/08/25 21:07 Exam Narrative Exam Narrative: General: Frail elderly male, confused, oriented x2 which is his baseline, following commands, ill appearing Eye: PERRL, EOMI, normal conjunctiva. HENT: Normocephalic, normal hearing, moist oral mucosa, no scleral icterus, no sinus tenderness Neck: Supple, non-tender, no carotid bruits, no JVD, no lymphadenopathy. Lungs: Clear to auscultation and percussion, non-labored respiration. No rhonchi, rales, wheezing Heart: Normal rate and irregular rhythm, no murmur, gallop or edema. Abdomen: Soft, non-tender, non-distended, normal bowel sounds, no masses. Musculoskeletal: Normal range of motion and strength, no tenderness or swelling. Skin: Skin is dry with poor capillary refill and decreased skin turgor Neurologic: Awake, alert, and oriented X3, CN II-XII intact. Constitutional Vital Signs, click to edit/add: Last Vital Signs Temp 96.8 F L 04/09/25 08:22 Pulse 73 04/09/25 10:00 Resp 14 04/09/25 08:22 BP 116/73 04/09/25 08:22 Pulse Ox 93 L 04/09/25 08:22 O2 Del Method Room Air 04/09/25 08:22 O2 Flow Rate 2 04/08/25 21:25 Internal Medicine - H&P: Reslt Labs Labs: Short CBC 04/08/25 04/09/25 Range/Units 21:10 04:54 WBC 21.5 H 15.5 H (4.0-11.0) 10^3/uL Hgb 17.6 16.7 (14.0-18.0) g/dL Hct 52.3 49.9 (42.0-54.0) % Plt Count 354 271 (150-450) 10^3/uL BMP 04/08/25 04/09/25 21:10 04:54 Sodium 140 142 Potassium 4.5 4.7 Chloride 102 104 Carbon Dioxide 22.9 24.8 BUN 30.0 H 34.0 H Creatinine 1.01 1.08 Glucose 263 H 206 H Calcium 10.0 9.4 Liver Function 04/08/25 04/09/25 Range/Units 21:10 04:54 Total Bilirubin 0.7 0.5 (0.2-1.0) mg/dL AST 32 21 (15-37) U/L ALT 56 53 (16-63) U/L Alkaline Phosphatase 116 99 (46-116) U/L Albumin 3.9 3.5 (3.4-5.0) g/dL Urine 04/08/25 Range/Units 23:23 Urine Color Yellow (YELLOW) Urine Clarity Clear (CLEAR) Urine pH 5.5 (5.0-9.0) Ur Specific [place] 1.020 (1.005-1.025) Urine Protein 100 A (NEG/TRACE) mg/dL Urine Glucose (UA) >=1000 A (NEGATIVE) mg/dL Urinary Catheter Management Urinary Catheter Management Straight: Cath placed during this visit: yes Urethral indwelling: No Insertion date: 04/08/25 Insertion time: 23:20 Assessment and Plan Assessment and Plan (1) Atrial fibrillation with rapid ventricular response: (2) Sepsis: (3) Hydronephrosis with obstructing calculus: Plan Episode of Emesis and Vomiting, Likely in the setting of Obstructive Renal Colic Sepsis in the setting of developing pyelonephritis secondary to obstructive renal colic? Afib with RVR in the setting of the above GI bleed is unlikely given pt's stable Hgb and no clear coffee ground emesis from hx or while here in the ED and on the floor -Pt was already admitted by night team -Unfortunately, We do not have Urology service, So I already contacted [facility] at 10-:10 am to initiate transfer to hospitalist team, with urology consult there, awaiting call back from hospitalist -For the time being, Started IV Zosyn (I gave him a dose of Ceftriaxone earlier but I will broaden up his coverage) -Obtain Blood cultures -Keep pt on telemetry -I will obtain CT head without contrast, if negative for any bleed, I will restart pt's anticoagulation -I reviewed pt's code status, as per [place] it's DNRCCA Without intubation which I will update the chart with those advance directives -I tried to call pt's sister, Nichelle, over the phone, to update her on the pt's plan of management and plan for transfer, I was directed to Voicemail
--- NOTE | 2025-04-09 10:49 | CT_ITS ---
The [place] [id number] Patient Name: LISSETT VU MRN: [id number] date: 1950 Sex: M Assigned Patient Location: [place] Current Patient Location: [place] Accession/Order Number: [id number] Exam Date: 04/09/2025 11:33 Report Date: 04/09/2025 11:42 At the request of: STEPHENIE RHOADES MD Procedure: CT head/brain wo con CT BRAIN WITHOUT CONTRAST: CLINICAL HISTORY: altered mental status COMPARISON: None TECHNIQUE: Contiguous axial unenhanced images were obtained through the brain. This CT exam was performed using one or more following dose reduction techniques: Automated exposure control, adjustment of the mA and/or kV according to patient size, or use of iterative reconstruction technique. FINDINGS: There is mild atrophy, greatest in the region of the sylvian fissures and also along the superior aspect of the right cerebellum. The ventricles are slightly prominent, greater on the left. The ventricles are normal in position. Periventricular and subcortical small vessel ischemic changes are noted. There are no additional areas of abnormal attenuation. There is no hemorrhage, mass effect or extra-axial collections. The imaged paranasal sinuses are clear. A few opacified inferior right mastoid air cells are seen. There is vertebral artery and carotid siphon plaque. CT/CT head/brain wo con IMPRESSION: ATROPHY AND CHRONIC MICROVASCULAR CHANGES. MILD VENTRICULOMEGALY. NO OTHER ACUTE FINDINGS. Impression dictated by: Belem Adan M.D. 04/09/2025 11:42 AM Dictation Location: [place] [address] Electronically authenticated by: [id number] Y Date: 04/09/2025 11:42
--- NOTE | 2025-04-09 10:52 | CM.NOTE ---
Attempted to contact pt's POA message left with [employer]. Also attempted to contact pt's sister Nichelle. Called [facility] for update of pt's transfer.
[2025-04-09 11:32] LABS: Lactate/Lactic Acid 1.4 mmol/L (0.4-2.0)
--- NOTE | 2025-04-09 13:48 | XR_ITS ---
The [address] [address] Patient Name: LISSETT VU MRN: [id number] date: 1950 Sex: M Assigned Patient Location: MS Current Patient Location: MS Accession/Order Number: [id number] Exam Date: 04/09/2025 14:24 Report Date: 04/09/2025 14:24 At the request of: STEPHENIE RHOADES MD Procedure: XR chest 2V Chest 2 views CLINICAL HISTORY: sepsis COMPARISON: None FINDINGS: Sternotomy wires are noted. Heart is normal in size. No lung consolidation pneumothorax pleural effusion or free air. XR/XR chest 2V IMPRESSION: NO ACUTE CARDIOPULMONARY ABNORMALITY. Impression dictated by: Philip Galindo Jr., D.ORaiza 04/09/2025 2:24 PM Dictation Location: [place] [address] Electronically authenticated by: [id number] Y Date: 04/09/2025 14:24
[2025-04-09] MEDS: PIPERACILLIN SODIUM/TAZOBACTAM 3.375 GM in 0.9 % SODIUM CHLORIDE 50 ML IV (15:55)
[2025-04-09 16:40] LABS: Glucometer 141 mg/dL (74-106)
--- NOTE | 2025-04-09 23:40 | PC.NURSE ---
Attempted to call report to [phone] multiple times. Phone just continued to ring with no answer.
== END 2025-04-09 20:31 | disposition short-term general hospital (02) | DRG 872 ==
LOC: ER 21:52 → MS 04-09 02:20
PROVIDERS: Registered Nurse; Admitting Provider Student in an Organized Health Care Education/Training Program; Emergency Provider Emergency Medicine; PCP Family Medicine; Visit Provider Student in an Organized Health Care Education/Training Program
DX: A41.9 Sepsis, unspecified organism (principal); N13.6 Pyonephrosis; I69.354 Hemiplegia and hemiparesis following cerebral infarction affecting left non-dominant side; I48.91 Unspecified atrial fibrillation; F31.9 Bipolar disorder, unspecified; Z79.01 Long term (current) use of anticoagulants; R41.841 Cognitive communication deficit; Z79.02 Long term (current) use of antithrombotics/antiplatelets; E11.9 Type 2 diabetes mellitus without complications; Z79.85 Long-term (current) use of injectable non-insulin antidiabetic drugs; Z79.84 Long term (current) use of oral hypoglycemic drugs; I25.10 Atherosclerotic heart disease of native coronary artery without angina pectoris; R13.10 Dysphagia, unspecified; Z79.899 Other long term (current) drug therapy; Z66 Do not resuscitate
CPT/HCPCS: 36415; 70450; 71046; 74177; 80053; 81001; 82948; 83605; 83690; 83735; 84484; 85025; 85610; 86140; 86850; 86900; 86901; 87040; 93005; 94668; 94761; 96365; 96375; 96376; 99285; G0328; J0696; J1160; J2405; J2543; Q9967